=== PATIENT | male | born 1960 | race Caucasian/White ===

== ENCOUNTER 2022-07-13 15:08 | Inpatient (IN) ==
[2022-07-13] MEDS ORDERED: Heparin IV Adult Wt-Based Standard WITH Bolus Protocol IV STA (15:34)
[2022-07-13] MEDS ORDERED: HEPARIN SOD (PORCINE) 1000 UNIT/ML IV ONE (15:50)
[2022-07-13 15:53] LABS: Basophils # (auto) 0.03 K/uL (0-0.2); Basophils % (auto) 0.3 %; Eosinophils # (auto) 0.12 K/uL (0-0.50); Eosinophils % (auto) 1.3 %; Hematocrit (blood only) 35.8 % (40.1-51.0); Hemoglobin 12.2 g/dl (14.0-18.0); Immature Granulocytes # (auto) 0.05 K/uL (0.00-0.02); Immature Granulocytes % (auto) 0.5 %; Lymphocytes # (auto) 1.84 K/uL (1.2-3.4); Lymphocytes % (auto) 20.1 %; Mean Corpuscular Hemoglobin 31.1 pg (25.0-34.0); Mean Corpuscular Hgb Conc 34.1 g/dL (32.0-36.0); Mean Corpuscular Volume 91.3 fL (80.0-100.0); Mean Platelet Volume 9.7 fL (9.4-12.4); Monocytes # (auto) 0.98 K/uL (0.24-0.82); Monocytes % (auto) 10.7 %; Neutrophils # (auto) 6.12 K/uL (1.4-6.5); Neutrophils % (auto) 67.1 %; Platelet Count 345 K/uL (130-400); RDW Coefficient of Variation 13.5 % (11.5-14.5); RDW Standard Deviation 45.6 fL (36.4-46.3); Red Blood Count 3.92 M/uL (4.63-6.08); White Blood Count 9.14 K/ul (4.8-10.8)
--- NOTE | 2022-07-13 16:00 | History & Physical Report ---
Date of Service July 13, 2022 Assessment & Plan (1) Pulmonary embolism: (2) Low back pain: (3) Lung mass: (4) GERD (gastroesophageal reflux disease): Plan 61 y/o presenting with back pain: Lumbar spine CT. Chest CTA irregular 3.7 x 2.8 x 1.4 RUL mass; along with RUL mass measuring 3.4 x 2.6 . Multiple ground glass RUL nodules identified. Several segmental/subsegmental PEs in the right lung. Patient was started on heparin gtt; Lower extremity Doppler pending, ECHO ordered and pending. Pulmonary consult, H/O consult. Pain control with Tramadol. BMP pending. Pulmonary Embolism: Lung Mass: Several segmental/subsegmental PEs in right lung Irregular right upper lobe mass 3.7 x 2.8 x 1.4 Irregular right upper lobe mass measuring 3.4 x 2.6 Groundglass right upper lobe nodules; Heparin drip started in ED 1 PPD smoker x40 years; quit Lower extremity Doppler pending Echo ordered and pending Pulmonary consult placed for PE, biopsy evaluation. Will place heme/onc consult while await biospy for continuity of care as it is likely established care will be necessary. Low Back Pain: Recently prescribed Tramadol on Sunday 50 mg PO BID PRN; does provide pt with relief. On [address] negative for fracture; degenerative changes noted GERD: Barretts Esophagus: Stable; takes omeprazole; continue Disposition: PCP: Dr. Pruitt VTE Prophlayxis: Heparin gtt Code Status: Full Code Next of kin: ; Nettie who was updated at bedside. I personally was able to review all current laboratory work and diagnostic images obtained in the ED. Additionally, I was able to review the patients past medication reconciliation and history with direct visualization in the patients chart. This patient was seen in collaboration with Dr. Cornelius. History of Present Illness Chief Complaint: back pain Primary Care Provider: Danilo Vazquez MD On Sunday, the patient stated that he started to have back that radiated into his chest. He describes it as n intermittent muscle aching pain, not stabbing. The patient came into the ED, started on Tramadol. Lumbar spine CT unremarkable aside from degenerative changes. Chest CTA multiple irregular RUL masses: 3.7 x 2.8 x 1.4 and another measuring 3.4 x 2.6 . Additionally multiple groundglass right upper lobe nodules were identified. Pt reports mother and father both are and both had lung cancer. Pt brother also recently from throat cancer. Quit smoking cigarettes 10 years ago, but still chews tobacco daily. Pt denies alcohol or recreational drug use. He reports not consistently follow up with PCP. 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 Pt is not on any anticoagulants at home. ROS: Patient denies DÍAZ, dizziness, blurry or double vision, N/V/D. He does reports that he has been coughing (non-productive) and sneezing. He reported that when he would sneeze and talk a lot the pain worsened. No position alleviates the pain; however, Tramadol does help. On exam the patient is sitting in his hospital bed awake alert oriented x4 in no apparent distress. Patient is able to answer all questions appropriately and in a meaningful way. Patient's Yancy is at bedside and all questions answered. Patient receptive to admission overnight for further evaluation and management with specialist consultation from pulmonary and heme-onc. Please see A/P for further details. Allergies Allergy/AdvReac Type Severity Reaction Status Date / Time No Known Allergies Allergy NONE Verified 07/13/22 16:06 Home Medications Medication Instructions Recorded Confirmed Type multivitamin 1 tab PO DAILY 06/05/18 07/13/22 History omeprazole 40 mg capsule,delayed 40 mg PO QAM 07/10/22 07/13/22 History release tramadol 50 mg tablet 50 mg PO Q8H PRN pain #14 tabs 07/10/22 07/13/22 Rx apixaban 5 mg tablet (Eliquis) 5 mg PO DIRECTED #74 tabs 07/14/22 Rx Past Med/Surg History Medical History GERD (gastroesophageal reflux disease) GERD (gastroesophageal reflux disease) Pulmonary embolism Family History (Updated 07/13/22 @ 16:43 by KIKO Gamboa) Mother , Mom at 65 y/o Cancer lung cancer Diabetes Lung cancer Father , Dad passed at at 53 y/o Cancer lung cancer Diabetes Lung cancer Brother , at 65 y/o Cancer throat cancer Other No pertinent family history Denies family history of Heart disease Kidney disease Pulmonary embolism Social History Smoking Status: Former smoker Smoking End Date: 2001; Do You Dip or Chew Tobacco: Yes; Hx Alcohol Use: No Hx Substance Use: No Preferred Language: Puerto Rican Communication Ability: Effective 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 Beliefs That Will Affect Care: None Current Living Situation: Spouse Current Living Situation Comment: And wifes mother Other Information That Helps Us Care for You: No Feels Safe at Home: Yes Safety Concerns: Feels Safe At This Time Assistive Devices: Glasses Review of Systems Review of Systems: Neuro: (-) Falls, trauma, slurred speech HEENT: (-) DÍAZ, dizziness, dysphagia, visual or auditory changes CV: (-) CP, palpitations, swelling (+) musculoskeletal pain Resp: (-) SOB GI: (-) appetite changes, N/V/D, bowel changes : (-) urinary changes Skin: (-) rashes Psych: (-) anxiety, depression Physical Exam Physical Exam: Please see Dr. Cornelius's addendum for physical exam Results & Data Results & Data ([facility]) Vital Signs (Past 12 Hours) Vital Signs Temp Pulse Resp BP Pulse Ox O2 Del Method 07/13/22 15:16 37.5 C 84 18 147/77 H 97 Room Air Laboratory Results Short CBC 07/13/22 Range/Units 13:27 WBC 9.14 (4.8-10.8) K/ul Hgb 12.2 L (14.0-18.0) g/dl Hct 35.8 L (40.1-51.0) % Plt Count 345 (130-400) K/uL Diagnostic Findings Code Status & VTE Plan Code Status Full code in the event of cardiac or respiratory arrest VTE Prophylaxis Plan VTE Prophylaxis will be ordered: Yes Supervising Physician Co-Signing Physician Notes 61-year-old gentleman with significant family history of cancer presented to the ED with back pain and upon imaging was found to have likely metastatic disease. Patient was otherwise vitally stable and was reporting improvement in his back pain with tramadol. Oncology and pulmonology consulted. Pain management. Continue to monitor. Patient and his were made aware of the imaging findings and possible plan of care. Patient was also found to have blood clot and started on heparin drip. Upon examination: GENERAL: Alert and oriented x3. NAD, on RA. HEENT: No pallor, no icterus. Pupils equal, round and reactive to light. Oral mucosa moist. NECK: No JVD, no neck masses. HEART: S1 and S2 heard. Regular rate and rhythm. No murmur, no gallop. RESPIRATORY SYSTEM: Normal AP diameter. No accessory muscle use. No wheezing, no crackles. ABDOMEN: Soft, bowel sounds present, nontender, no distention. CENTRAL NERVOUS SYSTEM: No facial droop. Speech is clear. Obeys simple commands. Moves extremities. EXTREMITIES: No edema, no erythema seen. No vertebral line tenderness. I have seen and examined the patient and have discussed the case with the provider above. I agree with the assessment and plan as stated.
[2022-07-13 16:06] LABS: Partial Thromboplastin Time 28.6 Seconds (21.0-31.0); Prothrombin Time 10.5 Seconds (9.0-12.0)
[2022-07-13] MEDS: HEPARIN SODIUM/DEXTROSE 25,000 UNITS/500 ML BAG IV SCH (16:09)
[2022-07-13] MEDS: SODIUM CHLORIDE 0.9% 1000ML 1,000 ML IV SCH ×2 (16:14→23:41)
[2022-07-13 16:20] LABS: Albumin Globulin Ratio 1.3 (0.9-2); Albumin Level 4.1 gm/dl (3.4-5.0); BUN Creatinine Ratio 20.8 (10-20); Bilirubin,Total 1.1 mg/dl (0.2-1.0); Creatinine Clr Calc Pharmacy 82.8 ml/min; Est GFR (African American) 114.3 ml/min; Est GFR (Non-African American) 98.6 ml/min; Globulin 3.1 gm/dl (2.5-4.0); Potassium 3.4 mmol/L (3.5-5.1); Total Protein 7.2 gm/dl (6.0-8.3)
--- NOTE | 2022-07-13 16:23 | Emergency Department Note ---
History of Present Illness General Chief complaint: Referred by Doctor Stated complaint: REFERRED BY , BLOOD CLOTS IN LUNG Time Seen by Provider: 07/13/22 15:23 Source: patient and family Mode of arrival: ambulatory Limitations: no limitations History of Present Illness Provider complaint: called back due to abnormal CT Maximum Pain Intensity: 7 This is a 61-year-old male who was seen here several nights ago due to concern for back pain and right shoulder and right chest pain. Patient ultimately discharged home to follow-up closely with his family doctor. Upon obtaining the over read by in-house radiology in the morning, it was noted that on the CAT scan of his chest he did have multiple bilateral PEs. Attempts were made immediately upon learning this to contact the patient. We have been trying to contact him for several days and eventually with the help of his PCP were able to contact him and requested him to come back to the emergency department for additional evaluation. Patient presents today stating he still has back pain however the shoulder and chest pain has improved. He has been using the pain medication he was discharged on intermittently. He denies fevers, chills, nausea, vomiting. He denies any overt shortness of breath or leg swelling. We discussed use of anticoagulation and the need of additional testing. Home Medications Medication Instructions Recorded Confirmed Type multivitamin 1 tab PO DAILY 06/05/18 07/13/22 History omeprazole 40 mg capsule,delayed 40 mg PO QAM 07/10/22 07/13/22 History release tramadol 50 mg tablet 50 mg PO Q8H PRN pain #14 tabs 07/10/22 07/13/22 Rx Allergies Allergy/AdvReac Type Severity Reaction Status Date / Time No Known Allergies Allergy NONE Verified 07/13/22 16:06 Past Med/Surg History Medical History GERD (gastroesophageal reflux disease) GERD (gastroesophageal reflux disease) Pulmonary embolism Family History (Updated 07/13/22 @ 16:43 by KIKO Gamboa) Mother , Mom at 65 y/o Cancer lung cancer Diabetes Lung cancer Father , Dad passed at at 53 y/o Cancer lung cancer Diabetes Lung cancer Brother , at 65 y/o Cancer throat cancer Other No pertinent family history Denies family history of Heart disease Kidney disease Pulmonary embolism Social History Smoking Status: Former smoker Smoking End Date: 2001; Do You Dip or Chew Tobacco: Yes; Hx Alcohol Use: No Hx Substance Use: No Feels Safe at Home: Yes Review of Systems A total of 10 systems reviewed and were otherwise negative All systems reviewed & are unremarkable except as noted in HPI & below Physical Exam Vital Signs Vital Signs - 24 hr 07/13/22 15:16 07/13/22 16:00 Temperature 37.5 C Temperature Source Temporal Artery Scan Pulse Rate 84 69 Respiratory Rate 18 22 Respiratory Effort / Characteristics Non-Labored Respiratory Depth Normal Blood Pressure 147/77 H 130/73 Blood Pressure Mean 100 92 Pulse Oximetry 97 96 Oxygen Delivery Method Room Air Sepsis Recent Fever Within 48 Hours No Sepsis New/Unexplained Change in Mental Status No Sepsis Action Taken by Nursing No Action Required GENERAL: alert, well appearing, well nourished, no distress, non-toxic EYE EXAM: normal conjunctiva, PERRL and EOM's grossly intact OROPHARYNX: no exudate, no erythema, lips, buccal mucosa, and tongue normal and mucous membranes are moist NECK: supple, no nuchal rigidity, no adenopathy, non-tender LUNGS: Clear to auscultation. Normal chest wall mechanics, no w/r/r HEART: no murmurs, S1 normal and S2 normal ABDOMEN: abdomen soft, non-tender, normo-active bowel sounds, no masses, no rebound or guarding. BACK: Back is symmetrical on inspection and there is no deformity, no CVA tenderness. Pain with palpation across the entire low back, right greater than left. SKIN: no rashes and no bruising UPPER EXTREMITIES: upper extremities are grossly normal. FROM, nml pulses b/l. LOWER EXTREMITIES: No pitting edema. FROM, nml pulses b/l. NEURO EXAM: Normal sensorium, cranial nerves II-XII grossly intact, normal speech, no gross weakness of arms, no gross weakness of legs. Gross sensation intact. Course Administered Medications Sodium Chloride (Nss 1000ml) 1,000 mls @ 125 mls/hr IV .Q8H ROXANA Stop: 08/12/22 15:44 Last Admin: 07/13/22 16:14 Dose: 125 mls/hr Documented By: MT Heparin Sodium/Dextrose (Heparin Sodium/Dextrose) 25,000 units in 500 mls @ 21 mls/hr IV .[id number] [facility]; Protocol Stop: 08/12/22 15:59 Last Admin: 07/13/22 16:09 Dose: 1,050 units/hr, 21 mls/hr Documented By: NEHA Co-signed By: SWATI Discontinued Medications Heparin Sodium (Porcine) (Heparin Sod (Porcine) 1000 Unit/Ml) 1 units IV NOW ONE Stop: 07/13/22 15:51 Last Admin: 07/13/22 16:10 Dose: 5,000 units Documented By: NEHA Co-signed By: SWATI Critical Care Time Critical Care Time: Yes Total Critical Care Time: 35 Critical care of 35 min performed to assess and manage high likelihood of life- threatening bilateral PEs, involving labs and imaging performed with assessment to evaluate b/l PE diagnosis with frequent reassessment. This time includes bedside time, treatment discussions with patient/family/consultants, d ocumentation time and excludes procedure time. Medical Decision Making Differential Diagnosis Differential diagnoses includes but is not limited to pathologic fracture, metastatic disease, lumbar radiculopathy, muscle strain, facture, cauda equina, mass, and disc herniation. Medical Records Attestation: I reviewed the patient's medical records. Home Medications Current Medication List: was personally reviewed by me Laboratory Data Attestation: I reviewed the patient's lab results. Result diagrams: 07/13/22 13:27 07/13/22 13:27 Lab Results 07/13/22 07/13/22 07/13/22 Range/Units 13:27 13:27 13:27 WBC 9.14 (4.8-10.8) K/ul RBC 3.92 L (4.63-6.08) M/uL Hgb 12.2 L (14.0-18.0) g/dl Hct 35.8 L (40.1-51.0) % MCV 91.3 (80.0-100.0) fL MCH 31.1 (25.0-34.0) pg MCHC 34.1 (32.0-36.0) g/dL RDW Std Deviation 45.6 (36.4-46.3) fL RDW Coeff of Sheeba 13.5 (11.5-14.5) % Plt Count 345 (130-400) K/uL MPV 9.7 (9.4-12.4) fL Immature Gran % (Auto) 0.5 % Neut % (Auto) 67.1 % Lymph % (Auto) 20.1 % Plumas % (Auto) 10.7 % Eos % (Auto) 1.3 % Baso % (Auto) 0.3 % Neut # (Auto) 6.12 (1.4-6.5) K/uL Lymph # (Auto) 1.84 (1.2-3.4) K/uL Plumas # (Auto) 0.98 H (0.24-0.82) K/uL Eos # (Auto) 0.12 (0-0.50) K/uL Baso # (Auto) 0.03 (0-0.2) K/uL Immature Gran # (Auto) 0.05 H (0.00-0.02) K/uL PT 10.5 (9.0-12.0) Seconds INR 1.0 (0.9-1.1) APTT 28.6 (21.0-31.0) Seconds PTT Ratio 1.0 Sodium 137 (136-145) mmol/L Potassium 3.4 L (3.5-5.1) mmol/L Chloride 102 (98-107) mmol/L Carbon Dioxide 26 (21-32) mmol/L Anion Gap 9 (3-11) BUN 16 (6-23) mg/dl Creatinine 0.77 (0.6-1.4) mg/dl Est Cr Clr Drug Dosing 82.8 ml/min Est GFR ( Amer) 114.3 ml/min Est GFR (Non-Af Amer) 98.6 ml/min BUN/Creatinine Ratio 20.8 H (10-20) Glucose 95 (70-99(Fasting)) mg/dl Calcium 9.0 (8.5-10.1) mg/dl Magnesium 2.0 (1.7-2.4) mg/dl Total Bilirubin 1.1 H (0.2-1.0) mg/dl AST 24 (13-39) U/L ALT 22 (7-52) U/L Alkaline Phosphatase 68 (34-104) U/L Troponin I High Sens 4.6 (0-20) pg/ml Total Protein 7.2 (6.0-8.3) gm/dl Albumin 4.1 (3.4-5.0) gm/dl Globulin 3.1 (2.5-4.0) gm/dl Albumin/Globulin Ratio 1.3 (0.9-2) Lipase 7 L (11-82) U/L SARS-CoV-2, RNA, NAAT (NEGATIVE) 07/13/22 Range/Units 16:20 WBC (4.8-10.8) K/ul RBC (4.63-6.08) M/uL Hgb (14.0-18.0) g/dl Hct (40.1-51.0) % MCV (80.0-100.0) fL MCH (25.0-34.0) pg MCHC (32.0-36.0) g/dL RDW Std Deviation (36.4-46.3) fL RDW Coeff of Sheeba (11.5-14.5) % Plt Count (130-400) K/uL MPV (9.4-12.4) fL Immature Gran % (Auto) % Neut % (Auto) % Lymph % (Auto) % Plumas % (Auto) % Eos % (Auto) % Baso % (Auto) % Neut # (Auto) (1.4-6.5) K/uL Lymph # (Auto) (1.2-3.4) K/uL Plumas # (Auto) (0.24-0.82) K/uL Eos # (Auto) (0-0.50) K/uL Baso # (Auto) (0-0.2) K/uL Immature Gran # (Auto) (0.00-0.02) K/uL PT (9.0-12.0) Seconds INR (0.9-1.1) APTT (21.0-31.0) Seconds PTT Ratio Sodium (136-145) mmol/L Potassium (3.5-5.1) mmol/L Chloride (98-107) mmol/L Carbon Dioxide (21-32) mmol/L Anion Gap (3-11) BUN (6-23) mg/dl Creatinine (0.6-1.4) mg/dl Est Cr Clr Drug Dosing ml/min Est GFR ( Amer) ml/min Est GFR (Non-Af Amer) ml/min BUN/Creatinine Ratio (10-20) Glucose (70-99(Fasting)) mg/dl Calcium (8.5-10.1) mg/dl Magnesium (1.7-2.4) mg/dl Total Bilirubin (0.2-1.0) mg/dl AST (13-39) U/L ALT (7-52) U/L Alkaline Phosphatase (34-104) U/L Troponin I High Sens (0-20) pg/ml Total Protein (6.0-8.3) gm/dl Albumin (3.4-5.0) gm/dl Globulin (2.5-4.0) gm/dl Albumin/Globulin Ratio (0.9-2) Lipase (11-82) U/L SARS-CoV-2, RNA, NAAT NEGATIVE (NEGATIVE) Imaging Data Radiologist's Impression: Venous Doppler Study 07/13/22 15:35 US venous doppler LE BI CLINICAL HISTORY: PE's on CT TECHNIQUE: Bilateral lower extremity real-time compression venous ultrasound with Color Doppler imaging. Utilizing real-time ultrasonic imaging multiple real time high-resolution ultrasonic images with compression and noncompression maneuvers of the deep venous system in addition to color doppler imaging were performed from the common femoral vein through the proximal calf veins. COMPARISON: None available at the time of this dictation. FINDINGS: Currently there is normal compressibility of the deep venous system from the common femoral vein through the proximal calf veins. No superficial venous thrombosis is identified. Impression: No evidence of deep venous thrombus. ACT 112: Negative or not required by law. Electronically signed by: Jerome Lacey M.D. 07/13/2022 5:28 PM ECG Data Attestation: I personally reviewed and interpreted this ECG as follows: Indication: + other Rate (beats per minute): 70 Rhythm: + normal sinus ECG Intervals/blocks: + Normal QRS and + Normal QT ECG Kegley: + Normal ECG ST segments: + Normal ST segments MDM Narrative An order was placed for continuous cardiac monitoring. The monitor shows a rate of _72_ with _normal sinus_ rhythm. This is a 61-year-old male who returns to the emergency room after being contacted due to a radiology discrepancy from his initial visit earlier in the week. Patient found to have multiple bilateral PEs on radiology overread after being discharged home following his first visit. Patient also noted to have a spiculated mass in the right upper lobe which I spent significant time discussing this with him and family and the importance of close follow-up. Patient returns stating his pain was improved and he was using the pain medication he was discharged on. He denies shortness of breath, fevers, or leg swelling. We discussed the additional radiographic information that was now available and the need for additional inpatient management. Repeat labs drawn and sent, heparin bolus and drip was ordered, lower extremity Dopplers added. Case discussed with hospitalist for additional evaluation and management. Impression & Plan Low back pain, Chest pain, Lung mass, Pulmonary embolism Discharge Plan Visit Data Chief Complaint: Referred by Doctor Stated Complaint: REFERRED BY , BLOOD CLOTS IN LUNG ED Provider: Fernanda Mojica Discharge Problem: Low back pain, Chest pain, Lung mass, Pulmonary embolism Patient Disposition: Being Evaluated by Hospitalist Prescriptions Prescriptions: No Action multivitamin Tablet 1 tab PO DAILY omeprazole 40 mg capsule,delayed release(DR/EC) 40 mg PO QAM tramadol 50 mg tablet 50 mg PO Q8H PRN (Reason: pain) Qty: 14 0RF Referrals Referrals: Danilo Vazquez MD [Primary Care Provider] -
[2022-07-13 16:26] LABS: Troponin I High Sensitivity 4.6 pg/ml (0-20)
--- NOTE | 2022-07-13 17:29 | Ultrasound Report ---
US venous doppler LE BI CLINICAL HISTORY: PE's on CT TECHNIQUE: Bilateral lower extremity real-time compression venous ultrasound with Color Doppler imagi ng. Utilizing real-time ultrasonic imaging multiple real time high-resolution ultrasonic images with compression and noncompression maneuvers of the deep venous system in addition to color doppler imagi ng were performed from the common femoral vein through the proximal calf veins. COMPARISON: None available at the time of this dictation. FINDINGS: Currently there is normal compressibility of the deep venous system from the common femoral vein thro ugh the proximal calf veins. No superficial venous thrombosis is identified. Impression: No evidence of deep venous thrombus. ACT 112: Negative or not required by law. Electronically signed by: Jerome Lacey M.D. 07/13/2022 5:28 PM
[2022-07-13] MEDS ORDERED: POLYETHYLENE (MIRALAX) 17 GM PACK PO PRN (18:33)
[2022-07-13] MEDS ORDERED: MAGNESIUM HYDROXIDE SUSP 30 ML UDC PO PRN (18:33)
[2022-07-13] MEDS ORDERED: ACETAMINOPHEN 325 MG TAB PO PRN (18:33)
[2022-07-13] MEDS ORDERED: ONDANSETRON INJ 2 MG/ML 2 ML VIAL IV PRN (18:33)
[2022-07-13] MEDS ORDERED: ALUMINUM/MAGNESIUM SUSP 30 ML UDC PO PRN (18:33)
[2022-07-13] MEDS: traMADol HCL 50 MG TABLET PO PRN (19:51)
[2022-07-13 22:50] LABS: Partial Thromboplastin Ratio 1.5
[2022-07-14] MEDS: traMADol HCL 50 MG TABLET PO PRN ×2 (03:53→12:00)
[2022-07-14 06:24] LABS: Hematocrit (blood only) 35.2 % (40.1-51.0); Hemoglobin 11.7 g/dl (14.0-18.0); Mean Corpuscular Hemoglobin 30.6 pg (25.0-34.0); Mean Corpuscular Hgb Conc 33.2 g/dL (32.0-36.0); Mean Corpuscular Volume 92.1 fL (80.0-100.0); Platelet Count 297 K/uL (130-400); RDW Coefficient of Variation 13.6 % (11.5-14.5); RDW Standard Deviation 46.4 fL (36.4-46.3); Red Blood Count 3.82 M/uL (4.63-6.08); White Blood Count 7.88 K/ul (4.8-10.8)
[2022-07-14 06:36] LABS: Partial Thromboplastin Ratio 1.6; Partial Thromboplastin Time 44.2 Seconds (21.0-31.0)
[2022-07-14 06:51] LABS: BUN Creatinine Ratio 21.2 (10-20); Calcium 8.2 mg/dl (8.5-10.1); Creatinine Clr Calc Pharmacy 97.1 ml/min; Est GFR (African American) 121.8 ml/min; Est GFR (Non-African American) 105.1 ml/min; Magnesium 2.1 mg/dl (1.7-2.4); Potassium 3.5 mmol/L (3.5-5.1)
[2022-07-14] MEDS: SODIUM CHLORIDE 0.9% 1000ML 1,000 ML IV SCH (07:15)
[2022-07-14] MEDS ORDERED: Flu Vaccine (Fluarix) 0.5mL SYR (Standard Dose) IM ONE (08:00)
[2022-07-14] MEDS ORDERED: MULTIVITAMIN TAB PO SCH (09:00)
[2022-07-14] MEDS ORDERED: PANTOprazole 40 MG TAB PO SCH (09:00)
--- NOTE | 2022-07-14 09:04 | XRay Report ---
XR chest 1V portable HISTORY: 61 years-old Male PE . Acute shortness of breath COMPARISON: CTA chest 07/10/2022 TECHNIQUE: AP view of the chest FINDINGS: Cardiomediastinal and hilar silhouettes are within normal limits. No pneumothorax, large pleural effu minda or overt pulmonary edema. Suspicious 3.4 cm mass mass within the right upper lobe with 3.7 cm ri ght apical mass. Additional irregular pulmonary nodules with emphysema. And trace right pleural effus ion. Degenerative changes of the shoulders and spine. Lytic T11 lesion is better noted on the compari son CT study. Hazy ill-defined opacity of the medial right lung base may be secondary to summation de nsity. IMPRESSION: Emphysema with suspicious right lung masses and bilateral pulmonary nodules redemonstrate d, better characterized on the CTA chest study from 07/10/2022. ACT 112: Negative or not required by law. The above report was generated using voice recognition software. It may contain grammatical, syntax o r spelling errors. Electronically signed by: Jose Wilson M.D. 07/14/2022 9:03 AM
--- NOTE | 2022-07-14 09:25 | XRay Report ---
ORBIT RADIOGRAPHS 3 VIEWS HISTORY: pre-MRI screening. COMPARISON: None. FINDINGS: There are no radiopaque foreign bodies identified within the orbits. IMPRESSION: No radiopaque foreign bodies identified within the orbits. ACT 112: Negative or not required by law. Electronically signed by: [place] Abebe M.D. 07/14/2022 9:24 AM
[2022-07-14] MEDS ORDERED: GADOBUTROL 65ML VIAL IV ONE (09:54)
--- NOTE | 2022-07-14 10:21 | Magnetic Resonance Report ---
MR brain wo/w con CLINICAL HISTORY: staging, r/o mets TECHNIQUE: Multiplanar and multisequence MR images of the brain were obtained prior to and following administration of gadolinium contrast. Comparison: None available at the time of this dictation. FINDINGS: No abnormal restricted diffusion is identified. The white matter is unremarkable. The ventricular sys tem is normal in appearance. No mass or abnormal enhancement is seen. There is no mass effect or midl ine shift. There is no evidence of acute intraparenchymal hemorrhage. No extra axial fluid collection s are seen. The corpus callosum, pituitary gland, and cerebellar tonsils appear grossly unremarkable. Flow voids of the major intracranial arterial vessels are identified. The imaged portions of the para nasal sinuses, mastoid air cells, and orbits are unremarkable. IMPRESSION: No acute abnormality is seen in particular there is no evidence of intracranial metastasis. ACT 112: Negative or not required by law. Electronically signed by: Jerome Lacey M.D. 07/14/2022 10:19 AM
--- NOTE | 2022-07-14 10:38 | Electrocardiogram Report ---
Test Reason : Blood Pressure : / mmHG Vent. Rate : 070 BPM Atrial Rate : 070 BPM P-R Int : 146 ms QRS Dur : 092 ms QT Int : 398 ms P-R-T Axes : 070 048 065 degrees QTc Int : 429 ms Normal sinus rhythm Normal ECG When compared with ECG of 10-JUL-2022 18:28, No significant change was found Confirmed by Morris Huffman ([id number]) on 07/14/2022 10:37:54 AM Referred By: Danilo Vazquez Confirmed By:Fredo Huffman
--- NOTE | 2022-07-14 11:13 | Pulmonary Consultation ---
Date of Consultation July 14, 2022 Assessment & Plan (1) Pulmonary embolism: (2) Abnormal CT scan of lung: (3) Multiple pulmonary nodules: Plan Impression: 61-year-old male with family history of lung cancer and tobacco abuse admitted with idiopathic dynamically insignificant PEs and found to have bilateral pulmonary nodules with some mediastinal and hilar adenopathy. Pattern is concerning for potential malignancy. Recommendations: 1. Subacute/acute PE: Agree with anticoagulation. Echocardiogram shows no evidence of RV strain. Troponin was negative. Okay to transition to oral anticoagulants in the form of DOAC. Unclear if this is associated with malignancy. Duration of anticoagulation to be determined based on work-up of other medical issues. 2. Pulmonary nodules with adenopathy: There are no imagings for comparison. Patient has bilateral nodules. Malignant and inflammatory conditions would be in the differential. I would recommend proceeding with a PET scan which can only be performed in the outpatient setting. Based on that finding, could consider bronchoscopy with endobronchial ultrasound and transbronchial needle aspiration. Would plan on initially proceeding with assessment of mediastinal lymph node stations. If that were unremarkable, the lesions may be amenable to navigational bronchoscopy. Would need to biopsy 2 lesions to confirm pathology given its multifocal and bilateral appearance. Typically, try and avoid invasive procedures in patients with acute PE for several weeks to allow for stability. 3. At this point in time the patient appears stable to dismiss from the hospital. He is had MRI scanning of the brain which was unrevealing. If the PET scan can be arranged in the outpatient setting, I would be happy to see him back after that scan is completed in the pulmonary clinic to arrange for additional follow-up and management. The above recommendations and plan were extensively discussed with the patient at the time of evaluation. Questions were answered to the best my ability. He expressed understanding and is in agreement with the plan as outlined. Pulmonary will sign off at this point time. Feel free to contact us with additional questions or concerns. History of Present Illness Attending Physician: Aquiles Cornelius MD History of Present Illness Asked by hospitalist to assist in evaluation and management of this patient admitted with multiple pulmonary nodules and PE. History is obtained from discussion with the patient as well as review of the electronic medical record. Patient is a 61-year-old male who quit smoking about 6 or 7 years ago. Prior to that he has about a 67-98-xxyw-year history. He has a family history of lung cancer stating that both of his parents he believes were diagnosed with lung cancer although he is not able to elucidate any additional details. Unfortunately his parents are both . The patient presented to the emergency room for evaluation of back pain. He states this pain has been going on for over 3 weeks. His primary care is performed through [facility]. He is never seen a dock pumper before. He cannot recall having had prior CT scanning performed. Patient initially was seen in the emergency room 07/10/2022. CT angiogram at that time showed bilateral PEs however the patient was lost to follow-up for several days. He eventually was recontacted and brought back to the emergency room. He continued to have pain in the shoulder. He has not had any significant chest discomfort, syncope, or presyncope and has not noted any significant lower extremity edema. No hemoptysis. He cannot recall any prior history of thromboembolic disease and there is no family history of thrombosis, unexplained cardiac , or strokes that he is aware of. 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 He has dogs at home but no other animal exposures. No other occupational or environmental exposures. He denies fevers chills or night sweats. Allergies Allergy/AdvReac Type Severity Reaction Status Date / Time No Known Allergies Allergy NONE Verified 07/13/22 16:06 Home Medications Medication Instructions Recorded Confirmed Type multivitamin 1 tab PO DAILY 06/05/18 07/13/22 History omeprazole 40 mg capsule,delayed 40 mg PO QAM 07/10/22 07/13/22 History release tramadol 50 mg tablet 50 mg PO Q8H PRN pain #14 tabs 07/10/22 07/13/22 Rx apixaban 5 mg tablet (Eliquis) 5 mg PO DIRECTED #74 tabs 07/14/22 Rx Patient History Medical History GERD (gastroesophageal reflux disease) GERD (gastroesophageal reflux disease) Pulmonary embolism Family History (Updated 07/13/22 @ 16:43 by KIKO Gamboa) Mother , Mom at 65 y/o Cancer lung cancer Diabetes Lung cancer Father , Dad passed at at 53 y/o Cancer lung cancer Diabetes Lung cancer Brother , at 65 y/o Cancer throat cancer Other No pertinent family history Denies family history of Heart disease Kidney disease Pulmonary embolism Social History Smoking Status: Former smoker Smoking End Date: 2001; Do You Dip or Chew Tobacco: Yes; Hx Alcohol Use: No Hx Substance Use: No Preferred Language: Czech Communication Ability: Effective Agricultural 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 Required: No Beliefs That Will Affect Care: None Current Living Situation: Spouse Current Living Situation Comment: And wifes mother Other Information That Helps Us Care for You: No Feels Safe at Home: Yes Safety Concerns: Feels Safe At This Time Assistive Devices: Glasses Review of Systems Review of Systems: All systems reviewed & are unremarkable except as noted in Subjective Physical Exam Constitutional: WD/WN, vitals as above Neck: trachea midline, no thyromegaly Respiratory: normal respiratory effort, lungs clear to auscultation Cardiovascular: RRR, no murmur, no edema Gastrointestinal (Abdomen): normal bowel sounds, soft, nontender, no hepatosplenomegaly Musculoskeletal: Extremities: extremities normal to inspection Skin: no rashes, warm and dry Neurologic: Nonfocal exam Lymphatic: no cervical lymphadenopathy Results & Data Results & Data ([facility]) Vital Signs (Past 12 Hours) Vital Signs Temp Pulse Resp BP Pulse Ox O2 Del Method 07/14/22 07:38 36.5 C 67 16 140/89 98 Room Air 07/14/22 03:35 36.6 C 63 20 143/69 H 98 Room Air Diagnostic Findings Echocardiogram performed 07/14/2022 showed an EF of 60 to 65% without wall motion abnormalities. Diastolic dysfunction was normal. Normal RV function. Mild aortic insufficiency. Critical Care Results & Data Vital Signs (Past 12 Hours) Vital Signs Temp Pulse Resp BP Pulse Ox O2 Del Method 07/14/22 07:38 36.5 C 67 16 140/89 98 Room Air 07/14/22 03:35 36.6 C 63 20 143/69 H 98 Room Air Lab & Micro Results (Past 24 Hours) 2 RBC 3.82 M/uL (4.63-6.08) L 07/14/22 WBC 7.88 K/ul (4.8-10.8) 07/14/22 Hgb 11.7 g/dl (14.0-18.0) L 07/14/22 Hct 35.2 % (40.1-51.0) L 07/14/22 MCV 92.1 fL (80.0-100.0) 07/14/22 MCH 30.6 pg (25.0-34.0) 07/14/22 MCHC 33.2 g/dL (32.0-36.0) 07/14/22 RDW Standard Deviation 46.4 fL (36.4-46.3) H 07/14/22 RDW Coefficient of Variation 13.6 % (11.5-14.5) 07/14/22 Plt Count 297 K/uL (130-400) 07/14/22 MPV 10.0 fL (9.4-12.4) 07/14/22 Neutrophils (%) (Auto) 67.1 % 07/13/22 Lymphocytes (%) (Auto) 20.1 % 07/13/22 Monocytes # (Auto) 0.98 K/uL (0.24-0.82) H 07/13/22 Eosinophils # (Auto) 0.12 K/uL (0-0.50) 07/13/22 Immature Granulocyte % (Auto) 0.5 % 07/13/22 Neutrophils # (Auto) 6.12 K/uL (1.4-6.5) 07/13/22 Lymphocytes # (Auto) 1.84 K/uL (1.2-3.4) 07/13/22 Monocytes # (Auto) 0.98 K/uL (0.24-0.82) H 07/13/22 Eosinophils # (Auto) 0.12 K/uL (0-0.50) 07/13/22 Basophils # (Auto) 0.03 K/uL (0-0.2) 07/13/22 Immature Granulocyte # (Auto) 0.05 K/uL (0.00-0.02) H 07/13 Na 138 mmol/L (136-145) 07/14/22 K 3.5 mmol/L (3.5-5.1) 07/14/22 Cl 106 mmol/L (98-107) 07/14/22 CO2 25 mmol/L (21-32) 07/14/22 Anion Gap 7 (3-11) 07/14/22 BUN 14 mg/dl (6-23) 07/14/22 Creatinine 0.66 mg/dl (0.6-1.4) 07/14/22 Estimated GFR ( Amer) 121.8 ml/min 07/14/22 Estimated GFR (Non-Af Amer) 105.1 ml/min 07/14/22 BUN/Creatinine Ratio 21.2 (10-20) H 07/14/22 Glu 108 mg/dl (70-99(Fasting)) H 07/14/22 Ca 8.2 mg/dl (8.5-10.1) L 07/14/22 Total Bilirubin 1.1 mg/dl (0.2-1.0) H 07/13/22 AST 24 U/L (13-39) 07/13/22 ALT 22 U/L (7-52) 07/13/22 Alkaline Phosphatase 68 U/L (34-104) 07/13/22 TP 7.2 gm/dl (6.0-8.3) 07/13/22 Albumin 4.1 gm/dl (3.4-5.0) 07/13/22 Globulin 3.1 gm/dl (2.5-4.0) 07/13/22 Albumin/Globulin Ratio 1.3 (0.9-2) 07/13/22 Mg 2.1 mg/dl (1.7-2.4) 07/14/22 05:37 Calcium Level 8.2 mg/dl (8.5-10.1) L 07/14/22 05:37 Prothromb Time International Ratio 1.0 (0.9-1.1) 07/13/22 13:2 7 Diagnostic Findings (Past 24 Hours) Venous Doppler Study 07/13/22 15:35 US venous doppler LE BI CLINICAL HISTORY: PE's on CT TECHNIQUE: Bilateral lower extremity real-time compression venous ultrasound with Color Doppler imaging. Utilizing real-time ultrasonic imaging multiple real time high-resolution ultrasonic images with compression and noncompression maneuvers of the deep venous system in addition to color doppler imaging were performed from the common femoral vein through the proximal calf veins. COMPARISON: None available at the time of this dictation. FINDINGS: Currently there is normal compressibility of the deep venous system from the common femoral vein through the proximal calf veins. No superficial venous thrombosis is identified. Impression: No evidence of deep venous thrombus. ACT 112: Negative or not required by law. Electronically signed by: Jerome Lacey M.D. 07/13/2022 5:28 PM Brain MRI 07/14/22 07:32 MR brain wo/w con CLINICAL HISTORY: staging, r/o mets TECHNIQUE: Multiplanar and multisequence MR images of the brain were obtained prior to and following administration of gadolinium contrast. Comparison: None available at the time of this dictation. FINDINGS: No abnormal restricted diffusion is identified. The white matter is unremarkable. The ventricular system is normal in appearance. No mass or abnormal enhancement is seen. There is no mass effect or midline shift. There is no evidence of acute intraparenchymal hemorrhage. No extra axial fluid collections are seen. The corpus callosum, pituitary gland, and cerebellar tonsils appear grossly unremarkable. Flow voids of the major intracranial arterial vessels are identified. The imaged portions of the paranasal sinuses, mastoid air cells, and orbits are unremarkable. IMPRESSION: No acute abnormality is seen in particular there is no evidence of intracranial metastasis. ACT 112: Negative or not required by law. Electronically signed by: Jerome Lacey M.D. 07/14/2022 10:19 AM Chest X-Ray 07/14/22 08:00 XR chest 1V portable HISTORY: 61 years-old Male PE . Acute shortness of breath COMPARISON: CTA chest 07/10/2022 TECHNIQUE: AP view of the chest FINDINGS: Cardiomediastinal and hilar silhouettes are within normal limits. No pneumothorax, large pleural effusion or overt pulmonary edema. Suspicious 3.4 cm mass mass within the right upper lobe with 3.7 cm right apical mass. Additional irregular pulmonary nodules with emphysema. And trace right pleural effusion. Degenerative changes of the shoulders and spine. Lytic T11 lesion is better noted on the comparison CT study. Hazy ill-defined opacity of the medial right lung base may be secondary to summation density. IMPRESSION: Emphysema with suspicious right lung masses and bilateral pulmonary nodules redemonstrated, better characterized on the CTA chest study from 07/10/2022. ACT 112: Negative or not required by law. The above report was generated using voice recognition software. It may contain grammatical, syntax or spelling errors. Electronically signed by: Jose Wilson M.D. 07/14/2022 9:03 AM Orbit X-Ray 07/14/22 08:01 ORBIT RADIOGRAPHS 3 VIEWS HISTORY: pre-MRI screening. COMPARISON: None. FINDINGS: There are no radiopaque foreign bodies identified within the orbits. IMPRESSION: No radiopaque foreign bodies identified within the orbits. ACT 112: Negative or not required by law. Electronically signed by: [place] Abebe M.D. 07/14/2022 9:[address] ANGIOGRAPHY OF THE CHEST, PULMONARY EMBOLUS PROTOCOL 07/10/22 independently reviewed CLINICAL HISTORY: Atypical chest pain. COMPARISON STUDY: Chest radiograph performed earlier today. TECHNIQUE: Following IV administration of 110 mL of Optiray, helical axial images of the chest were obtained utilizing the pulmonary embolus protocol. Maximal intensity projections and sagittal and coronal reformats were viewed on an independent 3D workstation. IV contrast was administered without complication. Automated exposure control was utilized for the study. A dose lowering technique was utilized adhering to the principles of ALARA. CT DOSE: 574.34 mGy.cm FINDINGS: There are several small segmental and subsegmental pulmonary emboli within the right lung. No central pulmonary emboli are present. The size of the heart is normal. There are multiple pathologically enlarged right hilar and mediastinal lymph nodes. Index right suprahilar node measures approximately 2.4 x 1.8 cm. Index subcarinal lymph node measures 2.7 x 2.2 cm. There is no pneumothorax. A small right pleural effusion is present. There is mild emphysema. There is an irregular 3.7 x 2.8 x 1.4 cm right upper lobe mass on image 231 of 321. There is a predominantly solid irregular mass within the right upper lobe on image 181 that measures 3.4 x 2.6 cm. This has associated fissural retraction. Numerous additional mixed solid and ground glass right upper lobe nodules are present. There is a spiculated 1.3 x 1.1 cm lingular nodule. Smaller mixed solid and groundglass lingular nodule is present. Central airways are patent. A few suspected perineural cysts/meningoceles are noted. There is a 1.7 cm lytic lesion within the left pedicle of T11. A 1.5 cm right adrenal nodule is present. IMPRESSION: 1. Several small segmental and subsegmental pulmonary emboli within the right lung. This finding will be called/faxed to ordering provider at time of dictation. 2. 3.7 x 2.8 cm mass within the apical segment of the right upper lobe. Additional 3.4 x 2.6 cm spiculated mass within the anterior segment of the right upper lobe. Multiple additional mixed solid and groundglass nodules. 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 3. Right hilar and subcarinal pathologic lymphadenopathy. 4. Suspected 1.7 cm lytic metastasis within the left pedicle of T11. 5. Indeterminate 1.5 cm right adrenal nodule. 6. Small right pleural effusion. I & O Totals 24 Hours 07/13/22 07/14/22 07/15/22 06:59 06:59 06:59 Intake Total 1793.30 / 1793.30 1000 / 1000 Output Total 200 / 200 Balance 1593.30 / 1593.30 1000 / 1000 Cumulative 07/13/22 15:08 thru 07/14/22 09:55 Intake Total 2793.30 Output Total 200 Balance 2593.30 RT Ventilator Mngmt (Last Documented) Ventilator Ordered Settings Respiratory Rate 16 07/14/22 07:38 Ventilator - PT Measurements Respiratory Rate 16 PG Care Time/CCT Total # of Minutes Spent Total Time Spent with Patient: Total time spent is greater than 50% in coordination of care (as documented) at patient's floor/unit and/or counseling patient: Coding Level of Care Code 31151 Office/OBS Consult Lvl 4 Diagnoses Pulmonary embolism I26.[address] scan of lung R91.8 Multiple pulmonary nodules R91.8
--- NOTE | 2022-07-14 12:35 | Consultation ---
Date of Consultation July 14, 2022 Assessment & Plan (1) Multiple pulmonary nodules: With a history of smoking and the combination of pathologic appearing lung masses and pathologic mediastinal adenopathy it seems highly likely that we are dealing with a bronchogenic malignancy. Back discomfort is not associated with immediately obvious metastases to the spine though that is not completely excluded, there may be an element of pulmonary embolism related pain and/or referred pain from his known lesions that was the cause of that. As discussed below, a new malignancy could certainly make him more hypercoagulable and there could well be a pathophysiologic connection between his lung/mediastinal masses and the presentation with pulmonary embolism. Agree with Dr. Desouza that it would be prudent to have at least some interval of stabilization on anticoagulation before proceeding with diagnostic studies. PET scan will be an important component of initial staging but currently those studies are being booked 4 weeks out. If he has a small cell neuroendocrine histology, it may be important to try to establish at least a provisional diagnosis a little bit sooner than that. We will continue to work with pulmonary medicine on optimizing the time interval for a diagnostic procedure. DWhen dagnostic studies are performed we will seek as much volume of tissue as we can safely and reasonably obtain. NGS studies are an increasingly important component of additional diagnosis and evaluation to help guide towards noncytotoxic options that may be both more effective and better tolerated. If we cannot get sufficient tissue for full NGS, we would have the option for peripheral circulation guardant 360 like testing Presentation suggests that at a minimum he has stage III disease. PET scan may suggest more distant involvement in the skeleton and/or adrenal glands which would indicate stage IV. Thankfully, he does not seem to have ELECTRIC FORK OPERATOR metastases at this time. Final staging will differentiate between some potential for "cure" versus palliative only treatment options but even if he is only stage III, prognosis is somewhat guarded and achieving a durable remission could be challenging. Anticipate discharge on DOAC, coordinated follow-up with pulmonary medicine for diagnosis, and then we will reconvene with him in the cancer center to review his final pathology findings, staging studies, and review prognosis and treatment options (2) Pulmonary embolism: No family history of suggestions of hypercoagulability nor previous personal history of venous thromboembolism. VTE can be frequently seen as a presenting sign/symptom of a new underlying malignancy and there seems to be a likely [id number] relationship here. Transition to DOAC once stable and he will likely need to remain on that indefinitely certainly through any courses of chemotherapy but also as there is a risk that we will not be able to eradicate his disease altogether but we certainly hope to offer some extended response and control (3) FH: cancer: Note that his mother had lung cancer, his father had lung cancer at 53, and a brother had throat cancer at 65 but these all seem to be smoking-related issues. This is not a classic picture for a high penetrance germline family cancer syndrome though we may not as yet be able to fully identify those families who may have predilection's to tobacco induced malignancies. Plan Transition to DOAC as he is stable to do so. We will work on scheduling PET scan but anticipate that that may not be available until after Thanksgiving Will continue to work with Dr. Desouza on optimal timing for diagnostic studies Once we have a diagnosis available Will convene in the cancer center to review prognosis and treatment options History of Present Illness Reason for Consultation: Patient presents with 2 right upper lobe masses, pathologic appearing subcarinal adenopathy, and an indeterminate right adrenal nodule associated with acute onset\\right chest discomfort and pulmonary emboli. Attending Physician: Aquiles Cornelius MD History of Present Illness Former smoker who stopped 10 years ago though he continues to use chewing tobacco. Former heavier drinker but has given that up altogether. He works at the [employer] and has no history of major toxic exposures, asbestos exposures, radiation exposures. He has had a history of Choi's esophagus/GERD but that has been doing well on PPI. He has no specific history of cancer. He developed subacute discomfort of right back pain radiating to the right chest and came in for evaluation. Initial imaging revealed multifocal right lung nodules as well as pathologic appearing mediastinal adenopathy and an indeterminate right adrenal nodule plain films and CT of the spine do not show a definitive area of metastatic like change. He retrospectively does not notice any history of major weight loss (though he is thin all the time), hemoptysis, breathing changes, or other prodromal suggestions of an evolving malignancy Currently he is feeling much more comfortable and is continuing on anticoagulation without any major bleeding episodes Allergies Allergy/AdvReac Type Severity Reaction Status Date / Time No Known Allergies Allergy NONE Verified 07/13/22 16:06 Home Medications Medication Instructions Recorded Confirmed Type multivitamin 1 tab PO DAILY 06/05/18 07/13/22 History omeprazole 40 mg capsule,delayed 40 mg PO QAM 07/10/22 07/13/22 History release tramadol 50 mg tablet 50 mg PO Q8H PRN pain #14 tabs 07/10/22 07/13/22 Rx apixaban 5 mg tablet (Eliquis) 5 mg PO DIRECTED #74 tabs 07/14/22 Rx Patient History Medical History GERD (gastroesophageal reflux disease) GERD (gastroesophageal reflux disease) Pulmonary embolism Family History (Updated 07/13/22 @ 16:43 by KIKO Gamboa) Mother , Mom at 65 y/o Cancer lung cancer Diabetes Lung cancer Father , Dad passed at at 53 y/o Cancer lung cancer Diabetes Lung cancer Brother , at 65 y/o Cancer throat cancer Other No pertinent family history Denies family history of Heart disease Kidney disease Pulmonary embolism Social History Smoking Status: Former smoker Smoking End Date: 2001; Do You Dip or Chew Tobacco: Yes; Hx Alcohol Use: No Hx Substance Use: No Preferred Language: Japanese Communication Ability: Effective Refresh Technician Required: No Beliefs That Will Affect Care: None Current Living Situation: Spouse Current Living Situation Comment: And wifes mother Other Information That Helps Us Care for You: No Feels Safe at Home: Yes Safety Concerns: Feels Safe At This Time Assistive Devices: Glasses Review of Systems Review of Systems: Other than the back/chest discomfort and history of GERD he has no particular active complaints at this time on a complete review of system Physical Exam Physical Exam: Blood pressure 158/74, pulse 74, respirations and 18 and nonlabored, temperature 36.8 pulse ox 99% on room air he is sitting upright in the hospital bed alert and cooperative and in no acute distress. Poor dentition but otherwise no major abnormal findings on HEENT exam No dramatically pathologic adenopathy in the cervical, supraclavicular or axillary regions Lungs show decreased breath sounds but he is moving air well without the use of accessory muscles, he is not tachypnea, there is no focal rub or rales. Cardiac sounds are regular without pathological murmur His abdomen seems benign without gross organomegaly or mass Extremities do not show any evidence of chau DVT at this time Results & Data ([facility]) Vital Signs (Past 12 Hours) Vital Signs Temp Pulse Resp BP Pulse Ox O2 Del Method 07/14/22 11:58 36.8 C 74 18 158/74 H 99 Room Air 07/14/22 07:38 36.5 C 67 16 140/89 98 Room Air 07/14/22 03:35 36.6 C 63 20 143/69 H 98 Room Air Laboratory Results Abnormal lab results 07/13/22 07/13/22 07/13/22 Range/Units 13:27 13:27 22:18 RBC 3.92 L (4.63-6.08) M/uL Hgb 12.2 L (14.0-18.0) g/dl Hct 35.8 L (40.1-51.0) % RDW Std Deviation (36.4-46.3) fL [place]leigh # (Auto) 0.98 H (0.24-0.82) K/uL Immature Gran # (Auto) 0.05 H (0.00-0.02) K/uL ESR (0-20) mm/hr APTT 42.0 H (21.0-31.0) Seconds Potassium 3.4 L (3.5-5.1) mmol/L BUN/Creatinine Ratio 20.8 H (10-20) Glucose (70-99(Fasting)) mg/dl Calcium (8.5-10.1) mg/dl Total Bilirubin 1.1 H (0.2-1.0) mg/dl Lipase 7 L (11-82) U/L 07/14/22 07/14/22 07/14/22 Range/Units 05:37 05:37 05:37 RBC 3.82 L (4.63-6.08) M/uL Hgb 11.7 L (14.0-18.0) g/dl Hct 35.2 L (40.1-51.0) % RDW Std Deviation 46.4 H (36.4-46.3) fL [place]leigh # (Auto) (0.24-0.82) K/uL Immature Gran # (Auto) (0.00-0.02) K/uL ESR 29 H (0-20) mm/hr APTT 44.2 H (21.0-31.0) Seconds Potassium (3.5-5.1) mmol/L BUN/Creatinine Ratio (10-20) Glucose (70-99(Fasting)) mg/dl Calcium (8.5-10.1) mg/dl Total Bilirubin (0.2-1.0) mg/dl Lipase (11-82) U/L 07/14/22 Range/Units 05:37 RBC (4.63-6.08) M/uL Hgb (14.0-18.0) g/dl Hct (40.1-51.0) % RDW Std Deviation (36.4-46.3) fL [place]leigh # (Auto) (0.24-0.82) K/uL Immature Gran # (Auto) (0.00-0.02) K/uL ESR (0-20) mm/hr APTT (21.0-31.0) Seconds Potassium (3.5-5.1) mmol/L BUN/Creatinine Ratio 21.2 H (10-20) Glucose 108 H (70-99(Fasting)) mg/dl Calcium 8.2 L (8.5-10.1) mg/dl Total Bilirubin (0.2-1.0) mg/dl Lipase (11-82) U/L Diagnostic Findings 07/10/2022 Chest CTA There are several small segmental and subsegmental pulmonary emboli within the right lung. No central pulmonary emboli are present. The size of the heart is normal. There are multiple pathologically enlarged right hilar and mediastinal lymph nodes. Index right suprahilar node measures approximately 2.4 x 1.8 cm. Index subcarinal lymph node measures 2.7 x 2.2 cm. There is no pneumothorax. A small right pleural effusion is present. There is mild emphysema. There is an irregular 3.7 x 2.8 x 1.4 cm right upper lobe mass on image 231 of 321. There is a predominantly solid irregular mass within the right upper lobe on image 181 that measures 3.4 x 2.6 cm. This has associated fissural retraction. Numerous additional mixed solid and ground glass right upper lobe nodules are present. There is a spiculated 1.3 x 1.1 cm lingular nodule. Smaller mixed solid and groundglass lingular nodule is present. Central airways are patent. A few suspected perineural cysts/meningoceles are noted. There is a 1.7 cm lytic lesion within the left pedicle of T11. A 1.5 cm right adrenal nodule is present. IMPRESSION: 1. Several small segmental and subsegmental pulmonary emboli within the right lung. This finding will be called/faxed to ordering provider at time of dictation. 2. 3.7 x 2.8 cm mass within the apical segment of the right upper lobe. Additi onal 3.4 x 2.6 cm spiculated mass within the anterior segment of the right upper lobe. Multiple additional mixed solid and groundglass nodules. The findings are consistent with bronchogenic carcinoma and favor multifocal disease. 3. Right hilar and subcarinal pathologic lymphadenopathy. 4. Suspected 1.7 cm lytic metastasis within the left pedicle of T11. 5. Indeterminate 1.5 cm right adrenal nodule. 6. Small right pleural effusion. 07/10/2022 CT L-spine Mild multilevel intervertebral disc space narrowing and spondylitic spurring with mostly moderate facet arthrosis. There is severe right-sided L4-L5 facet arthropathy. S2 Tarlov cyst with chronic remodeling. No acute fracture, subluxation, endplate erosion or marrow replacing process identified. Mild degeneration of the SI joints. Evaluation of the central canal and neuroforamina is better evaluated by MRI. Mild central canal stenosis at L4-L5. There is a least mild bilateral neural foraminal narrowing also noted at this interspace. Atherosclerosis of the aorta without aneurysm. There are a few punctate nonobstructing right renal calculi. Left-sided hydronephrosis versus renal sinus cysts. Masslike opacities of the right lung are noted on the property maintenance technician localizer images. IMPRESSION: 1. No acute fracture or subluxation of the lumbar spine.2 2. Degenerative changes as above. 3. Punctate right renal calculi. Renal sinus cysts versus hydronephrosis of the left kidney. This could be correlated with ultrasound. 4. Masslike opacities of the right lung are noted on the property maintenance technician localizer images. Please refer to the CTA chest study of same day. Plain films of the lumbar spine and right shoulder 07/10/2022 showed degenerative changes but no acute bony pathology Venous Doppler Study 07/13/22 15:35 US venous doppler LE BI CLINICAL HISTORY: PE's on CT TECHNIQUE: Bilateral lower extremity real-time compression venous ultrasound with Color Doppler imaging. Utilizing real-time ultrasonic imaging multiple real time high-resolution ultrasonic images with compression and noncompression maneuvers of the deep venous system in addition to color doppler imaging were performed from the common femoral vein through the proximal calf veins. COMPARISON: None available at the time of this dictation. FINDINGS: Currently there is normal compressibility of the deep venous system from the common femoral vein through the proximal calf veins. No superficial venous thrombosis is identified. Impression: No evidence of deep venous thrombus. ACT 112: Negative or not required by law. Electronically signed by: Jerome Lacey M.D. 07/13/2022 5:28 PM Brain MRI 07/14/22 07:32 MR brain wo/w con CLINICAL HISTORY: staging, r/o mets TECHNIQUE: Multiplanar and multisequence MR images of the brain were obtained prior to and following administration of gadolinium contrast. Comparison: None available at the time of this dictation. FINDINGS: No abnormal restricted diffusion is identified. The white matter is unremarkable. The ventricular system is normal in appearance. No mass or abnormal enhancement is seen. There is no mass effect or midline shift. There is no evidence of acute intraparenchymal hemorrhage. No extra axial fluid collections are seen. The corpus callosum, pituitary gland, and cerebellar tonsils appear grossly unremarkable. Flow voids of the major intracranial arterial vessels are identified. The imaged portions of the paranasal sinuses, mastoid air cells, and orbits are unremarkable. IMPRESSION: No acute abnormality is seen in particular there is no evidence of intracranial metastasis. ACT 112: Negative or not required by law. Electronically signed by: Jerome Lacey M.D. 07/14/2022 10:19 AM Chest X-Ray 07/14/22 08:00 XR chest 1V portable HISTORY: 61 years-old Male PE . Acute shortness of breath COMPARISON: CTA chest 07/10/2022 TECHNIQUE: AP view of the chest FINDINGS: Cardiomediastinal and hilar silhouettes are within normal limits. No pneumothorax, large pleural effusion or overt pulmonary edema. Suspicious 3.4 cm mass mass within the right upper lobe with 3.7 cm right apical mass. Additional irregular pulmonary nodules with emphysema. And trace right pleural effusion. Degenerative changes of the shoulders and spine. Lytic T11 lesion is better noted on the comparison CT study. Hazy ill-defined opacity of the medial right lung base may be secondary to summation density. IMPRESSION: Emphysema with suspicious right lung masses and bilateral pulmonary nodules redemonstrated, better characterized on the CTA chest study from 07/10/2022. ACT 112: Negative or not required by law. The above report was generated using voice recognition software. It may contain grammatical, syntax or spelling errors. Electronically signed by: Jose Wilson M.D. 07/14/2022 9:03 AM Orbit X-Ray 07/14/22 08:01 ORBIT RADIOGRAPHS 3 VIEWS HISTORY: pre-MRI screening. COMPARISON: None. FINDINGS: There are no radiopaque foreign bodies identified within the orbits. IMPRESSION: No radiopaque foreign bodies identified within the orbits. ACT 112: Negative or not required by law. Electronically signed by: [place] Abebe M.D. 07/14/2022 9:24 AM PG Care Time/CCT Total # of Minutes Spent Total Time Spent with Patient: Total time spent is greater than 50% in coordination of care (as documented) at patient's floor/unit and/or counseling patient: Coding Level of Care Code 27991 Inpt Consult Level 4 Diagnoses Multiple pulmonary nodules R91.8 Pulmonary embolism I26.99 FH: cancer Z80.9
[2022-07-14] MEDS: HEPARIN SODIUM/DEXTROSE 25,000 UNITS/500 ML BAG IV SCH (13:15)
--- NOTE | 2022-07-14 13:37 | Hospitalist Progress Note ---
Date of Service July 14, 2022 Assessment & Plan (1) Pulmonary embolism: (2) Low back pain: (3) Lung mass: (4) GERD (gastroesophageal reflux disease): Plan 61-year-old gentleman with PMH of GERD, alcohol dependence in remission, family history significant for cancer presented to ED with back pain and found to have blood clot and metastatic disease in the CTA chest. He is being managed for the following: IMAGINGS SURROUNDING ADMISSIONS: 07/10 CXR: Numerous pulmonary densities, new from prior exam. Lumbar spine x-ray: Degenerative changes, no acute fracture or subluxation. Right shoulder x-ray: No acute findings. CTA chest: Several small segmental and subsegmental PE within the right lung. RUL with 3.7 x 2.8 cm mass within the apical segment and 3.4 x 2.6 cm spiculated mass within the anterior segment. Right hilar and subcarinal pathologic lymphadenopathy. Suspected 1.7 cm lytic metastasis within the left pedicle of T11. Indeterminate 1.5 cm right adrenal nodule. Lumbar spine CT: No acute fracture or subluxation of the lumbar spine. 07/13 Venous Doppler BLE: No evidence of DVT. 07/14 brain MRI: No evidence of acute metastatic disease or any other acute findings. Pulmonary Embolism: Lung Mass: Several segmental/subsegmental PEs in right lung Irregular right upper lobe mass 3.7 x 2.8 x 1.4 Irregular right upper lobe mass measuring 3.4 x 2.6 Groundglass right upper lobe nodules 1 PPD smoker x40 years; quit 10 years ago. both parents had lung cancer/. Brother recently from throat cancer. BLE doppler neg for DVT 07/14 ECHO: RV size normal, RV systolic fxn nrmal. Heparin drip started in ED, c/w same, eliquis costs $55/month, will make pt aware. Pulm on board: agrees w/ anticoagulation, recs is PET Scan, and then consider bronchoscopy with endobronchial ultrasound and transbronchial needle aspiratio n. Would plan on initially proceeding with assessment of mediastinal lymph node stations. If that were unremarkable, the lesions may be amenable to navigational bronchoscopy. Would need to biopsy 2 lesions to confirm pathology given its multifocal and bilateral appearance. Typically, try and avoid invasive procedures in patients with acute PE for several weeks to allow for stability. With these recs and possible OP Pulm f/u, Pulm signs off. Oncology on board: Will work w/ Pulm medicine to optimize the time for a diagnostic procedure as it is important to rule out small cell neuroendocrine pathology as early as possible. Needs OP PET scan but is not available for atleast next 4 weeks. Will need OP follow up w/ oncology. Will transition to PO DOAC once patient agrees, and then possible DC. Low Back Pain: Recently prescribed Tramadol on Sunday 50 mg PO BID PRN; does provide pt with relief. On [address] negative for fracture; degenerative changes noted Pt reports pain under control. GERD: Barretts Esophagus: Stable; takes omeprazole; continue Disposition: PCP: Dr. Pruitt VTE Prophlayxis: Heparin gtt, to be transitioned to DOAC. Code Status: Full Code Next of kin: ; Nettie who was updated at bedside. Patient and patient's were explained in detail about his current status. Regarding blood clot, patient is supposed to take Eliquis 10 mg twice a day for 7 days followed by 5 mg twice a day starting 07/14/2022 evening. Regarding lung masses, patient is to follow-up with cancer doctor in 1 to 2 weeks time and have himself set up for PET scan with the help of cancer doctor's office and possible bronchoscopy and biopsy with the help of lung doctor's office. I answered all questions the patient and his had, made them repeat my instructions and made them aware of the importance of timing for his care process. They both verbalized understanding and were agreeable to the plan of care. Pt agreeable to cost of eliquis, will dc on eliquis. Admission and Anticipated Discharge Date Admission Date: July 13, 2022 Subjective Patient seen and examined at bedside as a follow-up of pulmonary embolism and metastatic disease in CTA chest. Patient was lying in bed, on room air, NAD, denies any new acute event overnight, reports pain under control, reports eating okay and moving bowels okay. Patient denies any fever/chills/headache/dizziness/chest pain/palpitations/belly pain/other review of symptoms. Discussed about the methods of p.o. anticoagulation with risks and benefits of each one of them, patient elected to go with Eliquis cost analysis and then will decide based on that. Physical Exam Physical Exam: GENERAL: Alert and oriented x3. NAD, on RA. HEENT: No pallor, no icterus. Pupils equal, round and reactive to light. Oral mucosa moist. NECK: No JVD, no neck masses. HEART: S1 and S2 heard. Regular rate and rhythm. No murmur, no gallop. RESPIRATORY SYSTEM: Normal AP diameter. No accessory muscle use. No wheezing, no crackles. ABDOMEN: Soft, bowel sounds present, nontender, no distention. CENTRAL NERVOUS SYSTEM: No facial droop. Speech is clear. Obeys simple commands. Moves extremities. EXTREMITIES: No edema, no erythema seen. Results & Data Results & Data ([facility]) Vital Signs (Past 12 Hours) Vital Signs Temp Pulse Resp BP Pulse Ox O2 Del Method 07/14/22 11:58 36.8 C 74 18 158/74 H 99 Room Air 07/14/22 07:38 36.5 C 67 16 140/89 98 Room Air 07/14/22 03:35 36.6 C 63 20 143/69 H 98 Room Air
[2022-07-14 13:54] LABS: Partial Thromboplastin Ratio 1.6; Partial Thromboplastin Time 43.9 Seconds (21.0-31.0)
--- NOTE | 2022-07-14 14:08 | Discharge Summary ---
Date of Service July 14, 2022 Admission HPI Per Admitting Provider On Sunday, the patient stated that he started to have back that radiated into his chest. He describes it as n intermittent muscle aching pain, not stabbing. The patient came into the ED, started on Tramadol. Lumbar spine CT unremarkable aside from degenerative changes. Chest CTA multiple irregular RUL masses: 3.7 x 2.8 x 1.4 and another measuring 3.4 x 2.6 . Additionally multiple groundglass right upper lobe nodules were identified. Pt reports mother and father both are and both had lung cancer. Pt brother also recently from throat cancer. Quit smoking cigarettes 10 years ago, but still chews tobacco daily. Pt denies alcohol or recreational drug use. He reports not consistently follow up with PCP. 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 Pt is not on any anticoagulants at home. ROS: Patient denies DÍAZ, dizziness, blurry or double vision, N/V/D. He does reports that he has been coughing (non-productive) and sneezing. He reported that when he would sneeze and talk a lot the pain worsened. No position alleviates the pain; however, Tramadol does help. On exam the patient is sitting in his hospital bed awake alert oriented x4 in no apparent distress. Patient is able to answer all questions appropriately and in a meaningful way. Patient's Yancy is at bedside and all questions answered. Patient receptive to admission overnight for further evaluation and management with specialist consultation from pulmonary and heme-onc. Please see A/P for further details. Admission Exam Per Admitting Provider GENERAL: Alert and oriented x3. NAD, on RA. HEENT: No pallor, no icterus. Pupils equal, round and reactive to light. Oral mucosa moist. NECK: No JVD, no neck masses. HEART: S1 and S2 heard. Regular rate and rhythm. No murmur, no gallop. RESPIRATORY SYSTEM: Normal AP diameter. No accessory muscle use. No wheezing, no crackles. ABDOMEN: Soft, bowel sounds present, nontender, no distention. CENTRAL NERVOUS SYSTEM: No facial droop. Speech is clear. Obeys simple commands. Moves extremities. EXTREMITIES: No edema, no erythema seen. No vertebral line tenderness. Principal Diagnosis Pulmonary embolism Lung mass Low back pain Discharge Exam GENERAL: Alert and oriented x3. NAD, on RA. HEENT: No pallor, no icterus. Pupils equal, round and reactive to light. Oral mucosa moist. NECK: No JVD, no neck masses. HEART: S1 and S2 heard. Regular rate and rhythm. No murmur, no gallop. RESPIRATORY SYSTEM: Normal AP diameter. No accessory muscle use. No wheezing, no crackles. ABDOMEN: Soft, bowel sounds present, nontender, no distention. CENTRAL NERVOUS SYSTEM: No facial droop. Speech is clear. Obeys simple commands. Moves extremities. EXTREMITIES: No edema, no erythema seen. Discharge Data Allergies Allergy/AdvReac Type Severity Reaction Status Date / Time No Known Allergies Allergy NONE Verified 07/13/22 16:06 Consultations 07/13/22 16:05 ED Decision to Admit Stat 07/13/22 16:29 Consult Pulmonology Routine 07/13/22 17:28 Consult Oncology Routine Ordered Studies 07/13/22 15:35 US venous doppler LE BI Stat 07/14/22 07:32 MRI Brain [MR brain wo/w con] Routine Hospital Course (1) Pulmonary embolism: (2) Low back pain: (3) Lung mass: (4) GERD (gastroesophageal reflux disease): Plan 61-year-old gentleman with PMH of GERD, alcohol dependence in remission, family history significant for cancer presented to ED with back pain and found to have blood clot and metastatic disease in the CTA chest. He was managed for the following: IMAGINGS SURROUNDING ADMISSIONS: 07/10 CXR: Numerous pulmonary densities, new from prior exam. Lumbar spine x-ray: Degenerative changes, no acute fracture or subluxation. Right shoulder x-ray: No acute findings. CTA chest: Several small segmental and subsegmental PE within the right lung. RUL with 3.7 x 2.8 cm mass within the apical segment and 3.4 x 2.6 cm spiculated mass within the anterior segment. Right hilar and subcarinal pathologic lymphadenopathy. Suspected 1.7 cm lytic metastasis within the left pedicle of T11. Indeterminate 1.5 cm right adrenal nodule. Lumbar spine CT: No acute fracture or subluxation of the lumbar spine. 07/13 Venous Doppler BLE: No evidence of DVT. 07/14 brain MRI: No evidence of acute metastatic disease or any other acute findings. Pulmonary Embolism: Lung Mass: Several segmental/subsegmental PEs in right lung Irregular right upper lobe mass 3.7 x 2.8 x 1.4 Irregular right upper lobe mass measuring 3.4 x 2.6 Groundglass right upper lobe nodules 1 PPD smoker x40 years; quit 10 years ago. both parents had lung cancer/. Brother recently from throat cancer. BLE doppler neg for DVT 07/14 ECHO: RV size normal, RV systolic fxn nrmal. Heparin drip started in ED, c/w same, eliquis costs $55/month, will make pt aware. Pulm on board: agrees w/ anticoagulation, recs is PET Scan, and then consider bronchoscopy with endobronchial ultrasound and transbronchial needle aspiration. Would plan on initially proceeding with assessment of mediastinal lymph node stations. If that were unremarkable, the lesions may be amenable to navigational bronchoscopy. Would need to biopsy 2 lesions to confirm pathology given its multifocal and bilateral appearance. Typically, try and avoid invasive procedures in patients with acute PE for several weeks to allow for stability. With these recs and possible OP Pulm f/u, Pulm signed off. Oncology on board: Will work w/ Pulm medicine to optimize the time for a diagnostic procedure as it is important to rule out small cell neuroendocrine pathology as early as possible. Needs OP PET scan but is not available for atleast next 4 weeks. Will need OP follow up w/ oncology. Will transition to PO DOAC as pt is agreeable to cost of eliquis. Patient will get heparin drip until 6 PM today evening and then will get first dose of Eliquis before leaving the hospital, patient/his aware that he will need to take his Eliquis from tomorrow morning as directed. Low Back Pain: Recently prescribed Tramadol on Sunday 50 mg PO BID PRN; does provide pt with relief. On [address] negative for fracture; degenerative changes noted Pt reports pain under control. GERD: Barretts Esophagus: Stable; takes omeprazole; continue Disposition: PCP: Dr. Pruitt VTE Prophlayxis: Heparin gtt, to be transitioned to DOAC. Code Status: Full Code Next of kin: ; Nettie who was updated at bedside. Patient and patient's were explained in detail about his current status. Regarding blood clot, patient is supposed to take Eliquis 10 mg twice a day for 7 days followed by 5 mg twice a day starting 07/14/2022 evening. Regarding lung masses, patient is to follow-up with cancer doctor in 1 to 2 weeks time and have himself set up for PET scan with the help of cancer doctor's office and possible bronchoscopy and biopsy with the help of lung doctor's office. I answered all questions the patient and his had, made them repeat my instructions and made them aware of the importance of timing for his care process. They both verbalized understanding and were agreeable to the plan of care. Pt agreeable to cost of eliquis, will dc on eliquis. Patient being discharged home with following instruction at the point of discharge: Follow-up with your primary care physician within a week time and likely you will need blood test CBC/CMP/magnesium level. Follow-up with your cancer doctor in 1 to 2 weeks time and likely you will be set up for PET scan and bronchoscopy/biopsy with lung doctor. Follow-up with lung doctor upon instruction from your cancer doctor. For your blood clot in the lungs, you are started on Eliquis to be started from the evening of 07/14/2022. You will get your first dose in the hospital before you leave. You will need to take 10 mg of Eliquis twice a day for 7 days followed by 5 mg twice a day thereafter. For your low back pain, you can use edio-lfl-puvsycw Tylenol and Aleve for mild to moderate pain, also you can use diclofenac gel for the same. For your severe pain, you can use tramadol as needed up to 2-3 times a day. If you have worsening pain, You Will Need Further Evaluation by Your PCP and Further Management/Pain Management Prescription from Your PCP. Take your medications as prescribed. Please make sure that you are able to get your medications today by calling your pharmacy before you leave the hospital so that your treatment continuity is not broken. Home Health Attestation I certify that this patient is under my care and that I, or a physicians sales assistant institutional sales working with me, had a face to-face encounter that meets the home health [id number] encounter requirements with this patient. The encounter with the patient was in whole, or in part, for the following medical condition, which is the primary reason for home health care (list medical condition): I certify that, based on my findings, the following services are medically necessary home health services: My clinical findings support the need for the above services because: Further, I certify that my clinical findings support that this patient is homebound (i.e. absences from home require considerable and taxing effort and are for medical reasons or restorationist services or infrequently or of short duration when for other reasons) because: Certification for Home Health Services: Based on the above findings, I certify that this patient is confined to the home and needs intermittent group home care, physical therapy and/or speech therapy or continues to need occupational therapy. The patient is under my care, and I have initiated the establishment of the plan of care. This patient will be followed by a physician who will periodically review the plan of care. Total Time Total Time Spent Total Time Spent (In Minutes): 50 Discharge Plan Discharge Items Patient Disposition: Home - Self-Care Reason For Visit: PULMONARY EMBOLISM Discharge Diagnosis: Pulmonary embolism Lung mass Low back pain Activity: Resume your previous activity Non-emergency contact: Primary Care Provider Call non-emergency contact if: you have any medication questions, your symptoms worsen, your pain is worsening and your temperature is above 101.5 Follow-up/Referrals: Gio Gallo DO [Outside Practitioners] - (Date & Time 07/18/2022 1:00 PM Provider Gio Gallo DO Department Family [facility] ) Diet: Regular Addtl Attending Provider Instructions: Follow-up with your primary care physician within a week time and likely you will need blood test CBC/CMP/magnesium level. Follow-up with your cancer doctor in 1 to 2 weeks time and likely you will be set up for PET scan and bronchoscopy/biopsy with lung doctor. Follow-up with lung doctor upon instruction from your cancer doctor. For your blood clot in the lungs, you are started on Eliquis to be started from the evening of 07/14/2022. You will get your first dose in the hospital before you leave. You will need to take 10 mg of Eliquis twice a day for 7 days followed by 5 mg twice a day thereafter. For your low back pain, you can use [id number]-haxmnak Tylenol and Aleve for mild to moderate pain, also you can use diclofenac gel for the same. For your severe pain, you can use tramadol as needed up to 2-3 times a day. If you have worsening pain, You Will Need Further Evaluation by Your PCP and Further Management/Pain Management Prescription from Your PCP. Take your medications as prescribed. Please make sure that you are able to get your medications today by calling your pharmacy before you leave the hospital so that your treatment continuity is not broken. Pending Studies at Discharge: No Stand-Alone Forms: My [facility], Smoking Cessation Medications and DC Order Prescriptions: New Eliquis 5 mg tablet 5 mg PO DIRECTED Qty: 74 0RF Rx Instructions: 2 tab twice a day for 7 days followed by 1 tab twice a day. diclofenac sodium [Arthritis Pain (diclofenac)] 1 % gel 4 g topical QID PRN (Reason: moderate pain (scale score 5-6)) Qty: 100 0RF Rx Instructions: apply to low back for mild to moderate pain Continued multivitamin Tablet 1 tab PO DAILY omeprazole 40 mg capsule,delayed release(DR/EC) 40 mg PO QAM tramadol 50 mg tablet 50 mg PO Q8H PRN (Reason: pain) Qty: 14 0RF Discharge Orders: Discharge Order (Routine); Ordered 07/14/22 Ordered By: Aquiles Cornelius Admission Data Admit Date/Time: 07/13/22 16:02 Attending Provider: Aquiles Cornelius Admit Provider: Aquiles Cornelius Primary Care Provider: Danilo Vazquez Other Providers: Bryon Lewis ; Aquiles Cornelius ; Darshan Desouza
[2022-07-14] MEDS ORDERED: STOP HEPARIN ORDER ONE (18:00)
[2022-07-14] MEDS ORDERED: APIXABAN 5 MG TABLET PO SCH (18:00)
== END 2022-07-14 18:39 | disposition home or self-care (01) | DRG 176 ==
LOC: ED 15:08 → 2E 16:02

== ENCOUNTER 2022-09-29 18:31 | Inpatient (IN) ==
--- NOTE | 2022-09-29 19:39 | XRay Report ---
XR chest 1V portable HISTORY: 61 years-old Male SOB acute shortness of breath COMPARISON: Chest radiograph 09/25/2022, CTA chest 09/13/2022 TECHNIQUE: AP view of the chest FINDINGS: Cardiac silhouette is within normal limits. Left subclavian Ebfgzi-j-Mgln catheter distal tip is note d within the expected location of the mid to inferior SVC. Emphysema without pneumothorax, pleural ef fusion or overt pulmonary edema. Irregular spiculated nodules are again noted, most pronounced within the right upper lobe. Right hilar lymphadenopathy. IMPRESSION: 1. No acute processes of the chest. 2. Irregular spiculated nodules, most pronounced within the right upper lobe are redemonstrated. 3. Right hilar lymphadenopathy again noted. ACT 112: Negative or not required by law. The above report was generated using voice recognition software. It may contain grammatical, syntax o r spelling errors. Electronically signed by: Jose Wilson M.D. 09/29/2022 7:38 PM
[2022-09-29 19:45] LABS: Hematocrit (blood only) 32.4 % (40.1-51.0); Hemoglobin 10.8 g/dl (14.0-18.0); Mean Corpuscular Hemoglobin 30.8 pg (25.0-34.0); Mean Corpuscular Hgb Conc 33.3 g/dL (32.0-36.0); Mean Corpuscular Volume 92.3 fL (80.0-100.0); Mean Platelet Volume 10.1 fL (9.4-12.4); Platelet Count 369 K/uL (130-400); RDW Coefficient of Variation 13.8 % (11.5-14.5); RDW Standard Deviation 46.5 fL (36.4-46.3); Red Blood Count 3.51 M/uL (4.63-6.08); White Blood Count 14.42 K/ul (4.8-10.8)
[2022-09-29 20:04] LABS: Alanine Aminotransferase 32 U/L (7-52); Albumin Globulin Ratio 1.1 (0.9-2); Albumin Level 3.4 gm/dl (3.4-5.0); Alkaline Phosphatase 109 U/L (34-104); Anion Gap 8 (3-11); Aspartate Aminotransferase 28 U/L (13-39); BUN Creatinine Ratio 27.9 (10-20); Bilirubin,Total 0.8 mg/dl (0.2-1.0); Blood Urea Nitrogen 19 mg/dl (6-23); Calcium 8.7 mg/dl (8.5-10.1); Carbon Dioxide 27 mmol/L (21-32); Chloride 100 mmol/L (98-107); Est GFR (African American) 120.3 ml/min; Est GFR (Non-African American) 103.8 ml/min; Globulin 3.2 gm/dl (2.5-4.0); Glucose 98 mg/dl (70-99(Fasting)); Magnesium 1.9 mg/dl (1.7-2.4); Potassium 3.9 mmol/L (3.5-5.1); Sodium 135 mmol/L (136-145); Total Protein 6.6 gm/dl (6.0-8.3)
[2022-09-29 20:09] LABS: Basophils # (auto) 0.02 K/uL (0-0.2); Basophils % (auto) 0.1 %; Eosinophils # (auto) 0.18 K/uL (0-0.50); Eosinophils % (auto) 1.2 %; Immature Granulocytes # (auto) 0.09 K/uL (0.00-0.02); Immature Granulocytes % (auto) 0.6 %; Lymphocytes % (auto) 3.5 %; Monocytes # (auto) 0.12 K/uL (0.24-0.82); Monocytes % (auto) 0.8 %; Neutrophils # (auto) 13.51 K/uL (1.4-6.5); Neutrophils % (auto) 93.8 %
[2022-09-29 20:11] LABS: Partial Thromboplastin Ratio > 5.1; Prothrombin Time 20.3 Seconds (9.0-12.0)
[2022-09-29 20:14] LABS: Partial Thromboplastin Time > 139.0 Seconds (21.0-31.0)
[2022-09-29] MEDS ORDERED: SODIUM CHLORIDE 0.9% 500 ML IV ONE (21:55)
[2022-09-29] MEDS ORDERED: ALBUT/IPRATROP 3MG/0.5MG NEB 3 ML VIAL NEB STA (21:58)
--- NOTE | 2022-09-29 22:06 | Emergency Department Note ---
History of Present Illness General Chief complaint: Shortness of Breath/Dyspnea Stated complaint: SOB, COUGH Time Seen by Provider: 09/29/22 21:48 History of Present Illness Maximum Pain Intensity: 8 This is a 61-year-old male presenting to the emergency department from home for evaluation of cough and shortness of breath symptoms that started around 5 or 6 PM, roughly 2 to 3 hours before arrival. The patient has a history of lung cancer and received chemotherapy this week. He does have history of pulmonary embolism diagnosed on CT in this facility approximately 3 months ago. He is on Eliquis for this. He was last seen by pulmonology 3 days ago and was fairly stable at that time. He is reportedly taking his medications as prescribed. The patient was with his sister faisal when he had a coughing spell and became very short of breath. He is not reporting lightheadedness, dizziness, or chest pain. His discomfort is rated an 8/10. Home Medications Medication Instructions Recorded Confirmed Type multivitamin 1 tab PO QAM 06/05/18 09/29/22 History omeprazole 40 mg capsule,delayed 40 mg PO QAM 07/10/22 09/29/22 History release acetaminophen 500 mg tablet 1,000 mg PO TID PRN Pain 08/10/22 09/29/22 History (Tylenol Extra Strength) oxycodone 5 mg tablet 5 mg PO Q4H PRN pain #60 tabs 08/22/22 09/29/22 Rx apixaban 5 mg tablet (Eliquis) 5 mg PO BID 09/29/22 09/29/22 History dexamethasone 4 mg tablet 4 mg PO UD 09/29/22 09/29/22 History folic acid 1 mg tablet 1 mg PO UD 09/29/22 09/29/22 History olanzapine 2.5 mg tablet 2.5 mg PO UD 09/29/22 09/29/22 History ondansetron HCl 8 mg tablet 8 mg PO Q8 PRN Nausea 09/29/22 09/29/22 History prochlorperazine maleate 10 mg 10 mg PO Q6 PRN Nausea 09/29/22 09/29/22 History tablet tramadol 50 mg tablet 50 mg PO Q6 PRN pain,severe 09/29/22 09/29/22 History Allergies Allergy/AdvReac Type Severity Reaction Status Date / Time No Known Allergies Allergy NONE Verified 09/25/22 07:13 Past Med/Surg History Medical History Chest pain "has this off and on, from his cancer" Esophageal dilatation GERD (gastroesophageal reflux disease) History of alcohol dependence per S records History of COVID-2019, not hosp; mild symptoms>resolved. Metastatic primary lung cancer mets to mediastinum, liver, bone, adrenal and possibly kidneys per heme/onc note; "no CVS metastases" Pulmonary embolism 07/2022, currently on eliquis; f/u dr. sandoval Surgical History History of bronchoscopy History of esophagogastroduodenoscopy (EGD) Hx of colonoscopy Port-A-Cath in place (09/25/22) Insertion Access Port Left Cephalic(Left)With fluoroscopic guidance with f luoroscopic guided- Padilla Enriquez MD, FACS Family History Mother , Mom at 65 y/o Diabetes Lung cancer Myocardial infarction Hypertension Father , Dad passed at at 53 y/o Diabetes Lung cancer Brother , at 65 y/o Cancer throat cancer Brother Cancer Pt not sure of type of cancer Sister No problems noted. Sister No problems noted. Sister No problems noted. Sister No problems noted. Other No pertinent family history Denies family history of Heart disease Kidney disease Pulmonary embolism Social History Smoking Status: Former smoker Tobacco Type: Cigarettes Age Started Using Tobacco: 12; Age Quit Using Tobacco: 51; Cigarettes Per Day: 1pk/every 3 day; Second Hand Exposure: No; Do You Dip or Chew Tobacco: No; Hx Alcohol Use: No Hx Substance Use: No Preferred Language: Trinidadian Communication Ability: Effective Visual Impairment: No Limitations Hearing Ability: Normal Car Knocker Required: No Beliefs That Will Affect Care: None marital status: Current Living Situation: Spouse Current Living Situation Comment: And wifes mother current occupational status: employed 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 [employer] How many Children do You have: 0 Other Information That Helps Us Care for You: No Feels Safe at Home: Yes Safety Concerns: Feels Safe At This Time caffeine: Yes (2 cups/day) during the past year weight has: decreased > 10 lbs Assistive Devices: Glasses Review of Systems A total of 10 systems reviewed and were otherwise negative Physical Exam Vital Signs Vital Signs - 24 hr 09/29/22 18:44 09/29/22 18:44 09/29/22 21:06 Temperature 36.6 C Temperature Source Temporal Artery Scan Pulse Rate 122 H Pulse Rate [Apical] 119 H Pulse Rhythm [Apical] Regular Pulse Strength [Apical] Normal Respiratory Rate 18 30 H Respiratory Effort / Characteristics Non-Labored Spontaneous Labored Respiratory Depth Normal Shallow Respiratory Pattern Regular Tachypnea Blood Pressure 110/66 Blood Pressure [Right Arm] 128/82 Blood Pressure Mean 80 Blood Pressure Mean [Right Arm] 97 Blood Pressure Position Sitting Blood Pressure Position [Right Arm] Lying Pulse Oximetry 123 H 94 Oxygen Delivery Method Room Air Room Air Room Air Oxygen Flow Rate 99 Sepsis Recent Fever Within 48 Hours No Sepsis New/Unexplained Change in Mental Status N/A Sepsis Action Taken by Nursing No Action Required 09/29/22 21:06 09/29/22 21:06 09/29/22 21:06 Temperature Temperature Source Pulse Rate Pulse Rate [Apical] Pulse Rhythm [Apical] Pulse Strength [Apical] Respiratory Rate 30 H Respiratory Effort / Characteristics Labored Respiratory Depth Respiratory Pattern Blood Pressure Blood Pressure [Right Arm] Blood Pressure Mean Blood Pressure Mean [Right Arm] Blood Pressure Position Blood Pressure Position [Right Arm] Pulse Oximetry 94 94 Oxygen Delivery Method Room Air Room Air Room Air Oxygen Flow Rate Sepsis Recent Fever Within 48 Hours Sepsis New/Unexplained Change in Mental Status Sepsis Action Taken by Nursing 09/29/22 23:26 09/30/22 01:00 Temperature Temperature Source Pulse Rate Pulse Rate [Apical] 114 H 103 H Pulse Rhythm [Apical] Pulse Strength [Apical] Respiratory Rate 32 H 18 Respiratory Effort / Characteristics Respiratory Depth Respiratory Pattern Blood Pressure Blood Pressure [Right Arm] 125/72 114/66 Blood Pressure Mean Blood Pressure Mean [Right Arm] 89 82 Blood Pressure Position Blood Pressure Position [Right Arm] Pulse Oximetry 96 Oxygen Delivery Method Room Air Room Air Oxygen Flow Rate Sepsis Recent Fever Within 48 Hours Sepsis New/Unexplained Change in Mental Status Sepsis Action Taken by Nursing VITALS: Vitals are noted on the nurse's note and reviewed by myself. Vital signs with tachycardia and tachypnea GENERAL: Chronically ill-appearing white male who speaks with very soft voice. He is with mild work of breathing. HEAD: Normocephalic atraumatic. HEART: Tachycardic rate with regular rhythm. LUNGS: Generally clear throughout with some mild decreased sounds in the right upper dean. No significant wheezing or rhonchi. ABDOMEN: Positive normal bowel sounds x 4. Soft, nontender, without masses or organomegaly. No guarding or rebound tenderness. MUSCULOSKELETAL: No muscle atrophy, erythema, or edema noted. Full range of motion in all extremities. NEURO: Patient was alert and oriented to person place and time. CN II through XII grossly intact. Course Administered Medications Discontinued Medications Albuterol (Albut/Ipratrop 3mg/0.5mg Neb 3 Ml Vial) 3 ml NEB NOW STA; Protocol Stop: 09/29/22 21:59 Last Admin: 09/29/22 22:38 Dose: 3 ml Documented By: RSMisty Sodium Chloride (Nss) 500 mls @ 999 mls/hr IV .Q31M ONE Stop: 09/29/22 22:25 Last Infusion: 09/29/22 23:22 Dose: 0 mls/hr Documented By: Admin: 09/29/22 22:38 Dose: 999 mls/hr Documented By: RSMisty Ioversol (Optiray 320 500ml) 118 ml IV ONCE ONE Stop: 09/29/22 22:09 Last Admin: 09/29/22 22:09 Dose: 118 ml Documented By: CAITLIN Medical Decision Making Differential Diagnosis Differential diagnosis includes, but is not limited to: Myocardial infarction, dysrhythmia, pericarditis, pneumothorax, aortic aneurysm/dissection, DVT/PE, anxiety, GERD, PUD, electrolyte imbalance, thyroid disorder, pneumonia, bronchitis, pancreatitis, and others Laboratory Data 09/29/22 19:20 09/29/22 19:20 Lab Results 09/29/22 09/29/22 09/29/22 Range/Units 19:20 19:20 19:20 WBC 14.42 H (4.8-10.8) K/ul RBC 3.51 L (4.63-6.08) M/uL Hgb 10.8 L (14.0-18.0) g/dl Hct 32.4 L (40.1-51.0) % MCV 92.3 (80.0-100.0) fL MCH 30.8 (25.0-34.0) pg MCHC 33.3 (32.0-36.0) g/dL RDW Std Deviation 46.5 H (36.4-46.3) fL RDW Coeff of Sheeba 13.8 (11.5-14.5) % Plt Count 369 (130-400) K/uL MPV 10.1 (9.4-12.4) fL Immature Gran % (Auto) 0.6 % Neut % (Auto) 93.8 % Lymph % (Auto) 3.5 % [place] % (Auto) 0.8 % Eos % (Auto) 1.2 % Baso % (Auto) 0.1 % Neut # (Auto) 13.51 H (1.4-6.5) K/uL Lymph # (Auto) 0.50 L (1.2-3.4) K/uL [place] # (Auto) 0.12 L (0.24-0.82) K/uL Eos # (Auto) 0.18 (0-0.50) K/uL Baso # (Auto) 0.02 (0-0.2) K/uL Immature Gran # (Auto) 0.09 H (0.00-0.02) K/uL PT 20.3 H (9.0-12.0) Seconds INR 2.0 H (0.9-1.1) APTT > 139.0 H* (21.0-31.0) Seconds PTT Ratio > 5.1 Sodium 135 L (136-145) mmol/L Potassium 3.9 (3.5-5.1) mmol/L Chloride 100 (98-107) mmol/L Carbon Dioxide 27 (21-32) mmol/L Anion Gap 8 (3-11) BUN 19 (6-23) mg/dl Creatinine 0.68 (0.6-1.4) mg/dl Est Cr Clr Drug Dosing Not Reportable Est GFR ( Amer) 120.3 ml/min Est GFR (Non-Af Amer) 103.8 ml/min BUN/Creatinine Ratio 27.9 H (10-20) Glucose 98 (70-99(Fasting)) mg/dl Calcium 8.7 (8.5-10.1) mg/dl Magnesium 1.9 (1.7-2.4) mg/dl Total Bilirubin 0.8 (0.2-1.0) mg/dl AST 28 (13-39) U/L ALT 32 (7-52) U/L Alkaline Phosphatase 109 H (34-104) U/L Troponin I High Sens (0-20) pg/ml Total Protein 6.6 (6.0-8.3) gm/dl Albumin 3.4 (3.4-5.0) gm/dl Globulin 3.2 (2.5-4.0) gm/dl Albumin/Globulin Ratio 1.1 (0.9-2) SARS-CoV-2 (PCR) (Negative) Influenza Type A (PCR) (Neg) Influenza Type B (PCR) (Neg) RSV (RT-PCR) (Neg) 09/29/22 09/29/22 Range/Units 22:02 22:19 WBC (4.8-10.8) K/ul RBC (4.63-6.08) M/uL Hgb (14.0-18.0) g/dl Hct (40.1-51.0) % MCV (80.0-100.0) fL MCH (25.0-34.0) pg MCHC (32.0-36.0) g/dL RDW Std Deviation (36.4-46.3) fL RDW Coeff of Sheeba (11.5-14.5) % Plt Count (130-400) K/uL MPV (9.4-12.4) fL Immature Gran % (Auto) % Neut % (Auto) % Lymph % (Auto) % [place] % (Auto) % Eos % (Auto) % Baso % (Auto) % Neut # (Auto) (1.4-6.5) K/uL Lymph # (Auto) (1.2-3.4) K/uL [place] # (Auto) (0.24-0.82) K/uL Eos # (Auto) (0-0.50) K/uL Baso # (Auto) (0-0.2) K/uL Immature Gran # (Auto) (0.00-0.02) K/uL PT (9.0-12.0) Seconds INR (0.9-1.1) APTT (21.0-31.0) Seconds PTT Ratio Sodium (136-145) mmol/L Potassium (3.5-5.1) mmol/L Chloride (98-107) mmol/L Carbon Dioxide (21-32) mmol/L Anion Gap (3-11) BUN (6-23) mg/dl Creatinine (0.6-1.4) mg/dl Est Cr Clr Drug Dosing Est GFR ( Amer) ml/min Est GFR (Non-Af Amer) ml/min BUN/Creatinine Ratio (10-20) Glucose (70-99(Fasting)) mg/dl Calcium (8.5-10.1) mg/dl Magnesium (1.7-2.4) mg/dl Total Bilirubin (0.2-1.0) mg/dl AST (13-39) U/L ALT (7-52) U/L Alkaline Phosphatase (34-104) U/L Troponin I High Sens 9.9 (0-20) pg/ml Total Protein (6.0-8.3) gm/dl Albumin (3.4-5.0) gm/dl Globulin (2.5-4.0) gm/dl Albumin/Globulin Ratio (0.9-2) SARS-CoV-2 (PCR) NEGATIVE (Negative) Influenza Type A (PCR) Negative (Neg) Influenza Type B (PCR) Negative (Neg) RSV (RT-PCR) Negative (Neg) Imaging Data Radiologist's Impression: Chest X-Ray 09/29/22 18:52 XR chest 1V portable HISTORY: 61 years-old Male SOB acute shortness of breath COMPARISON: Chest radiograph 09/25/2022, CTA chest 09/13/2022 TECHNIQUE: AP view of the chest FINDINGS: Cardiac silhouette is within normal limits. Left subclavian Wrhjzf-b-Xpwk catheter distal tip is noted within the expected location of the mid to inferior SVC. Emphysema without pneumothorax, pleural effusion or overt pulmonary edema. Irregular spiculated nodules are again noted, most pronounced within the right upper lobe. Right hilar lymphadenopathy. IMPRESSION: 1. No acute processes of the chest. 2. Irregular spiculated nodules, most pronounced within the right upper lobe are redemonstrated. 3. Right hilar lymphadenopathy again noted. ACT 112: Negative or not required by law. The above report was generated using voice recognition software. It may contain grammatical, syntax or spelling errors. Electronically signed by: Jose Wilson M.D. 09/29/2022 7:38 PM Chest CTA 09/29/22 21:51 CT angio chest PE protocol CT DOSE: 278.79 mGy.cm HISTORY: 61 years-old Male with SOB, Lung CA, hx of PE in July. Acute shortness of breath in a patient with history of lung cancer TECHNIQUE: Multiple CTA images of the chest were obtained after the intravenous administration of 118 ml Optiray. Coronal and sagittal MIPS were obtained from the axial data set and were submitted for review. All measurements were obtained according to NASCET criteria. A dose lowering technique was utilized adhering to the principles of ALARA. COMPARISON: CTA chest September 13, 2022, chest CT September 11, 2022, CT abdomen pelvis September 11, 2022. FINDINGS: CTA: Heart is normal in size. No pericardial effusion. Atherosclerosis of the thoracic aorta without aneurysm. Tiny segmental and subsegmental pulmonary emboli are again noted, most pronounced in the left lower lobe, not significantly changed from the most recent comparison. No new or progressive pulmonary emboli are identified. Narrowing/partial effacement of the right upper lobe arterial branches again noted. CT CHEST: No thyroid nodule. Left subclavian Csxegs-y-Ciox catheter with distal tip in the inferior SVC. Unchanged pathologic subcarinal and right hilar lymphadenopathy. Biapical pleural-parenchymal scarring. Emphysema. Stable spiculated 1.4 center nodule of the lingula on image 150. Additional scattered bilateral spiculated irregular pulmonary nodules are also stable including a 2.9 cm right apical and 3.9 cm right upper lobe nodule on image 213. Central airways are patent. No significant change of the splenic, hepatic, adrenal and metastatic lesions. Osseous metastatic disease. Soft tissue tumor deposit is again noted involving the left T11-T12 neural foramen and epidural space resulting in severe left neuroforaminal and mild central canal stenosis at this level. 4 cm soft tissue mass with bony destruction of the lateral ninth rib. Pathologic fracturing of t he left transverse process of the T11 vertebral body. Pathologic fracture of the superior L2 endplate again noted. Pathologic fractures at T9 and T11 again noted. IMPRESSION: 1. Segmental and subsegmental pulmonary emboli again noted, notably within the left lower lobe. Effacement of the segmental and subsegmental right upper lobe pulmonary arterial branches redemonstrated secondary to the pathologic mediastinal/hilar luis disease. 2. Stable appearance of the numerous pulmonary lesions, most pronounced within the right upper lobe. 3. Additional osseous and upper abdominal metastatic disease is stable with pathologic spine fractures again noted. 4. Pulmonary emphysema. ACT 112: Negative or not required by law. The above report was generated using voice recognition software. It may contain grammatical, syntax or spelling errors. Electronically signed by: Jose Wilson M.D. 09/29/2022 10:38 PM ECG Data Attestation: I personally reviewed and interpreted this ECG as follows: Indication: + SOB/dyspnea Additional Comments: Sinus tachycardia @121 bpm Biatrial enlargement Nonspecific ST abnormality When compared with ECG of 13-SEP-2022 11:56, ST now depressed in Anterior leads MDM Narrative Physical exam and history were performed. Nursing notes, EMR, and Medication List were personally reviewed. No social concerns were identified as barriers to patients care. Patient appears to have difficulty breathing bringing him to the ER. Patient presentation is concerning as he is quite tachycardic and tachypneic on arrival. Patient was seen during a period of very high ER volume and acuity with exte nded wait times. Nursing protocol order have been performed and some of these are available for my review at the time of patient encounter. Patient was given a DuoNeb treatment here in the ER. An order was placed for continuous cardiac monitoring. The monitor shows a rate of 103 with sinus tachycardic rhythm. The patient's blood work is as above and was reviewed. He does have an elevated white blood cell count of 14,000. He is slightly anemic at 10.8. Troponin x1 is negative. Transaminases are not diagnostic. Flu, COVID, and RSV are negative. Chest x-ray was performed and reviewed by myself and radiology showing no acute findings. Because of the patient's concerning vital signs and difficulty breathing he was sent to CT scan for imaging. This was also reviewed and does not show any new/acute findings. Case was discussed with the on-call hospitalist team. The patient does not seem well for discharge at this time. He has acute onset shortness of breath and vital signs are concerning. The patient does have cancer with recent chemotherapy treatment. Please see the hospitalist dictation for further patient course, plan, and disposition. The chart was completed utilizing Dragon Speech Voice Recognition Software. Grammatical errors, random word insertions, pronoun errors, and incomplete sentences are an occasional consequence of this system due to software limitatio ns, ambient noise, and hardware issues. Any formal questions or concerns about the content, text, or information contained within the body of this dictation should be directly addressed to the provider for clarification. . Impression & Plan Shortness of breath, Metastatic primary lung cancer Discharge Plan Visit Data Chief Complaint: Shortness of Breath/Dyspnea Stated Complaint: SOB, COUGH ED Provider: Kylie James ED Midlevel Provider: Carroll Sevilla Discharge Problem: Shortness of breath, Metastatic primary lung cancer Patient Disposition: Admitted As Inpatient Forms [facility] Prescriptions Prescriptions: No Action acetaminophen [Tylenol Extra Strength] 500 mg tablet 1,000 mg PO TID PRN (Reason: Pain) oxycodone 5 mg tablet 5 mg PO Q4H PRN (Reason: pain) Qty: 60 0RF multivitamin Tablet 1 tab PO QAM omeprazole 40 mg capsule,delayed release(DR/EC) 40 mg PO QAM olanzapine 2.5 mg tablet 2.5 mg PO UD Rx Instructions: take 2.5mg at bedtime. take for 4 days. start day 1 of chemotherapy for nausea tramadol 50 mg tablet 50 mg PO Q6 PRN (Reason: pain,severe) ondansetron HCl 8 mg tablet 8 mg PO Q8 PRN (Reason: Nausea) prochlorperazine maleate 10 mg tablet 10 mg PO Q6 PRN (Reason: Nausea) dexamethasone 4 mg tablet 4 mg PO UD Rx Instructions: take 1 tablet by mouth twice daily starting the day before treatment,day of treatment and day after treatment...total daily dose 8 mg folic acid 1 mg tablet 1 mg PO UD Rx Instructions: take 1 tablet by mouth once daily..begin 1 week before initial pemetrexed dose and continue until 3 weeks past final dose Eliquis 5 mg tablet 5 mg PO BID Referrals Referrals: Jamie Thrasher MD [Primary Care Provider] -
[2022-09-29] MEDS ORDERED: OPTIRAY 320 500ml IV ONE (22:08)
--- NOTE | 2022-09-29 22:41 | CT Scan Report ---
CT angio chest PE protocol CT DOSE: 278.79 mGy.cm HISTORY: 61 years-old Male with SOB, Lung CA, hx of PE in July. Acute shortness of breath in a patient with history of lung cancer TECHNIQUE: Multiple CTA images of the chest were obtained after the intravenous administration of 118 ml Optiray. Coronal and sagittal MIPS were obtained from the axial data set and were submitted for review. All measurements were obtained according to NASCET criteria. A dose lowering technique was u tilized adhering to the principles of ALARA. COMPARISON: CTA chest September 13, 2022, chest CT September 11, 2022, CT abdomen pelvis September 11, 2022. FINDINGS: CTA: Heart is normal in size. No pericardial effusion. Atherosclerosis of the thoracic aorta without aneur ysm. Tiny segmental and subsegmental pulmonary emboli are again noted, most pronounced in the left lo wer lobe, not significantly changed from the most recent comparison. No new or progressive pulmonary emboli are identified. Narrowing/partial effacement of the right upper lobe arterial branches again n oted. CT CHEST: No thyroid nodule. Left subclavian Hawyuf-m-Jdqj catheter with distal tip in the inferior SVC. Unchan ged pathologic subcarinal and right hilar lymphadenopathy. Biapical pleural-parenchymal scarring. Emp hysema. Stable spiculated 1.4 center nodule of the lingula on image 150. Additional scattered bilater al spiculated irregular pulmonary nodules are also stable including a 2.9 cm right apical and 3.9 cm right upper lobe nodule on image 213. Central airways are patent. No significant change of the splenic, hepatic, adrenal and metastatic lesions. Osseous metastatic dis ease. Soft tissue tumor deposit is again noted involving the left T11-T12 neural foramen and epidural space resulting in severe left neuroforaminal and mild central canal stenosis at this level. 4 cm so ft tissue mass with bony destruction of the lateral ninth rib. Pathologic fracturing of the left petersen sverse process of the T11 vertebral body. Pathologic fracture of the superior L2 endplate again noted . Pathologic fractures at T9 and T11 again noted. IMPRESSION: 1. Segmental and subsegmental pulmonary emboli again noted, notably within the left lower lobe. Effac ement of the segmental and subsegmental right upper lobe pulmonary arterial branches redemonstrated s econdary to the pathologic mediastinal/hilar luis disease. 2. Stable appearance of the numerous pulmonary lesions, most pronounced within the right upper lobe. 3. Additional osseous and upper abdominal metastatic disease is stable with pathologic spine fracture s again noted. 4. Pulmonary emphysema. ACT 112: Negative or not required by law. The above report was generated using voice recognition software. It may contain grammatical, syntax o r spelling errors. Electronically signed by: Jose Wilson M.D. 09/29/2022 10:38 PM
[2022-09-29 22:51] LABS: Influenza A virus by PCR Negative (Neg); Influenza B virus by PCR Negative (Neg); RSV by PCR Negative (Neg); SARS CoV2 RNA(COVID-19) Ceph NEGATIVE (Negative)
[2022-09-30] MEDS ORDERED: NITROGLYCERIN SL 0.4 MG/TAB TAB SL PRN (02:00)
[2022-09-30] MEDS ORDERED: POLYETHYLENE (MIRALAX) 17 GM PACK PO PRN (02:00)
[2022-09-30] MEDS ORDERED: ACETAMINOPHEN 325 MG TAB PO PRN (02:00)
[2022-09-30] MEDS ORDERED: traMADol HCL 50 MG TABLET PO PRN (02:00)
[2022-09-30] MEDS ORDERED: ALBUT/IPRATROP 3MG/0.5MG NEB 3 ML VIAL NEB PRN (02:00)
[2022-09-30] MEDS ORDERED: ONDANSETRON INJ 2 MG/ML 2 ML VIAL IV PRN (02:00)
[2022-09-30] MEDS ORDERED: PROCHLORPERAZINE MALEATE 10 MG TAB PO PRN (02:00)
[2022-09-30] MEDS ORDERED: PIPERACILLIN/TAZOBACTAM 4.5 GM (over 30 mins) IV ONE (02:30)
[2022-09-30] MEDS: methylPREDNISolone 40 MG in SYRINGE 0 ML IV SCH ×2 (02:55→08:13)
--- NOTE | 2022-09-30 02:57 | History and Physical Report ---
DATE OF ADMISSION: 09/29/2022. CHIEF COMPLAINT: Shortness of breath. HISTORY OF PRESENT ILLNESS: This is a 61-year-old male with past medical history significant for metastatic non-small cell lung cancer, stage IV, status post palliative radiation therapy. He just started chemo, first chemo was last Sunday. He has subacute/acute PE, on Eliquis; chronic back pain, on Tramadol. . History of tobacco abuse, he quit smoking about 10 years ago. Mild COPD. He has some dysphagia. He says he is not able to swallow things properly, and also cachectic looking. Presents with shortness of breath. The patient says today evening, he will felt short of breath, coughing with brownish sputum, that is the reason he came to the ER. He was saturating okay at 90% with breathing treatments his saturations improved to high 90'2. His white count was 14. Denies any fevers. He had some right-sided chest pain, but that resolved. He has some nausea, but no vomiting, no abdominal pain. Appetite is poor as per the . No constipation or diarrhea, but no bowel movement in the last 2 days. Denies any blood in the stools. Normal micturition. No swelling in the legs. Denies any headache. No neck pain. Has chronic back pain. No blurred visions, no earache, no runny nose, no sore throat, ambulates slowly. Balance is not that great as per the . ALLERGIES: No known drug allergies. PAST MEDICAL HISTORY: As mentioned above. FAMILY HISTORY: Brother of throat cancer; mother of cancer, she was a smoker; sister has diabetes; father fatal [place] at age of 52. SOCIAL HISTORY: . Quit smoking in 2013, smoked 1 pack a day for 41 years. History of alcoholism, sober since in 2010 as per [employer]. No drug use. REVIEW OF SYSTEMS: As per HPI. Rest of review of systems negative. PHYSICAL EXAMINATION: GENERAL: The patient is alert, awake, and oriented, currently not in acute distress, cachectic looking. VITAL SIGNS: Temperature 36.6, pulse 114, respiratory rate currently in 20s, blood pressure 125/72, oxygen 94% on room air. HEENT: Pupils equal, round and reactive to light. Oral mucosa moist. NECK: No JVD, no neck masses. CARDIOVASCULAR: S1 and S2 heard. Regular rate and rhythm. No murmur, no gallop. Left-sided A-port seen. RESPIRATORY SYSTEM: Normal AP diameter. No accessory muscle use. Diminished breath sounds. No wheezing, no crackles. ABDOMEN: Soft, bowel sounds present, nontender, no distention. CENTRAL NERVOUS SYSTEM: Alert and oriented. Speech is clear. No facial droop. Obeys simple commands. Moves extremities. EXTREMITIES: No edema, no erythema. LABORATORY DATA: WBC 14, hemoglobin 10.8, hematocrit 32.4, platelets 369. PT 20.3, INR 2, APTT greater than 139. Sodium 135, potassium 3.9, chloride 100, bicarbonate 27, BUN 19, creatinine 0.6, serum glucose 98, calcium 8.7, magnesium 1.9, total bilirubin 0.8, AST 28, ALT 32, alkaline phosphatase 109. Troponin I high sensitivity 9.9. SARS-CoV-2 PCR negative. Influenza A and B PCR negative. RSV PCR negative. IMAGING DATA: CTA of the chest, segmental and subsegmental pulmonary emboli again noted, notably within the left lower lobe. Effacement of the segmental and subsegmental right upper lobe pulmonary arterial branches redemonstrated secondary to the pathological mediastinal hilar luis disease. Stable appearance of numerous pulmonary lesions, most pronounced within the right upper lobe. Additional osseous and upper abdominal metastatic disease is stable with pathologic spine fractures again noted. pulmonary emphysema. EKG: Sinus tachycardia at a rate of 121. Nonspecific ST abnormalities. ASSESSMENT AND PLAN: This is a 61-year-old male who presents with a stage IV lung cancer, presents with shortness of breath. 1. Shortness of breath: History of mild chronic obstructive pulmonary disease, history of stage IV lung cancer, elevated white count. Will get a sputum culture, blood culture.Possible mild chronic obstructive pulmonary disease exacerbation, placed him on nebs around the clock and p.r.n. Short course of steroids. IV Zosyn and doxycycline for now. Consult pulmonary in the a.m. for further recommendations. 2. Stage IV lung cancer: Finished palliative radiation therapy. Chemo started last Sunday.Followup with heme/onco 3. History of pulmonary embolism: On Eliquis. 4. History of dysphagia: Will consult speech therapy when the patient is in the hospital. Placed on clear liquid diet for now. 5. Malnutrition: Can consider dietitian consult when stable. May need appetite stimulants. 6. Deep venous thrombosis prophylaxis: On Eliquis. DISPOSITION: Closely monitor in the med tele. PT/OT prior to discharge. Social service to help with discharge planning. Level 1 full code. Job ID: [id number] MTDD
[2022-09-30] MEDS: DOXYCYCLINE HYCLATE 100 MG in DEXTROSE 5% 100 ML IV SCH ×2 (03:24→18:13)
[2022-09-30] MEDS: ALBUT/IPRATROP 3MG/0.5MG NEB 3 ML VIAL NEB SCH ×4 (07:07→19:11)
[2022-09-30] MEDS: PANTOprazole 40 MG TAB PO SCH (08:10)
[2022-09-30] MEDS: MULTIVITAMIN TAB PO SCH (08:10)
[2022-09-30] MEDS: APIXABAN 5 MG TABLET PO SCH ×2 (08:11→20:11)
[2022-09-30] MEDS: oxyCODONE HCL IR 5 MG TAB (IMMEDIATE RELEASE) PO PRN ×2 (08:16→18:15)
[2022-09-30 08:25] LABS: INR 1.1 (0.9-1.1); Partial Thromboplastin Time 27.1 Seconds (21.0-31.0); Prothrombin Time 11.2 Seconds (9.0-12.0)
[2022-09-30] MEDS: PIPERACILLIN/TAZOBACTAM 3.375 GM in DEXTROSE 5% 100 ML IV SCH ×2 (09:02→17:13)
--- NOTE | 2022-09-30 11:30 | Hospitalist Progress Note ---
Date of Service September 30, 2022 Assessment & Plan (1) Shortness of breath: (2) COPD exacerbation: (3) Metastatic primary lung cancer: (4) Pulmonary embolism: Plan: Presented to the ED with shortness of breath Multifactorial; history of stage IV lung cancer, mild COPD and history of recent PE WBC 14.2. Pro-Herman negative CT angio chest shows segmental and subsegmental PE again. Stable appearance of numerous pulmonary lesions. Pulmonary emphysema Currently on hfcpl-[id number] duo nebs, IV methylprednisolone, IV Zosyn and doxycycline. Pulmonology consulted; we will follow-up on recommendation. Patient is not on any inhalers at home. Also continue on Eliquis for PE. (5) Dysphagia: Plan: Reports difficulty swallowing; also reports coughing when swallowing. Will get [employer] evaluation. Other conditions; Stage IV lung cancer; finished palliative radiation. Follows up with oncology. Severe malnutrition; will consult dietitian Full code DVT prophylaxis Eliquis Admission and Anticipated Discharge Date Admission Date: September 29, 2022 Subjective Patient seen and examined at bedside. He reports that his shortness of breath has improved compared to presentation. He reports dry cough; no sputum. Review of Systems Review of Systems: All systems reviewed & are unremarkable except as noted in Subjective Physical Exam Physical Exam: Constitutional: Awake, alert orient x3, cachectic Respiratory: No additional wheeze or crackles heard. Cardiovascular: RRR, no murmur, no edema Vessels: no JVD or carotid bruit Chest: normal inspection of chest. Port-A-Cath in place Abdomen: normal bowel sounds, soft, nontender, no hepatosplenomegaly Musculoskeletal: no cyanosis or clubbing, extremities motor strength 5/5 Skin: no rashes, warm and dry normal turgor Neurologic: PERRL, EOMI, accommodation nl, no face palsy, no dysarthria CN's II- XI intact bilaterally and moves all extremities Psychiatric: A+Ox3, euthymic affect Lymphatic: no cervical or axillary lymphadenopathy : deferred Results & Data Results & Data ([facility]) Vital Signs (Past 12 Hours) Vital Signs Temp Pulse Pulse Resp BP Pulse Ox O2 Del Method 09/30/22 10:57 95 H 16 96 Room Air 09/30/22 07:57 36.6 C 117 H 16 117/72 97 Room Air 09/30/22 06:02 87 09/30/22 07:08 92 H 16 98 Room Air 09/30/22 02:21 119 H 09/30/22 02:13 Room Air 09/30/22 02:00 36.4 C L 104 H 32 H 133/73 99 Room Air 09/30/22 01:00 103 H 18 114/66 96 Room Air 09/29/22 23:26 114 H 32 H 125/72 Room Air Laboratory Results Laboratory Results WBC 14.42 K/ul (4.8-10.8) H 09/29/22 19:20 RBC 3.51 M/uL (4.63-6.08) L 09/29/22 19:20 Hgb 10.8 g/dl (14.0-18.0) L 09/29/22 19:20 Hct 32.4 % (40.1-51.0) L 09/29/22 19:20 MCV 92.3 fL (80.0-100.0) 09/29/22 19:20 MCH 30.8 pg (25.0-34.0) 09/29/22 19:20 MCHC 33.3 g/dL (32.0-36.0) 09/29/22 19:20 RDW Std Deviation 46.5 fL (36.4-46.3) H 09/29/22 19:20 RDW Coeff of Sheeba 13.8 % (11.5-14.5) 09/29/22 19:20 Plt Count 369 K/uL (130-400) 09/29/22 19:20 MPV 10.1 fL (9.4-12.4) 09/29/22 19:20 Immature Gran % (Auto) 0.6 % 09/29/22 19:20 Neut % (Auto) 93.8 % 09/29/22 19:20 Lymph % (Auto) 3.5 % 09/29/22 19:20 Foster % (Auto) 0.8 % 09/29/22 19:20 Eos % (Auto) 1.2 % 09/29/22 19:20 Baso % (Auto) 0.1 % 09/29/22 19:20 Neut # (Auto) 13.51 K/uL (1.4-6.5) H 09/29/22 19:20 Lymph # (Auto) 0.50 K/uL (1.2-3.4) L 09/29/22 19:20 Foster # (Auto) 0.12 K/uL (0.24-0.82) L 09/29/22 19:20 Eos # (Auto) 0.18 K/uL (0-0.50) 09/29/22 19:20 Baso # (Auto) 0.02 K/uL (0-0.2) 09/29/22 19:20 Immature Gran # (Auto) 0.09 K/uL (0.00-0.02) H 09/29/22 19:20 PT 11.2 Seconds (9.0-12.0) 09/30/22 07:45 INR 1.1 (0.9-1.1) 09/30/22 07:45 APTT 27.1 Seconds (21.0-31.0) 09/30/22 07:45 PTT Ratio 1.0 09/30/22 07:45 Sodium 135 mmol/L (136-145) L 09/29/22 19:20 Potassium 3.9 mmol/L (3.5-5.1) 09/29/22 19:20 Chloride 100 mmol/L (98-107) 09/29/22 19:20 Carbon Dioxide 27 mmol/L (21-32) 09/29/22 19:20 Anion Gap 8 (3-11) 09/29/22 19:20 BUN 19 mg/dl (6-23) 09/29/22 19:20 Creatinine 0.68 mg/dl (0.6-1.4) 09/29/22 19:20 Est Cr Clr Drug Dosing Not Reportable 09/29/22 19:20 Est GFR ( Amer) 120.3 ml/min 09/29/22 19:20 Est GFR (Non-Af Amer) 103.8 ml/min 09/29/22 19:20 BUN/Creatinine Ratio 27.9 (10-20) H 09/29/22 19:20 Glucose 98 mg/dl (70-99(Fasting)) 09/29/22 19:20 Calcium 8.7 mg/dl (8.5-10.1) 09/29/22 19:20 Magnesium 1.9 mg/dl (1.7-2.4) 09/29/22 19:20 Total Bilirubin 0.8 mg/dl (0.2-1.0) 09/29/22 19:20 AST 28 U/L (13-39) 09/29/22 19:20 ALT 32 U/L (7-52) 09/29/22 19:20 Alkaline Phosphatase 109 U/L (34-104) H 09/29/22 19:20 Troponin I High Sens 9.9 pg/ml (0-20) 09/29/22 22:19 Total Protein 6.6 gm/dl (6.0-8.3) 09/29/22 19:20 Albumin 3.4 gm/dl (3.4-5.0) 09/29/22 19:20 Globulin 3.2 gm/dl (2.5-4.0) 09/29/22 19:20 Albumin/Globulin Ratio 1.1 (0.9-2) 09/29/22 19:20 Procalcitonin 0.06 ng/ml (0-0.5) 09/30/22 06:00 SARS-CoV-2 (PCR) NEGATIVE (Negative) 09/29/22 22:02 Influenza Type A (PCR) Negative (Neg) 09/29/22 22:02 Influenza Type B (PCR) Negative (Neg) 09/29/22 22:02 RSV (RT-PCR) Negative (Neg) 09/29/22 22:02 Impressions Chest X-Ray 09/29/22 18:52 XR chest 1V portable HISTORY: 61 years-old Male SOB acute shortness of breath COMPARISON: Chest radiograph 09/25/2022, CTA chest 09/13/2022 TECHNIQUE: AP view of the chest FINDINGS: Cardiac silhouette is within normal limits. Left subclavian Iajvaz-l-Kajs catheter distal tip is noted within the expected location of the mid to inferior SVC. Emphysema without pneumothorax, pleural effusion or overt pulmonary edema. Irregular spiculated nodules are again noted, most pronounced within the right upper lobe. Right hilar lymphadenopathy. IMPRESSION: 1. No acute processes of the chest. 2. Irregular spiculated nodules, most pronounced within the right upper lobe are redemonstrated. 3. Right hilar lymphadenopathy again noted. ACT 112: Negative or not required by law. The above report was generated using voice recognition software. It may contain grammatical, syntax or spelling errors. Electronically signed by: Jose Wilson M.D. 09/29/2022 7:38 PM Chest CTA 09/29/22 21:51 CT angio chest PE protocol CT DOSE: 278.79 mGy.cm HISTORY: 61 years-old Male with SOB, Lung CA, hx of PE in July. Acute shortness of breath in a patient with history of lung cancer TECHNIQUE: Multiple CTA images of the chest were obtained after the intravenous administration of 118 ml Optiray. Coronal and sagittal MIPS were obtained from the axial data set and were submitted for review. All measurements were obtained according to NASCET criteria. A dose lowering technique was utilized adhering to the principles of ALARA. COMPARISON: CTA chest September 13, 2022, chest CT September 11, 2022, CT abdomen pelvis September 11, 2022. FINDINGS: CTA: Heart is normal in size. No pericardial effusion. Atherosclerosis of the thoracic aorta without aneurysm. Tiny segmental and subsegmental pulmonary emboli are again noted, most pronounced in the left lower lobe, not significantly changed from the most recent comparison. No new or progressive pulmonary emboli are identified. Narrowing/partial effacement of the right upper lobe arterial branches again noted. CT CHEST: No thyroid nodule. Left subclavian Haspnr-n-Zfwh catheter with distal tip in the inferior SVC. Unchanged pathologic subcarinal and right hilar lymphadenopathy. Biapical pleural-parenchymal scarring. Emphysema. Stable spiculated 1.4 center nodule of the lingula on image 150. Additional scattered bilateral spiculated irregular pulmonary nodules are also stable including a 2.9 cm right apical and 3.9 cm right upper lobe nodule on image 213. Central airways are patent. No significant change of the splenic, hepatic, adrenal and metastatic lesions. Osseous metastatic disease. Soft tissue tumor deposit is again noted involving the left T11-T12 neural foramen and epidural space resulting in severe left neuroforaminal and mild central canal stenosis at this level. 4 cm soft tissue mass with bony destruction of the lateral ninth rib. Pathologic fracturing of the left transverse process of the T11 vertebral body. Pathologic fracture of the superior L2 endplate again noted. Pathologic fractures at T9 and T11 again noted. IMPRESSION: 1. Segmental and subsegmental pulmonary emboli again noted, notably within the left lower lobe. Effacement of the segmental and subsegmental right upper lobe pulmonary arterial branches redemonstrated secondary to the pathologic mediastinal/hilar luis disease. 2. Stable appearance of the numerous pulmonary lesions, most pronounced within the right upper lobe. 3. Additional osseous and upper abdominal metastatic disease is stable with pathologic spine fractures again noted. 4. Pulmonary emphysema. ACT 112: Negative or not required by law. The above report was generated using voice recognition software. It may contain grammatical, syntax or spelling errors. Electronically signed by: Jose Wilson M.D. 09/29/2022 10:38 PM
--- NOTE | 2022-09-30 14:59 | Electrocardiogram Report ---
Test Reason : Blood Pressure : / mmHG Vent. Rate : 121 BPM Atrial Rate : 121 BPM P-R Int : 124 ms QRS Dur : 080 ms QT Int : 302 ms P-R-T Axes : 078 046 074 degrees QTc Int : 428 ms Sinus tachycardia Biatrial enlargement Abnormal ECG When compared with ECG of 13-SEP-2022 11:56, No significant change was found Confirmed by Geovany Varner ([id number]) on 09/30/2022 2:59:24 PM Referred By: REFERRED SELF Confirmed By:Geovany Varner
[2022-10-01] MEDS: PIPERACILLIN/TAZOBACTAM 3.375 GM in DEXTROSE 5% 100 ML IV SCH ×2 (00:16→09:27)
[2022-10-01] MEDS ORDERED: HEPARIN 100 UNIT/ML 5ML FLUSH FLUSH PRN (01:37)
[2022-10-01] MEDS: DOXYCYCLINE HYCLATE 100 MG in DEXTROSE 5% 100 ML IV SCH ×2 (05:52→18:15)
[2022-10-01 06:27] LABS: Hematocrit (blood only) 28.5 % (40.1-51.0); Hemoglobin 9.8 g/dl (14.0-18.0); Mean Corpuscular Hgb Conc 34.4 g/dL (32.0-36.0); Mean Corpuscular Volume 90.2 fL (80.0-100.0); Platelet Count 296 K/uL (130-400); RDW Coefficient of Variation 13.6 % (11.5-14.5); RDW Standard Deviation 44.8 fL (36.4-46.3); Red Blood Count 3.16 M/uL (4.63-6.08); White Blood Count 13.02 K/ul (4.8-10.8)
[2022-10-01] MEDS: ALBUT/IPRATROP 3MG/0.5MG NEB 3 ML VIAL NEB SCH ×4 (07:05→19:44)
[2022-10-01 07:13] LABS: Basophils # (auto) 0.02 K/uL (0-0.2); Basophils % (auto) 0.2 %; Eosinophils # (auto) 0.26 K/uL (0-0.50); Immature Granulocytes # (auto) 0.06 K/uL (0.00-0.02); Immature Granulocytes % (auto) 0.5 %; Lymphocytes # (auto) 0.46 K/uL (1.2-3.4); Lymphocytes % (auto) 3.5 %; Monocytes # (auto) 0.14 K/uL (0.24-0.82); Monocytes % (auto) 1.1 %; Neutrophils # (auto) 12.08 K/uL (1.4-6.5); Neutrophils % (auto) 92.7 %; RBC Morphology Unremarkable
[2022-10-01 07:17] LABS: Albumin Level 3.5 gm/dl (3.4-5.0); Bilirubin,Total 0.8 mg/dl (0.2-1.0); Calcium 8.9 mg/dl (8.5-10.1)
[2022-10-01 07:23] LABS: Albumin Globulin Ratio 1.2 (0.9-2); BUN Creatinine Ratio 28.8 (10-20); Creatinine Clr Calc Pharmacy 70.4 ml/min; Est GFR (African American) 121.8 ml/min; Est GFR (Non-African American) 105.1 ml/min; Globulin 2.9 gm/dl (2.5-4.0); Total Protein 6.4 gm/dl (6.0-8.3)
[2022-10-01] MEDS: MULTIVITAMIN TAB PO SCH (08:24)
[2022-10-01] MEDS: APIXABAN 5 MG TABLET PO SCH (08:24)
[2022-10-01] MEDS: PANTOprazole 40 MG TAB PO SCH (08:24)
[2022-10-01] MEDS: methylPREDNISolone 40 MG in SYRINGE 0 ML IV SCH (08:24)
[2022-10-01] MEDS: oxyCODONE HCL IR 5 MG TAB (IMMEDIATE RELEASE) PO PRN ×2 (08:27→20:28)
--- NOTE | 2022-10-01 10:41 | Gastrointestinal Consultation ---
Date of Consultation October 01, 2022 Assessment & Plan (1) Dysphagia: (2) Metastatic primary lung cancer: (3) Severe protein-calorie malnutrition: Plan 61 y/o cachetic male with history of stage IV metastatic lung cancer on palliative radiation, bilateral PEs on eliquis, severe protein calorie malnutrition who presented with dyspnea and with complaints of dysphagia for the past month. This may be more of a pharyngeal dysphagia as he reports that the food/liquids are sticking in the back of his mouth but certainly warrants investigation for etiology especially with his weight loss. plan: -obtain an UGI series given dysphagia -if able to hold eliquis will plan for EGD on sunday for evaluation of dysphagia. Would ideally like UGI series to be completed first. -NPO at midnight on sunday -can bridge with heparin gtt if he is not able to be off AC for 2 days and this would need to be held for 6 hours prior to EGD -nutrition consult for severe protein-calorie malnutrition Mansi Irby DO Gastroenterology and Hepatology History of Present Illness Reason for Consultation: dysphagia Attending Physician: Jorge Diaz MD History of Present Illness 61 y/o cachetic male with history of stage IV metastatic lung cancer on palliative radiation, bilateral PEs on eliquis, severe protein calorie malnutrition who presented with dyspnea and with complaints of dysphagia for the past month. He states that he has lost a significant amount of weight (could not quantify) though on exam he is extremely cachetic with temporal muscle wasting. He reports that anytime he swallows liquids or solids he feels that they are catching in the back of his mouth and upper esophagus. He can get a little bit of liquids down but he has to regurgitate food back up at times. He states he had this happen 10 years ago but no symptoms since that time. He is drinking boost at home. He denies any nausea, vomiting, abdominal pain, odynophagia. last EGD in our system was in 2019 which was a follow up for BE and was normal other than an irregular Z line. last had an EGD in 2013 prior to that for dysphagia which was normal with no stricture or ring but he was empirically dilated. Allergies Allergy/AdvReac Type Severity Reaction Status Date / Time No Known Allergies Allergy NONE Verified 09/25/22 07:13 Home Medications Medication Instructions Recorded Confirmed Type multivitamin 1 tab PO QAM 06/05/18 09/29/22 History omeprazole 40 mg capsule,delayed 40 mg PO QAM 07/10/22 09/29/22 History release acetaminophen 500 mg tablet 1,000 mg PO TID PRN Pain 08/10/22 09/29/22 History (Tylenol Extra Strength) oxycodone 5 mg tablet 5 mg PO Q4H PRN pain #60 tabs 08/22/22 09/29/22 Rx apixaban 5 mg tablet (Eliquis) 5 mg PO BID 09/29/22 09/29/22 History dexamethasone 4 mg tablet 4 mg PO UD 09/29/22 09/29/22 History folic acid 1 mg tablet 1 mg PO UD 09/29/22 09/29/22 History olanzapine 2.5 mg tablet 2.5 mg PO UD 09/29/22 09/29/22 History ondansetron HCl 8 mg tablet 8 mg PO Q8 PRN Nausea 09/29/22 09/29/22 History prochlorperazine maleate 10 mg 10 mg PO Q6 PRN Nausea 09/29/22 09/29/22 History tablet tramadol 50 mg tablet 50 mg PO Q6 PRN pain,severe 09/29/22 09/29/22 History Patient History Medical History Chest pain "has this off and on, from his cancer" Esophageal dilatation GERD (gastroesophageal reflux disease) History of alcohol dependence per [facility] records History of COVID-2019, not hosp; mild symptoms>resolved. Metastatic primary lung cancer mets to mediastinum, liver, bone, adrenal and possibly kidneys per heme/onc note; "no CVS metastases" Pulmonary embolism 07/2022, currently on eliquis; f/u dr. sandoval Surgical History History of bronchoscopy History of esophagogastroduodenoscopy (EGD) Hx of colonoscopy Port-A-Cath in place (09/25/22) Insertion Access Port Left Cephalic(Left)With fluoroscopic guidance with fluoroscopic guided- Padilla Enriquez MD, FACS Family History Mother , Mom at 65 y/o Diabetes Lung cancer Myocardial infarction Hypertension Father , Dad passed at at 53 y/o Diabetes Lung cancer Brother , at 65 y/o Cancer throat cancer Brother Cancer Pt not sure of type of cancer Sister No problems noted. Sister No problems noted. Sister No problems noted. Sister No problems noted. Other No pertinent family history Denies family history of Heart disease Kidney disease Pulmonary embolism Social History Smoking Status: Former smoker Tobacco Type: Cigarettes Age Started Using Tobacco: 12; Age Quit Using Tobacco: 51; Cigarettes Per Day: 1pk/every 3 day; Second Hand Exposure: No; Do You Dip or Chew Tobacco: No; Hx Alcohol Use: No Hx Substance Use: No Preferred Language: Bermudian Communication Ability: Effective Visual Impairment: No Limitations Hearing Ability: Normal Rough Patcher Required: No Beliefs That Will Affect Care: None marital status: Current Living Situation: Spouse Current Living Situation Comment: And wifes mother current occupational status: employed 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 [employer] How many Children do You have: 0 Other Information That Helps Us Care for You: No Feels Safe at Home: Yes Safety Concerns: Feels Safe At This Time caffeine: Yes (2 cups/day) during the past year weight has: decreased > 10 lbs Assistive Devices: Glasses Review of Systems Review of Systems: All systems reviewed & are unremarkable except as noted in HPI & below Physical Exam Physical Exam: Extremely cachetic male, appears chronically ill, diffuse muscle wasting, poor dentition Eyes: PERRL, conjunctivae normal, anicteric sclerae Respiratory: normal respiratory effort, lungs clear to auscultation Cardiovascular: RRR, no murmur, no edema Gastrointestinal (Abdomen): normal bowel sounds, soft, nontender, no hepatosplenomegaly Skin: no rashes, warm and dry Psychiatric: A+Ox3, euthymic affect Results & Data ([facility]) Vital Signs (Past 12 Hours) Vital Signs Temp Pulse Pulse Pulse Resp BP Pulse Ox 10/01/22 08:02 90 10/01/22 07:51 37.2 C 69 17 112/68 97 10/01/22 07:06 94 H 18 98 10/01/22 03:07 36.8 C 100 H 18 114/63 97 O2 Del Method 10/01/22 08:02 10/01/22 07:51 Room Air 10/01/22 07:06 Room Air 10/01/22 03:07 Room Air
[2022-10-01] MEDS: cefTRIAXone SODIUM 1,000 MG in DEXTROSE 5% AD-VAN 50 ML IV SCH (12:19)
--- NOTE | 2022-10-01 13:32 | Hospitalist Progress Note ---
Date of Service October 01, 2022 Assessment & Plan (1) Shortness of breath: (2) COPD exacerbation: (3) Metastatic primary lung cancer: (4) Pulmonary embolism: Plan: Presented to the ED with shortness of breath Multifactorial; history of stage IV lung cancer, mild COPD and history of recent PE WBC downtrending.. Pro-Herman negative CT angio chest shows segmental and subsegmental PE again. Stable appearance of numerous pulmonary lesions. Pulmonary emphysema Currently on [id number] duo nebs, Zosyn changed to ceftriaxone. Continue on Doxy. Will complete 5-day course. Also continue on Eliquis for PE. (5) Dysphagia: Plan: Reports difficulty swallowing solid food since last 1 month; also reports coughing when swallowing. GI consulted; recommend upper GI series and possible endoscopy on Sunday. Patient had recent PE in July; CT angio chest on admission still shows the clot. Will start him on heparin bridge starting tonight at 8 PM which is 12hours from the last dose of Eliquis. Discussed with pharmacy. Will hold heparin 6 hours prior to the procedure. Other conditions; Stage IV lung cancer; finished palliative radiation. Follows up with oncology. Severe malnutrition; will consult dietitian Full code DVT prophylaxis IV heparin Admission and Anticipated Discharge Date Admission Date: September 29, 2022 Subjective Patient seen and examined at bedside. Is saturating well in room air; not in any distress. He reports he has been having trouble with swallowing solids. Review of Systems Review of Systems: All systems reviewed & are unremarkable except as noted in Subjective Physical Exam Physical Exam: Constitutional: Awake, alert orient x3, cachectic Respiratory: No additional wheeze or crackles heard. Cardiovascular: RRR, no murmur, no edema Vessels: no JVD or carotid bruit Chest: normal inspection of chest. Port-A-Cath in place Abdomen: normal bowel sounds, soft, nontender, no hepatosplenomegaly Musculoskeletal: no cyanosis or clubbing, extremities motor strength 5/5 Skin: no rashes, warm and dry normal turgor Neurologic: PERRL, EOMI, accommodation nl, no face palsy, no dysarthria CN's II- XI intact bilaterally and moves all extremities Psychiatric: A+Ox3, euthymic affect Lymphatic: no cervical or axillary lymphadenopathy : deferred Results & Data Results & Data ([facility]) Vital Signs (Past 12 Hours) Vital Signs Temp Pulse Pulse Pulse Resp BP Pulse Ox 10/01/22 11:19 37.4 C 106 H 20 109/68 97 10/01/22 10:41 95 H 18 97 10/01/22 08:02 90 10/01/22 07:51 37.2 C 69 17 112/68 97 10/01/22 07:06 94 H 18 98 10/01/22 03:07 36.8 C 100 H 18 114/63 97 O2 Del Method 10/01/22 11:19 Room Air 10/01/22 10:41 Room Air 10/01/22 08:02 10/01/22 07:51 Room Air 10/01/22 07:06 Room Air 10/01/22 03:07 Room Air Laboratory Results Laboratory Results WBC 13.02 K/ul (4.8-10.8) H 10/01/22 05:37 RBC 3.16 M/uL (4.63-6.08) L 10/01/22 05:37 Hgb 9.8 g/dl (14.0-18.0) L 10/01/22 05:37 Hct 28.5 % (40.1-51.0) L 10/01/22 05:37 MCV 90.2 fL (80.0-100.0) 10/01/22 05:37 MCH 31.0 pg (25.0-34.0) 10/01/22 05:37 MCHC 34.4 g/dL (32.0-36.0) 10/01/22 05:37 RDW Std Deviation 44.8 fL (36.4-46.3) 10/01/22 05:37 RDW Coeff of Sheeba 13.6 % (11.5-14.5) 10/01/22 05:37 Plt Count 296 K/uL (130-400) 10/01/22 05:37 MPV 10.0 fL (9.4-12.4) 10/01/22 05:37 Immature Gran % (Auto) 0.5 % 10/01/22 05:37 Neut % (Auto) 92.7 % 10/01/22 05:37 Lymph % (Auto) 3.5 % 10/01/22 05:37 Burt % (Auto) 1.1 % 10/01/22 05:37 Eos % (Auto) 2.0 % 10/01/22 05:37 Baso % (Auto) 0.2 % 10/01/22 05:37 Neut # (Auto) 12.08 K/uL (1.4-6.5) H 10/01/22 05:37 Lymph # (Auto) 0.46 K/uL (1.2-3.4) L 10/01/22 05:37 Burt # (Auto) 0.14 K/uL (0.24-0.82) L 10/01/22 05:37 Eos # (Auto) 0.26 K/uL (0-0.50) 10/01/22 05:37 Baso # (Auto) 0.02 K/uL (0-0.2) 10/01/22 05:37 Immature Gran # (Auto) 0.06 K/uL (0.00-0.02) H 10/01/22 05:37 RBC Morphology Unremarkable 10/01/22 05:37 PT 11.2 Seconds (9.0-12.0) 09/30/22 07:45 INR 1.1 (0.9-1.1) 09/30/22 07:45 APTT 27.1 Seconds (21.0-31.0) 09/30/22 07:45 PTT Ratio 1.0 09/30/22 07:45 Sodium 132 mmol/L (136-145) L 10/01/22 05:37 Potassium 4.0 mmol/L (3.5-5.1) 10/01/22 05:37 Chloride 96 mmol/L (98-107) L 10/01/22 05:37 Carbon Dioxide 29 mmol/L (21-32) 10/01/22 05:37 Anion Gap 7 (3-11) 10/01/22 05:37 BUN 19 mg/dl (6-23) 10/01/22 05:37 Creatinine 0.66 mg/dl (0.6-1.4) 10/01/22 05:37 Est Cr Clr Drug Dosing 70.4 ml/min 10/01/22 05:37 Est GFR ( Amer) 121.8 ml/min 10/01/22 05:37 Est GFR (Non-Af Amer) 105.1 ml/min 10/01/22 05:37 BUN/Creatinine Ratio 28.8 (10-20) H 10/01/22 05:37 Glucose 106 mg/dl (70-99(Fasting)) H 10/01/22 05:37 Calcium 8.9 mg/dl (8.5-10.1) 10/01/22 05:37 Magnesium 1.9 mg/dl (1.7-2.4) 09/29/22 19:20 Total Bilirubin 0.8 mg/dl (0.2-1.0) 10/01/22 05:37 AST 24 U/L (13-39) 10/01/22 05:37 ALT 29 U/L (7-52) 10/01/22 05:37 Alkaline Phosphatase 109 U/L (34-104) H 10/01/22 05:37 Troponin I High Sens 9.9 pg/ml (0-20) 09/29/22 22:19 Total Protein 6.4 gm/dl (6.0-8.3) 10/01/22 05:37 Albumin 3.5 gm/dl (3.4-5.0) 10/01/22 05:37 Globulin 2.9 gm/dl (2.5-4.0) 10/01/22 05:37 Albumin/Globulin Ratio 1.2 (0.9-2) 10/01/22 05:37 Procalcitonin 0.06 ng/ml (0-0.5) 09/30/22 06:00 SARS-CoV-2 (PCR) NEGATIVE (Negative) 09/29/22 22:02 Hepatitis C Ab (EIA) NON-REACTIVE (NON-REACTIVE) 09/29/22 19:20 Hep C Ab Signal/Cutoff <0.02 (<1.00) 09/29/22 19:20 Influenza Type A (PCR) Negative (Neg) 09/29/22 22:02 Influenza Type B (PCR) Negative (Neg) 09/29/22 22:02 RSV (RT-PCR) Negative (Neg) 09/29/22 22:02 Impressions Chest X-Ray 09/29/22 18:52 XR chest 1V portable HISTORY: 61 years-old Male SOB acute shortness of breath COMPARISON: Chest radiograph 09/25/2022, CTA chest 09/13/2022 TECHNIQUE: AP view of the chest FINDINGS: Cardiac silhouette is within normal limits. Left subclavian Ljzrxk-r-Qxob catheter distal tip is noted within the expected location of the mid to inferior SVC. Emphysema without pneumothorax, pleural effusion or overt pulmonary edema. Irregular spiculated nodules are again noted, most pronounced within the right upper lobe. Right hilar lymphadenopathy. IMPRESSION: 1. No acute processes of the chest. 2. Irregular spiculated nodules, most pronounced within the right upper lobe are redemonstrated. 3. Right hilar lymphadenopathy again noted. ACT 112: Negative or not required by law. The above report was generated using voice recognition software. It may contain grammatical, syntax or spelling errors. Electronically signed by: Jose Wilson M.D. 09/29/2022 7:38 PM Chest CTA 09/29/22 21:51 CT angio chest PE protocol CT DOSE: 278.79 mGy.cm HISTORY: 61 years-old Male with SOB, Lung CA, hx of PE in July. Acute shortness of breath in a patient with history of lung cancer TECHNIQUE: Multiple CTA images of the chest were obtained after the intravenous administration of 118 ml Optiray. Coronal and sagittal MIPS were obtained from the axial data set and were submitted for review. All measurements were obtained according to NASCET criteria. A dose lowering technique was utilized adhering to the principles of ALARA. COMPARISON: CTA chest September 13, 2022, chest CT September 11, 2022, CT abdomen pelvis September 11, 2022. FINDINGS: CTA: Heart is normal in size. No pericardial effusion. Atherosclerosis of the thoracic aorta without aneurysm. Tiny segmental and subsegmental pulmonary emboli are again noted, most pronounced in the left lower lobe, not significantly changed from the most recent comparison. No new or progressive pulmonary emboli are identified. Narrowing/partial effacement of the right upper lobe arterial branches again noted. CT CHEST: No thyroid nodule. Left subclavian Dxsgoa-c-Jiin catheter with distal tip in the inferior SVC. Unchanged pathologic subcarinal and right hilar lymphadenopathy. Biapical pleural-parenchymal scarring. Emphysema. Stable spiculated 1.4 center nodule of the lingula on image 150. Additional scattered bilateral spiculated irregular pulmonary nodules are also stable including a 2.9 cm right apical and 3.9 cm right upper lobe nodule on image 213. Central airways are patent. No significant change of the splenic, hepatic, adrenal and metastatic lesions. Osseous metastatic disease. Soft tissue tumor deposit is again noted involving the left T11-T12 neural foramen and epidural space resulting in severe left neuroforaminal and mild central canal stenosis at this level. 4 cm soft tissue mass with bony destruction of the lateral ninth rib. Pathologic fracturing of the left transverse process of the T11 vertebral body. Pathologic fracture of the superior L2 endplate again noted. Pathologic fractures at T9 and T11 again noted. IMPRESSION: 1. Segmental and subsegmental pulmonary emboli again noted, notably within the left lower lobe. Effacement of the segmental and subsegmental right upper lobe pulmonary arterial branches redemonstrated secondary to the pathologic mediastinal/hilar luis disease. 2. Stable appearance of the numerous pulmonary lesions, most pronounced within the right upper lobe. 3. Additional osseous and upper abdominal metastatic disease is stable with pathologic spine fractures again noted. 4. Pulmonary emphysema. ACT 112: Negative or not required by law. The above report was generated using voice recognition software. It may contain grammatical, syntax or spelling errors. Electronically signed by: Jose Wilson M.D. 09/29/2022 10:38 PM
[2022-10-01] MEDS ORDERED: Heparin IV Adult Wt-Based Standard WITH Bolus Protocol IV SCH (18:00)
[2022-10-01 18:11] LABS: INR 1.1 (0.9-1.1); Partial Thromboplastin Ratio 0.9; Partial Thromboplastin Time 25.6 Seconds (21.0-31.0); Prothrombin Time 11.3 Seconds (9.0-12.0)
[2022-10-01] MEDS: SODIUM CHLOR 7% 4 ML NEB NEB SCH (19:44)
[2022-10-01] MEDS ORDERED: HEPARIN SOD (PORCINE) 1000 UNIT/ML IV ONE ×2 (20:00→20:15)
[2022-10-01] MEDS: HEPARIN SODIUM/DEXTROSE 25,000 UNITS/500 ML BAG IV SCH (20:18)
[2022-10-02] MEDS: oxyCODONE HCL IR 5 MG TAB (IMMEDIATE RELEASE) PO PRN (04:44)
[2022-10-02 06:20] LABS: Basophils # (auto) 0.03 K/uL (0-0.2); Basophils % (auto) 0.4 %; Eosinophils # (auto) 0.36 K/uL (0-0.50); Eosinophils % (auto) 5.2 %; Hematocrit (blood only) 30.4 % (40.1-51.0); Hemoglobin 10.4 g/dl (14.0-18.0); Immature Granulocytes # (auto) 0.07 K/uL (0.00-0.02); Lymphocytes # (auto) 0.51 K/uL (1.2-3.4); Lymphocytes % (auto) 7.4 %; Mean Corpuscular Hemoglobin 30.6 pg (25.0-34.0); Mean Corpuscular Hgb Conc 34.2 g/dL (32.0-36.0); Mean Corpuscular Volume 89.4 fL (80.0-100.0); Mean Platelet Volume 9.7 fL (9.4-12.4); Monocytes # (auto) 0.32 K/uL (0.24-0.82); Monocytes % (auto) 4.6 %; Neutrophils # (auto) 5.64 K/uL (1.4-6.5); Neutrophils % (auto) 81.4 %; Platelet Count 291 K/uL (130-400); RDW Coefficient of Variation 13.4 % (11.5-14.5); RDW Standard Deviation 44.1 fL (36.4-46.3); White Blood Count 6.93 K/ul (4.8-10.8)
[2022-10-02] MEDS: DOXYCYCLINE HYCLATE 100 MG in DEXTROSE 5% 100 ML IV SCH ×2 (06:33→18:07)
[2022-10-02 06:50] LABS: Albumin Globulin Ratio 1.1 (0.9-2); Albumin Level 3.6 gm/dl (3.4-5.0); BUN Creatinine Ratio 38.2 (10-20); Bilirubin,Total 0.7 mg/dl (0.2-1.0); Calcium 9.7 mg/dl (8.5-10.1); Creatinine Clr Calc Pharmacy 84.4 ml/min; Est GFR (African American) 131.3 ml/min; Est GFR (Non-African American) 113.3 ml/min; Globulin 3.3 gm/dl (2.5-4.0); Potassium 4.1 mmol/L (3.5-5.1); Total Protein 6.9 gm/dl (6.0-8.3)
[2022-10-02] MEDS: ALBUT/IPRATROP 3MG/0.5MG NEB 3 ML VIAL NEB SCH ×4 (07:00→19:08)
[2022-10-02] MEDS: SODIUM CHLOR 7% 4 ML NEB NEB SCH ×2 (07:00→19:08)
[2022-10-02] MEDS ORDERED: predniSONE 20 MG TAB PO SCH (09:00)
[2022-10-02] MEDS: PANTOprazole 40 MG TAB PO SCH (09:28)
[2022-10-02] MEDS: MULTIVITAMIN TAB PO SCH (09:28)
[2022-10-02] MEDS: cefTRIAXone SODIUM 1,000 MG in DEXTROSE 5% AD-VAN 50 ML IV SCH (10:16)
[2022-10-02 10:31] LABS: Partial Thromboplastin Ratio 1.1; Partial Thromboplastin Time 31.3 Seconds (21.0-31.0)
[2022-10-02] MEDS ORDERED: HEPARIN SOD (PORCINE) 1000 UNIT/ML IV ONE (10:41)
--- NOTE | 2022-10-02 11:55 | Fluoroscopy Report ---
FL GI series CLINICAL HISTORY: Dysphagia COMPARISON STUDY: None. FLUOROSCOPY TIME: 1.6 minutes FLUOROSCOPY IMAGES: 1 FINDINGS: The patient was unable to swallow the barium. Therefore, the examination was terminated. IMPRESSION: The patient was unable to swallow the barium. ACT 112: Negative or not required by law. Electronically signed by: [place] Abebe M.D. 10/02/2022 11:54 AM
[2022-10-02] MEDS ORDERED: D5W AND 1/2NSS 1,000 ML IV SCH (12:15)
--- NOTE | 2022-10-02 12:41 | Fluoroscopy Report ---
FL video swallow CLINICAL HISTORY: 61 years-old Male with oropharyngeal dysphagia during UGI. Dysphasia with possible aspiration TECHNIQUE: Video fluoroscopic evaluation of swallowing was performed in the AP and lateral projection s by the speech pathology staff. The patient is fed nectar-thick and thin liquid barium. FLUOROSCOPY TIME: 0.5 minutes. COMPARISON STUDY: Upper GI series of same day FINDINGS: Silent aspiration with thin liquid barium. No additional consistencies were given to the pa tient. Vallecular retention with decreased epiglottic inversion. IMPRESSION: 1. Aspiration with thin liquid barium. 2. Please see the speech pathologist report for detailed findings and recommendations. ACT 112: Negative or not required by law. Electronically signed by: Jose Wilson M.D. 10/02/2022 12:40 PM
[2022-10-02] MEDS: D5W AND NSS 1,000 ML IV SCH (13:01)
--- NOTE | 2022-10-02 14:15 | Palliative Care Consultation ---
Date of Consultation October 02, 2022 History of Present Illness Reason for Consultation: On 10/02/22 @ 13:49 Jorge Diaz Wrote To Fernanda Villarreal goals of care Attending Physician: Jorge Diaz MD Allergies Allergy/AdvReac Type Severity Reaction Status Date / Time No Known Allergies Allergy NONE Verified 09/25/22 07:13 Home Medications Medication Instructions Recorded Confirmed Type multivitamin 1 tab PO QAM 06/05/18 09/29/22 History omeprazole 40 mg capsule,delayed 40 mg PO QAM 07/10/22 09/29/22 History release acetaminophen 500 mg tablet 1,000 mg PO TID PRN Pain 08/10/22 09/29/22 History (Tylenol Extra Strength) oxycodone 5 mg tablet 5 mg PO Q4H PRN pain #60 tabs 08/22/22 09/29/22 Rx apixaban 5 mg tablet (Eliquis) 5 mg PO BID 09/29/22 09/29/22 History dexamethasone 4 mg tablet 4 mg PO UD 09/29/22 09/29/22 History folic acid 1 mg tablet 1 mg PO UD 09/29/22 09/29/22 History olanzapine 2.5 mg tablet 2.5 mg PO UD 09/29/22 09/29/22 History ondansetron HCl 8 mg tablet 8 mg PO Q8 PRN Nausea 09/29/22 09/29/22 History prochlorperazine maleate 10 mg 10 mg PO Q6 PRN Nausea 09/29/22 09/29/22 History tablet tramadol 50 mg tablet 50 mg PO Q6 PRN pain,severe 09/29/22 09/29/22 History Patient History Medical History Chest pain "has this off and on, from his cancer" Esophageal dilatation GERD (gastroesophageal reflux disease) History of alcohol dependence per S records History of COVID-2019, not hosp; mild symptoms>resolved. Metastatic primary lung cancer mets to mediastinum, liver, bone, adrenal and possibly kidneys per heme/onc note; "no CVS metastases" Pulmonary embolism 07/2022, currently on eliquis; f/u dr. sandoval Surgical History History of bronchoscopy History of esophagogastroduodenoscopy (EGD) Hx of colonoscopy Port-A-Cath in place (09/25/22) Insertion Access Port Left Cephalic(Left)With fluoroscopic guidance with fluoroscopic guided- Padilla Enriquez MD, FACS Family History Mother , Mom at 65 y/o Diabetes Lung cancer Myocardial infarction Hypertension Father , Dad passed at at 53 y/o Diabetes Lung cancer Brother , at 65 y/o Cancer throat cancer Brother Cancer Pt not sure of type of cancer Sister No problems noted. Sister No problems noted. Sister No problems noted. Sister No problems noted. Other No pertinent family history Denies family history of Heart disease Kidney disease Pulmonary embolism Social History Smoking Status: Former smoker Tobacco Type: Cigarettes Age Started Using Tobacco: 12; Age Quit Using Tobacco: 51; Cigarettes Per Day: 1pk/every 3 day; Second Hand Exposure: No; Do You Dip or Chew Tobacco: No; Hx Alcohol Use: No Hx Substance Use: No Preferred Language: Serbian Communication Ability: whispers Visual Impairment: No Limitations Hearing Ability: Normal Wet Mixer Required: No Beliefs That Will Affect Care: None marital status: Current Living Situation: Spouse Current Living Situation Comment: And wifes mother current occupational status: employed 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 [employer] How many Children do You have: 0 Other Information That Helps Us Care for You: No Feels Safe at Home: Yes Safety Concerns: Feels Safe At This Time caffeine: Yes (2 cups/day) during the past year weight has: decreased > 10 lbs Assistive Devices: None Results & Data ([facility]) Vital Signs (Past 12 Hours) Vital Signs Temp Pulse Pulse Resp BP BP Pulse Ox 10/02/22 13:22 36.3 C L 107 H 20 126/78 99 10/02/22 07:00 93 H 10/02/22 11:06 36.7 C 112 H 22 107/69 97 10/02/22 10:29 109 H 18 98 10/02/22 09:30 10/02/22 07:31 36.5 C 107 H 18 121/79 100 10/02/22 07:01 102 H 18 97 10/02/22 03:56 36.5 C 93 H 16 127/76 92 O2 Del Method 10/02/22 13:22 Room Air 10/02/22 07:00 10/02/22 11:06 Room Air 10/02/22 10:29 Room Air 10/02/22 09:30 Room Air 10/02/22 07:31 Room Air 10/02/22 07:01 Room Air 10/02/22 03:56 Room Air PG Care Time/CCT Total # of Minutes Spent Total Time Spent with Patient: Total time spent is greater than 50% in coordination of care (as documented) at patient's floor/unit and/or counseling patient: Coding
[2022-10-02] MEDS ORDERED: OPTIRAY 350 100ml IV ONE (14:23)
[2022-10-02] MEDS ORDERED: MoRPHine SULFATE 2 MG/ML CARP IM PRN (15:30)
--- NOTE | 2022-10-02 15:31 | Hospitalist Progress Note ---
Date of Service October 02, 2022 Assessment & Plan (1) Shortness of breath: (2) COPD exacerbation: (3) Metastatic primary lung cancer: (4) Pulmonary embolism: Plan: Subacute PE Presented to the ED with shortness of breath Multifactorial; history of stage IV lung cancer, mild COPD and history of recent PE WBC downtrending.. Pro-Herman negative CT angio chest shows segmental and subsegmental PE again. Stable appearance of numerous pulmonary lesions. Pulmonary emphysema Currently on [id number] duo nebs, Zosyn changed to ceftriaxone. Continue on Doxy. Will complete 5-day course. On anticoagulation for PE (5) Dysphagia: Plan: Reports difficulty swallowing solid food since last 1 month; also reports coughing when swallowing. Patient was planned to undergo upper GI series and VFSS on October 02; patient was unable to swallow barium. Discussed with GI; likely pharyngeal dysphagia. CT soft tissue neck with and without contrast was done. Discussed with radiology; no intrinsic/extrinsic blockage found in pharyngeal and thoracic esophagus. The CT chest on admission was reviewed by the radiologist; thickening present in mid to distal esophagus likely secondary to radiation esophagitis. Patient has unilateral vocal cord paralysis which explains his hoarseness of voice. ENT coverage not available till Sunday. We will follow-up. Patient to have endoscopy done on October 03; Heparin to be kept at hold from midnight. Discussed with nursing. Other conditions; Stage IV lung cancer; finished palliative radiation. Follows up with oncology. Severe malnutrition; will consult dietitian Full code DVT prophylaxis IV heparin Admission and Anticipated Discharge Date Admission Date: September 29, 2022 Subjective Patient seen and examined at bedside. He reports not been able to swallow solid as well as liquid. He was unable to undergo barium swallow and video swallow test. He has not been able to swallow his medications; has regurgitation when medication are given to him. Review of Systems Review of Systems: All systems reviewed & are unremarkable except as noted in Subjective Physical Exam Physical Exam: Constitutional: Awake, alert orient x3, cachectic Respiratory: No additional wheeze or crackles heard. Cardiovascular: RRR, no murmur, no edema Vessels: no JVD or carotid bruit Chest: normal inspection of chest. Port-A-Cath in place Abdomen: normal bowel sounds, soft, nontender, no hepatosplenomegaly Musculoskeletal: no cyanosis or clubbing, extremities motor strength 5/5 Skin: no rashes, warm and dry normal turgor Neurologic: PERRL, EOMI, accommodation nl, no face palsy, no dysarthria CN's II- XI intact bilaterally and moves all extremities Psychiatric: A+Ox3, euthymic affect Lymphatic: no cervical or axillary lymphadenopathy : deferred Results & Data Results & Data ([facility]) Vital Signs (Past 12 Hours) Vital Signs Temp Pulse Pulse Resp BP BP Pulse Ox 10/02/22 14:43 104 H 18 98 10/02/22 13:22 36.3 C L 107 H 20 126/78 99 10/02/22 07:00 93 H 10/02/22 11:06 36.7 C 112 H 22 107/69 97 10/02/22 10:29 109 H 18 98 10/02/22 09:30 10/02/22 07:31 36.5 C 107 H 18 121/79 100 10/02/22 07:01 102 H 18 97 10/02/22 03:56 36.5 C 93 H 16 127/76 92 O2 Del Method 10/02/22 14:43 Room Air 10/02/22 13:22 Room Air 10/02/22 07:00 10/02/22 11:06 Room Air 10/02/22 10:29 Room Air 10/02/22 09:30 Room Air 10/02/22 07:31 Room Air 10/02/22 07:01 Room Air 10/02/22 03:56 Room Air Laboratory Results Laboratory Results WBC 6.93 K/ul (4.8-10.8) 10/02/22 06:05 RBC 3.40 M/uL (4.63-6.08) L 10/02/22 06:05 Hgb 10.4 g/dl (14.0-18.0) L 10/02/22 06:05 Hct 30.4 % (40.1-51.0) L 10/02/22 06:05 MCV 89.4 fL (80.0-100.0) 10/02/22 06:05 MCH 30.6 pg (25.0-34.0) 10/02/22 06:05 MCHC 34.2 g/dL (32.0-36.0) 10/02/22 06:05 RDW Std Deviation 44.1 fL (36.4-46.3) 10/02/22 06:05 RDW Coeff of Shebea 13.4 % (11.5-14.5) 10/02/22 06:05 Plt Count 291 K/uL (130-400) 10/02/22 06:05 MPV 9.7 fL (9.4-12.4) 10/02/22 06:05 Immature Gran % (Auto) 1.0 % 10/02/22 06:05 Neut % (Auto) 81.4 % 10/02/22 06:05 Lymph % (Auto) 7.4 % 10/02/22 06:05 [place] % (Auto) 4.6 % 10/02/22 06:05 Eos % (Auto) 5.2 % 10/02/22 06:05 Baso % (Auto) 0.4 % 10/02/22 06:05 Neut # (Auto) 5.64 K/uL (1.4-6.5) 10/02/22 06:05 Lymph # (Auto) 0.51 K/uL (1.2-3.4) L 10/02/22 06:05 [place] # (Auto) 0.32 K/uL (0.24-0.82) 10/02/22 06:05 Eos # (Auto) 0.36 K/uL (0-0.50) 10/02/22 06:05 Baso # (Auto) 0.03 K/uL (0-0.2) 10/02/22 06:05 Immature Gran # (Auto) 0.07 K/uL (0.00-0.02) H 10/02/22 06:05 RBC Morphology Unremarkable 10/01/22 05:37 PT 11.3 Seconds (9.0-12.0) 10/01/22 17:33 INR 1.1 (0.9-1.1) 10/01/22 17:33 APTT 31.3 Seconds (21.0-31.0) H 10/02/22 09:48 PTT Ratio 1.1 10/02/22 09:48 Sodium 130 mmol/L (136-145) L 10/02/22 06:05 Potassium 4.1 mmol/L (3.5-5.1) 10/02/22 06:05 Chloride 95 mmol/L (98-107) L 10/02/22 06:05 Carbon Dioxide 29 mmol/L (21-32) 10/02/22 06:05 Anion Gap 6 (3-11) 10/02/22 06:05 BUN 21 mg/dl (6-23) 10/02/22 06:05 Creatinine 0.55 mg/dl (0.6-1.4) L 10/02/22 06:05 Est Cr Clr Drug Dosing 84.4 ml/min 10/02/22 06:05 Est GFR ( Amer) 131.3 ml/min 10/02/22 06:05 Est GFR (Non-Af Amer) 113.3 ml/min 10/02/22 06:05 BUN/Creatinine Ratio 38.2 (10-20) H 10/02/22 06:05 Glucose 102 mg/dl (70-99(Fasting)) H 10/02/22 06:05 Calcium 9.7 mg/dl (8.5-10.1) 10/02/22 06:05 Magnesium 1.9 mg/dl (1.7-2.4) 09/29/22 19:20 Total Bilirubin 0.7 mg/dl (0.2-1.0) 10/02/22 06:05 AST 24 U/L (13-39) 10/02/22 06:05 ALT 34 U/L (7-52) 10/02/22 06:05 Alkaline Phosphatase 116 U/L (34-104) H 10/02/22 06:05 Troponin I High Sens 9.9 pg/ml (0-20) 09/29/22 22:19 Total Protein 6.9 gm/dl (6.0-8.3) 10/02/22 06:05 Albumin 3.6 gm/dl (3.4-5.0) 10/02/22 06:05 Globulin 3.3 gm/dl (2.5-4.0) 10/02/22 06:05 Albumin/Globulin Ratio 1.1 (0.9-2) 10/02/22 06:05 Procalcitonin 0.06 ng/ml (0-0.5) 09/30/22 06:00 SARS-CoV-2 (PCR) NEGATIVE (Negative) 09/29/22 22:02 Hepatitis C Ab (EIA) NON-REACTIVE (NON-REACTIVE) 09/29/22 19:20 Hep C Ab Signal/Cutoff <0.02 (<1.00) 09/29/22 19:20 Influenza Type A (PCR) Negative (Neg) 09/29/22 22:02 Influenza Type B (PCR) Negative (Neg) 09/29/22 22:02 RSV (RT-PCR) Negative (Neg) 09/29/22 22:02 Impressions Chest X-Ray 09/29/22 18:52 XR chest 1V portable HISTORY: 61 years-old Male SOB acute shortness of breath COMPARISON: Chest radiograph 09/25/2022, CTA chest 09/13/2022 TECHNIQUE: AP view of the chest FINDINGS: Cardiac silhouette is within normal limits. Left subclavian Mgkyag-k-Cxbe catheter distal tip is noted within the expected location of the mid to inferior SVC. Emphysema without pneumothorax, pleural effusion or overt pulmonary edema. Irregular spiculated nodules are again noted, most pronounced within the right upper lobe. Right hilar lymphadenopathy. IMPRESSION: 1. No acute processes of the chest. 2. Irregular spiculated nodules, most pronounced within the right upper lobe are redemonstrated. 3. Right hilar lymphadenopathy again noted. ACT 112: Negative or not required by law. The above report was generated using voice recognition software. It may contain grammatical, syntax or spelling errors. Electronically signed by: Jose Wilson M.D. 09/29/2022 7:38 PM Chest CTA 09/29/22 21:51 CT angio chest PE protocol CT DOSE: 278.79 mGy.cm HISTORY: 61 years-old Male with SOB, Lung CA, hx of PE in July. Acute shortness of breath in a patient with history of lung cancer TECHNIQUE: Multiple CTA images of the chest were obtained after the intravenous administration of 118 ml Optiray. Coronal and sagittal MIPS were obtained from the axial data set and were submitted for review. All measurements were obtained according to NASCET criteria. A dose lowering technique was utilized adhering to the principles of ALARA. COMPARISON: CTA chest September 13, 2022, chest CT September 11, 2022, CT abdomen pelvis September 11, 2022. FINDINGS: CTA: Heart is normal in size. No pericardial effusion. Atherosclerosis of the thoracic aorta without aneurysm. Tiny segmental and subsegmental pulmonary emboli are again noted, most pronounced in the left lower lobe, not significantly changed from the most recent comparison. No new or progressive pulmonary emboli are identified. Narrowing/partial effacement of the right upper lobe arterial branches again noted. CT CHEST: No thyroid nodule. Left subclavian Dnxrhk-r-Afbi catheter with distal tip in the inferior SVC. Unchanged pathologic subcarinal and right hilar lymphadenopathy. Biapical pleural-parenchymal scarring. Emphysema. Stable spiculated 1.4 center nodule of the lingula on image 150. Additional scattered bilateral spiculated irregular pulmonary nodules are also stable including a 2.9 cm right apical and 3.9 cm right upper lobe nodule on image 213. Central airways are patent. No significant change of the splenic, hepatic, adrenal and metastatic lesions. Osseous metastatic disease. Soft tissue tumor deposit is again noted involving the left T11-T12 neural foramen and epidural space resulting in severe left neuroforaminal and mild central canal stenosis at this level. 4 cm soft tissue mass with bony destruction of the lateral ninth rib. Pathologic fracturing of the left transverse process of the T11 vertebral body. Pathologic fracture of the superior L2 endplate again noted. Pathologic fractures at T9 and T11 again noted. IMPRESSION: 1. Segmental and subsegmental pulmonary emboli again noted, notably within the left lower lobe. Effacement of the segmental and subsegmental right upper lobe pulmonary arterial branches redemonstrated secondary to the pathologic mediastinal/hilar luis disease. 2. Stable appearance of the numerous pulmonary lesions, most pronounced within the right upper lobe. 3. Additional osseous and upper abdominal metastatic disease is stable with pathologic spine fractures again noted. 4. Pulmonary emphysema. ACT 112: Negative or not required by law. The above report was generated using voice recognition software. It may contain grammatical, syntax or spelling errors. Electronically signed by: Jose Wilson M.D. 09/29/2022 10:38 PM Upper GI Series w/ Air Contrast 10/02/22 11:30 FL GI series CLINICAL HISTORY: Dysphagia COMPARISON STUDY: None. FLUOROSCOPY TIME: 1.6 minutes FLUOROSCOPY IMAGES: 1 FINDINGS: The patient was unable to swallow the barium. Therefore, the examination was terminated. IMPRESSION: The patient was unable to swallow the barium. ACT 112: Negative or not required by law. Electronically signed by: [place] Abebe M.D. 10/02/2022 11:54 AM Videofluoroscopic Swallow 10/02/22 11:47 FL video swallow CLINICAL HISTORY: 61 years-old Male with oropharyngeal dysphagia during UGI. Dysphasia with possible aspiration TECHNIQUE: Video fluoroscopic evaluation of swallowing was performed in the AP and lateral projections by the speech pathology staff. The patient is fed nectar-thick and thin liquid barium. FLUOROSCOPY TIME: 0.5 minutes. COMPARISON STUDY: Upper GI series of same day FINDINGS: Silent aspiration with thin liquid barium. No additional consistencies were given to the patient. Vallecular retention with decreased epiglottic inversion. IMPRESSION: 1. Aspiration with thin liquid barium. 2. Please see the speech pathologist report for detailed findings and recommendations. ACT 112: Negative or not required by law. Electronically signed by: Jose Wilson M.D. 10/02/2022 12:[address] 10/02/22 12:43 CT soft tissue neck w con HISTORY: Dysphagia TECHNIQUE: Multiaxial CT images of the neck were performed following the intravenous administration of 86 cc of Optiray 350. Sagittal and coronal reformations were performed at the workstation by the radiologist. COMPARISON STUDY: PET CT 07/27/2022. Chest CTA 09/29/2022. FINDINGS: The visualized brain parenchyma and orbits are unremarkable. The pterygopalatine fossa and paratracheal fat spaces are maintained. There is residual contrast within the hypopharynx due to the recent video swallow. This results in mild artifact. The parotid and submandibular glands are symmetric. The major mucosal airways services are intact. The necrotic right p aratracheal/hilar lymphadenopathy and a spiculated right upper lobe mass are again noted. These are better appreciated on the recent chest CT. Emphysema. There are 2 necrotic right supraclavicular lymph nodes with the largest on image 302 measuring 13 x 9 mm. These are similar to the prior study. The thyroid gland enhances normally. No enlarged cervical lymph nodes. Vertebral soft tissues and the epiglottis are normal in thickness. Mild medial deviation of the right vocal cord comparison to the left best seen on image 285. This suggests right-sided vocal cord paralysis. No suspicious lytic or blastic osseous lesions. A partially visualized left subclavian Port-A-Cath. IMPRESSION: 1. Mild asymmetric medial deviation of the right vocal cord suggesting paralysis. 2. Redemonstration of the necrotic right paratracheal/hilar lymphadenopathy in the spiculated right upper lobe mass. 3. Necrotic mildly enlarged right supraclavicular lymph nodes remain unchanged. ACT 112: Negative or not required by law. Electronically signed by: Montana Abebe M.D. 10/02/2022 3:31 PM
--- NOTE | 2022-10-02 15:32 | CT Scan Report ---
CT soft tissue neck w con HISTORY: Dysphagia TECHNIQUE: Multiaxial CT images of the neck were performed following the intravenous administration o f 86 cc of Optiray 350. Sagittal and coronal reformations were performed at the workstation by the ra diologist. COMPARISON STUDY: PET CT 07/27/2022. Chest CTA 09/29/2022. FINDINGS: The visualized brain parenchyma and orbits are unremarkable. The pterygopalatine fossa and paratracheal fat spaces are maintained. There is residual contrast within the hypopharynx due to the recent video swallow. This results in mild artifact. The parotid and submandibular glands are symmetr ic. The major mucosal airways services are intact. The necrotic right paratracheal/hilar lymphadenopa thy and a spiculated right upper lobe mass are again noted. These are better appreciated on the recen t chest CT. Emphysema. There are 2 necrotic right supraclavicular lymph nodes with the largest on annelise ge 302 measuring 13 x 9 mm. These are similar to the prior study. The thyroid gland enhances normally . No enlarged cervical lymph nodes. Vertebral soft tissues and the epiglottis are normal in thickness . Mild medial deviation of the right vocal cord comparison to the left best seen on image 285. This s uggests right-sided vocal cord paralysis. No suspicious lytic or blastic osseous lesions. A partially visualized left subclavian Port-A-Cath. IMPRESSION: 1. Mild asymmetric medial deviation of the right vocal cord suggesting paralysis. 2. Redemonstration of the necrotic right paratracheal/hilar lymphadenopathy in the spiculated right u pper lobe mass. 3. Necrotic mildly enlarged right supraclavicular lymph nodes remain unchanged. ACT 112: Negative or not required by law. Electronically signed by: [place] Abebe M.D. 10/02/2022 3:31 PM
[2022-10-02] MEDS ORDERED: GADOBUTROL 65ML VIAL IV ONE (16:03)
[2022-10-02 17:12] LABS: Partial Thromboplastin Ratio 1.6; Partial Thromboplastin Time 43.1 Seconds (21.0-31.0)
--- NOTE | 2022-10-02 17:43 | Magnetic Resonance Report ---
MR brain wo/w con HISTORY: 61 years-old Male Hx of metastatic lung Ca; Dysphagia acute strokelike symptoms with histor y of lung cancer COMPARISON: CT soft tissue neck of same day, Brain MRI 07/14/2022 TECHNIQUE: Multiplanar multisequence MRI of the brain was obtained both with and without the use of 4 cc Gadavist FINDINGS: There are at least 6 subcentimeter foci of cortically based increased diffusion-weighted signal withi n the bilateral frontal and left occipital lobes measuring up to 7 mm on image 18 series 5. These foc i appear to demonstrate increased signal on ADC map suggestive of T2 shine through and are new from t he prior exam. No acute or subacute territorial infarct. Midline structures appear unremarkable. Dege nerative changes of the cervical spine. Motion degraded exam. No acute intracranial hemorrhage, midline shift, abnormal extra axial collectio n, hydrocephalus or intracranial mass. Mild involutional changes. Mild scattered T2/FLAIR hyperintens e foci are noted throughout the white matter suggestive of chronic microvascular ischemic disease. No abnormal enhancement identified. No vasogenic edema. IMPRESSION: 1. Several subcentimeter subacute appearing infarcts of the bilateral cerebral hemispheres are noted within a multiple vascular distribution, likely from an embolic source. 2. No abnormal enhancement to suggest intracranial metastatic disease. ACT 112: Negative or not required by law. The above report was generated using voice recognition software. It may contain grammatical, syntax o r spelling errors. Electronically signed by: Jose Wilson M.D. 10/02/2022 5:42 PM
[2022-10-02] MEDS ORDERED: PHARMACIST DISCHARGE MED REC CONSULT PRN (19:54)
[2022-10-03 01:14] LABS: Basophils # (auto) 0.03 K/uL (0-0.2); Basophils % (auto) 0.7 %; Eosinophils # (auto) 0.48 K/uL (0-0.50); Eosinophils % (auto) 10.6 %; Hemoglobin 10.4 g/dl (14.0-18.0); Immature Granulocytes # (auto) 0.06 K/uL (0.00-0.02); Immature Granulocytes % (auto) 1.3 %; Lymphocytes # (auto) 0.49 K/uL (1.2-3.4); Lymphocytes % (auto) 10.9 %; Mean Corpuscular Hemoglobin 31.3 pg (25.0-34.0); Mean Corpuscular Hgb Conc 34.7 g/dL (32.0-36.0); Mean Corpuscular Volume 90.4 fL (80.0-100.0); Mean Platelet Volume 9.4 fL (9.4-12.4); Monocytes # (auto) 0.38 K/uL (0.24-0.82); Monocytes % (auto) 8.4 %; Neutrophils # (auto) 3.07 K/uL (1.4-6.5); Neutrophils % (auto) 68.1 %; Platelet Count 261 K/uL (130-400); RDW Coefficient of Variation 13.3 % (11.5-14.5); RDW Standard Deviation 44.1 fL (36.4-46.3); Red Blood Count 3.32 M/uL (4.63-6.08); White Blood Count 4.51 K/ul (4.8-10.8)
[2022-10-03 01:26] LABS: Partial Thromboplastin Time 26.2 Seconds (21.0-31.0)
[2022-10-03 01:42] LABS: Albumin Level 3.7 gm/dl (3.4-5.0); Bilirubin,Total 0.8 mg/dl (0.2-1.0); Calcium 9.7 mg/dl (8.5-10.1)
[2022-10-03 01:48] LABS: Albumin Globulin Ratio 1.2 (0.9-2); BUN Creatinine Ratio 32.5 (10-20); Chol HDL Ratio 4.1 (0-5); Creatinine Clr Calc Pharmacy 60.3 ml/min; Est GFR (African American) 114.3 ml/min; Est GFR (Non-African American) 98.6 ml/min; Globulin 3.1 gm/dl (2.5-4.0); Total Protein 6.8 gm/dl (6.0-8.3)
[2022-10-03] MEDS: DOXYCYCLINE HYCLATE 100 MG in DEXTROSE 5% 100 ML IV SCH ×2 (06:12→17:30)
[2022-10-03] MEDS: ALBUT/IPRATROP 3MG/0.5MG NEB 3 ML VIAL NEB SCH ×4 (07:24→19:25)
[2022-10-03] MEDS: SODIUM CHLOR 7% 4 ML NEB NEB SCH ×2 (07:24→19:25)
[2022-10-03] MEDS: HEPARIN SODIUM/DEXTROSE 25,000 UNITS/500 ML BAG IV SCH (08:05)
[2022-10-03] MEDS: MULTIVITAMIN TAB PO SCH (08:07)
[2022-10-03] MEDS: PANTOprazole 40 MG in SYRINGE 0 ML IV SCH (08:07)
[2022-10-03] MEDS: D5W AND NSS 1,000 ML IV SCH (08:07)
--- NOTE | 2022-10-03 08:28 | History & Physical Report ---
Date of Service October 03, 2022 Assessment & Plan (1) Severe protein-calorie malnutrition: (2) Dysphagia: Plan plan for EGD today. He had video swallow yesterday which showed no pharyngeal movement (so suspect pharyngeal dysphagia) but will still assess for any esophageal etiology leading to his dysphagia. Mansi Irby DO Gastroenterology and Hepatology Admission and Anticipated Discharge Date Admission Date: September 29, 2022 History of Present Illness Chief Complaint: dysphagia Primary Care Provider: Jamie Thrasher MD 61 y/o cachetic male with severe protein calorie malnutrition and stage IV lung cancer metastatic s/p radiation here for EGD today for dysphagia. Allergies Allergy/AdvReac Type Severity Reaction Status Date / Time No Known Allergies Allergy NONE Verified 09/25/22 07:13 Home Medications Medication Instructions Recorded Confirmed Type multivitamin 1 tab PO QAM 06/05/18 09/29/22 History omeprazole 40 mg capsule,delayed 40 mg PO QAM 07/10/22 09/29/22 History release acetaminophen 500 mg tablet 1,000 mg PO TID PRN Pain 08/10/22 09/29/22 History (Tylenol Extra Strength) oxycodone 5 mg tablet 5 mg PO Q4H PRN pain #60 tabs 08/22/22 09/29/22 Rx apixaban 5 mg tablet (Eliquis) 5 mg PO BID 09/29/22 09/29/22 History dexamethasone 4 mg tablet 4 mg PO UD 09/29/22 09/29/22 History folic acid 1 mg tablet 1 mg PO UD 09/29/22 09/29/22 History olanzapine 2.5 mg tablet 2.5 mg PO UD 09/29/22 09/29/22 History ondansetron HCl 8 mg tablet 8 mg PO Q8 PRN Nausea 09/29/22 09/29/22 History prochlorperazine maleate 10 mg 10 mg PO Q6 PRN Nausea 09/29/22 09/29/22 History tablet tramadol 50 mg tablet 50 mg PO Q6 PRN pain,severe 09/29/22 09/29/22 History Past Med/Surg History Medical History Chest pain "has this off and on, from his cancer" Esophageal dilatation GERD (gastroesophageal reflux disease) History of alcohol dependence per [facility] records History of COVID-19 2019, not hosp; mild symptoms>resolved. Metastatic primary lung cancer mets to mediastinum, liver, bone, adrenal and possibly kidneys per heme/onc note; "no CVS metastases" Pulmonary embolism 07/2022, currently on eliquis; f/u dr. sandoval Surgical History History of bronchoscopy History of esophagogastroduodenoscopy (EGD) Hx of colonoscopy Port-A-Cath in place (09/25/22) Insertion Access Port Left Cephalic(Left)With fluoroscopic guidance with fluoroscopic guided- Padilla Enriquez MD, FACS Family History Mother , Mom at 65 y/o Diabetes Lung cancer Myocardial infarction Hypertension Father , Dad passed at at 53 y/o Diabetes Lung cancer Brother , at 65 y/o Cancer throat cancer Brother Cancer Pt not sure of type of cancer Sister No problems noted. Sister No problems noted. Sister No problems noted. Sister No problems noted. Other No pertinent family history Denies family history of Heart disease Kidney disease Pulmonary embolism Social History Smoking Status: Former smoker Tobacco Type: Cigarettes Age Started Using Tobacco: 12; Age Quit Using Tobacco: 51; Cigarettes Per Day: 1pk/every 3 day; Second Hand Exposure: No; Do You Dip or Chew Tobacco: No; Hx Alcohol Use: No Hx Substance Use: No Preferred Language: Syriac Communication Ability: whispers Visual Impairment: No Limitations Hearing Ability: Normal Scrap Crusher Required: No Beliefs That Will Affect Care: None marital status: Current Living Situation: Spouse Current Living Situation Comment: And wifes mother current occupational status: employed 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 [employer] How many Children do You have: 0 Other Information That Helps Us Care for You: No Feels Safe at Home: Yes Safety Concerns: Feels Safe At This Time caffeine: Yes (2 cups/day) during the past year weight has: decreased > 10 lbs Assistive Devices: None Review of Systems All systems reviewed & are unremarkable except as noted in HPI & below Physical Exam Physical Exam: thin and cachetic male Eyes: PERRL, conjunctivae normal, anicteric sclerae Respiratory: normal respiratory effort, lungs clear to auscultation Cardiovascular: RRR, no murmur, no edema Gastrointestinal (Abdomen): normal bowel sounds, soft, nontender, no hepatosplenomegaly Psychiatric: A+Ox3, euthymic affect Results & Data ([facility]) Vital Signs (Past 12 Hours) Vital Signs Temp Pulse Pulse Resp BP Pulse Ox O2 Del Method 10/03/22 07:40 36.3 C L 89 19 124/76 98 Room Air 10/03/22 07:26 90 17 98 Room Air 10/03/22 04:02 36.7 C 99 H 18 114/72 99 Room Air 10/02/22 23:04 36.5 C 97 H 16 123/77 99 Room Air 10/02/22 22:56 105 H Code Status & VTE Plan VTE Prophylaxis Plan VTE Prophylaxis will be ordered: Yes
--- NOTE | 2022-10-03 08:39 | Anesthesiology Consultation ---
Date of Service October 03, 2022 Assessment & Plan Chart Review Chart Review: Acceptable Risk for Surgery and Patient NOT seen in Pre Admission Testing Consults Requested none ASA ASA4 Proposed Anesthesia Anesthesia Type: MAC Risk / Benefits Reviewed With: PT / POA / Parent / Guardian, Accepts Plan and Informed Consent Obtained History Surgery Operation Date: 10/03/22 07:00 Proposed Procedures p Esophagogastroduodenoscopy Surekha Irby DO Operation Date: 10/03/22 16:00 Proposed Procedures p Esophagogastroduodenoscopy Surekha Irby, Height/Weight Height: 5 ft 4 in Weight: 41.7 kg Allergies Allergy/AdvReac Type Severity Reaction Status Date / Time No Known Allergies Allergy NONE Verified 09/25/22 07:13 Medications Home Medications Medication Instructions Recorded Confirmed Last Taken multivitamin 1 tab PO QAM 06/05/18 09/29/22 09/25/22 05:00 omeprazole 40 mg capsule,delayed 40 mg PO QAM 07/10/22 09/29/22 09/25/22 05:00 release acetaminophen 500 mg tablet 1,000 mg PO TID PRN Pain 08/10/22 09/29/22 09/24/22 20:00 (Tylenol Extra Strength) oxycodone 5 mg tablet 5 mg PO Q4H PRN pain #60 tabs 08/22/22 09/29/22 09/25/22 05:00 apixaban 5 mg tablet (Eliquis) 5 mg PO BID 09/29/22 09/29/22 Unknown dexamethasone 4 mg tablet 4 mg PO UD 09/29/22 09/29/22 Unknown folic acid 1 mg tablet 1 mg PO UD 09/29/22 09/29/22 Unknown olanzapine 2.5 mg tablet 2.5 mg PO UD 09/29/22 09/29/22 Unknown ondansetron HCl 8 mg tablet 8 mg PO Q8 PRN Nausea 09/29/22 09/29/22 Unknown prochlorperazine maleate 10 mg 10 mg PO Q6 PRN Nausea 09/29/22 09/29/22 Unknown tablet tramadol 50 mg tablet 50 mg PO Q6 PRN pain,severe 09/29/22 09/29/22 Unknown Active Medications Generic Name Dose Route Start Last Admin Trade Name Freq PRN Reason Stop Dose Admin Albuterol 3 ml 09/30/22 07:00 10/03/22 07:24 Albut/Ipratrop 3mg/0.5mg Neb 3 Ml Vial NEB 10/30/22 06:59 3 ml QIDR ROXANA Administration Protocol Apixaban 5 mg 09/30/22 09:00 10/01/22 08:24 Apixaban 5 Mg Tablet PO 10/30/22 08:59 5 mg BID ROXANA Administration Doxycycline Hyclate 100 mg/ 110 mls @ 50 mls/hr 09/30/22 03:00 10/03/22 06:12 Dextrose IV 10/07/22 02:59 50 mls/hr Q12H ROXANA Administration Heparin Sodium/Dextrose 25,000 units in 500 mls @ 0 mls/hr 10/01/22 20:00 10/03/22 08:05 Heparin Sodium/Dextrose IV 10/31/22 19:59 Not Given .Q0M ROXANA Protocol 0 UNITS/HR Ceftriaxone Sodium 1,000 mg/ 50 mls @ 100 mls/hr 10/01/22 11:00 10/02/22 10:58 Dextrose IV 10/08/22 10:59 Infused Q24H ROXANA Infusion Protocol Dextrose/Sodium Chloride 1,000 mls @ 50 mls/hr 10/02/22 13:00 10/03/22 08:07 D5w And Nss IV 11/01/22 12:59 50 mls/hr .Q20H ROXANA Administration Pantoprazole Sodium 40 mg/ 10 mls @ 5 mls/min 10/03/22 09:00 10/03/22 08:07 Syringe IV 11/02/22 08:59 5 mls/min DAILY ROXANA Administration Multivitamins 1 tab 09/30/22 09:00 10/03/22 08:07 Multivitamin Tab PO 10/30/22 08:59 1 tab QAM ROXANA Administration Oxycodone HCl 5 mg 09/30/22 02:00 10/02/22 04:44 Oxycodone Hcl Ir 5 Mg Tab (Immediate Release) PO 10/14/22 01:59 5 mg Q4H PRN Administration pain Sodium Chloride 4 ml 10/01/22 19:00 10/03/22 07:24 Sodium Chlor 7% 4 Ml Neb NEB 10/31/22 18:59 4 ml BIDR ROXANA Administration NPO Date Last Intake of Fluids: 10/02/22 Time Last Intake of Fluids: 23:00 Date Last Intake of Solids: 10/01/22 Time Last Intake of Solids: 18:00 Past Medical History Medical History Chest pain "has this off and on, from his cancer" Esophageal dilatation GERD (gastroesophageal reflux disease) History of alcohol dependence per [facility] records History of COVID-19 2019, not hosp; mild symptoms>resolved. Metastatic primary lung cancer mets to mediastinum, liver, bone, adrenal and possibly kidneys per heme/onc note; "no CVS metastases" Pulmonary embolism 07/2022, currently on eliquis; f/u dr. sandoval Exercise / Class Metabolic Activity II 4-5 Yardwork/Stairs/Walk up hill Past Family History Family History Mother , Mom at 65 y/o Diabetes Lung cancer Myocardial infarction Hypertension Father , Dad passed at at 53 y/o Diabetes Lung cancer Brother , at 65 y/o Cancer throat cancer Brother Cancer Pt not sure of type of cancer Sister No problems noted. Sister No problems noted. Sister No problems noted. Sister No problems noted. Other No pertinent family history Denies family history of Heart disease Kidney disease Pulmonary embolism Past Surgical History Surgical History History of bronchoscopy History of esophagogastroduodenoscopy (EGD) Hx of colonoscopy Port-A-Cath in place (09/25/22) Insertion Access Port Left Cephalic(Left)With fluoroscopic guidance with fluoroscopic guided- Padilla Enriquez MD, FACS Past Anesthesia History No Hx of Anesthesia Complications and No Family Hx of Anesthesia Complications History of PONV No Hx of PONV and No Hx of Motion Sickness Social History Smoking Status: Former smoker tobacco type: cigarettes Smoking cigarettes per day: 1pk/every 3 day Do You Dip or Chew Tobacco: No Hx Alcohol Use: No Hx Substance Use: No substance use type: does not use Physical Exam Vital Signs Last Vital Signs Temp 37 C 10/03/22 08:35 Pulse 102 H 10/03/22 08:35 Resp 16 10/03/22 08:35 BP 133/79 01/24/23 08:35 Pulse Ox 100 10/03/22 08:35 O2 Del Method 10/03/22 08:35 O2 Flow Rate 99 09/29/22 18:44 FiO2 21 10/02/22 19:08 ENMT Mouth: no dentition abnormality Thyromental Distance: > or= 3.5 Finger Breadths Mallampati Class: II Neck normal visual inspection Respiratory normal respiratory effort Auscultation: lungs clear to auscultation bilaterally Cardiovascular Rate/Rhythm: regular rate and regular rhythm Chest (Breasts) Chest: + vascular access device or port Musculoskeletal general muscle wasting Psychiatric Orientation: alert Testing Laboratory Results 10/03/22 01:07 10/03/22 01:07 PT 11.3 Seconds (9.0-12.0) 10/01/22 17:33 INR 1.1 (0.9-1.1) 10/01/22 17:33 APTT 26.2 Seconds (21.0-31.0) 10/03/22 01:07 09/30/22 09:05 Gram Stain - Final Sputum, Expectorated Sputum Culture - Final Moderate normal jason. 09/30/22 07:41 Aerobic Blood Culture - Preliminary Blood No growth in Aerobic bottle after 48 hours. Anaerobic Blood Culture - Preliminary No growth in Anaerobic bottle after 48 hours. 09/30/22 07:36 Aerobic Blood Culture - Preliminary Blood No growth in Aerobic bottle after 48 hours. Anaerobic Blood Culture - Preliminary No growth in Anaerobic bottle after 48 hours.
[2022-10-03] MEDS ORDERED: LIDOCAINE 2% MPF LOCAL 5 ML VIAL INFIL ONE (08:43)
[2022-10-03] MEDS ORDERED: PROPOFOL IV EMULSION 10 MG/ML 20 ML VIAL IV ONE (08:43)
--- NOTE | 2022-10-03 09:11 | GI REPORT ---
Patient Name: Bang Barrios Procedure Date: 10/03/2022 8:38 AM Date of : 1960 Admit Type: Inpatient Age: 61 Gender: Male Attending MD: Mansi Irby DO, Procedure: Upper GI endoscopy Providers: Mansi Irby DO Referring MD: Jorge Diaz Md Indications: Dysphagia Patient Profile: This is a 61 year old male. Refer to note in patient chart for documentation of history and physical. Medicines: Monitored Anesthesia Care Complications: No immediate complications. Estimated Blood Loss: Estimated blood loss: none. Procedure: Pre-Anesthesia Assessment: - Prior to the procedure, a History and Physical was performed, and patient medications and allergies were reviewed. The risks and benefits of the procedure and the sedation options and risks were discussed with the patient. All questions were answered and informed consent was obtained. Patient identification and proposed procedure were verified by the physician, the nurse and the assembler final in the procedure room. Mental Status Examination: alert and oriented. Airway Examination: Mallampati Class IV (tongue obstructs view of the soft palate). Respiratory Examination: clear to auscultation. CV Examination: RRR, no murmurs, no S3 or S4. Prophylactic Antibiotics: The patient does not require prophylactic antibiotics. Prior Anticoagulants: The patient has taken heparin, last dose was 1 day prior to procedure. ASA Grade Assessment: IV - A patient with severe systemic disease that is a constant threat to life. After reviewing the risks and benefits, the patient was deemed in satisfactory condition to undergo the procedure. The anesthesia plan was to use monitored anesthesia care (MAC). Immediately prior to administration of medications, the patient was re-assessed for adequacy to receive sedatives. The physical status of the patient was re-assessed after the procedure. After obtaining informed consent, the endoscope was passed under direct vision. Throughout the procedure, the patient's blood pressure, pulse, and oxygen saturations were monitored continuously. The Endoscope was introduced through the mouth, and advanced to the second part of duodenum. The upper GI endoscopy was accomplished without difficulty. The patient tolerated the procedure well. Findings: The Z-line was regular and was found 40 cm from the incisors. White plaques were found in the middle third of the esophagus. Cells for cytology were obtained by brushing. The exam of the esophagus was otherwise normal. Mildly erythematous mucosa was found in the entire examined stomach. The exam of the stomach was otherwise normal. The duodenal bulb and second portion of the duodenum were normal. Impression: - Z-line regular, 40 cm from the incisors. - Multiple pooled thick secretions were seen in the back of the mouth near the vocal cords. - Esophageal plaques were found. Brushings were obtained for cytology to rule out bethel. This also may have been tiny food particles from stasis. - Erythematous mucosa in the stomach. - Normal duodenal bulb and second portion of the duodenum. - No source on EGD to explain patient's dysphagia. No evidence of esophagitis, stenosis, or stricture. Suspect his dysphagia is all pharyngeal. Recommendation: - Return patient to [facility] for ongoing care. - Resume previous diet. - Continue present medications. - Await pathology results. - Ok to restart anticoagulation from GI standpoint. Mansi Irby, 10/03/2022 9:10:56 AM Note Initiated On: 10/03/2022 8:38 AM Number of Addenda: 0 I attest to the content of the Intraoperative Record and orders documented therein, exceptions below {[id number]}
--- NOTE | 2022-10-03 09:16 | Anesthesiology Progress Note ---
Date of Service October 03, 2022 Anesthesia Post Procedure Vital Signs Vital Signs: Temp Pulse Pulse Resp BP BP Pulse Ox 10/03/22 09:02 36.8 C 98 H 18 114/67 99 10/03/22 08:00 10/03/22 08:35 37 C 102 H 16 133/79 100 10/03/22 07:40 36.3 C L 89 19 124/76 98 10/03/22 07:26 90 17 98 10/03/22 04:02 36.7 C 99 H 18 114/72 99 10/02/22 23:04 36.5 C 97 H 16 123/77 99 10/02/22 22:56 105 H 10/02/22 19:45 10/02/22 19:15 36.3 C L 101 H 20 109/72 98 10/02/22 19:08 102 H 16 98 10/02/22 16:34 36.5 C 104 H 18 136/92 100 10/02/22 15:00 111 H 10/02/22 14:43 104 H 18 98 10/02/22 13:22 36.3 C L 107 H 20 126/78 99 10/02/22 11:06 36.7 C 112 H 22 107/69 97 10/02/22 10:29 109 H 18 98 10/02/22 09:30 O2 Del Method FiO2 10/03/22 09:02 Room Air 10/03/22 08:00 Room Air 10/03/22 08:35 Room Air 10/03/22 07:40 Room Air 10/03/22 07:26 Room Air 10/03/22 04:02 Room Air 10/02/22 23:04 Room Air 10/02/22 22:56 10/02/22 19:45 Room Air 10/02/22 19:15 Room Air 10/02/22 19:08 Room Air 21 10/02/22 16:34 Room Air 10/02/22 15:00 10/02/22 14:43 Room Air 10/02/22 13:22 Room Air 10/02/22 11:06 Room Air 10/02/22 10:29 Room Air 10/02/22 09:30 Room Air Pain Intensity Generalized: Pain Intensity: 7 Bilateral Back: Pain Intensity: 8 Transfer of Care Handoff Completed per policy Notes Mental Status: alert / awake / arousable Patient Amnestic to Procedure: Yes Nausea / Vomiting: adequately controlled Pain: adequately controlled Airway Patency, RR, SpO2: stable & adequate BP & HR: stable & adequate Hydration State: stable & adequate Anesthetic Complications: no major complications apparent
--- NOTE | 2022-10-03 09:19 | Palliative Care Consultation ---
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 He has even been expectorating his own secretions due to difficulty swallowing. Without nutrition he would likely have a prognosis of weeks. We did discuss option of enteral feeding with PEG tube placement. We discussed concerns about aspiration and infection and that this does not ensure that his quality of life or prognosis would improve. (2) Pain due to malignant neoplasm metastatic to bone: He has completed palliative radiation therapy. Pain had been controlled with prn oxycodone at home. Continue prn IV morphine. (3) Palliative care encounter: I met with Mr. Barrios and talked with him about recent developments and how he is coping. His response was "why me?" He asked about how much time he would have without feeding tube and we discussed prognosis of weeks. He is tearful when hearing this. We discussed options to continue with disease management and treatment versus option for focus on comfort and symptom management. I asked him if time were short, where he would want to be and he told me that he would want to be at home. I have discussed goals of care with Mr. Barrios and his in the past. He has said consistently that he would want to do whatever necessary to prolong his life. His goal is to see his first grandchild who is due in March. He told me again today, "I'm going to be a Pappy". At his request, I also met with him and his later in the day. She asked about what caused the strokes and we discussed risk of blood clots with is cancer, such as his prior PE. She is angry and tells me that they are going to fight. She is anxious to speak with Dr. Lewis to talk about options and his estimate of prognosis. I encouraged her to speak with him to get answers to her questions. I explained that we support whatever decisions they make and are not suggesting that they stop fighting. However, sometimes, we need to change what we are fighting for. We reviewed code status and concerns that resuscitation would not have the outcome they desire or could lead to her having to make a decision to withdraw ventilator support. They acknowledge this and she tells me that she is comfortable doing that. We will follow. They are agreeable to further discussion after they have a chance to speak with Dr. Lewis. History of Present Illness Reason for Consultation: goals of care Requesting Physician: Dr. Diaz Attending Physician: Jorge Diaz MD History of Present Illness 61 yo gentleman diagnosed with Stage IV NSCLC in July 2022 after he was hospitalized for shortness of breath. He was found to have acute PE at that time also. He has known metastatic disease to bone, liver, spleen, and adrenal glands. He underwent palliative radiation for metastatic lesions in thoracic vertebra and right proximal femur. He also recently started chemotherapy. He has had problems with decreased appetite and difficulty swallowing. He has lost 36 lbs since the first of July. He was seen and evaluated by speech therapy and found to have pharyngeal dysphagia, with difficulty swallowing even his own secretions. He had an EGD today which was negative for esophagitis or other source of dysphagia. MRI shows several subcentimeter subacute infarcts in multivessel distribution. Allergies Allergy/AdvReac Type Severity Reaction Status Date / Time No Known Allergies Allergy NONE Verified 09/25/22 07:13 Home Medications Medication Instructions Recorded Confirmed Type multivitamin 1 tab PO QAM 06/05/18 09/29/22 History omeprazole 40 mg capsule,delayed 40 mg PO QAM 07/10/22 09/29/22 History release acetaminophen 500 mg tablet 1,000 mg PO TID PRN Pain 08/10/22 09/29/22 History (Tylenol Extra Strength) oxycodone 5 mg tablet 5 mg PO Q4H PRN pain #60 tabs 08/22/22 09/29/22 Rx apixaban 5 mg tablet (Eliquis) 5 mg PO BID 09/29/22 09/29/22 History dexamethasone 4 mg tablet 4 mg PO UD 09/29/22 09/29/22 History folic acid 1 mg tablet 1 mg PO UD 09/29/22 09/29/22 History olanzapine 2.5 mg tablet 2.5 mg PO UD 09/29/22 09/29/22 History ondansetron HCl 8 mg tablet 8 mg PO Q8 PRN Nausea 09/29/22 09/29/22 History prochlorperazine maleate 10 mg 10 mg PO Q6 PRN Nausea 09/29/22 09/29/22 History tablet tramadol 50 mg tablet 50 mg PO Q6 PRN pain,severe 01/20/23 01/20/23 History Patient History Medical History Chest pain "has this off and on, from his cancer" Esophageal dilatation GERD (gastroesophageal reflux disease) History of alcohol dependence per [facility] records History of COVID-19 2019, not hosp; mild symptoms>resolved. Metastatic primary lung cancer mets to mediastinum, liver, bone, adrenal and possibly kidneys per heme/onc note; "no CVS metastases" Pulmonary embolism 07/2022, currently on eliquis; f/u dr. sandoval Surgical History History of bronchoscopy History of esophagogastroduodenoscopy (EGD) Hx of colonoscopy Port-A-Cath in place (09/25/22) Insertion Access Port Left Cephalic(Left)With fluoroscopic guidance with fluoroscopic guided- Padilla Enriquez MD, FACS Family History Mother , Mom at 65 y/o Diabetes Lung cancer Myocardial infarction Hypertension Father , Dad passed at at 53 y/o Diabetes Lung cancer Brother , at 65 y/o Cancer throat cancer Brother Cancer Pt not sure of type of cancer Sister No problems noted. Sister No problems noted. Sister No problems noted. Sister No problems noted. Other No pertinent family history Denies family history of Heart disease Kidney disease Pulmonary embolism Social History Smoking Status: Former smoker Tobacco Type: Cigarettes Age Started Using Tobacco: 12; Age Quit Using Tobacco: 51; Cigarettes Per Day: 1pk/every 3 day; Second Hand Exposure: No; Do You Dip or Chew Tobacco: No; Hx Alcohol Use: No Hx Substance Use: No Preferred Language: Trinidadian Communication Ability: whispers Visual Impairment: No Limitations Hearing Ability: Normal [employer] Attendant Required: No Beliefs That Will Affect Care: None marital status: Current Living Situation: Spouse Current Living Situation Comment: And wifes mother current occupational status: employed 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 [employer] How many Children do You have: 0 Other Information That Helps Us Care for You: No Feels Safe at Home: Yes Safety Concerns: Feels Safe At This Time caffeine: Yes (2 cups/day) during the past year weight has: decreased > 10 lbs Assistive Devices: None Review of Systems Review of Systems: ESAS Pain 1/3 Dyspnea 0/3 NAusea 0/3 Drowsiness 0/3 Physical Exam Constitutional: + cachectic ENMT: Mouth: + dry oral mucous membranes Respiratory: normal respiratory effort; no labored breathing Cardiovascular: Rate/Rhythm: regular rate and regular rhythm Musculoskeletal: Extremities: + muscle atrophy Neurologic: Speech / Cognition: normal cognition Genitourinary: continent Results & Data ([facility]) Vital Signs (Past 12 Hours) Vital Signs Temp Pulse Pulse Resp BP Pulse Ox O2 Del Method 10/03/22 09:02 98.2 F 98 H 18 114/67 99 Room Air 10/03/22 08:00 Room Air 10/03/22 08:35 98.6 F 102 H 16 133/79 100 Room Air 10/03/22 07:40 97.3 F L 89 19 124/76 98 Room Air 10/03/22 07:26 90 17 98 Room Air 10/03/22 04:02 98.1 F 99 H 18 114/72 99 Room Air 10/02/22 23:04 97.7 F 97 H 16 123/77 99 Room Air 10/02/22 22:56 105 H PG Care Time/CCT Total # of Minutes Spent Total Time Spent: 70 Total Time Spent with Patient: Total time spent is greater than 50% in coordination of care (as documented) at patient's floor/unit and/or counseling patient: [id number], [id number] goals of care, code status, prognosis, symptom management, patient and family education and support Coding Level of Care Code 17597 INT INP/OBS CARE 2/55MIN Diagnoses Dysphagia R13.10 Pain due to malignant neoplasm metastatic to bone G89.3; C79.51 Palliative care encounter Z51.5
[2022-10-03 09:38] LABS: Estimated Average Glucose 123 mg/dl; Hemoglobin A1C 5.9 % (4.5-5.6)
--- NOTE | 2022-10-03 10:52 | Neurology Consultation ---
Date of Consultation October 03, 2022 Assessment & Plan (1) Ischemic stroke: Plan Neurology Consultation Assessment & Plan: Impression: pt with subacute appearing small punctate ischemic stroke b/l. Clinically stable. stroke likely contributed by multiple factors including his hypercoagulable state due to his medical condition and recent hypoxia events and recent PE event. Recommendations: * pending echo, if negative for thrombus, continue eliquis as now. * no need for permissive HTN as his stroke appears to be subacute in nature. * Long-term SBP goal less than 130. * Plenty of hydration including IV fluid . Avoid hypovolemia and hypotension. * Initiate DVT prevention therapy * Avoid hypoglycemia, serum glucose goal during hospitalization: 140-180 * Long-term HgA1c goal less than 7 * Start statin if not on it.Long-term LDL goal of less than 70. * Head of bed up 30 degree if possible. 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 * aspiration precaution. * his current management focus is his metastatic cancer and poor nutritional/GI issue. * his stroke is stable and he is on maximum medical therapy currently. * please call again if new question. Chart reviewed I have spent more than 50% educating patient about potential diagnosis and neurological evaluation and coordinating care with patient's treatment team. Total time spent: 80 min (this includes chart review and documentation) Dr. Mikel Llanos MD [facility] Neurology Chief Complaint: stroke HISTORY OF PRESENT ILLNESS:pt with mri brain noted for subacute ischemic stroke b/l, small punctate lesions. pt clinically without focal deficits. chart reviewed. this morning feeling ok. Admission/Initial HPI:This is a 61-year-old male with past medical history significant for metastatic non-small cell lung cancer, stage IV, status post palliative radiation therapy. He just started chemo, first chemo was last Sunday. He has subacute/acute PE, on Eliquis; chronic back pain, on Tramadol. . History of tobacco abuse, he quit smoking about 10 years ago. Mild COPD. He has some dysphagia. He says he is not able to swallow things properly, and also cachectic looking. Presents with shortness of breath. The patient says today evening, he will felt short of breath, coughing with brownish sputum, that is the reason he came to the ER. He was saturating okay at 90% with breathing treatments his saturations improved to high 90'2. His white count was 14. Denies any fevers. He had some right-sided chest pain, but that resolved. He has some nausea, but no vomiting, no abdominal pain. Appetite is poor as per the . No constipation or diarrhea, but no bowel movement in the last 2 days. Denies any blood in the stools. Normal micturition. No swelling in the legs. Denies any headache. No neck pain. Has chronic back pain. No blurred visions, no earache, no runny nose, no sore throat, ambulates slowly. Balance is not that great as per the . Past Medical History: See chart Meds: See chart Social & Family History: See chart Review of Systems: Per HPI. Physical Exam: General Statement: not in acute distress, well appearing Mental Status: Oriented fully. Normal comprehension, no neglect, Fluent speech, logical thought process, Visuo-spatial function was intact. No apraxia, no L/R confusion. Cranial Nerves: Visual dean were full.PERRL.Extraocular movements were full with no nystagmus. Normal pursuit.Facial movements were symmetric.Hearing was grossly intact.Palate elevated symmetrically.Sternocleidomastoid and trapezius muscles were 5/5 and equal bilaterally.Tongue extended midline. Motor: Strength was 5-/5 and equal bilaterally. Normal tone.There were no abnormal movements or pronator drift. diffuse muscle atrophy from poor nutrition. Sensory:intact to touch bilaterally Coordination: Finger to nose were intact bilaterally Reflexes: Toes down bilaterally History of Present Illness Attending Physician: Jorge Diaz MD Allergies Allergy/AdvReac Type Severity Reaction Status Date / Time No Known Allergies Allergy NONE Verified 09/25/22 07:13 Home Medications Medication Instructions Recorded Confirmed Type multivitamin 1 tab PO QAM 06/05/18 09/29/22 History omeprazole 40 mg capsule,delayed 40 mg PO QAM 07/10/22 09/29/22 History release acetaminophen 500 mg tablet 1,000 mg PO TID PRN Pain 08/10/22 09/29/22 History (Tylenol Extra Strength) oxycodone 5 mg tablet 5 mg PO Q4H PRN pain #60 tabs 08/22/22 09/29/22 Rx apixaban 5 mg tablet (Eliquis) 5 mg PO BID 09/29/22 09/29/22 History dexamethasone 4 mg tablet 4 mg PO UD 09/29/22 09/29/22 History folic acid 1 mg tablet 1 mg PO UD 09/29/22 09/29/22 History olanzapine 2.5 mg tablet 2.5 mg PO UD 09/29/22 09/29/22 History ondansetron HCl 8 mg tablet 8 mg PO Q8 PRN Nausea 09/29/22 09/29/22 History prochlorperazine maleate 10 mg 10 mg PO Q6 PRN Nausea 09/29/22 09/29/22 History tablet tramadol 50 mg tablet 50 mg PO Q6 PRN pain,severe 09/29/22 09/29/22 History Patient History Medical History Chest pain "has this off and on, from his cancer" Esophageal dilatation GERD (gastroesophageal reflux disease) History of alcohol dependence per [facility] records History of COVID-2019, not hosp; mild symptoms>resolved. Metastatic primary lung cancer mets to mediastinum, liver, bone, adrenal and possibly kidneys per heme/onc note; "no CVS metastases" Pulmonary embolism 07/2022, currently on eliquis; f/u dr. sandoval Surgical History History of bronchoscopy History of esophagogastroduodenoscopy (EGD) Hx of colonoscopy Port-A-Cath in place (09/25/22) Insertion Access Port Left Cephalic(Left)With fluoroscopic guidance with fluoroscopic guided- Padilla Enriquez MD, FACS Family History Mother , Mom at 65 y/o Diabetes Lung cancer Myocardial infarction Hypertension Father , Dad passed at at 53 y/o Diabetes Lung cancer Brother , at 65 y/o Cancer throat cancer Brother Cancer Pt not sure of type of cancer Sister No problems noted. Sister No problems noted. Sister No problems noted. Sister No problems noted. 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 Beliefs That Will Affect Care: None marital status: Current Living Situation: Spouse Current Living Situation Comment: And wifes mother current occupational status: employed 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 [employer] How many Children do You have: 0 Other Information That Helps Us Care for You: No Feels Safe at Home: Yes Safety Concerns: Feels Safe At This Time caffeine: Yes (2 cups/day) during the past year weight has: decreased > 10 lbs Assistive Devices: None Results & Data ([facility]) Vital Signs (Past 12 Hours) Vital Signs Temp Pulse Pulse Resp BP Pulse Ox O2 Del Method 10/03/22 09:32 96 H 16 126/72 100 Room Air 10/03/22 09:18 92 H 16 129/69 100 Room Air 10/03/22 09:02 36.8 C 98 H 18 114/67 99 Room Air 10/03/22 08:00 Room Air 10/03/22 08:35 37 C 102 H 16 133/79 100 Room Air 10/03/22 07:40 36.3 C L 89 19 124/76 98 Room Air 10/03/22 07:26 90 17 98 Room Air 10/03/22 04:02 36.7 C 99 H 18 114/72 99 Room Air 10/02/22 23:04 36.5 C 97 H 16 123/77 99 Room Air 10/02/22 22:56 105 H
[2022-10-03] MEDS: cefTRIAXone SODIUM 1,000 MG in DEXTROSE 5% AD-VAN 50 ML IV SCH (11:50)
[2022-10-03] MEDS: ENOXAPARIN INJ 40 MG/0.4 ML SYR SC SCH ×2 (14:18→21:22)
--- NOTE | 2022-10-03 14:43 | Hospitalist Progress Note ---
Date of Service October 03, 2022 Assessment & Plan (1) Shortness of breath: (2) COPD exacerbation: (3) Metastatic primary lung cancer: (4) Pulmonary embolism: Plan: Subacute PE Presented to the ED with shortness of breath Multifactorial; history of stage IV lung cancer, mild COPD and history of recent PE WBC downtrending.. Pro-Herman negative CT angio chest shows segmental and subsegmental PE again. Stable appearance of numerous pulmonary lesions. Pulmonary emphysema Currently on aihri-mde-vdnjf duo nebs, Zosyn changed to ceftriaxone. Continue on Doxy. Will complete 5-day course ( Till October 05) On anticoagulation for PE (Currently on lovenox; as unable to take PO eliquis) (5) Ischemic stroke: (6) Dysphagia, oropharyngeal: (7) Dysphagia: Plan: Reports difficulty swallowing solid food since last 1 month; also reports coughing when swallowing. Patient was planned to undergo upper GI series and VFSS on October 02; patient was unable to swallow barium. Discussed with GI; likely pharyngeal dysphagia. CT soft tissue neck with and without contrast was done. Discussed with radiology; no intrinsic/extrinsic blockage found in pharyngeal and thoracic esophagus. Patient has unilateral vocal cord paralysis which explains his hoarseness of voice. ENT coverage not available till Sunday. MRI Brain w/wo contrast was done on October 02; Several subcentrimeter subacute infracts seen in b/l cerebral hemispheres. Patient had endoscopy done on October 03; No esophageal source of dysphagia found; likely oropharyngeal Dysphagia. patient unable to swallow secretions or take medications. Plan: Goals of care discussed with him and his ; palliative consulted. They want to speak with Oncology (Dr. Lewis) before making any decisions. On Lovenox presently for PE/ embolic stroke; unable to take PO meds. on D5 NS as he has hyponatremia. continue morphine iv and protonix iv. Other conditions; Stage IV lung cancer; finished palliative radiation. Started chemotherapy; oncology consulted. Severe protein-calorie malnutrition; due to Cancer and dysphagia. Full code DVT prophylaxis lovenox Admission and Anticipated Discharge Date Admission Date: September 29, 2022 Subjective Patient seen and examined at bedside. Vitals stable; saturating well in RA. He underwent EGD; multiple pooled thick secretions seen in the back of the mouth near vocal cords. No source on EGD to explain dysphagia. Likely oropharyngeal Dysphagia. He is currently NPO; receviing IV fluids and Heparin. Review of Systems Review of Systems: All systems reviewed & are unremarkable except as noted in Subjective Physical Exam Physical Exam: Constitutional: Awake, alert orient x3, cachectic. hoarse voice. Respiratory: No additional wheeze or crackles heard. Cardiovascular: RRR, no murmur, no edema Vessels: no JVD or carotid bruit Chest: normal inspection of chest. Port-A-Cath in place Abdomen: normal bowel sounds, soft, nontender, no hepatosplenomegaly Musculoskeletal: no cyanosis or clubbing, extremities motor strength 5/5 Skin: no rashes, warm and dry normal turgor Neurologic: hoarse voice; no other focal deficits Psychiatric: A+Ox3, euthymic affect Lymphatic: no cervical or axillary lymphadenopathy : deferred Results & Data Results & Data ([facility]) Vital Signs (Past 12 Hours) Vital Signs Temp Pulse Resp BP Pulse Ox O2 Del Method 10/03/22 10:59 36.6 C 102 H 19 117/73 99 Room Air 10/03/22 09:32 96 H 16 126/72 100 Room Air 10/03/22 09:18 92 H 16 129/69 100 Room Air 10/03/22 09:02 36.8 C 98 H 18 114/67 99 Room Air 10/03/22 08:00 Room Air 10/03/22 08:35 37 C 102 H 16 133/79 100 Room Air 10/03/22 07:40 36.3 C L 89 19 124/76 98 Room Air 10/03/22 07:26 90 17 98 Room Air 10/03/22 04:02 36.7 C 99 H 18 114/72 99 Room Air Laboratory Results Laboratory Results WBC 4.51 K/ul (4.8-10.8) L 10/03/22 01:07 RBC 3.32 M/uL (4.63-6.08) L 10/03/22 01:07 Hgb 10.4 g/dl (14.0-18.0) L 10/03/22 01:07 Hct 30.0 % (40.1-51.0) L 10/03/22 01:07 MCV 90.4 fL (80.0-100.0) 10/03/22 01:07 MCH 31.3 pg (25.0-34.0) 10/03/22 01:07 MCHC 34.7 g/dL (32.0-36.0) 10/03/22 01:07 RDW Std Deviation 44.1 fL (36.4-46.3) 10/03/22 01:07 RDW Coeff of Sheeba 13.3 % (11.5-14.5) 10/03/22 01:07 Plt Count 261 K/uL (130-400) 10/03/22 01:07 MPV 9.4 fL (9.4-12.4) 10/03/22 01:07 Immature Gran % (Auto) 1.3 % 10/03/22 01:07 Neut % (Auto) 68.1 % 10/03/22 01:07 Lymph % (Auto) 10.9 % 10/03/22 01:07 Cotton % (Auto) 8.4 % 10/03/22 01:07 Eos % (Auto) 10.6 % 10/03/22 01:07 Baso % (Auto) 0.7 % 10/03/22 01:07 Neut # (Auto) 3.07 K/uL (1.4-6.5) 10/03/22 01:07 Lymph # (Auto) 0.49 K/uL (1.2-3.4) L 10/03/22 01:07 Cotton # (Auto) 0.38 K/uL (0.24-0.82) 10/03/22 01:07 Eos # (Auto) 0.48 K/uL (0-0.50) 10/03/22 01:07 Baso # (Auto) 0.03 K/uL (0-0.2) 10/03/22 01:07 Immature Gran # (Auto) 0.06 K/uL (0.00-0.02) H 10/03/22 01:07 RBC Morphology Unremarkable 10/01/22 05:37 PT 11.3 Seconds (9.0-12.0) 10/01/22 17:33 INR 1.1 (0.9-1.1) 10/01/22 17:33 APTT 26.2 Seconds (21.0-31.0) 10/03/22 01:07 PTT Ratio 1.0 10/03/22 01:07 Sodium 130 mmol/L (136-145) L 10/03/22 01:07 Potassium 4.0 mmol/L (3.5-5.1) 10/03/22 01:07 Chloride 96 mmol/L (98-107) L 10/03/22 01:07 Carbon Dioxide 27 mmol/L (21-32) 10/03/22 01:07 Anion Gap 7 (3-11) 10/03/22 01:07 BUN 25 mg/dl (6-23) H 10/03/22 01:07 Creatinine 0.77 mg/dl (0.6-1.4) 10/03/22 01:07 Est Cr Clr Drug Dosing 60.3 ml/min 10/03/22 01:07 Est GFR ( Amer) 114.3 ml/min 10/03/22 01:07 Est GFR (Non-Af Amer) 98.6 ml/min 10/03/22 01:07 BUN/Creatinine Ratio 32.5 (10-20) H 10/03/22 01:07 Glucose 110 mg/dl (70-99(Fasting)) H 10/03/22 01:07 Estimat Average Glucose 123 mg/dl 10/03/22 01:07 Hemoglobin A1c 5.9 % (4.5-5.6) H 10/03/22 01:07 Calcium 9.7 mg/dl (8.5-10.1) 10/03/22 01:07 Magnesium 1.9 mg/dl (1.7-2.4) 09/29/22 19:20 Total Bilirubin 0.8 mg/dl (0.2-1.0) 10/03/22 01:07 AST 24 U/L (13-39) 10/03/22 01:07 ALT 36 U/L (7-52) 10/03/22 01:07 Alkaline Phosphatase 121 U/L (34-104) H 10/03/22 01:07 Troponin I High Sens 9.9 pg/ml (0-20) 09/29/22 22:19 Total Protein 6.8 gm/dl (6.0-8.3) 10/03/22 01:07 Albumin 3.7 gm/dl (3.4-5.0) 10/03/22 01:07 Globulin 3.1 gm/dl (2.5-4.0) 10/03/22 01:07 Albumin/Globulin Ratio 1.2 (0.9-2) 10/03/22 01:07 Triglycerides 137 mg/dl (0-150) 10/03/22 01:07 Cholesterol 210 mg/dl (0-200) H 10/03/22 01:07 LDL Cholesterol, Calc 132 mg/dl 10/03/22 01:07 VLDL Cholesterol, Calc 27 mg/dl (0-30) 10/03/22 01:07 HDL Cholesterol 51 mg/dl 10/03/22 01:07 Cholesterol/HDL Ratio 4.1 (0-5) 10/03/22 01:07 Procalcitonin 0.06 ng/ml (0-0.5) 09/30/22 06:00 SARS-CoV-2 (PCR) NEGATIVE (Negative) 09/29/22 22:02 Hepatitis C Ab (EIA) NON-REACTIVE (NON-REACTIVE) 09/29/22 19:20 Hep C Ab Signal/Cutoff <0.02 (<1.00) 09/29/22 19:20 Influenza Type A (PCR) Negative (Neg) 09/29/22 22:02 Influenza Type B (PCR) Negative (Neg) 09/29/22 22:02 RSV (RT-PCR) Negative (Neg) 09/29/22 22:02 Impressions Chest X-Ray 09/29/22 18:52 XR chest 1V portable HISTORY: 61 years-old Male SOB acute shortness of breath COMPARISON: Chest radiograph 09/25/2022, CTA chest 09/13/2022 TECHNIQUE: AP view of the chest FINDINGS: Cardiac silhouette is within normal limits. Left subclavian Kwkmdj-b-Xdlb catheter distal tip is noted within the expected location of the mid to inferior SVC. Emphysema without pneumothorax, pleural effusion or overt pulmonary edema. Irregular spiculated nodules are again noted, most pronounced within the right upper lobe. Right hilar lymphadenopathy. IMPRESSION: 1. No acute processes of the chest. 2. Irregular spiculated nodules, most pronounced within the right upper lobe are redemonstrated. 3. Right hilar lymphadenopathy again noted. ACT 112: Negative or not required by law. The above report was generated using voice recognition software. It may contain grammatical, syntax or spelling errors. Electronically signed by: Jose Wilson M.D. 09/29/2022 7:38 PM Chest CTA 09/29/22 21:51 CT angio chest PE protocol CT DOSE: 278.79 mGy.cm HISTORY: 61 years-old Male with SOB, Lung CA, hx of PE in July. Acute shortness of breath in a patient with history of lung cancer TECHNIQUE: Multiple CTA images of the chest were obtained after the intravenous administration of 118 ml Optiray. Coronal and sagittal MIPS were obtained from the axial data set and were submitted for review. All measurements were obtained according to NASCET criteria. A dose lowering technique was utilized adhering to the principles of ALARA. COMPARISON: CTA chest September 13, 2022, chest CT September 11, 2022, CT abdomen pelvis September 11, 2022. FINDINGS: CTA: Heart is normal in size. No pericardial effusion. Atherosclerosis of the thoracic aorta without aneurysm. Tiny segmental and subsegmental pulmonary emboli are again noted, most pronounced in the left lower lobe, not significantly changed from the most recent comparison. No new or progressive pulmonary emboli are identified. Narrowing/partial effacement of the right upper lobe arterial branches again noted. CT CHEST: No thyroid nodule. Left subclavian Vvpynb-z-Tpvr catheter with distal tip in the inferior SVC. Unchanged pathologic subcarinal and right hilar lymphadenopathy. Biapical pleural-parenchymal scarring. Emphysema. Stable spiculated 1.4 center nodule of the lingula on image 150. Additional scattered bilateral spiculated irregular pulmonary nodules are also stable including a 2.9 cm right apical and 3.9 cm right upper lobe nodule on image 213. Central airways are patent. No significant change of the splenic, hepatic, adrenal and metastatic lesions. Osseous metastatic disease. Soft tissue tumor deposit is again noted involving the left T11-T12 neural foramen and epidural space resulting in severe left neuroforaminal and mild central canal stenosis at this level. 4 cm soft tissue mass with bony destruction of the lateral ninth rib. Pathologic fracturing of the left transverse process of the T11 vertebral body. Pathologic fracture of the superior L2 endplate again noted. Pathologic fractures at T9 and T11 again noted. IMPRESSION: 1. Segmental and subsegmental pulmonary emboli again noted, notably within the left lower lobe. Effacement of the segmental and subsegmental right upper lobe pulmonary arterial branches redemonstrated secondary to the pathologic mediastinal/hilar luis disease. 2. Stable appearance of the numerous pulmonary lesions, most pronounced within the right upper lobe. 3. Additional osseous and upper abdominal metastatic disease is stable with pathologic spine fractures again noted. 4. Pulmonary emphysema. ACT 112: Negative or not required by law. The above report was generated using voice recognition software. It may contain grammatical, syntax or spelling errors. Electronically signed by: Jose Wilson M.D. 09/29/2022 10:38 PM Upper GI Series w/ Air Contrast 10/02/22 11:30 FL GI series CLINICAL HISTORY: Dysphagia COMPARISON STUDY: None. FLUOROSCOPY TIME: 1.6 minutes FLUOROSCOPY IMAGES: 1 FINDINGS: The patient was unable to swallow the barium. Therefore, the examination was terminated. IMPRESSION: The patient was unable to swallow the barium. ACT 112: Negative or not required by law. Electronically signed by: [place] Abebe M.D. 10/02/2022 11:54 AM Videofluoroscopic Swallow 10/02/22 11:47 FL video swallow CLINICAL HISTORY: 61 years-old Male with oropharyngeal dysphagia during UGI. Dysphasia with possible aspiration TECHNIQUE: Video fluoroscopic evaluation of swallowing was performed in the AP and lateral projections by the speech pathology staff. The patient is fed nectar-thick and thin liquid barium. FLUOROSCOPY TIME: 0.5 minutes. COMPARISON STUDY: Upper GI series of same day FINDINGS: Silent aspiration with thin liquid barium. No additional consistencies were given to the patient. Vallecular retention with decreased epiglottic inversion. IMPRESSION: 1. Aspiration with thin liquid barium. 2. Please see the speech pathologist report for detailed findings and recommendations. ACT 112: Negative or not required by law. Electronically signed by: Jose Wilson M.D. 10/02/2022 12:40 PM Brain MRI 10/02/22 12:43 MR brain wo/w con HISTORY: 61 years-old Male Hx of metastatic lung Ca; Dysphagia acute strokelike symptoms with history of lung cancer COMPARISON: CT soft tissue neck of same day, Brain MRI 07/14/2022 TECHNIQUE: Multiplanar multisequence MRI of the brain was obtained both with and without the use of 4 cc Gadavist FINDINGS: There are at least 6 subcentimeter foci of cortically based increased diffusion- weighted signal within the bilateral frontal and left occipital lobes measuring up to 7 mm on image 18 series 5. These foci appear to demonstrate increased s ignal on ADC map suggestive of T2 shine through and are new from the prior exam. No acute or subacute territorial infarct. Midline structures appear unremarkable. Degenerative changes of the cervical spine. Motion degraded exam. No acute intracranial hemorrhage, midline shift, abnormal extra axial collection, hydrocephalus or intracranial mass. Mild involutional changes. Mild scattered T2/FLAIR hyperintense foci are noted throughout the white matter suggestive of chronic microvascular ischemic disease. No abnormal enhancement identified. No vasogenic edema. IMPRESSION: 1. Several subcentimeter subacute appearing infarcts of the bilateral cerebral hemispheres are noted within a multiple vascular distribution, likely from an embolic source. 2. No abnormal enhancement to suggest intracranial metastatic disease. ACT 112: Negative or not required by law. The above report was generated using voice recognition software. It may contain grammatical, syntax or spelling errors. Electronically signed by: Jose Wilson M.D. 10/02/2022 5:[address] Tissue [address]ck [address] 10/02/22 12:43 CT soft tissue neck w con HISTORY: Dysphagia TECHNIQUE: Multiaxial CT images of the neck were performed following the intravenous administration of 86 cc of Optiray 350. Sagittal and coronal reformations were performed at the workstation by the radiologist. COMPARISON STUDY: PET CT 07/27/2022. Chest CTA 09/29/2022. FINDINGS: The visualized brain parenchyma and orbits are unremarkable. The pterygopalatine fossa and paratracheal fat spaces are maintained. There is residual contrast within the hypopharynx due to the recent video swallow. This results in mild artifact. The parotid and submandibular glands are symmetric. The major mucosal airways services are intact. The necrotic right paratracheal/hilar lymphadenopathy and a spiculated right upper lobe mass are again noted. These are better appreciated on the recent chest CT. Emphysema. There are 2 necrotic right supraclavicular lymph nodes with the largest on image 302 measuring 13 x 9 mm. These are similar to the prior study. The thyroid gland enhances normally. No enlarged cervical lymph nodes. Vertebral soft tissues and the epiglottis are normal in thickness. Mild medial deviation of the right vocal cord comparison to the left best seen on image 285. This suggests right-sided vocal cord paralysis. No suspicious lytic or blastic osseous lesions. A partially visualized left subclavian Port-A-Cath. IMPRESSION: 1. Mild asymmetric medial deviation of the right vocal cord suggesting paralysis. 2. Redemonstration of the necrotic right paratracheal/hilar lymphadenopathy in the spiculated right upper lobe mass. 3. Necrotic mildly enlarged right supraclavicular lymph nodes remain unchanged. ACT 112: Negative or not required by law. Electronically signed by: [place] Abebe M.D. 10/02/2022 3:31 PM
[2022-10-03] MEDS: MoRPHine SULFATE 2 MG/ML CARP IV PRN (22:04)
[2022-10-04] MEDS: D5W AND NSS 1,000 ML IV SCH (04:56)
[2022-10-04] MEDS: MoRPHine SULFATE 2 MG/ML CARP IV PRN ×2 (05:00→22:14)
[2022-10-04] MEDS: DOXYCYCLINE HYCLATE 100 MG in DEXTROSE 5% 100 ML IV SCH ×2 (05:46→18:01)
--- NOTE | 2022-10-04 07:06 | Consultation ---
Date of Consultation October 04, 2022 Assessment & Plan (1) Dysphagia, oropharyngeal: This seems to be a functional dysphagia rather than as potentially suspected a specific obstruction of the esophagus from his pathologic mediastinal adenopathy. He obviously is nutritionally depleted which is probably further negatively impacting his performance status. We spoke at length about the pros and cons of the feeding tube noting that this would not impact directly on his cancer though indirectly if it improves his strength it could make him more able to tolerate ongoing treatment. He does understand that there could be a series of complications due to the feeding tube itself but is very motivated to at [place] give that a try. Role of the feeding tube in the larger context of is cancer as discussed below. (2) Metastatic primary lung cancer: As detailed in the HPI, diagnosed with widely metastatic lung adenocarcinoma with systemic therapy initially delayed as we addressed management of his pulmonary embolism, his acute skeletal issues with radiation for purposes of pain relief and stabilization, and as well as we pursued molecular studies to determine our options of targeted versus traditional systemic therapy. His admission with acute respiratory deterioration and dysphagia may actually have a unifying pathophysiology given that swallowing eval does show some evidence of recurrent aspiration which could well have been the specific precipitant of some of his more acute respiratory difficulties. 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 CT scans are reassuringly at least stable without dramatic progression or immediately physically threatening disease other than his functionality issues with swallowing and breathing. Retrospectively, dysphagia have actually been going on since at least the very first of the year and concern had been whether the evolving disease in the mediastinum was the culprit with hope that chemotherapy might help to relieve that. Now that we see that that is a functional issue, actually there is less concern for the immediate physical threat of his cancer. Even with the dysphagia and significant nutritional depletion, he still ambulatory and capable of personal care though not of any work. Technically ECOG performance status is 2 (admittedly at the lower end of that category) which would still allow for ongoing dual agent palliative chemotherapy though technically guidelines would suggest that we omit the ICI. I spoke quite frankly and at length with the patient and his . We reite rated that we have no curative possibilities here. We discussed that the degree and durability of response are quite variable and that for some patients there is no response and their survival might be as short as weeks to no more than a month or 2. Where there is a response, we discussed that survival can extend out to a number of months or occasionally beyond a year but more significantly prolonged survival will be extraordinarily unlikely. We discussed that ongoing chemotherapy could itself have significant toxicities and that those toxicities might be inherently life shortening. We discussed the importance of looking closely and realistically at his goals for quality of life and that he needs to strongly assess whether the "personal blakely" he might pay with ongoing therapy beyond pure palliative care is worth the uncertain and ultimately limited response. Both he and his unequivocally indicate that they would like to do anything and everything they could to potentially continue with further chemotherapy. Immediate issue would be to rectify his nutritional depletion and decrease further risk for aspiration. He is specifically embracing the potential to place a feeding tube which in limiting his p.o. intake but assuring ongoing fluids/nutrition/medication administration might well stabilize him both with respect to his nutritional depletion and with ongoing respiratory compromise. We have suggested layered approach with feeding tube placement, aggressive nutrition combined with aggressive PT/OT even to the point of a possible rehab stay. We suggested that we should see what we can accomplish in terms of thereby stabilizing/improving his performance status and reserving the contingency to consider resuming chemotherapy, perhaps even with a slight delay, but doing so based on response to those nutritional and PT/OT interventions. Hopefully, placement of a PEG tube would be a relatively straightforward process requiring only brief interruption of his anticoagulation. We did discuss that there are not just the specific concerns over nutrition/aspiration/malignancy as above but that he may be at risk for additional pulmonary embolism, additional CVA, major bleeding episodes, or major infections and that if any of those occur they can have a major negative impact on his performance status and preclude resumption of systemic treatment. I indicated that our determinations to proceed with any interventions but especially chemotherapy will need to be the subject of ongoing review. (3) Pulmonary embolism: Overall persistent changes of pulmonary embolism and is not clear that there is been a dramatic new event and at this time he is oxygenating reasonably well. With the uncertain onset of his multifocal CVAs, change in anticoagulation is nevertheless appropriate and he is currently on Lovenox at 1 mg/kg subcutaneously twice daily. Might be worthwhile to check an anti-Xa level 4 hours after a dose to make sure that he is indeed therapeutic. He is tolerating subcutaneous injections well may be worthwhile to keep him on that indefinitely as we sort out other issues (4) Ischemic stroke: Multifocal CVA is new since his 07/14/2022 brain MRI, 09/13/[address] was noncontrast I do not think we can necessarily specifically compare the presence or absence from that study. His dysphagia has been ongoing for some time and to the extent that the CVAs may be part of that functional problem, I wonder if they have actually been present for a while. Echocardiogram does not show a clear cardiac source that was insufficiently structured to rule out a PFO and certainly with his history of pulmonary embolism if there is even a small PFO that may be a source for paradoxical embolization that led to the CVAs. As discussed under the treatment of pulm embolism, he has changed anticoagulation and other than potentially confirming its therapeutic levels, not clear that there are additional interventions to offer at this time other than close monitoring. Plan 1. We will continue with enoxaparin indefinitely at the current dose though it would be worthwhile to do a one-time therapeutic level check with an anti-Xa level drawn 4 hours after a dose 2. If GI is willing, would proceed with PEG tube placement and a brief interruption of his anticoagulation to do so 3. Needs a combination of aggressive PT/OT/speech therapy potentially in a rehab setting. Specific goal would be to further improve his performance status with potential consideration of resumption of systemic therapy though even if we cannot reach an adequate level to do that, any improvement in performance status should hopefully at least augment quality of life and better enable him to enjoy what life he does have remaining 4. He is not due for chemotherapy for at least 2 weeks and we could delay decision about resumption even a little bit further if he is making progress on PS.. As above, we spoke at length of the pros and cons of chemotherapy specifically noting not only the limited potential for response and extension of survival but as simona the paradoxical potential that regimen-related complications could significant undermine short-term quality of life and even reduce its quantity. Nevertheless, he and his are quite committed to at least trying to improve sufficiently to consider additional cycles and he does have sufficient residual performance status with, hopefully, potential for its improvement to at least keep that possibility on the table though that will need to be further reviewed in light of his response to the above interventions. History of Present Illness Attending Physician: Jorge Diaz MD History of Present Illness Please also see the hospitalist history and physical, previous inpatient consultation, and extensive documentation in the cancer [facility] record for additional details. 61-year-old gentleman who presented July 10 with multiple bilateral pulmonary emboli and a lung mass that ultimately proved to be adenocarcinoma. Initial work-up showed primary right upper lobe mass with pathologic mediastinal adenopathy, multiple bony metastases as well as visceral metastases to the liver, spleen, adrenal glands. Initial management focused on stabilizing on anticoagulation with respect to pulmonary emboli and palliative radiation to his T11 and right femur lesions which was completed at the second half of August 2022. Molecular testing showed no PDL1 expression and no frontline targetable mutations. He was started on pemetrexed/pembrolizumab/carboplatinum 09/26/2022/he tolerated initial chemotherapy well but in the broader context of ongoing respiratory difficulties and some ongoing nutritional depletion was admitted with acute respiratory deterioration, productive cough, what is proving to be a functional dysphagia. Currently, however, patient reports that he is ambulatory and is not having significant pain. While he is on [id number] bronchodilators, he reports his breathing is relatively stable. [id number] smoker and quit in 2013, former heavy alcohol drinker he has been sober since 2010. He works in the [email or web address] shop without major toxic exposures. He is and very closely supported by his who was present during the time of my interview. Family history is relevant for smoking-related cancers and premature ath erosclerosis. Hospital course includes EGD which does not show any evidence of physical causes for his dysphagia, MRI of the brain which shows some punctate CVAs new since the July for study, chest CT which shows relatively stable disease and some persistent but no clear new pulmonary embolism. Patient has been on apixaban was switched on this admission to Lovenox and seems to be tolerating that quite well without any major bleeding. Allergies Allergy/AdvReac Type Severity Reaction Status Date / Time No Known Allergies Allergy NONE Verified 09/25/22 07:13 Home Medications Medication Instructions Recorded Confirmed Type multivitamin 1 tab PO QAM 06/05/18 09/29/22 History omeprazole 40 mg capsule,delayed 40 mg PO QAM 07/10/22 09/29/22 History release acetaminophen 500 mg tablet 1,000 mg PO TID PRN Pain 08/10/22 09/29/22 History (Tylenol Extra Strength) oxycodone 5 mg tablet 5 mg PO Q4H PRN pain #60 tabs 08/22/22 09/29/22 Rx apixaban 5 mg tablet (Eliquis) 5 mg PO BID 09/29/22 09/29/22 History dexamethasone 4 mg tablet 4 mg PO UD 09/29/22 09/29/22 History folic acid 1 mg tablet 1 mg PO UD 09/29/22 09/29/22 History olanzapine 2.5 mg tablet 2.5 mg PO UD 09/29/22 09/29/22 History ondansetron HCl 8 mg tablet 8 mg PO Q8 PRN Nausea 09/29/22 09/29/22 History prochlorperazine maleate 10 mg 10 mg PO Q6 PRN Nausea 09/29/22 09/29/22 History tablet tramadol 50 mg tablet 50 mg PO Q6 PRN pain,severe 09/29/22 09/29/22 History Patient History Medical History Chest pain "has this off and on, from his cancer" Esophageal dilatation GERD (gastroesophageal reflux disease) History of alcohol dependence per [facility] records History of COVID-19 2019, not hosp; mild symptoms>resolved. Metastatic primary lung cancer mets to mediastinum, liver, bone, adrenal and possibly kidneys per heme/onc note; "no CVS metastases" Pulmonary embolism 07/2022, currently on eliquis; f/u dr. sandoval Surgical History History of bronchoscopy History of esophagogastroduodenoscopy (EGD) Hx of colonoscopy Port-A-Cath in place (09/25/22) Insertion Access Port Left Cephalic(Left)With fluoroscopic guidance with fluoroscopic guided- Padilla Enriquez MD, FACS Family History Mother , Mom at 65 y/o Diabetes Lung cancer Myocardial infarction Hypertension Father , Dad passed at at 53 y/o Diabetes Lung cancer Brother , at 65 y/o Cancer throat cancer Brother Cancer Pt not sure of type of cancer Sister No problems noted. Sister No problems noted. Sister No problems noted. Sister No problems noted. Other No pertinent family history Denies family history of Heart disease Kidney disease Pulmonary embolism Social History Smoking Status: Former smoker Tobacco Type: Cigarettes Age Started Using Tobacco: 12; Age Quit Using Tobacco: 51; Cigarettes Per Day: 1pk/every 3 day; Second Hand Exposure: No; Do You Dip or Chew Tobacco: No; Hx Alcohol Use: No Hx Substance Use: No Preferred Language: Chinese Communication Ability: whispers Visual Impairment: No Limitations Hearing Ability: Normal Drain Cleaner Required: No Beliefs That Will Affect Care: None marital status: Current Living Situation: Spouse Current Living Situation Comment: And wifes mother current occupational status: employed 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 He remains ambulatory without dramatically impacting pain. Bowel and bladder functions he medically stable Physical Exam Physical Exam: Patient is alert, vital signs are stable and he is oxygenating reasonably well on room air Neurologically he is fluent, appropriate and seems to have adequate cognitive function for medical decision-making. All 4 extremities seem to show reasonably good movement and there is no gross tremor or gross cerebellar dysfunction at least at bedrest.Pupils are equal and reactive and there is no meningismus Lungs do show some scattered rhonchi but is moving air relatively well without stridor or marked wheezes, he is not tachypneic Cardiac rhythm is rate without pathological murmur Abdomen is scaphoid but nontender without gross significant organomegaly or palpable mass Results & Data ([facility]) Vital Signs (Past 12 Hours) Vital Signs Temp Pulse Pulse Resp BP BP Pulse Ox 10/04/22 02:42 36.7 C 87 16 130/77 97 10/04/22 00:11 97 H 10/03/22 22:37 36.8 C 101 H 18 134/84 98 10/03/22 20:00 10/03/22 19:26 98 H 18 97 O2 Del Method 10/04/22 02:42 Room Air 10/04/22 00:11 10/03/22 22:37 Room Air 10/03/22 20:00 Room Air 10/03/22 19:26 Room Air Laboratory Results Laboratory Results - last 24 hr 10/03/22 10/04/22 10/04/22 01:07 06:15 06:15 WBC 4.97 RBC 3.23 L Hgb 10.1 L Hct 29.3 L MCV 90.7 MCH 31.3 MCHC 34.5 RDW Std Deviation 44.1 RDW Coeff of Sheeba 13.3 Plt Count 196 MPV 10.0 Immature Gran % (Auto) 1.0 Neut % (Auto) 63.0 Lymph % (Auto) 7.8 Emanuel % (Auto) 13.7 Eos % (Auto) 13.9 Baso % (Auto) 0.6 Neut # (Auto) 3.13 Lymph # (Auto) 0.39 L Emanuel # (Auto) 0.68 Eos # (Auto) 0.69 H Baso # (Auto) 0.03 Immature Gran # (Auto) 0.05 H Sodium Pending Potassium Pending Chloride Pending Carbon Dioxide Pending Anion Gap Pending BUN Pending Creatinine Pending Est Cr Clr Drug Dosing Pending Est GFR ( Amer) Pending Est GFR (Non-Af Amer) Pending BUN/Creatinine Ratio Pending Glucose Pending Estimat Average Glucose 123 Hemoglobin A1c 5.9 H Calcium Pending Diagnostic Findings Chest X-Ray 09/29/22 18:52 XR chest 1V portable HISTORY: 61 years-old Male SOB acute shortness of breath COMPARISON: Chest radiograph 09/25/2022, CTA chest 09/13/2022 TECHNIQUE: AP view of the chest FINDINGS: Cardiac silhouette is within normal limits. Left subclavian Mjrpka-s-Qxjh catheter distal tip is noted within the expected location of the mid to inferior SVC. Emphysema without pneumothorax, pleural effusion or overt pulmonary edema. Irregular spiculated nodules are again noted, most pronounced within the right upper lobe. Right hilar lymphadenopathy. IMPRESSION: 1. No acute processes of the chest. 2. Irregular spiculated nodules, most pronounced within the right upper lobe are redemonstrated. 3. Right hilar lymphadenopathy again noted. ACT 112: Negative or not required by law. The above report was generated using voice recognition software. It may contain grammatical, syntax or spelling errors. Electronically signed by: Jose Wilson M.D. 09/29/2022 7:38 PM Chest CTA 09/29/22 21:51 CT angio chest PE protocol CT DOSE: 278.79 mGy.cm HISTORY: 61 years-old Male with SOB, Lung CA, hx of PE in July. Acute shortness of breath in a patient with history of lung cancer TECHNIQUE: Multiple CTA images of the chest were obtained after the intravenous administration of 118 ml Optiray. Coronal and sagittal MIPS were obtained from the axial data set and were submitted for review. All measurements were obtained according to NASCET criteria. A dose lowering technique was utilized adhering to the principles of ALARA. COMPARISON: CTA chest September 13, 2022, chest CT September 11, 2022, CT abdomen pelvis September 11, 2022. FINDINGS: CTA: Heart is normal in size. No pericardial effusion. Atherosclerosis of the thoracic aorta without aneurysm. Tiny segmental and subsegmental pulmonary emboli are again noted, most pronounced in the left lower lobe, not significantly changed from the most recent comparison. No new or progressive pulmonary emboli are identified. Narrowing/partial effacement of the right upper lobe arterial branches again noted. CT CHEST: No thyroid nodule. Left subclavian Bkuvdn-b-Hjuj catheter with distal tip in the inferior SVC. Unchanged pathologic subcarinal and right hilar lymphadenopathy. Biapical pleural-parenchymal scarring. Emphysema. Stable spiculated 1.4 center nodule of the lingula on image 150. Additional scattered bilateral spiculated irregular pulmonary nodules are also stable including a 2.9 cm right apical and 3.9 cm right upper lobe nodule on image 213. Central airways are patent. No significant change of the splenic, hepatic, adrenal and metastatic lesions. Osseous metastatic disease. Soft tissue tumor deposit is again noted involving the left T11-T12 neural foramen and epidural space resulting in severe left neuroforaminal and mild central canal stenosis at this level. 4 cm soft tissue mass with bony destruction of the lateral ninth rib. Pathologic fracturing of the left transverse process of the T11 vertebral body. Pathologic fracture of the superior L2 endplate again noted. Pathologic fractures at T9 and T11 again noted. IMPRESSION: 1. Segmental and subsegmental pulmonary emboli again noted, notably within the left lower lobe. Effacement of the segmental and subsegmental right upper lobe pulmonary arterial branches redemonstrated secondary to the pathologic mediastinal/hilar luis disease. 2. Stable appearance of the numerous pulmonary lesions, most pronounced within the right upper lobe. 3. Additional osseous and upper abdominal metastatic disease is stable with pathologic spine fractures again noted. 4. Pulmonary emphysema. ACT 112: Negative or not required by law. The above report was generated using voice recognition software. It may contain grammatical, syntax or spelling errors. Electronically signed by: Jose Wilson M.D. 09/29/2022 10:38 PM Upper GI Series w/ Air Contrast 10/02/22 11:30 FL GI series CLINICAL HISTORY: Dysphagia COMPARISON STUDY: None. FLUOROSCOPY TIME: 1.6 minutes FLUOROSCOPY IMAGES: 1 FINDINGS: The patient was unable to swallow the barium. Therefore, the examination was terminated. IMPRESSION: The patient was unable to swallow the barium. ACT 112: Negative or not required by law. Electronically signed by: [place] Abebe M.D. 10/02/2022 11:54 AM Videofluoroscopic Swallow 10/02/22 11:47 FL video swallow CLINICAL HISTORY: 61 years-old Male with oropharyngeal dysphagia during UGI. Dysphasia with possible aspiration TECHNIQUE: Video fluoroscopic evaluation of swallowing was performed in the AP and lateral projections by the speech pathology staff. The patient is fed nectar-thick and thin liquid barium. FLUOROSCOPY TIME: 0.5 minutes. COMPARISON STUDY: Upper GI series of same day FINDINGS: Silent aspiration with thin liquid barium. No additional consistencies were given to the patient. Vallecular retention with decreased epiglottic inversion. IMPRESSION: 1. Aspiration with thin liquid barium. 2. Please see the speech pathologist report for detailed findings and recommendations. ACT 112: Negative or not required by law. Electronically signed by: Jose Wilson M.D. 10/02/2022 12:40 PM Brain MRI 10/02/22 12:43 MR brain wo/w con HISTORY: 61 years-old Male Hx of metastatic lung Ca; Dysphagia acute strokelike symptoms with history of lung cancer COMPARISON: CT soft tissue neck of same day, Brain MRI 07/14/2022 TECHNIQUE: Multiplanar multisequence MRI of the brain was obtained both with and without the use of 4 cc Gadavist FINDINGS: There are at least 6 subcentimeter foci of cortically based increased diffusion- weighted signal within the bilateral frontal and left occipital lobes measuring up to 7 mm on image 18 series 5. These foci appear to demonstrate increased signal on ADC map suggestive of T2 shine through and are new from the prior exam. No acute or subacute territorial infarct. Midline structures appear unremarkable. Degenerative changes of the cervical spine. Motion degraded exam. No acute intracranial hemorrhage, midline shift, abnormal extra axial collection, hydrocephalus or intracranial mass. Mild involutional changes. Mild scattered T2/FLAIR hyperintense foci are noted throughout the white matter suggestive of chronic microvascular ischemic disease. No abnormal enhancement identified. No vasogenic edema. IMPRESSION: 1. Several subcentimeter subacute appearing infarcts of the bilateral cerebral hemispheres are noted within a multiple vascular distribution, likely from an embolic source. 2. No abnormal enhancement to suggest intracranial metastatic disease. ACT 112: Negative or not required by law. The above report was generated using voice recognition software. It may contain grammatical, syntax or spelling errors. Electronically signed by: Jose Wilson M.D. 10/02/2022 5:[address] PM [address] Tissue Neck CT 10/02/22 12:43 CT soft tissue neck w con HISTORY: Dysphagia TECHNIQUE: Multiaxial CT images of the neck were performed following the intravenous administration of 86 cc of Optiray 350. Sagittal and coronal reformations were performed at the workstation by the radiologist. COMPARISON STUDY: PET CT 07/27/2022. Chest CTA 09/29/2022. FINDINGS: The visualized brain parenchyma and orbits are unremarkable. The pterygopalatine fossa and paratracheal fat spaces are maintained. There is residual contrast within the hypopharynx due to the recent video swallow. This results in mild artifact. The parotid and submandibular glands are symmetric. The major mucosal airways services are intact. The necrotic right paratracheal/hilar lymphadenopathy and a spiculated right upper lobe mass are again noted. These are better appreciated on the recent chest CT. Emphysema. There are 2 necrotic right supraclavicular lymph nodes with the largest on image 302 measuring 13 x 9 mm. These are similar to the prior study. The thyroid gland enhances normally. No enlarged cervical lymph nodes. Vertebral soft tissues and the epiglottis are normal in thickness. Mild medial deviation of the right vocal cord comparison to the left best seen on image 285. This suggests right-sided vocal cord paralysis. No suspicious lytic or blastic osseous lesions. A partially visualized left subclavian Port-A-Cath. IMPRESSION: 1. Mild asymmetric medial deviation of the right vocal cord suggesting paralysis. 2. Redemonstration of the necrotic right paratracheal/hilar lymphadenopathy in the spiculated right upper lobe mass. 3. Necrotic mildly enlarged right supraclavicular lymph nodes remain unchanged. ACT 112: Negative or not required by law. Electronically signed by: Montana Abebe M.D. 10/02/2022 3:31 PM PG Care Time/CCT Total # of Minutes Spent Total Time Spent with Patient: Total time spent is greater than 50% in coordination of care (as documented) at patient's floor/unit and/or counseling patient: Coding Level of Care Code New Pt INP/OBS CONSULT LVL 5, 80 MIN Patient Type New History Expanded Problem Focused Exam Expanded Problem Focused Medical Decision Making High Complexity Diagnoses Dysphagia, oropharyngeal R13.12 Metastatic primary lung cancer C34.90 Pulmonary embolism I26.99 Ischemic stroke I63.9
[2022-10-04 07:08] LABS: Basophils # (auto) 0.03 K/uL (0-0.2); Basophils % (auto) 0.6 %; Eosinophils # (auto) 0.69 K/uL (0-0.50); Eosinophils % (auto) 13.9 %; Hematocrit (blood only) 29.3 % (40.1-51.0); Hemoglobin 10.1 g/dl (14.0-18.0); Immature Granulocytes # (auto) 0.05 K/uL (0.00-0.02); Lymphocytes # (auto) 0.39 K/uL (1.2-3.4); Lymphocytes % (auto) 7.8 %; Mean Corpuscular Hemoglobin 31.3 pg (25.0-34.0); Mean Corpuscular Hgb Conc 34.5 g/dL (32.0-36.0); Mean Corpuscular Volume 90.7 fL (80.0-100.0); Monocytes # (auto) 0.68 K/uL (0.24-0.82); Monocytes % (auto) 13.7 %; Neutrophils # (auto) 3.13 K/uL (1.4-6.5); Platelet Count 196 K/uL (130-400); RDW Coefficient of Variation 13.3 % (11.5-14.5); RDW Standard Deviation 44.1 fL (36.4-46.3); Red Blood Count 3.23 M/uL (4.63-6.08); White Blood Count 4.97 K/ul (4.8-10.8)
[2022-10-04] MEDS: SODIUM CHLOR 7% 4 ML NEB NEB SCH (07:18)
[2022-10-04] MEDS: ALBUT/IPRATROP 3MG/0.5MG NEB 3 ML VIAL NEB SCH ×2 (07:18→11:36)
[2022-10-04 07:27] LABS: BUN Creatinine Ratio 37.9 (10-20); Calcium 9.5 mg/dl (8.5-10.1); Creatinine Clr Calc Pharmacy 79.5 ml/min; Est GFR (African American) 128.4 ml/min; Est GFR (Non-African American) 110.8 ml/min; Potassium 3.9 mmol/L (3.5-5.1)
[2022-10-04] MEDS: PANTOprazole 40 MG in SYRINGE 0 ML IV SCH (08:15)
[2022-10-04] MEDS: ENOXAPARIN INJ 40 MG/0.4 ML SYR SC SCH ×2 (08:22→20:46)
[2022-10-04] MEDS: cefTRIAXone SODIUM 1,000 MG in DEXTROSE 5% AD-VAN 50 ML IV SCH (11:04)
--- NOTE | 2022-10-04 11:39 | XRay Report ---
XR KUB CLINICAL HISTORY: Coresafe placement TECHNIQUE: 1 view of the abdomen was obtained. Comparison: Comparison is made to CTA chest 06/29/2023 FINDINGS: There is a enteric tube with the tip within the stomach. The gastric bubble appears markedly distende d. Degenerative changes are seen in the visualized skeleton. The bowel gas pattern is nonobstructive. Small stool burden is seen. IMPRESSION: Satisfactory appearance of enteric tube. ACT 112: Negative or not required by law. Electronically signed by: Jerome Lacey M.D. 10/04/2022 10:20 AM
[2022-10-04] MEDS ORDERED: TUBE FEEDING WATER FLUSH NG SCH (12:00)
--- NOTE | 2022-10-04 12:39 | Gastroenterology Progress Note ---
Date of Service October 04, 2022 Assessment & Plan (1) Severe protein-calorie malnutrition: (2) Dysphagia: Plan: Patient is a 61 years old male with metastatic lung cancer followed for dysphagia. Failed video swallow evaluation which showed no pharyngeal movement. Brain MRI showed multiple embolic infarcts. Soft tissue neck CT showed signs of possible vocal cord paralysis. EGD had been performed yesterday which was essentially quite unremarkable without any signs of strictures or obstruction. He may have some signs of esophageal candidiasis. Patient had expressed wishes to prolong his life as long as possible. He understands that he is at aspiration risk if he continues to try eating by mouth. He would like to have a feeding tube placement, specifically a PEG. I had discussed risks vs benefits of PEG placement, specifically clarified that having a PEG tube placement does not eliminate his risk for aspiration, and does not necessarily improve his prognosis given his advanced cancer processes. He understands this. Would recommend that we try him on Dobbhoff tube feeding to see if he will tolerate goal feeding rate without abdominal pain, nausea, vomiting, diarrhea or aspiration. If he does tolerate this in the next few days may consider possibly placing PEG tube perhaps next week. Continue to hold his Eliquis for now Admission and Anticipated Discharge Date Admission Date: September 29, 2022 Supervising Physician Co-Signing Physician Notes 61 y/o cachetic male with history of stage IV metastatic lung cancer on palliative radiation, bilateral PEs on eliquis, severe protein calorie malnutrition who presented with dyspnea and with complaints of dysphagia for the past month.Unable to obtain UGI series as he was noted to have aspiration and no pharyngeal movement when evaluated by [employer]. Underwent EGD without any esophagitis, stenosis, or stricture. he underwent a brain MRI which showed several subacute embolic infarcts felt to be the source of his dysphagia. palliative care was consulted as well as a discussion with his primary oncologist Dr. Lewis. After discussion with all teams and patient/spouse they would like to pursue further treatment with potential chemotherapy. Dr. Lewis would like patient's nutritional status to be optimized first and had discussed with patient about a PEG tube which patient would like to proceed with. I discussed risks and benefits with patient about PEG tube and informed him that this will not decrease his risk of aspiration but he would still like to proceed with hopes to get further treatment that could prolong his life. He will start tube feeds today with plans to get to goal over the next 24 hours. If he tolerates tube feeds without issue could plan for potential PEG tube placement on sunday. heparin gtt would need to be held 6 hours prior and tube feeds held midnight before. He needs close monitoring of electrolytes for re feeding syndrome. Mansi Irby, DO Gastroenterology and Hepatology Subjective GI asked by primary team to re-evaluate pt for possible PEG tube placement for nutritional support given patient's dysphagia and aspiration risk. Patient has spoken and expressed wishes to palliative care team that he would like to "live as long as possible". He currently denies abd pain, n/v. Is NPO Review of Systems Review of Systems: All systems reviewed & are unremarkable except as noted in HPI & below Physical Exam Constitutional: + cachectic Eyes: PERRL, conjunctivae normal, anicteric sclerae ENMT: external ear and nose normal, oropharynx normal Respiratory: normal respiratory effort, lungs clear to auscultation Cardiovascular: RRR, no murmur, no edema Gastrointestinal (Abdomen): normal bowel sounds, soft, nontender, no hepatosplenomegaly Skin: no rashes, warm and dry no jaundice Psychiatric: A+Ox3, euthymic affect Lymphatic: no lymphedema Results & Data ([facility]) Vital Signs (Past 12 Hours) Vital Signs Temp Pulse Pulse Resp BP BP Pulse Ox 10/04/22 11:37 98 H 18 97 10/04/22 11:20 36.7 C 98 H 20 127/82 98 10/04/22 07:39 36.7 C 91 H 20 129/66 97 10/04/22 07:18 95 H 18 98 10/04/22 02:42 36.7 C 87 16 130/77 97 10/04/22 00:11 97 H O2 Del Method 10/04/22 11:37 Room Air 10/04/22 11:20 Room Air 10/04/22 07:39 Room Air 10/04/22 07:18 Room Air 10/04/22 02:42 Room Air 10/04/22 00:11
[2022-10-04] MEDS ORDERED: Nursing to Pharmacy Communication SCH (13:15)
[2022-10-04] MEDS: TUBE FEEDING WATER FLUSH NG SCH ×3 (13:21→20:06)
[2022-10-04] MEDS: FIBERSOURCE HN 1.2 CAL 1000 ML BAG NG SCH (13:32)
--- NOTE | 2022-10-04 14:00 | Hospitalist Progress Note ---
Date of Service October 04, 2022 Assessment & Plan (1) Shortness of breath: (2) COPD exacerbation: (3) Metastatic primary lung cancer: (4) Pulmonary embolism: Plan: Subacute PE Presented to the ED with shortness of breath Multifactorial; history of stage IV lung cancer, mild COPD and history of recent PE WBC downtrending.. Pro-Herman negative CT angio chest shows segmental and subsegmental PE again. Stable appearance of numerous pulmonary lesions. Pulmonary emphysema Currently on [id number] duo nebs, Zosyn changed to ceftriaxone. Continue on Doxy. Will complete 5-day course ( Till October 04) On anticoagulation for PE (Currently on lovenox; as unable to take PO eliquis) (5) Ischemic stroke: (6) Dysphagia, oropharyngeal: (7) Dysphagia: Plan: Reports difficulty swallowing solid food since last 1 month; also reports coughing when swallowing. Patient was planned to undergo upper GI series and VFSS on October 02; patient was unable to swallow barium. Discussed with GI; likely pharyngeal dysphagia. CT soft tissue neck with and without contrast was done. Discussed with radiology; no intrinsic/extrinsic blockage found in pharyngeal and thoracic esophagus. Patient has unilateral vocal cord paralysis which explains his hoarseness of voice. MRI Brain w/wo contrast was done on October 02; Several subcentrimeter subacute infracts seen in b/l cerebral hemispheres. Patient had endoscopy done on October 03; No esophageal source of dysphagia found; likely oropharyngeal Dysphagia. patient unable to swallow secretions or take medications. Patient and his had a discussion with oncology on October 03; they want to pursue feeding tube placement hoping that patient makes progress in his functional status and continue his chemotherapy. GI on board; recommend placement of Dobbhoff. They want to see if patient is able to tolerate feedings at goal rate; then decide on placement of PEG tube. Neurology was consulted for stroke; recommend continuation of anticoagulation. Plan: Continue Dobbhoff feeding; increase rate to goal rate. After patient is able to tolerate maximum rate of Dobbhoff; plan is placement for PEG tube. Continue on Lovenox 40 mg SQ twice daily given history of subacute PE/strokes. Will hold Lovenox depending on timing of the PEG tube placement; 12 hours hour prior. Anti-Xa level done today shows adequate anticoagulation. Other conditions; Severe protein-calorie malnutrition; due to Cancer and dysphagia. Full code DVT prophylaxis lovenox Admission and Anticipated Discharge Date Admission Date: September 29, 2022 Subjective Patient seen and examined at bedside. Is lying on the bed comfortably; denies any pain. He is thirsty and is frustrated that he is not able to drink any water. Dobbhoff was placed; patient was able to tolerate it. Feeding started as per diet recommendation. Review of Systems Review of Systems: All systems reviewed & are unremarkable except as noted in Subjective Physical Exam Physical Exam: Constitutional: Awake, alert orient x3, cachectic. hoarse voice. Respiratory: No additional wheeze or crackles heard. Cardiovascular: RRR, no murmur, no edema Vessels: no JVD or carotid bruit Chest: normal inspection of chest. Port-A-Cath in place Abdomen: normal bowel sounds, soft, nontender, no hepatosplenomegaly Musculoskeletal: no cyanosis or clubbing, extremities motor strength 5/5 Skin: no rashes, warm and dry normal turgor Neurologic: hoarse voice; no other focal deficits Psychiatric: A+Ox3, euthymic affect Lymphatic: no cervical or axillary lymphadenopathy : deferred Results & Data Results & Data ([facility]) Vital Signs (Past 12 Hours) Vital Signs Temp Pulse Pulse Resp BP BP Pulse Ox 10/04/22 08:00 102 H 10/04/22 08:00 10/04/22 11:37 98 H 18 97 10/04/22 11:20 36.7 C 98 H 20 127/82 98 10/04/22 07:39 36.7 C 91 H 20 129/66 97 10/04/22 07:18 95 H 18 98 10/04/22 02:42 36.7 C 87 16 130/77 97 O2 Del Method 10/04/22 08:00 10/04/22 08:00 Room Air 10/04/22 11:37 Room Air 10/04/22 11:20 Room Air 10/04/22 07:39 Room Air 10/04/22 07:18 Room Air 10/04/22 02:42 Room Air Laboratory Results Laboratory Results WBC 4.97 K/ul (4.8-10.8) 10/04/22 06:15 RBC 3.23 M/uL (4.63-6.08) L 10/04/22 06:15 Hgb 10.1 g/dl (14.0-18.0) L 10/04/22 06:15 Hct 29.3 % (40.1-51.0) L 10/04/22 06:15 MCV 90.7 fL (80.0-100.0) 10/04/22 06:15 MCH 31.3 pg (25.0-34.0) 10/04/22 06:15 MCHC 34.5 g/dL (32.0-36.0) 10/04/22 06:15 RDW Std Deviation 44.1 fL (36.4-46.3) 10/04/22 06:15 RDW Coeff of Sheeba 13.3 % (11.5-14.5) 10/04/22 06:15 Plt Count 196 K/uL (130-400) 10/04/22 06:15 MPV 10.0 fL (9.4-12.4) 10/04/22 06:15 Immature Gran % (Auto) 1.0 % 10/04/22 06:15 Neut % (Auto) 63.0 % 10/04/22 06:15 Lymph % (Auto) 7.8 % 10/04/22 06:15 [place] % (Auto) 13.7 % 10/04/22 06:15 Eos % (Auto) 13.9 % 10/04/22 06:15 Baso % (Auto) 0.6 % 10/04/22 06:15 Neut # (Auto) 3.13 K/uL (1.4-6.5) 10/04/22 06:15 Lymph # (Auto) 0.39 K/uL (1.2-3.4) L 10/04/22 06:15 [place] # (Auto) 0.68 K/uL (0.24-0.82) 10/04/22 06:15 Eos # (Auto) 0.69 K/uL (0-0.50) H 10/04/22 06:15 Baso # (Auto) 0.03 K/uL (0-0.2) 10/04/22 06:15 Immature Gran # (Auto) 0.05 K/uL (0.00-0.02) H 10/04/22 06:15 RBC Morphology Unremarkable 10/01/22 05:37 PT 11.3 Seconds (9.0-12.0) 10/01/22 17:33 INR 1.1 (0.9-1.1) 10/01/22 17:33 APTT 26.2 Seconds (21.0-31.0) 10/03/22 01:07 PTT Ratio 1.0 10/03/22 01:07 Heparin Anti-Xa, LM Wt 0.94 IU/ML (< 0.10) 10/04/22 12:15 Sodium 132 mmol/L (136-145) L 10/04/22 06:15 Potassium 3.9 mmol/L (3.5-5.1) 10/04/22 06:15 Chloride 99 mmol/L (98-107) 10/04/22 06:15 Carbon Dioxide 26 mmol/L (21-32) 10/04/22 06:15 Anion Gap 7 (3-11) 10/04/22 06:15 BUN 22 mg/dl (6-23) 10/04/22 06:15 Creatinine 0.58 mg/dl (0.6-1.4) L 10/04/22 06:15 Est Cr Clr Drug Dosing 79.5 ml/min 10/04/22 06:15 Est GFR ( Amer) 128.4 ml/min 10/04/22 06:15 Est GFR (Non-Af Amer) 110.8 ml/min 10/04/22 06:15 BUN/Creatinine Ratio 37.9 (10-20) H 10/04/22 06:15 Glucose 106 mg/dl (70-99(Fasting)) H 10/04/22 06:15 Estimat Average Glucose 123 mg/dl 10/03/22 01:07 Hemoglobin A1c 5.9 % (4.5-5.6) H 10/03/22 01:07 Calcium 9.5 mg/dl (8.5-10.1) 10/04/22 06:15 Magnesium 1.9 mg/dl (1.7-2.4) 09/29/22 19:20 Total Bilirubin 0.8 mg/dl (0.2-1.0) 10/03/22 01:07 AST 24 U/L (13-39) 10/03/22 01:07 ALT 36 U/L (7-52) 10/03/22 01:07 Alkaline Phosphatase 121 U/L (34-104) H 10/03/22 01:07 Troponin I High Sens 9.9 pg/ml (0-20) 09/29/22 22:19 Total Protein 6.8 gm/dl (6.0-8.3) 10/03/22 01:07 Albumin 3.7 gm/dl (3.4-5.0) 10/03/22 01:07 Globulin 3.1 gm/dl (2.5-4.0) 10/03/22 01:07 Albumin/Globulin Ratio 1.2 (0.9-2) 10/03/22 01:07 Triglycerides 137 mg/dl (0-150) 10/03/22 01:07 Cholesterol 210 mg/dl (0-200) H 10/03/22 01:07 LDL Cholesterol, Calc 132 mg/dl 10/03/22 01:07 VLDL Cholesterol, Calc 27 mg/dl (0-30) 10/03/22 01:07 HDL Cholesterol 51 mg/dl 10/03/22 01:07 Cholesterol/HDL Ratio 4.1 (0-5) 10/03/22 01:07 Procalcitonin 0.06 ng/ml (0-0.5) 09/30/22 06:00 SARS-CoV-2 (PCR) NEGATIVE (Negative) 09/29/22 22:02 Hepatitis C Ab (EIA) NON-REACTIVE (NON-REACTIVE) 09/29/22 19:20 Hep C Ab Signal/Cutoff <0.02 (<1.00) 09/29/22 19:20 Influenza Type A (PCR) Negative (Neg) 09/29/22 22:02 Influenza Type B (PCR) Negative (Neg) 09/29/22 22:02 RSV (RT-PCR) Negative (Neg) 09/29/22 22:02 Impressions Chest X-Ray 09/29/22 18:52 XR chest 1V portable HISTORY: 61 years-old Male SOB acute shortness of breath COMPARISON: Chest radiograph 09/25/2022, CTA chest 09/13/2022 TECHNIQUE: AP view of the chest FINDINGS: Cardiac silhouette is within normal limits. Left subclavian Harqct-a-Infg catheter distal tip is noted within the expected location of the mid to inferior SVC. Emphysema without pneumothorax, pleural effusion or overt pulmonary edema. Irregular spiculated nodules are again noted, most pronounced within the right upper lobe. Right hilar lymphadenopathy. IMPRESSION: 1. No acute processes of the chest. 2. Irregular spiculated nodules, most pronounced within the right upper lobe are redemonstrated. 3. Right hilar lymphadenopathy again noted. ACT 112: Negative or not required by law. The above report was generated using voice recognition software. It may contain grammatical, syntax or spelling errors. Electronically signed by: Jose Wilson M.D. 09/29/2022 7:38 PM Chest CTA 09/29/22 21:51 CT angio chest PE protocol CT DOSE: 278.79 mGy.cm HISTORY: 61 years-old Male with SOB, Lung CA, hx of PE in July. Acute shortness of breath in a patient with history of lung cancer TECHNIQUE: Multiple CTA images of the chest were obtained after the intravenous administration of 118 ml Optiray. Coronal and sagittal MIPS were obtained from the axial data set and were submitted for review. All measurements were obtained according to NASCET criteria. A dose lowering technique was utilized adhering to the principles of ALARA. COMPARISON: CTA chest September 13, 2022, chest CT September 11, 2022, CT abdomen pelvis September 11, 2022. FINDINGS: CTA: Heart is normal in size. No pericardial effusion. Atherosclerosis of the thoracic aorta without aneurysm. Tiny segmental and subsegmental pulmonary emboli are again noted, most pronounced in the left lower lobe, not significantly changed from the most recent comparison. No new or progressive pulmonary emboli are identified. Narrowing/partial effacement of the right upper lobe arterial branches again noted. CT CHEST: No thyroid nodule. Left subclavian Ozlitq-z-Hqmf catheter with distal tip in the inferior SVC. Unchanged pathologic subcarinal and right hilar lymphadenopathy. Biapical pleural-parenchymal scarring. Emphysema. Stable spiculated 1.4 center nodule of the lingula on image 150. Additional scattered bilateral spiculated irregular pulmonary nodules are also stable including a 2.9 cm right apical and 3.9 cm right upper lobe nodule on image 213. Central airways are patent. No significant change of the splenic, hepatic, adrenal and metastatic lesions. Osseous metastatic disease. Soft tissue tumor deposit is again noted involving the left T11-T12 neural foramen and epidural space resulting in severe left neuroforaminal and mild central canal stenosis at this level. 4 cm soft tissue mass with bony destruction of the lateral ninth rib. Pathologic fracturing of the left transverse process of the T11 vertebral body. Pathologic fracture of the superior L2 endplate again noted. Pathologic fractures at T9 and T11 again noted. IMPRESSION: 1. Segmental and subsegmental pulmonary emboli again noted, notably within the left lower lobe. Effacement of the segmental and subsegmental right upper lobe pulmonary arterial branches redemonstrated secondary to the pathologic mediastinal/hilar luis disease. 2. Stable appearance of the numerous pulmonary lesions, most pronounced within the right upper lobe. 3. Additional osseous and upper abdominal metastatic disease is stable with pathologic spine fractures again noted. 4. Pulmonary emphysema. ACT 112: Negative or not required by law. The above report was generated using voice recognition software. It may contain grammatical, syntax or spelling errors. Electronically signed by: Jose Wilson M.D. 09/29/2022 10:38 PM Upper GI Series w/ Air Contrast 10/02/22 11:30 FL GI series CLINICAL HISTORY: Dysphagia COMPARISON STUDY: None. FLUOROSCOPY TIME: 1.6 minutes FLUOROSCOPY IMAGES: 1 FINDINGS: The patient was unable to swallow the barium. Therefore, the examination was terminated. IMPRESSION: The patient was unable to swallow the barium. ACT 112: Negative or not required by law. Electronically signed by: [place] Abebe M.D. 10/02/2022 11:54 AM Videofluoroscopic Swallow 10/02/22 11:47 FL video swallow CLINICAL HISTORY: 61 years-old Male with oropharyngeal dysphagia during UGI. Dysphasia with possible aspiration TECHNIQUE: Video fluoroscopic evaluation of swallowing was performed in the AP and lateral projections by the speech pathology staff. The patient is fed nectar-thick and thin liquid barium. FLUOROSCOPY TIME: 0.5 minutes. COMPARISON STUDY: Upper GI series of same day FINDINGS: Silent aspiration with thin liquid barium. No additional consistencies were given to the patient. Vallecular retention with decreased epiglottic inversion. IMPRESSION: 1. Aspiration with thin liquid barium. 2. Please see the speech pathologist report for detailed findings and recommendations. ACT 112: Negative or not required by law. Electronically signed by: Jose Wilson M.D. 10/02/2022 12:40 PM Brain MRI 10/02/22 12:43 MR brain wo/w con HISTORY: 61 years-old Male Hx of metastatic lung Ca; Dysphagia acute strokelike symptoms with history of lung cancer COMPARISON: CT soft tissue neck of same day, Brain MRI 07/14/2022 TECHNIQUE: Multiplanar multisequence MRI of the brain was obtained both with and without the use of 4 cc Gadavist FINDINGS: There are at least 6 subcentimeter foci of cortically based increased diffusion- weighted signal within the bilateral frontal and left occipital lobes measuring up to 7 mm on image 18 series 5. These foci appear to demonstrate increased signal on ADC map suggestive of T2 shine through and are new from the prior exam. No acute or subacute territorial infarct. Midline structures appear unremarkable. Degenerative changes of the cervical spine. Motion degraded exam. No acute intracranial hemorrhage, midline shift, abnormal extra axial collection, hydrocephalus or intracranial mass. Mild involutional changes. Mild scattered T2/FLAIR hyperintense foci are noted throughout the white matter suggestive of chronic microvascular ischemic disease. No abnormal enhancement identified. No vasogenic edema. IMPRESSION: 1. Several subcentimeter subacute appearing infarcts of the bilateral cerebral hemispheres are noted within a multiple vascular distribution, likely from an embolic source. 2. No abnormal enhancement to suggest intracranial metastatic disease. ACT 112: Negative or not required by law. The above report was generated using voice recognition software. It may contain grammatical, syntax or spelling errors. Electronically signed by: Jose Wilson M.D. 10/02/2022 5:[address] 10/02/22 12:43 CT soft tissue neck w con HISTORY: Dysphagia TECHNIQUE: Multiaxial CT images of the neck were performed following the intravenous administration of 86 cc of Optiray 350. Sagittal and coronal reforma tions were performed at the workstation by the radiologist. COMPARISON STUDY: PET CT 07/27/2022. Chest CTA 09/29/2022. FINDINGS: The visualized brain parenchyma and orbits are unremarkable. The pt erygopalatine fossa and paratracheal fat spaces are maintained. There is residual contrast within the hypopharynx due to the recent video swallow. This results in mild artifact. The parotid and submandibular glands are symmetric. The major mucosal airways services are intact. The necrotic right paratracheal/hilar lymphadenopathy and a spiculated right upper lobe mass are again noted. These are better appreciated on the recent chest CT. Emphysema. There are 2 necrotic right supraclavicular lymph nodes with the largest on image 302 measuring 13 x 9 mm. These are similar to the prior study. The thyroid gland enhances normally. No enlarged cervical lymph nodes. Vertebral soft tissues and the epiglottis are normal in thickness. Mild medial deviation of the right vocal cord comparison to the left best seen on image 285. This suggests right-sided vocal cord paralysis. No suspicious lytic or blastic osseous lesions. A partially visualized left subclavian Port-A-Cath. IMPRESSION: 1. Mild asymmetric medial deviation of the right vocal cord suggesting paralysis. 2. Redemonstration of the necrotic right paratracheal/hilar lymphadenopathy in the spiculated right upper lobe mass. 3. Necrotic mildly enlarged right supraclavicular lymph nodes remain unchanged. ACT 112: Negative or not required by law. Electronically signed by: Montana Abebe M.D. 10/02/2022 3:31 PM KUB X-Ray 10/04/22 11:14 XR KUB CLINICAL HISTORY: Coresafe placement TECHNIQUE: 1 view of the abdomen was obtained. Comparison: Comparison is made to CTA chest 06/29/2023 FINDINGS: There is a enteric tube with the tip within the stomach. The gastric bubble appears markedly distended. Degenerative changes are seen in the visualized skeleton. The bowel gas pattern is nonobstructive. Small stool burden is seen. IMPRESSION: Satisfactory appearance of enteric tube. ACT 112: Negative or not required by law. Electronically signed by: Jerome Lacey M.D. 10/04/2022 10:20 AM
[2022-10-04] MEDS ORDERED: SODIUM CHLOR 7% 4 ML NEB NEB PRN (14:16)
--- NOTE | 2022-10-04 15:02 | Pharmacy Report ---
- Date of Service October 04, 2022 - Pharmacy CVA/TIA Medication Review Medications to Prevent Stroke handout has been added to the patients discharge packet. Antiplatelet(s) * Antiplatelet therapy deferred due to terminal illness Cholesterol * High intensity statin deferred due to poor prognosis DVT Prophylaxis * Enoxaparin SQ Therapeutic Anticoagulation * No history of Afib/Aflutter noted Type 2 Diabetes * Patient does not have T2DM
[2022-10-05] MEDS: TUBE FEEDING WATER FLUSH NG SCH ×6 (00:57→20:06)
[2022-10-05] MEDS: MoRPHine SULFATE 2 MG/ML CARP IV PRN ×2 (04:50→09:20)
[2022-10-05 07:27] LABS: BUN Creatinine Ratio 39.3 (10-20); Calcium 9.6 mg/dl (8.5-10.1); Creatinine Clr Calc Pharmacy 81.5 ml/min; Est GFR (African American) 130.3 ml/min; Est GFR (Non-African American) 112.4 ml/min; Magnesium 1.8 mg/dl (1.7-2.4); Phosphorus 3.4 mg/dl (2.5-4.9); Potassium 3.9 mmol/L (3.5-5.1)
[2022-10-05] MEDS: PANTOprazole 40 MG in SYRINGE 0 ML IV SCH (08:00)
[2022-10-05] MEDS: ENOXAPARIN INJ 40 MG/0.4 ML SYR SC SCH ×2 (08:00→20:05)
[2022-10-05 09:27] LABS: Basophils # (auto) 0.04 K/uL (0-0.2); Basophils % (auto) 0.7 %; Eosinophils # (auto) 0.71 K/uL (0-0.50); Eosinophils % (auto) 11.9 %; Hematocrit (blood only) 29.5 % (42.0-52.0); Hemoglobin 10.1 g/dl (14.0-18.0); Immature Granulocytes # (auto) 0.03 K/uL (0.01-0.20); Immature Granulocytes % (auto) 0.5 %; Lymphocytes # (auto) 0.42 K/uL (1.2-3.4); Mean Corpuscular Hemoglobin 31.1 pg (25.0-34.0); Mean Corpuscular Hgb Conc 34.2 g/dL (32.0-36.0); Mean Corpuscular Volume 90.8 fL (80.0-100.0); Mean Platelet Volume 10.3 fL (9.4-12.4); Monocytes # (auto) 0.87 K/uL (0.11-0.59); Monocytes % (auto) 14.6 %; Neutrophils % (auto) 65.3 %; Platelet Count 188 K/uL (130-400); RDW Coefficient of Variation 13.2 % (11.5-14.5); RDW Standard Deviation 43.7 fL (36.4-46.3); Red Blood Count 3.25 M/uL (4.70-6.10); White Blood Count 5.97 K/ul (4.8-10.8)
--- NOTE | 2022-10-05 10:37 | Gastroenterology Progress Note ---
Date of Service October 05, 2022 Assessment & Plan (1) Severe protein-calorie malnutrition: (2) Dysphagia: Plan: Patient is a 61 years old male with metastatic lung cancer w protein-calorie malnutrition, followed for dysphagia. Failed video swallow evaluation which showed no pharyngeal movement. Brain MRI showed multiple embolic infarcts. Soft tissue neck CT showed signs of possible vocal cord paralysis. EGD had been performed which was essentially quite unremarkable without any signs of strictures or obstruction. He may have some signs of esophageal candidiasis. Patient had expressed wishes to prolong his life as long as possible. He understands that he is at aspiration risk if he continues to try eating by mouth. He would like to have a feeding tube placement, specifically a PEG. I had discussed risks vs benefits of PEG placement, specifically clarified that having a PEG tube placement does not eliminate his risk for aspiration, and does not necessarily improve his prognosis given his advanced cancer processes. He understands this. We started him on a trial of feeding through a Dobbhoff tube which she has been tolerating quite well so far without abdominal pain, nausea or vomiting or diarrhea. We will try to get him at the goal tube feeding rate at 50 mL/h today. Anticipate for him to undergo PEG tube placement via endoscopy tomorrow. Please hold tube feeding after midnight, keep him n.p.o. after midnight as well. Hold Heparin injection tomorrow. Eliquis has been on hold. Admission and Anticipated Discharge Date Admission Date: September 29, 2022 Supervising Physician Co-Signing Physician Notes 61 y/o cachetic male with history of stage IV metastatic lung cancer on pallia tive radiation, bilateral PEs on eliquis, severe protein calorie malnutrition who presented with dyspnea and with complaints of dysphagia for the past month.Unable to obtain UGI series as he was noted to have aspiration and no pharyngeal movement when evaluated by [employer]. Underwent EGD without any esophagitis, stenosis, or stricture. he underwent a brain MRI which showed several subacute embolic infarcts felt to be the source of his dysphagia. palliative care was consulted as well as a discussion with his primary oncologist Dr. Lewis. After discussion with all teams and patient/spouse they would like to pursue further treatment with potential chemotherapy. Dr. Lewis would like patient's nutritional status to be optimized first and had discussed with patient about a PEG tube which patient would like to proceed with. I discussed risks and benefits with patient about PEG tube and informed him that this will not decrease his risk of aspiration but he would still like to proceed with hopes to get further treatment that could prolong his life. Tube feeds are currently at 30/hr with goal of 50/hr. He states that he is tolerating this without any issues including N/V or diarrhea. If he tolerates his tube feeds at goal without issue could plan for potential PEG tube placement tomorrow. Last lovenox shot would need to be 12 hours prior and tube feeds held midnight before. He needs close monitoring of electrolytes for refeeding syndrome. Mansi Irby, DO Gastroenterology and Hepatology Subjective Patient is tolerating feeding through his Dobbhoff tube. Currently rate of tube feed is at 30 mL/h, goal rate is 50 mL/hour. He denies any abdominal pain, nausea or vomiting or changes in bowel habits. Review of Systems Review of Systems: All systems reviewed & are unremarkable except as noted in HPI & below Physical Exam Constitutional: + cachectic Eyes: PERRL, conjunctivae normal, anicteric sclerae ENMT: external ear and nose normal, oropharynx normal (Dobhoff tube in place ) Respiratory: normal respiratory effort, lungs clear to auscultation Cardiovascular: RRR, no murmur, no edema Gastrointestinal (Abdomen): normal bowel sounds, soft, nontender, no hepatosplenomegaly Skin: no rashes, warm and dry no jaundice Psychiatric: A+Ox3, euthymic affect Lymphatic: no lymphedema Results & Data ([facility]) Vital Signs (Past 12 Hours) Vital Signs Temp Pulse Pulse Resp BP BP Pulse Ox 10/05/22 08:00 94 H 10/05/22 08:00 10/05/22 07:50 36.7 C 87 18 120/77 97 10/05/22 03:07 36.6 C 86 18 146/79 H 98 10/04/22 23:39 99 H O2 Del Method 10/05/22 08:00 10/05/22 08:00 Room Air 10/05/22 07:50 Room Air 10/05/22 03:07 Room Air 10/04/22 23:39
--- NOTE | 2022-10-05 12:48 | Hospitalist Progress Note ---
Date of Service October 05, 2022 Assessment & Plan (1) Shortness of breath: (2) COPD exacerbation: (3) Metastatic primary lung cancer: (4) Pulmonary embolism: Plan: Subacute PE Presented to the ED with shortness of breath Multifactorial; history of stage IV lung cancer, mild COPD and history of recent PE WBC downtrending.. Pro-Herman negative CT angio chest shows segmental and subsegmental PE again. Stable appearance of numerous pulmonary lesions. Pulmonary emphysema Currently on [id number]-dju-[id number] duo nebs, Zosyn changed to ceftriaxone. Continue on Doxy. Will complete 5-day course ( Till October 04) On anticoagulation for PE (Currently on lovenox; as unable to take PO eliquis) 10/05 respiratory status stable continue Lovenox BID (5) Ischemic stroke: (6) Dysphagia, oropharyngeal: (7) Dysphagia: Plan: Reports difficulty swallowing solid food since last 1 month; also reports coughing when swallowing. Patient was planned to undergo upper GI series and VFSS on October 02; patient was unable to swallow barium. Discussed with GI; likely pharyngeal dysphagia. CT soft tissue neck with and without contrast was done. Discussed with radiology; no intrinsic/extrinsic blockage found in pharyngeal and thoracic esophagus. Patient has unilateral vocal cord paralysis which explains his hoarseness of voice. MRI Brain w/wo contrast was done on October 02; Several subcentrimeter subacute infracts seen in b/l cerebral hemispheres. Patient had endoscopy done on October 03; No esophageal source of dysphagia found; likely oropharyngeal Dysphagia. patient unable to swallow secretions or take medications. Patient and his had a discussion with oncology on October 03; they want to pursue feeding tube placement hoping that patient makes progress in his functional status and continue his chemotherapy. GI on board; recommend placement of Dobbhoff. They want to see if patient is able to tolerate feedings at goal rate; then decide on placement of PEG tube. Neurology was consulted for stroke; recommend continuation of anticoagulation. Plan: Continue Dobbhoff feeding; increase rate to goal rate. After patient is able to tolerate maximum rate of Dobbhoff; plan is placement for PEG tube. Continue on Lovenox 40 mg SQ twice daily given history of subacute PE/strokes. Will hold Lovenox depending on timing of the PEG tube placement; 12 hours hour prior. Anti-Xa level done today shows adequate anticoagulation. 10/05 tolerating tube feeding so far for PEG tube placement Other conditions; Severe protein-calorie malnutrition: due to Cancer and dysphagia. Full code DVT prophylaxis lovenox Admission and Anticipated Discharge Date Admission Date: September 29, 2022 Subjective ff up for dysphagia, etc no problems with NG tube feeding per RN seen resting in bed, sitting up, comfortable states he feels fine overall no abdominal pain, nausea no chest pain, dyspnea, palpitations, dizziness no other symptoms Review of Systems Review of Systems: all noted and negative except for above Physical Exam Physical Exam: General- oriented x 3, not in distress, speaks in sentences with no effort or accessory muscle use Nose- core safe tube in place Eyes- anicteric Neck- no JVD Lungs- clear BS bilaterally, no rales/wheezes Heart- normal rate, regular rhythm; no murmurs Abdomen- normal bowel sounds, nondistended, soft, nontender Extremities- no pretibial edema, no calf tenderness Neuro- alert, oriented x 3; no gross focal neurologic deficits Skin- warm & dry Results & Data Results & Data ([facility]) Vital Signs (Past 12 Hours) Vital Signs Temp Pulse Pulse Resp BP BP Pulse Ox 10/05/22 11:36 36.8 C 84 20 125/83 95 10/05/22 08:00 94 H 10/05/22 08:00 10/05/22 07:50 36.7 C 87 18 120/77 97 10/05/22 03:07 36.6 C 86 18 146/79 H 98 O2 Del Method 10/05/22 11:36 Room Air 10/05/22 08:00 10/05/22 08:00 Room Air 10/05/22 07:50 Room Air 10/05/22 03:07 Room Air all noted and reviewed including below
[2022-10-05] MEDS: FIBERSOURCE HN 1.2 CAL 1000 ML BAG NG SCH (16:54)
[2022-10-05] MEDS: ACETAMINOPHEN 1,000 MG/100 ML VIAL IV PRN (20:13)
[2022-10-06] MEDS: MoRPHine SULFATE 2 MG/ML CARP IV PRN ×3 (00:09→21:39)
[2022-10-06] MEDS: TUBE FEEDING WATER FLUSH NG SCH ×7 (00:10→23:57)
[2022-10-06] MEDS ORDERED: POTASSIUM CHLORIDE / WTR 10 MEQ/100 ML PLCT IV ONE (03:27)
[2022-10-06] MEDS ORDERED: MAGNESIUM SULFATE / D5W 1 GM/100 ML BAG IV ONE (03:27)
[2022-10-06 03:46] LABS: Basophils # (auto) 0.02 K/uL (0-0.2); Basophils % (auto) 0.3 %; Eosinophils # (auto) 0.36 K/uL (0-0.50); Hematocrit (blood only) 30.7 % (42.0-52.0); Hemoglobin 10.5 g/dl (14.0-18.0); Immature Granulocytes # (auto) 0.02 K/uL (0.01-0.20); Immature Granulocytes % (auto) 0.3 %; Lymphocytes % (auto) 8.3 %; Mean Corpuscular Hemoglobin 31.2 pg (25.0-34.0); Mean Corpuscular Hgb Conc 34.2 g/dL (32.0-36.0); Mean Corpuscular Volume 91.1 fL (80.0-100.0); Mean Platelet Volume 10.1 fL (9.4-12.4); Monocytes # (auto) 0.91 K/uL (0.11-0.59); Monocytes % (auto) 15.1 %; Neutrophils # (auto) 4.22 K/uL (1.40-6.50); Platelet Count 172 K/uL (130-400); RDW Coefficient of Variation 13.2 % (11.5-14.5); RDW Standard Deviation 43.8 fL (36.4-46.3); Red Blood Count 3.37 M/uL (4.70-6.10); White Blood Count 6.03 K/ul (4.8-10.8)
[2022-10-06 04:18] LABS: Calcium 9.2 mg/dl (8.5-10.1); Magnesium 1.9 mg/dl (1.7-2.4); Potassium 4.1 mmol/L (3.5-5.1)
[2022-10-06 04:23] LABS: BUN Creatinine Ratio 38.3 (10-20); Creatinine Clr Calc Pharmacy 76.1 ml/min; Est GFR (African American) 126.7 ml/min; Est GFR (Non-African American) 109.3 ml/min
[2022-10-06] MEDS: ACETAMINOPHEN 1,000 MG/100 ML VIAL IV PRN ×3 (05:55→21:14)
[2022-10-06] MEDS: ENOXAPARIN INJ 40 MG/0.4 ML SYR SC SCH (07:39)
[2022-10-06] MEDS: PANTOprazole 40 MG in SYRINGE 0 ML IV SCH (08:16)
--- NOTE | 2022-10-06 08:38 | Anesthesiology Consultation ---
Date of Service October 06, 2022 Assessment & Plan (1) Encounter for pre-operative examination: Chart Review Chart Review: Acceptable Risk for Surgery History Surgery Operation Date: 10/03/22 07:00 Proposed Procedures p Esophagogastroduodenoscopy Surekha Irby, Operation Date: 10/03/22 16:00 Proposed Procedures p Esophagogastroduodenoscopy Surekha Irby, Operation Date: 10/06/22 16:30 Proposed Procedures p Esophagogastroduodenoscopy Dr Long With Gastric Tube Placement - Dakota Long, DO Height/Weight Height: 5 ft 4 in Weight: 41 kg Allergies Allergy/AdvReac Type Severity Reaction Status Date / Time No Known Allergies Allergy NONE Verified 09/25/22 07:13 Medications Home Medications Medication Instructions Recorded Confirmed Last Taken multivitamin 1 tab PO QAM 06/05/18 09/29/22 09/25/22 05:00 omeprazole 40 mg capsule,delayed 40 mg PO QAM 07/10/22 09/29/22 09/25/22 05:00 release acetaminophen 500 mg tablet 1,000 mg PO TID PRN Pain 08/10/22 09/29/22 09/24/22 20:00 (Tylenol Extra Strength) oxycodone 5 mg tablet 5 mg PO Q4H PRN pain #60 tabs 08/22/22 09/29/22 09/25/22 05:00 apixaban 5 mg tablet (Eliquis) 5 mg PO BID 09/29/22 09/29/22 Unknown dexamethasone 4 mg tablet 4 mg PO UD 09/29/22 09/29/22 Unknown folic acid 1 mg tablet 1 mg PO UD 09/29/22 09/29/22 Unknown olanzapine 2.5 mg tablet 2.5 mg PO UD 09/29/22 09/29/22 Unknown ondansetron HCl 8 mg tablet 8 mg PO Q8 PRN Nausea 09/29/22 09/29/22 Unknown prochlorperazine maleate 10 mg 10 mg PO Q6 PRN Nausea 09/29/22 09/29/22 Unknown tablet tramadol 50 mg tablet 50 mg PO Q6 PRN pain,severe 09/29/22 09/29/22 Unknown Active Medications Generic Name Dose Route Start Last Admin Trade Name Freq PRN Reason Stop Dose Admin Apixaban 5 mg 09/30/22 09:00 10/01/22 08:24 Apixaban 5 Mg Tablet PO 10/30/22 08:59 5 mg BID ROXANA Administration Enoxaparin Sodium 40 mg 10/03/22 13:30 10/06/22 07:39 Enoxaparin Inj 40 Mg/0.4 Ml Syr SC 11/02/22 13:29 Not Given BID ROXANA Enteral Nutritional Formula 1,000 ml 10/04/22 13:00 10/05/22 16:54 Fibersource Hn 1.2 Herman 1000 Ml Bag NG 11/03/22 12:59 1,000 ml UD ROXANA Administration Protocol Heparin Sodium (Porcine) 5 ml 10/01/22 01:37 10/03/22 09:35 Heparin 100 Unit/Ml 5ml Flush FLUSH 10/31/22 01:36 5 ml PRN PRN Administration Flush Pantoprazole Sodium 40 mg/ 10 mls @ 5 mls/min 10/03/22 09:00 10/06/22 08:16 Syringe IV 11/02/22 08:59 5 mls/min DAILY ROXANA Administration Acetaminophen 1,000 mg in 100 mls @ 400 mls/hr 10/05/22 09:46 10/06/22 06:10 Ofirmev IV 10/08/22 09:45 Infused Q8H PRN Infusion Pain Morphine Sulfate 2 mg 10/03/22 13:06 10/06/22 04:14 Morphine Sulfate 2 Mg/Ml Carp IV 10/16/22 15:29 2 mg Q4H PRN Administration Pain Sterile Water 100 ml 10/04/22 12:00 10/06/22 07:39 Tube Feeding Water Flush NG 11/03/22 11:59 Not Given Q4H ROXANA NPO Date Last Intake of Fluids: 10/02/22 Time Last Intake of Fluids: 23:00 Date Last Intake of Solids: 10/01/22 Time Last Intake of Solids: 18:00 Past Medical History Medical History (Updated 10/06/22 @ 08:37 by Danilo Benson MD) Chest pain "has this off and on, from his cancer" COPD (chronic obstructive pulmonary disease) Dysphagia Esophageal dilatation GERD (gastroesophageal reflux disease) History of alcohol dependence per [facility] records History of COVID-19 2020, not hosp; mild symptoms>resolved. Ischemic stroke Metastatic primary lung cancer mets to mediastinum, liver, bone, adrenal and possibly kidneys per heme/onc note; "no CVS metastases" Pulmonary embolism 07/2022, currently on eliquis; f/u dr. sandoval Secondary carcinoma of bone Severe protein-calorie malnutrition Past Family History Family History Mother , Mom at 65 y/o Diabetes Lung cancer Myocardial infarction Hypertension Father , Dad passed at at 53 y/o Diabetes Lung cancer Brother , at 65 y/o Cancer throat cancer Brother Cancer Pt not sure of type of cancer Sister No problems noted. Sister No problems noted. Sister No problems noted. Sister No problems noted. Other No pertinent family history Denies family history of Heart disease Kidney disease Pulmonary embolism Past Surgical History Surgical History History of bronchoscopy History of esophagogastroduodenoscopy (EGD) Hx of colonoscopy Port-A-Cath in place (09/25/22) Insertion Access Port Left Cephalic(Left)With fluoroscopic guidance with fluoroscopic guided- Padilla Enriquez MD, FACS Social History Smoking Status: Former smoker tobacco type: cigarettes Smoking cigarettes per day: 1pk/every 3 day Do You Dip or Chew Tobacco: No Hx Alcohol Use: No Hx Substance Use: No substance use type: does not use Physical Exam Vital Signs Last Vital Signs Temp 36.6 C 10/06/22 06:47 Pulse 80 10/06/22 06:47 Resp 18 10/06/22 06:47 BP 128/79 10/06/22 06:47 Pulse Ox 97 10/06/22 06:47 O2 Del Method 10/06/22 06:47 O2 Flow Rate 98 10/03/22 14:55 FiO2 21 10/02/22 19:08 Testing Laboratory Results 10/06/22 03:36 10/06/22 03:36 PT 11.3 Seconds (9.0-12.0) 10/01/22 17:33 INR 1.1 (0.9-1.1) 10/01/22 17:33 APTT 26.2 Seconds (21.0-31.0) 10/03/22 01:07 Hemoglobin A1c 5.9 % (4.5-5.6) H 10/03/22 01:07 10/03/22 08:50 Fungal Smear - Final Throat Fungal Culture - Final Eileen albicans/dubliniensis 09/30/22 07:41 Aerobic Blood Culture - Final Blood No growth in Aerobic bottle after 5 days. Anaerobic Blood Culture - Final No growth in Anaerobic bottle after 5 days. 09/30/22 07:36 Aerobic Blood Culture - Final Blood No growth in Aerobic bottle after 5 days. Anaerobic Blood Culture - Final No growth in Anaerobic bottle after 5 days. 09/30/22 09:05 Gram Stain - Final Sputum, Expectorated Sputum Culture - Final Moderate normal jason. Electrocardiogram Date: 10/06/22 Findings: + NSR @ (95) Echocardiogram Date: 10/03/22 EF: 55-60% LV Function: normal Valvular Disease: + no significant valvular disease
[2022-10-06] MEDS ORDERED: ceFAZolin 2000MG 2,000 MG/15 ML SYR IV ONE (14:00)
--- NOTE | 2022-10-06 14:23 | History & Physical Bridge Note ---
Date of Service October 06, 2022 History & Physical Bridge Note I have examined the patient, reviewed the History & Physical and in the interval since the performance of the History & Physical I have noted the following changes of clinical significance: no changes noted. A feeding tube has been requested by the patient and his primary service due to decreased ability to eat as a result of suspected metastatic disease to his brain. We have discussed risks to include bleeding infection perforation pain fistula formation and need for follow-up studies.
--- NOTE | 2022-10-06 14:34 | Hospitalist Progress Note ---
Date of Service October 06, 2022 Assessment & Plan (1) Shortness of breath: (2) COPD exacerbation: (3) Metastatic primary lung cancer: (4) Pulmonary embolism: Plan: Subacute PE Presented to the ED with shortness of breath Multifactorial; history of stage IV lung cancer, mild COPD and history of recent PE WBC downtrending.. Pro-Herman negative CT angio chest shows segmental and subsegmental PE again. Stable appearance of numerous pulmonary lesions. Pulmonary emphysema Currently on tehhv-inj-szzuj duo nebs, Zosyn changed to ceftriaxone. Continue on Doxy. Will complete 5-day course ( Till October 04) On anticoagulation for PE (Currently on lovenox; as unable to take PO eliquis) 10/06 respiratory status stable continue Lovenox BID (5) Ischemic stroke: (6) Dysphagia, oropharyngeal: (7) Dysphagia: Plan: Reports difficulty swallowing solid food since last 1 month; also reports coughing when swallowing. Patient was planned to undergo upper GI series and VFSS on October 02; patient was unable to swallow barium. Discussed with GI; likely pharyngeal dysphagia. CT soft tissue neck with and without contrast was done. Discussed with radiology; no intrinsic/extrinsic blockage found in pharyngeal and thoracic esophagus. Patient has unilateral vocal cord paralysis which explains his hoarseness of voice. MRI Brain w/wo contrast was done on October 02; Several subcentrimeter subacute infracts seen in b/l cerebral hemispheres. Patient had endoscopy done on October 03; No esophageal source of dysphagia found; likely oropharyngeal Dysphagia. patient unable to swallow secretions or take medications. Patient and his had a discussion with oncology on October 03; they want to pursue feeding tube placement hoping that patient makes progress in his functional status and continue his chemotherapy. GI on board; recommend placement of Dobbhoff. They want to see if patient is able to tolerate feedings at goal rate; then decide on placement of PEG tube. Neurology was consulted for stroke; recommend continuation of anticoagulation. Plan: Continue Dobbhoff feeding; increase rate to goal rate. After patient is able to tolerate maximum rate of Dobbhoff; plan is placement for PEG tube. Continue on Lovenox 40 mg SQ twice daily given history of subacute PE/strokes. Will hold Lovenox depending on timing of the PEG tube placement; 12 hours hour prior. Anti-Xa level done today shows adequate anticoagulation. 10/06 tolerating tube feeding so far for PEG tube placement today Other conditions; Severe protein-calorie malnutrition: due to Cancer and dysphagia. Full code DVT prophylaxis lovenox Admission and Anticipated Discharge Date Admission Date: September 29, 2022 Subjective Follow-up for dysphagia, etc. Seen sitting up in bed, comfortable, not in distress States he feels fine overall No abdominal pain, nausea, fevers or chills Has mild headache No neurologic deficits, blurring of vision No other symptoms Awaiting PEG tube placement today Review of Systems Review of Systems: all noted and negative except for above Physical Exam Physical Exam: General- oriented x 3, not in distress, speaks in sentences with no effort or accessory muscle use Eyes- anicteric Neck- no JVD Lungs- clear BS bilaterally, no rales/wheezes Heart- normal rate, regular rhythm; no murmurs Abdomen- normal bowel sounds, nondistended, soft, no tenderness Extremities- no pretibial edema, no calf tenderness Neuro- alert, oriented x 3; no gross focal neurologic deficits Skin- warm & dry Results & Data Results & Data ([facility]) Vital Signs (Past 12 Hours) Vital Signs Temp Pulse Pulse Resp BP BP Pulse Ox 10/06/22 13:56 36.6 C 89 16 148/89 H 100 10/06/22 11:00 36.8 C 87 17 114/75 99 10/06/22 08:51 88 10/06/22 08:51 10/06/22 06:47 36.6 C 80 18 128/79 97 10/06/22 03:35 36.5 C 94 H 17 129/85 98 O2 Del Method 10/06/22 13:56 Room Air 10/06/22 11:00 Room Air 10/06/22 08:51 10/06/22 08:51 Room Air 10/06/22 06:47 Room Air 10/06/22 03:35 Room Air all noted and reviewed including below
--- NOTE | 2022-10-06 14:45 | Communication Note ---
Date of Service: October 06, 2022 The patient underwent upper endoscopy with feeding tube placement today. A feeding tube was placed to the gastric antrum, there was approximately 2 cm of distance to the inner flange. Recommendations May use PEG tube for medications and clears today May use PEG tube for feeding starting on 10/07 Change dressing 1 time daily for the next 5 days After 5 days the PEG tube may be left open to air Please call with any questions or concerns, GI to sign off
--- NOTE | 2022-10-06 14:48 | GI REPORT ---
Patient Name: Bang Barrios Procedure Date: 10/06/2022 2:16 PM Date of : 1960 Admit Type: Inpatient Age: 61 Gender: Male Attending MD: Dakota Long DO, Procedure: Upper GI endoscopy Providers: Dakota Long DO Referring MD: Jamie Thrasher Indications: Place PEG because patient is unable to eat, Place PEG due to impaired swallowing Medicines: Monitored Anesthesia Care Complications: No immediate complications. Estimated blood loss: Minimal. Estimated Blood Loss: Estimated blood loss was minimal. Procedure: Pre-Anesthesia Assessment: - Prior to the procedure, a History and Physical was performed, and patient medications, allergies and sensitivities were reviewed. The patient's tolerance of previous anesthesia was reviewed. - The risks and benefits of the procedure and the sedation options and risks were discussed with the patient. All questions were answered and informed consent was obtained. - Patient identification and proposed procedure were verified prior to the procedure by the physician, the nurse and the renewable energy engineer. The procedure was verified in the procedure room. - Pre-procedure physical examination revealed no contraindications to sedation. - ASA Grade Assessment: III - A patient with severe systemic disease. - After reviewing the risks and benefits, the patient was deemed in satisfactory condition to undergo the procedure. - The anesthesia plan was to use monitored anesthesia care (MAC). - Immediately prior to administration of medications, the patient was re-assessed for adequacy to receive sedatives. - The heart rate, respiratory rate, oxygen saturations, blood pressure, adequacy of pulmonary ventilation, and response to care were monitored throughout the procedure. - The physical status of the patient was re-assessed after the procedure. After obtaining informed consent, the endoscope was passed under direct vision. Throughout the procedure, the patient's blood pressure, pulse, and oxygen saturations were monitored continuously. The Endoscope was introduced through the mouth, and advanced to the second part of duodenum. The upper GI endoscopy was accomplished without difficulty. The patient tolerated the procedure well. Findings: The examined esophagus was normal. The Z-line was regular and was found 37 cm from the incisors. The entire examined stomach was normal. The patient was placed in the supine position for PEG placement. The stomach was insufflated to appose gastric and abdominal do. A site was located in the body of the stomach with excellent transillumination for placement. The abdominal wall was marked and prepped in a sterile manner. The area was anesthetized with 4 mL of 1% lidocaine. The trocar needle was introduced through the abdominal wall and into the stomach under direct endoscopic view. A snare was introduced through the endoscope and opened in the gastric lumen. The guide wire was passed through the trocar and into the open snare. The snare was closed around the guide wire. The endoscope and snare were removed, pulling the wire out through the mouth. A skin incision was made at the site of needle insertion. The externally removable 20 Fr Zenon-Cook gastrostomy tube was lubricated. The G-tube was tied to the guide wire and pulled through the mouth and into the stomach. The trocar needle was removed, and the gastrostomy tube was pulled out from the stomach through the skin. The external bumper was attached to the gastrostomy tube, and the tube was cut to remove the guide wire. The final position of the gastrostomy tube was confirmed by relook endoscopy, and skin marking noted to be 2 cm at the external bumper. The final tension and compression of the abdominal wall by the PEG tube and external bumper were checked and revealed that the bumper was moderately tight and mildly deforming the skin. The feeding tube was capped, and the tube site cleaned and dressed. The examined duodenum was normal. Impression: - Normal esophagus. - Z-line regular, 37 cm from the incisors. - Normal stomach. - Normal examined duodenum. - An 20 Fr externally removable PEG placement was successfully completed. Recommendation: - Return patient to [facility] for [facility] care. - Please follow the post-PEG recommendations including: Nutrition consult for formula and volume, change dressing once per day, may use PEG today for meds and water and may use PEG tomorrow for feedings. Dakota Long D.O. Dakota Long, 10/06/2022 2:47:40 PM This report has been signed electronically. Note Initiated On: 10/06/2022 2:16 PM Number of Addenda: 0 I attest to the content of the Intraoperative Record and orders documented therein, exceptions below {[id number]}
--- NOTE | 2022-10-06 15:05 | Anesthesiology Progress Note ---
Date of Service October 06, 2022 Anesthesia Post Procedure Vital Signs Vital Signs: Temp Pulse Pulse Resp BP BP Pulse Ox 10/06/22 15:03 78 20 141/84 H 100 10/06/22 14:48 84 18 167/85 H 100 10/06/22 13:56 36.6 C 89 16 148/89 H 100 10/06/22 11:00 36.8 C 87 17 114/75 99 10/06/22 08:51 88 10/06/22 08:51 10/06/22 06:47 36.6 C 80 18 128/79 97 10/05/22 23:00 91 H 10/06/22 03:35 36.5 C 94 H 17 129/85 98 10/05/22 20:00 10/05/22 22:58 36.6 C 86 18 110/73 98 10/05/22 19:29 36.5 C 102 H 18 117/77 98 10/05/22 15:22 36.7 C 98 H 16 118/72 96 10/05/22 15:24 101 H O2 Del Method 10/06/22 15:03 Room Air 10/06/22 14:48 Room Air 10/06/22 13:56 Room Air 10/06/22 11:00 Room Air 10/06/22 08:51 10/06/22 08:51 Room Air 10/06/22 06:47 Room Air 10/05/22 23:00 10/06/22 03:35 Room Air 10/05/22 20:00 Room Air 10/05/22 22:58 Room Air 10/05/22 19:29 Room Air 10/05/22 15:22 Room Air 10/05/22 15:24 Pain Intensity Generalized: Pain Intensity: 7 Bilateral Back: Pain Intensity: 9 Transfer of Care Handoff Completed per policy Notes Mental Status: alert / awake / arousable Patient Amnestic to Procedure: Yes Nausea / Vomiting: adequately controlled Pain: adequately controlled Airway Patency, RR, SpO2: stable & adequate BP & HR: stable & adequate Hydration State: stable & adequate Anesthetic Complications: no major complications apparent
[2022-10-06] MEDS ORDERED: HEPARIN 100 UNIT/ML 5ML FLUSH ONE (15:13)
--- NOTE | 2022-10-06 15:28 | Electrocardiogram Report ---
Test Reason : Blood Pressure : / mmHG Vent. Rate : 095 BPM Atrial Rate : 095 BPM P-R Int : 136 ms QRS Dur : 094 ms QT Int : 366 ms P-R-T Axes : 077 054 074 degrees QTc Int : 459 ms Normal sinus rhythm Possible Left atrial enlargement Borderline ECG When compared with ECG of 29-SEP-2022 19:02, T wave inversion now evident in Anterior leads Confirmed by Morris Huffman ([id number]) on 10/06/2022 3:28:38 PM Referred By: REFERRED SELF Confirmed By:Fredo Huffman
[2022-10-07] MEDS: MoRPHine SULFATE 2 MG/ML CARP IV PRN ×5 (03:18→22:18)
[2022-10-07] MEDS: TUBE FEEDING WATER FLUSH NG SCH ×6 (04:52→23:53)
[2022-10-07] MEDS: PANTOprazole 40 MG in SYRINGE 0 ML IV SCH (07:48)
[2022-10-07] MEDS: FIBERSOURCE HN 1.2 CAL 1000 ML BAG GT SCH (12:21)
[2022-10-07] MEDS: ACETAMINOPHEN 1,000 MG/100 ML VIAL IV PRN (15:10)
--- NOTE | 2022-10-07 16:13 | Hospitalist Progress Note ---
Date of Service October 07, 2022 Assessment & Plan (1) Shortness of breath: (2) COPD exacerbation: (3) Metastatic primary lung cancer: (4) Pulmonary embolism: Plan: Subacute PE Presented to the ED with shortness of breath Multifactorial; history of stage IV lung cancer, mild COPD and history of recent PE WBC downtrending.. Pro-Herman negative CT angio chest shows segmental and subsegmental PE again. Stable appearance of numerous pulmonary lesions. Pulmonary emphysema Currently on gaurg-mcd-[id number] duo nebs, Zosyn changed to ceftriaxone. Continue on Doxy. Will complete 5-day course ( Till October 04) On anticoagulation for PE (Currently on lovenox; as unable to take PO eliquis) 10/07 respiratory status stable continue Lovenox BID (5) Ischemic stroke: (6) Dysphagia, oropharyngeal: (7) Dysphagia: Plan: Reports difficulty swallowing solid food since last 1 month; also reports coughing when swallowing. Patient was planned to undergo upper GI series and VFSS on October 02; patient was unable to swallow barium. Discussed with GI; likely pharyngeal dysphagia. CT soft tissue neck with and without contrast was done. Discussed with radiology; no intrinsic/extrinsic blockage found in pharyngeal and thoracic esophagus. Patient has unilateral vocal cord paralysis which explains his hoarseness of voice. MRI Brain w/wo contrast was done on October 02; Several subcentrimeter subacute infracts seen in b/l cerebral hemispheres. Patient had endoscopy done on October 03; No esophageal source of dysphagia found; likely oropharyngeal Dysphagia. patient unable to swallow secretions or take medications. Patient and his had a discussion with oncology on October 03; they want to pursue feeding tube placement hoping that patient makes progress in his functional status and continue his chemotherapy. GI on board; recommend placement of Dobbhoff. They want to see if patient is able to tolerate feedings at goal rate; then decide on placement of PEG tube. Neurology was consulted for stroke; recommend continuation of anticoagulation. Plan: Continue Dobbhoff feeding; increase rate to goal rate. After patient is able to tolerate maximum rate of Dobbhoff; plan is placement for PEG tube. Continue on Lovenox 40 mg SQ twice daily given history of subacute PE/strokes. Will hold Lovenox depending on timing of the PEG tube placement; 12 hours hour prior. Anti-Xa level done today shows adequate anticoagulation. 10/06 status post PEG tube placement 10/07 abdomen tube feedings restarted at 50 cc/h with water flushes 30 cc every 4 hours Patient tolerating well so far, continue to monitor closely Requested nutrition service to provide recommendations regarding home protocol Other conditions; Severe protein-calorie malnutrition: due to Cancer and dysphagia. Full code DVT prophylaxis lovenox Admission and Anticipated Discharge Date Admission Date: September 29, 2022 Subjective Follow-up for dysphagia, status post PEG tube placement, etc. Seen resting in bed, sitting up Comfortable, in good spirits States he feels fine overall except for soreness over the PEG tube site Relieved by morphine No nausea or vomiting No BMs yet No other symptom Review of Systems Review of Systems: all noted and negative except for above Physical Exam Physical Exam: General- oriented x 3, not in distress, speaks in sentences with no effort or accessory muscle use Eyes- anicteric Neck- no JVD Lungs- clear BS bilaterally, no rales/wheezes Heart- normal rate, regular rhythm; no murmurs Abdomen- normal bowel sounds, nondistended, soft, nontender PEG tube in place, connected to tube feeding Extremities- no pretibial edema, no calf tenderness Neuro- alert, oriented x 3; no gross focal neurologic deficits Skin- warm & dry Results & Data Results & Data ([facility]) Vital Signs (Past 12 Hours) Vital Signs Temp Pulse Resp BP Pulse Ox O2 Del Method 10/07/22 15:35 37.0 C 97 H 17 116/76 97 Room Air 10/07/22 11:30 36.7 C 112 H 16 125/85 99 Room Air 10/07/22 07:28 36.7 C 113 H 16 121/81 98 Room Air all noted and reviewed including below
[2022-10-08] MEDS: MoRPHine SULFATE 2 MG/ML CARP IV PRN ×5 (02:32→20:11)
[2022-10-08] MEDS: TUBE FEEDING WATER FLUSH NG SCH ×5 (04:01→20:11)
[2022-10-08] MEDS: ENOXAPARIN INJ 40 MG/0.4 ML SYR SC SCH (07:47)
[2022-10-08] MEDS: PANTOprazole 40 MG in SYRINGE 0 ML IV SCH (07:48)
[2022-10-08] MEDS: FIBERSOURCE HN 1.2 CAL 1000 ML BAG GT SCH (11:24)
--- NOTE | 2022-10-08 14:46 | Hospitalist Progress Note ---
Date of Service October 08, 2022 Assessment & Plan (1) Shortness of breath: (2) COPD exacerbation: (3) Metastatic primary lung cancer: (4) Pulmonary embolism: Plan: Subacute PE Presented to the ED with shortness of breath Multifactorial; history of stage IV lung cancer, mild COPD and history of recent PE WBC downtrending.. Pro-Herman negative CT angio chest shows segmental and subsegmental PE again. Stable appearance of numerous pulmonary lesions. Pulmonary emphysema Currently on vhvfr-nbs-cwgns duo nebs, Zosyn changed to ceftriaxone. Continue on Doxy. Will complete 5-day course ( Till October 04) On anticoagulation for PE (Currently on lovenox; as unable to take PO eliquis) 10/08 respiratory status stable on Lovenox BID--> transition to usual Eliquis 5mg BID via PEG tube (5) Ischemic stroke: (6) Dysphagia, oropharyngeal: (7) Dysphagia: Plan: Reports difficulty swallowing solid food since last 1 month; also reports coughing when swallowing. Patient was planned to undergo upper GI series and VFSS on October 02; patient was unable to swallow barium. Discussed with GI; likely pharyngeal dysphagia. CT soft tissue neck with and without contrast was done. Discussed with radiology; no intrinsic/extrinsic blockage found in pharyngeal and thoracic esophagus. Patient has unilateral vocal cord paralysis which explains his hoarseness of voice. MRI Brain w/wo contrast was done on October 02; Several subcentrimeter subacute infracts seen in b/l cerebral hemispheres. Patient had endoscopy done on October 03; No esophageal source of dysphagia found; likely oropharyngeal Dysphagia. patient unable to swallow secretions or take medications. Patient and his had a discussion with oncology on October 03; they want to pursue feeding tube placement hoping that patient makes progress in his functional status and continue his chemotherapy. GI on board; recommend placement of Dobbhoff. They want to see if patient is able to tolerate feedings at goal rate; then decide on placement of PEG tube. Neurology was consulted for stroke; recommend continuation of anticoagulation. Plan: Continue Dobbhoff feeding; increase rate to goal rate. After patient is able to tolerate maximum rate of Dobbhoff; plan is placement for PEG tube. Continue on Lovenox 40 mg SQ twice daily given history of subacute PE/strokes. Will hold Lovenox depending on timing of the PEG tube placement; 12 hours hour prior. Anti-Xa level done today shows adequate anticoagulation. 10/06 status post PEG tube placement 10/08 tube feedings at 50 cc/h with water flushes 100 cc every 4 hours Patient tolerating well so far, continue to monitor closely Requested nutrition service to provide recommendations regarding home protocol Other conditions; Severe protein-calorie malnutrition: due to Cancer and dysphagia. Full code DVT prophylaxis lovenox Disposition anticipate return home tomorrow with home health services Admission and Anticipated Discharge Date Admission Date: September 29, 2022 Subjective ff up for dysphagia, s/p peg tube placement, etc seen resting in bed, comfortable peg tube site pain improved no abdominal pain , nausea/vomiting no chest pain, dyspnea, palpitations, dizziness no fever/chills no other symptoms Review of Systems Review of Systems: all noted and negative except for above Physical Exam Physical Exam: General- oriented x 3, not in distress, speaks in sentences with no effort or accessory muscle use Eyes- anicteric Neck- no JVD Lungs- clear BS BL Heart- normal rate, regular rhythm; no murmurs Abdomen- normal bowel sounds, nondistended, soft, nontender PEG tube in place, tube feeding in progress Extremities- no pretibial edema, no calf tenderness Neuro- alert, oriented x 3; no gross focal neurologic deficits Skin- warm & dry Results & Data Results & Data ([facility]) Vital Signs (Past 12 Hours) Vital Signs Temp Pulse Resp BP BP Pulse Ox O2 Del Method 10/08/22 11:37 36 C L 94 H 17 120/78 97 Room Air 10/08/22 08:00 Room Air 10/08/22 07:47 36.5 C 87 19 126/72 87 L Room Air all noted and reviewed including below
[2022-10-08] MEDS: APIXABAN 5 MG TABLET PO SCH (20:11)
[2022-10-08] MEDS ORDERED: SODIUM CHLORIDE 0.9% 1000ML 1,000 ML IV ONE (23:04)
[2022-10-08] MEDS ORDERED: ACETAMINOPHEN 1,000 MG/100 ML VIAL IV STA (23:06)
[2022-10-08] MEDS ORDERED: ACETAMINOPHEN 1,000 MG/100 ML VIAL IV PRN (23:06)
[2022-10-08] MEDS ORDERED: ACETAMINOPHEN 10MG/ML Custom 650 MG in EMPTY BAG 0 ML IV STA (23:26)
[2022-10-08] MEDS ORDERED: ACETAMINOPHEN 10MG/ML Custom 650 MG in EMPTY BAG 0 ML IV PRN (23:27)
[2022-10-09] MEDS: TUBE FEEDING WATER FLUSH NG SCH ×6 (00:53→19:59)
[2022-10-09] MEDS: MoRPHine SULFATE 2 MG/ML CARP IV PRN ×5 (00:53→21:50)
[2022-10-09] MEDS: APIXABAN 5 MG TABLET PO SCH ×2 (07:46→20:00)
[2022-10-09] MEDS: PANTOprazole 40 MG in SYRINGE 0 ML IV SCH (07:46)
--- NOTE | 2022-10-09 08:32 | XRay Report ---
XR chest 1V portable HISTORY: cough COMPARISON: Chest 09/29/2022. FINDINGS: Emphysema. No pneumothorax. No pleural effusions. The heart is normal in size. A left subcl bassem Port-A-Cath terminates at the SVC. Scattered pulmonary lesions are better appreciated on the pr ior chest CT. Right hilar lymphadenopathy is again noted. IMPRESSION: No significant change compared to the prior study. No acute process. Pulmonary nodules and right eusebio r lymphadenopathy again noted. ACT 112: Negative or not required by law. Electronically signed by: [place] Abebe M.D. 10/09/2022 8:31 AM
--- NOTE | 2022-10-09 09:41 | Hospitalist Progress Note ---
Date of Service October 09, 2022 Assessment & Plan (1) Shortness of breath: (2) COPD exacerbation: (3) Metastatic primary lung cancer: (4) Pulmonary embolism: Plan: Subacute PE Presented to the ED with shortness of breath Multifactorial; history of stage IV lung cancer, mild COPD and history of recent PE WBC downtrending.. Pro-Herman negative CT angio chest shows segmental and subsegmental PE again. Stable appearance of numerous pulmonary lesions. Pulmonary emphysema Currently on erluz-csx-ijlxh duo nebs, Zosyn changed to ceftriaxone. Continue on Doxy. Will complete 5-day course ( Till October 04) On anticoagulation for PE (Currently on lovenox; as unable to take PO eliquis) 10/09 respiratory status stable on Lovenox BID--> transitioned to usual Eliquis 5mg BID via PEG tube (dissolved in Apple Juice) (5) Ischemic stroke: (6) Dysphagia, oropharyngeal: (7) Dysphagia: Plan: Reports difficulty swallowing solid food since last 1 month; also reports coughing when swallowing. Patient was planned to undergo upper GI series and VFSS on October 02; patient was unable to swallow barium. Discussed with GI; likely pharyngeal dysphagia. CT soft tissue neck with and without contrast was done. Discussed with radiology; no intrinsic/extrinsic blockage found in pharyngeal and thoracic esophagus. Patient has unilateral vocal cord paralysis which explains his hoarseness of voice. MRI Brain w/wo contrast was done on October 02; Several subcentrimeter subacute infracts seen in b/l cerebral hemispheres. Patient had endoscopy done on October 03; No esophageal source of dysphagia found; likely oropharyngeal Dysphagia. patient unable to swallow secretions or take medications. Patient and his had a discussion with oncology on October 03; they want to pursue feeding tube placement hoping that patient makes progress in his functional status and continue his chemotherapy. GI on board; recommend placement of Dobbhoff. They want to see if patient is able to tolerate feedings at goal rate; then decide on placement of PEG tube. Neurology was consulted for stroke; recommend continuation of anticoagulation. Plan: Continue Dobbhoff feeding; increase rate to goal rate. After patient is able to tolerate maximum rate of Dobbhoff; plan is placement for PEG tube. Continue on Lovenox 40 mg SQ twice daily given history of subacute PE/strokes. Will hold Lovenox depending on timing of the PEG tube placement; 12 hours hour prior. Anti-Xa level done today shows adequate anticoagulation. 10/06 status post PEG tube placement 10/08 tube feedings at 50 cc/h with water flushes 100 cc every 4 hours Patient tolerating well so far, continue to monitor closely Requested nutrition service to provide recommendations regarding home p rotocol 10/09 patient to do bolus feeds at home 1 Fibersource carton (250cc/carton), 4x a day (7, 11, 3, 7) then increase to 5 as tolerated RN to give education to patient and home health services to be arranged as well Other conditions; Severe protein-calorie malnutrition: due to Cancer and dysphagia. Full code DVT prophylaxis lovenox Disposition return home with home health services ff up with PCP in 1 week Admission and Anticipated Discharge Date Admission Date: September 29, 2022 Subjective ff up for dysphagia, etc seen resting in bed, comfortable tolerating bolus tube feeds well no abdominal pain, nausea/vomiting, (+) BM yesterday reports some generalized body ache no other symptoms states he is ready for discharge today Review of Systems Review of Systems: all noted and negative except for above Results & Data Results & Data ([facility]) Vital Signs (Past 12 Hours) Vital Signs Temp Pulse Pulse Resp BP Pulse Ox O2 Del Method 10/09/22 08:00 89 10/09/22 08:00 Room Air 10/09/22 07:44 36.8 C 87 18 120/79 98 Room Air 10/08/22 23:00 102 H 10/09/22 04:10 36.7 C 92 H 16 125/78 98 Room Air 10/08/22 23:27 36.6 C 99 H 18 125/77 97 Room Air all noted and reviewed including below
[2022-10-10] MEDS: TUBE FEEDING WATER FLUSH NG SCH ×4 (00:30→12:38)
[2022-10-10] MEDS: MoRPHine SULFATE 2 MG/ML CARP IV PRN ×3 (01:39→11:26)
[2022-10-10] MEDS: PANTOprazole 40 MG in SYRINGE 0 ML IV SCH (08:08)
[2022-10-10] MEDS: APIXABAN 5 MG TABLET PO SCH (08:08)
--- NOTE | 2022-10-10 10:19 | Hospitalist Progress Note ---
Date of Service October 10, 2022 Assessment & Plan (1) Dysphagia: (2) Ischemic stroke: Plan: (1) Shortness of breath: (2) COPD exacerbation: (3) Metastatic primary lung cancer: (4) Pulmonary embolism: Plan: per Dr. Diaz's notes with addendum: Subacute PE Presented to the ED with shortness of breath Multifactorial; history of stage IV lung cancer, mild COPD and history of recent PE WBC downtrending. Pro-Herman negative CT angio chest shows segmental and subsegmental PE again. Stable appearance of numerous pulmonary lesions. Pulmonary emphysema Zosyn changed to ceftriaxone. Continue on Doxy. Will complete 5-day course ( Till October 04) On anticoagulation for PE 10/10 respiratory status stable placed on Lovenox BID until PEG tube placed--> transitioned to usual Eliquis 5mg BID via PEG tube (to be dissolved in Apple Juice) (5) Ischemic stroke: (6) Dysphagia, oropharyngeal: (7) Dysphagia: Plan: Reports difficulty swallowing solid food since last 1 month; also reports coughing when swallowing. Patient was planned to undergo upper GI series and VFSS on October 02; patient was unable to swallow barium. Discussed with GI; likely pharyngeal dysphagia. CT soft tissue neck with and wi thout contrast was done. Discussed with radiology; no intrinsic/extrinsic blockage found in pharyngeal and thoracic esophagus. Patient has unilateral vocal cord paralysis which explains his hoarseness of voice. MRI Brain w/wo contrast was done on October 02; Several subcentrimeter subacute infracts seen in b/l cerebral hemispheres. Patient had endoscopy done on October 03; No esophageal source of dysphagia found; likely oropharyngeal Dysphagia. patient unable to swallow secretions or take medications. Patient and his had a discussion with oncology on October 03; they want to pursue feeding tube placement hoping that patient makes progress in his functional status and continue his chemotherapy. GI on board; recommend placement of Dobbhoff. Neurology was consulted for stroke; recommend continuation of anticoagulation. 10/06 status post PEG tube placement 10/08 tube feedings at 50 cc/h with water flushes 100 cc every 4 hours Patient tolerated well 10/09 patient to do bolus feeds at home 1 Fibersource carton (250cc/carton), 4x a day (7, 11, 3, 7) then increase to 5 as tolerated RN giving education to patient and re: tube feeding and medication administration home health services to be arranged as well Severe protein-calorie malnutrition: due to Cancer and dysphagia. Full code DVT prophylaxis lovenox Disposition return home with home health services ff up with PCP in 1 week Admission and Anticipated Discharge Date Admission Date: September 29, 2022 Subjective ff up for dysphagia, etc seen resting in bed, comfortable in good spirits states he feels fine overall no abdominal pain, nausea/vomiting (+) BM no chest pain, dyspnea, palpitations, dizziness no fever/chills no other symptoms Review of Systems Review of Systems: all noted and negative except for above Physical Exam Physical Exam: General- oriented x 3, not in distress, speaks in sentences with no effort or accessory muscle use Eyes- anicteric Neck- no JVD Lungs- clear BS BL, no rales/wheezes Heart- normal rate, regular rhythm; no murmurs Abdomen- normal bowel sounds, nondistended, soft, nontender PEG tube in place Extremities- no pretibial edema, no calf tenderness Neuro- alert, oriented x 3; no gross focal neurologic deficits Skin- warm & dry Results & Data Results & Data ([facility]) Vital Signs (Past 12 Hours) Vital Signs Temp Pulse Pulse Resp BP Pulse Ox O2 Del Method 10/10/22 08:00 88 10/10/22 08:00 Room Air 10/10/22 07:52 36.5 C 88 16 130/77 99 Room Air 10/10/22 03:17 36.8 C 87 20 118/78 99 Room Air 10/09/22 23:37 94 H 10/09/22 23:17 36.7 C 90 18 114/75 97 Room Air all noted and reviewed including below
[2022-10-10] MEDS ORDERED: STROKE PATIENT DISCHARGE STA (10:36)
--- NOTE | 2022-10-10 10:39 | Discharge Summary ---
Discharge Summary Date of Service October 10, 2022 Notes For Next Care Provider Medication Changes From Visit Eliquis 5mg po BID Fibersource HN - 5 cartons per day Admission HPI Per Admitting Provider 61 y/o cachetic male with severe protein calorie malnutrition and stage IV lung cancer metastatic s/p radiation here for EGD today for dysphagia. Admission Exam Per Admitting Provider Physical Exam: thin and cachetic male Eyes: PERRL, conjunctivae normal, anicteric sclerae Respiratory: normal respiratory effort, lungs clear to auscultation Cardiovascular: RRR, no murmur, no edema Gastrointestinal (Abdomen): normal bowel sounds, soft, nontender, no hepatosplenomegaly Psychiatric: A+Ox3, euthymic affect Principal Dx & Hospital Course #1 = Principal Diagnosis (1) Dysphagia: (2) Ischemic stroke: (1) Shortness of breath: (2) COPD exacerbation: (3) Metastatic primary lung cancer: (4) Pulmonary embolism: Plan: per Dr. Diaz's notes with addendum: Subacute PE Presented to the ED with shortness of breath Multifactorial; history of stage IV lung cancer, mild COPD and history of recent PE WBC downtrending. Pro-Herman negative CT angio chest shows segmental and subsegmental PE again. Stable appearance of numerous pulmonary lesions. Pulmonary emphysema Zosyn changed to ceftriaxone. Continue on Doxy. Will complete 5-day course ( Till October 04) On anticoagulation for PE 10/10 respiratory status stable placed on Lovenox BID until PEG tube placed--> transitioned to usual Eliquis 5mg BID via PEG tube (to be dissolved in Apple Juice) (5) Ischemic stroke: (6) Dysphagia, oropharyngeal: (7) Dysphagia: Plan: Reports difficulty swallowing solid food since last 1 month; also reports coughing when swallowing. Patient was planned to undergo upper GI series and VFSS on October 02; patient was unable to swallow barium. Discussed with GI; likely pharyngeal dysphagia. CT soft tissue neck with and without contrast was done. Discussed with radiology; no intrinsic/extrinsic blockage found in pharyngeal and thoracic esophagus. Patient has unilateral vocal cord paralysis which explains his hoarseness of voice. MRI Brain w/wo contrast was done on October 02; Several subcentrimeter subacute infracts seen in b/l cerebral hemispheres. Patient had endoscopy done on October 03; No esophageal source of dysphagia found; likely oropharyngeal Dysphagia. patient unable to swallow secretions or take medications. Patient and his had a discussion with oncology on October 03; they want to pursue feeding tube placement hoping that patient makes progress in his functional status and continue his chemotherapy. GI on board; recommend placement of Dobbhoff. Neurology was consulted for stroke; recommend continuation of anticoagulation. 10/06 status post PEG tube placement 10/08 tube feedings at 50 cc/h with water flushes 100 cc every 4 hours Patient tolerated well 10/09 patient to do bolus feeds at home 1 Fibersource carton (250cc/carton), 4x a day (7, 11, 3, 7) then increase to 5 as tolerated RN giving education to patient and re: tube feeding and medication administration home health services to be arranged as well Severe protein-calorie malnutrition: due to Cancer and dysphagia. Full code DVT prophylaxis lovenox Disposition return home with home health services ff up with PCP in 1 week Discharge Exam General- oriented x 3, not in distress, speaks in sentences with no effort or accessory muscle use Eyes- anicteric Neck- no JVD Lungs- clear BS BL, no rales/wheezes Heart- normal rate, regular rhythm; no murmurs Abdomen- normal bowel sounds, nondistended, soft, nontender PEG tube in place Extremities- no pretibial edema, no calf tenderness Neuro- alert, oriented x 3; no gross focal neurologic deficits Skin- warm & dry Updated Medication List Medication Instructions Recorded Confirmed Type acetaminophen 500 mg tablet 1,000 mg feeding tube TID PRN Pain 10/10/22 09/29/22 Rx (Tylenol Extra Strength) #20 tabs apixaban 5 mg tablet (Eliquis) 5 mg feeding tube BID 30 days #60 10/10/22 09/29/22 Rx tabs dexamethasone 4 mg tablet 4 mg feeding tube UD #10 tabs 10/10/22 09/29/22 Rx folic acid 1 mg tablet 1 mg feeding tube UD #10 tabs 10/10/22 09/29/22 Rx lansoprazole 30 mg delayed 30 mg PO DAILY 30 days #30 tabs 10/10/22 Rx release,disintegrating tablet (Prevacid SoluTab) multivitamin 1 tab feeding tube QAM #10 tabs 10/10/22 09/29/22 Rx olanzapine 2.5 mg tablet 2.5 mg feeding tube UD 30 days #10 10/10/22 09/29/22 Rx tabs ondansetron HCl 8 mg tablet 8 mg feeding tube Q8 PRN Nausea 10/10/22 09/29/22 Rx #10 tabs oxycodone 5 mg tablet 5 mg feeding tube Q4H PRN pain #10 10/10/22 09/29/22 Rx tabs prochlorperazine maleate 10 mg 10 mg feeding tube Q6 PRN Nausea 10/10/22 09/29/22 Rx tablet #10 tabs tramadol 50 mg tablet 50 mg feeding tube Q6 PRN 10/10/22 09/29/22 Rx pain,severe #10 tabs Hospital Stay Data Consultations 09/29/22 23:02 ED Decision to Admit Stat 10/01/22 09:14 Consult Gastroenterology Routine 10/02/22 13:49 Consult Palliative Care Routine 10/03/22 07:24 Consult Oncology Routine 10/03/22 08:00 Consult Neurology Routine Procedures Performed Operation Date: 10/03/22 07:00 <No data on this case meets the specified criteria> Operation Date: 10/03/22 16:00 Actual Procedures p Esophagogastroduodenoscopy - Mansi Irby DO Operation Date: 10/06/22 16:30 Actual Procedures p EGD Gastric Tube Placement - Dakota Long DO Diagnostic Imagining Performed 09/29/22 21:51 CT angio chest PE protocol Stat COMPARISON: CTA chest September 13, 2022, chest CT September 11, 2022, CT abdomen pelvis September 11, 2022. FINDINGS: CTA: Heart is normal in size. No pericardial effusion. Atherosclerosis of the thoracic aorta without aneurysm. Tiny segmental and subsegmental pulmonary emboli are again noted, most pronounced in the left lower lobe, not significantly changed from the most recent comparison. No new or progressive pulmonary emboli are identified. Narrowing/partial effacement of the right upper lobe arterial branches again noted. CT CHEST: No thyroid nodule. Left subclavian [id number] catheter with distal tip in the inferior SVC. Unchanged pathologic subcarinal and right hilar lymphadenopathy. Biapical pleural-parenchymal scarring. Emphysema. Stable spiculated 1.4 center nodule of the lingula on image 150. Additional scattered bilateral spiculated irregular pulmonary nodules are also stable including a 2.9 cm right apical and 3.9 cm right upper lobe nodule on image 213. Central airways are patent. No significant change of the splenic, hepatic, adrenal and metastatic lesions. Osseous metastatic disease. Soft tissue tumor deposit is again noted involving the left T11-T12 neural foramen and epidural space resulting in severe left neuroforaminal and mild central canal stenosis at this level. 4 cm soft tissue mass with bony destruction of the lateral ninth rib. Pathologic fracturing of the left transverse process of the T11 vertebral body. Pathologic fracture of the superior L2 endplate again noted. Pathologic fractures at T9 and T11 again noted. IMPRESSION: 1. Segmental and subsegmental pulmonary emboli again noted, notably within the left lower lobe. Effacement of the segmental and subsegmental right upper lobe pulmonary arterial branches redemonstrated secondary to the pathologic mediastinal/hilar luis disease. 2. Stable appearance of the numerous pulmonary lesions, most pronounced within the right upper lobe. 3. Additional osseous and upper abdominal metastatic disease is stable with pathologic spine fractures again noted. 4. Pulmonary emphysema. ACT 112: Negative or not required by law. The above report was generated using voice recognition software. It may contain grammatical, syntax or spelling errors. Electronically signed by: Jose Wilson M.D. 09/29/2022 10:38 PM 10/02/22 11:30 FL GI series Routine 10/02/22 11:47 FL video swallow Routine 10/02/22 12:43 CT soft tissue neck w con Routine TECHNIQUE: Multiaxial CT images of the neck were performed following the intrave nous administration of 86 cc of Optiray 350. Sagittal and coronal reformations were performed at the workstation by the radiologist. COMPARISON STUDY: PET CT 07/27/2022. Chest CTA 09/29/2022. FINDINGS: The visualized brain parenchyma and orbits are unremarkable. The pterygopalatine fossa and paratracheal fat spaces are maintained. There is residual contrast within the hypopharynx due to the recent video swallow. This results in mild artifact. The parotid and submandibular glands are symmetric. The major mucosal airways services are intact. The necrotic right paratracheal/hilar lymphadenopathy and a spiculated right upper lobe mass are again noted. These are better appreciated on the recent chest CT. Emphysema. There are 2 necrotic right supraclavicular lymph nodes with the largest on image 302 measuring 13 x 9 mm. These are similar to the prior study. The thyroid gland enhances normally. No enlarged cervical lymph nodes. Vertebral soft tissues and the epiglottis are normal in thickness. Mild medial deviation of the right vocal cord comparison to the left best seen on image 285. This suggests right-sided vocal cord paralysis. No suspicious lytic or blastic osseous lesions. A parti ally visualized left subclavian Port-A-Cath. IMPRESSION: 1. Mild asymmetric medial deviation of the right vocal cord suggesting paralysis. 2. Redemonstration of the necrotic right paratracheal/hilar lymphadenopathy in the spiculated right upper lobe mass. 3. Necrotic mildly enlarged right supraclavicular lymph nodes remain unchanged. ACT 112: Negative or not required by law. Electronically signed by: [place] Abebe M.D. 10/02/2022 3:31 PM MRI Brain [MR brain wo/w con] Routine COMPARISON: CT soft tissue neck of same day, Brain MRI 07/14/2022 TECHNIQUE: Multiplanar multisequence MRI of the brain was obtained both with and without the use of 4 cc Gadavist FINDINGS: There are at least 6 subcentimeter foci of cortically based increased diffusion- weighted signal within the bilateral frontal and left occipital lobes measuring up to 7 mm on image 18 series 5. These foci appear to demonstrate increased signal on ADC map suggestive of T2 shine through and are new from the prior exam. No acute or subacute territorial infarct. Midline structures appear unremarkable. Degenerative changes of the cervical spine. Motion degraded exam. No acute intracranial hemorrhage, midline shift, abnormal extra axial collection, hydrocephalus or intracranial mass. Mild involutional changes. Mild scattered T2/FLAIR hyperintense foci are noted throughout the white matter suggestive of chronic microvascular ischemic disease. No abnormal enhancement identified. No vasogenic edema. IMPRESSION: 1. Several subcentimeter subacute appearing infarcts of the bilateral cerebral hemispheres are noted within a multiple vascular distribution, likely from an embolic source. 2. No abnormal enhancement to suggest intracranial metastatic disease. ACT 112: Negative or not required by law. The above report was generated using voice recognition software. It may contain grammatical, syntax or spelling errors. Electronically signed by: Jose Wilson M.D. 10/02/2022 5:42 PM Pending Results Patient Have Any Pending Studies at Discharge: No Discharge Instructions Given to Patient (Per Discharging Provider) PLEASE REFER TO YOUR NEW MEDICATION LIST AND FOLLOW INSTRUCTIONS CAREFULLY. YOUR NEW MEDICATIONS INCLUDE: Eliquis- blood thinner for treatment of blood clot in the lung Fibersource HN- for tube feeding PLEASE CALL YOUR PRIMARY CARE PHYSICIAN OR RETURN TO THE ER IF WITH WORSENING OF SYMPTOMS, INCLUDING abdominal pain, nausea/vomiting, pain, fever/chills, chest pain, shortness of breath, etc FOLLOW UP WITH PRIMARY CARE PHYSICIAN OUTLINED ABOVE. Total Time Total Time Spent Total Time Spent (In Minutes): >30 minutes
== END 2022-10-10 13:12 | disposition home health service (06) | DRG 175 ==
LOC: ED 18:31 → SUATTDRO 23:59 → 2E 23:59 → 2W 09-30 22:22 → 2S 10-02 16:28

== ENCOUNTER 2022-10-19 10:56 | Inpatient (IN) ==
[2022-10-19] MEDS ORDERED: ONDANSETRON INJ 2 MG/ML 2 ML VIAL IV STA (11:02)
--- NOTE | 2022-10-19 11:05 | Emergency Department Note ---
Impression & Plan Severe sepsis, Hypoxia, Lactic acidosis, Elevated WBC count ED Provider Note Name: CAESAR PINEDA Age: 62 Sex: M Arrives Via: Ambulance Informant: Patient, EMS, , external records ED Provider: Jevon Dyer MD Chief Complaint: Weakness Impression: Per impressions above Medical Decision Makin-year-old severely cachectic unwell appearing male with known stage IV metastatic lung cancer arrives from [facility] for severe weakness and hypotension. On arrival he is not hypotensive but did have blood pressure of 60 prior to arrival. He is tachycardic somewhat dyspneic but is doing much better on nonrebreather. Concern for sepsis thus cultures lactate and labs ordered. He was empirically given 1 L IV fluids for dehydrated status tachycardia and early sepsis. With return of white blood cell count and lactic acid elevation a second bolus of 500 mL was given. Patient is a full code which is confirmed by labs and discussion. He was empirically given Zosyn given his recent hospitalization. A MRSA swab was obtained given his hospitalization and will await this prior to initiating MRSA antibiotic. Following fluids patient actually appears better heart rate is come down slightly and his tachypnea is definitely improved. He does not have a fever at this time. With the shortness of breath hypoxia and cough and his history I do suspect this is lung source. He did recently have a PEG tube placement but he has a soft nontender abdomen. Will defer imaging to hospitalist regarding whether chest or abdomen require this at this time. He is anticoagulated I not think this is consistent with PE. His labs show hyponatremia which is consistent with what has been happening over the last week. This likely has some to do with poor nutritional status and possibly due to his cancer. Given his sepsis it was felt that fluid bolus was necessary despite the hyponatremia. No altered mental status with fluids were afterwards. Prior Medical Record and Triage/Nursing Notes reviewed by Me Extensive external chart review by me including recent hospitalization discharge summary and oncology notes. Differentials:Infection, dehydration, electrolyte imbalance, anemia, cardiac event, multiple other pathologies considered. Vital Signs: reviewed and remarkable for tacky, hypoxic, tachypneic Interventions: Normal saline bolus 1.5 L IV, Zosyn 4.5 g IV Patient received 30/kg IV fluids NSS based on his actual body weight of 48.1 kg for management of his acute severe sepsis with hypotension. Labs:Reviewed and remarkable for elevated white blood cell count, elevated lactic acid, elevated procalcitonin, hyponatremia Imagin view chest x-ray bilateral infiltrates versus metastatic lesions noted throughout as per my interpretation EKG:As per my interpretation. Indication weakness. Sinus tachycardia at 112 bpm and QTc of 442. There is no ectopy nor overt ischemia. When compared to an EKG from October 06, 2022 there is no acute change Cardiac/Tele Monitoring: Cardiac Monitoring: An Order was placed for continuous cardiac monitoring. The monitor shows a rate of 115 with a sinus tach rhythm. Consults:Dr Pena hospitalist Plan: Disposition:Hospitalization. Condition: Poor History of Present Illness:62-year-old gentleman with known history of stage IV metastatic lung cancer with PEG tube secondary to inability to swallow arrives for evaluation of generalized weakness. Patient was seen at [facility] for blood draw where he was noted to be hypotensive, hypoxic and bradycardic. EMS was summoned. On their evaluation patient initial systolic blood pressure was 60 but then came up to 100 on repeat. His heart rate was in the 110s. He had already had a port accessed in his left chest. No medications or fluids prior to arrival. Patient states he does not feel well. He denies any specific pain. States chronic breathing difficulty. No reported fevers. Patient is unable to speak and unable to give a review of systems. Past History:See Below Home Medications:See Below Allergies:NKDA Vitals:Blood Pressure: 123/80, Pulse 113, RR 20, T 36.4C, O2 87% on 6 L NC Physical Exam: GENERAL: Patient is chronically unwell appearing and in minimal distress. Cachectic EYES: No scleral icterus, unremarkable pupils. RESPIRATORY: Moderately tachypneic with some crackles bilaterally no wheeze appreciated CARDIOVASCULAR: Regular rate and rhythm.No murmurs, rubs, gallops appreciated. GASTROINTESTINAL: Soft nontender abdomen with PEG tube EXTREMITIES: Normal motion all extremities, no cyanosis, no edema. Cachectic wasted extremities NEUROLOGIC: Alert and oriented, no focal neurologic exam deficits appreciated SKIN: No rash, no jaundice, no diaphoresis. PSYCH: Appropriate GCS: 15 ED Course: Times/Reassessments: Extensive repeat evaluations of patient. He is doing much better on the scone the oxygen and appears better following fluids. He still drops his sats rapidly with removal nonrebreather. Critical Care: I have personally spent 35 minutes of critical care time in the direct management of this patient. Acute severe sepsis with hypoxia. This was a life/limb threatening event. This 35 minutes is in excess of all separately billable procedures. Jevon Dyer MD Past Med/Surg History Medical History (Updated 10/19/22 @ 18:03 by Yodit Forbes PA-C) Chest pain "has this off and on, from his cancer" COPD (chronic obstructive pulmonary disease) Dysphagia Esophageal dilatation GERD (gastroesophageal reflux disease) History of alcohol dependence per [facility] records History of COVID-19 2019, not hosp; mild symptoms>resolved. Ischemic stroke Metastatic primary lung cancer mets to mediastinum, liver, bone, adrenal and possibly kidneys per heme/onc note; "no CVS metastases" Pulmonary embolism 07/2022, currently on eliquis; f/u dr. sandoval Secondary carcinoma of bone Severe protein-calorie malnutrition Surgical History History of bronchoscopy History of esophagogastroduodenoscopy (EGD) Hx of colonoscopy Port-A-Cath in place (09/25/22) Insertion Access Port Left Cephalic(Left)With fluoroscopic guidance with fluoroscopic guided- Padilla Enriquez MD, FACS Family History Mother , Mom at 65 y/o Diabetes Lung cancer Myocardial infarction Hypertension Father , Dad passed at at 53 y/o Diabetes Lung cancer Brother , at 65 y/o Cancer throat cancer Brother Cancer Pt not sure of type of cancer Sister No problems noted. Sister No problems noted. Sister No problems noted. Sister No problems noted. Other No pertinent family history Denies family history of Heart disease Kidney disease Pulmonary embolism Social History Smoking Status: Former smoker Tobacco Type: Cigarettes Age Started Using Tobacco: 12; Age Quit Using Tobacco: 51; Cigarettes Per Day: 1pk/every 3 day; Second Hand Exposure: No; Hx Alcohol Use: No Hx Substance Use: No Preferred Language: Luxembourgish Communication Ability: Effective Visual Impairment: No Limitations Hearing Ability: Normal Operations Support Professionals Required: No Beliefs That Will Affect Care: Spiritual marital status: Current Living Situation: Spouse Current Living Situation Comment: And wifes mother current occupational status: employed 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 [employer] How many Children do You have: 0 Other Information That Helps Us Care for You: No Feels Safe at Home: Yes Safety Concerns: Feels Safe At This Time caffeine: Yes (2 cups/day) during the past year weight has: decreased > 10 lbs Assistive Devices: None Allergies Allergies Allergy/AdvReac Type Severity Reaction Status Date / Time No Known Allergies Allergy NONE Verified 09/25/22 07:13 Home Meds Home Medications Medication Instructions Recorded Confirmed sodium chloride 1,000 mg soluble 1,000 mg PO BID 10/19/22 10/19/22 tablet Previous Rx's Medication Instructions Recorded acetaminophen 500 mg tablet 1,000 mg feeding tube TID PRN Pain 10/10/22 (Tylenol Extra Strength) #20 tabs apixaban 5 mg tablet (Eliquis) 5 mg feeding tube BID 30 days #60 10/10/22 tabs folic acid 1 mg tablet 1 mg feeding tube UD #10 tabs 10/10/22 lansoprazole 30 mg delayed 30 mg PO DAILY 30 days #30 tabs 10/10/22 release,disintegrating tablet (Prevacid SoluTab) multivitamin 1 tab feeding tube QAM #10 tabs 10/10/22 ondansetron HCl 8 mg tablet 8 mg feeding tube Q8 PRN Nausea 10/10/22 #10 tabs oxycodone 5 mg tablet 5 mg feeding tube Q4H PRN pain #10 10/10/22 tabs Results & Data (ED) Vital Signs Vital Signs - 24 hr 10/19/22 11:29 10/19/22 11:29 Temperature 36.4 C L Temperature Source Oral Pulse Rate 112 H Respiratory Rate 37 H Blood Pressure 127/88 Blood Pressure Mean 101 Blood Pressure Position Sitting Pulse Oximetry 87 L Oxygen Delivery Method Non-rebreather Non-rebreather Oxygen Flow Rate 15 Sepsis Recent Fever Within 48 Hours No Sepsis New/Unexplained Change in Mental Status Yes Sepsis Action Taken by Nursing Physician Notified Laboratory Data 10/19/22 11:10 10/19/22 11:10 Lab Results 10/19/22 10/19/22 10/19/22 Range/Units 11:10 11:10 11:10 WBC 28.66 H (4.8-10.8) K/ul RBC 3.10 L (4.70-6.10) M/uL Hgb 9.5 L (14.0-18.0) g/dl Hct 27.6 L (42.0-52.0) % MCV 89.0 (80.0-100.0) fL MCH 30.6 (25.0-34.0) pg MCHC 34.4 (32.0-36.0) g/dL RDW Std Deviation 43.7 (36.4-46.3) fL RDW Coeff of Sheeba 13.6 (11.5-14.5) % Plt Count 538 H (130-400) K/uL MPV 9.6 (9.4-12.4) fL Immature Gran % (Auto) 3.6 % Neut % (Auto) 84.7 % Lymph % (Auto) 3.4 % [place] % (Auto) 7.9 % Eos % (Auto) 0.1 % Baso % (Auto) 0.3 % Neut # (Auto) 24.25 H (1.40-6.50) K/uL Lymph # (Auto) 0.98 L (1.2-3.4) K/uL [place] # (Auto) 2.27 H (0.11-0.59) K/uL Eos # (Auto) 0.04 (0-0.50) K/uL Baso # (Auto) 0.08 (0-0.2) K/uL Immature Gran # (Auto) 1.04 H (0.01-0.20) K/uL ABG pH (7.35-7.45) ABG pCO2 (35-46) mmHg ABG pO2 (80-95) mmHg ABG HCO3 (19-24) mmol/L ABG O2 Saturation (90-95) % ABG Base Excess (-9-1.8) mEq/L Guero Test (Pos) Oxygen Given Sodium 118 L* (136-145) mmol/L Potassium 5.6 H (3.5-5.1) mmol/L Chloride 84 L (98-107) mmol/L Carbon Dioxide 26 (21-32) mmol/L Anion Gap 8 (3-11) BUN 34 H (6-23) mg/dl Creatinine 1.28 (0.6-1.4) mg/dl Est Cr Clr Drug Dosing 36.9 ml/min Est GFR ( Amer) 69.5 ml/min Est GFR (Non-Af Amer) 60.0 ml/min BUN/Creatinine Ratio 26.6 H (10-20) Glucose 104 H (70-99(Fasting)) mg/dl Lactate 2.1 H* (0.4-2.0) mmol/L Calcium 8.8 (8.5-10.1) mg/dl Magnesium 2.0 (1.7-2.4) mg/dl Total Bilirubin 0.6 (0.2-1.0) mg/dl Direct Bilirubin 0.1 (0-0.2) mg/dl AST 26 (13-39) U/L ALT 33 (7-52) U/L Alkaline Phosphatase 103 (34-104) U/L Troponin I High Sens 15.8 (0-20) pg/ml Total Protein 6.8 (6.0-8.3) gm/dl Albumin 3.3 L (3.4-5.0) gm/dl Procalcitonin (0-0.5) ng/ml Urine Color Urine Appearance (Clear) Urine pH (4.5-7.5) Ur Specific [place] (1.000-1.030) Urine Protein (Negative) Urine Glucose (UA) (Negative) Urine Ketones (Negative) Urine Blood (Negative) Urine Nitrite (Negative) Urine Bilirubin (Negative) Urine Urobilinogen (Negative) Ur Leukocyte Esterase (Negative) Urine WBC (Auto) (0-5) /hpf Urine RBC (Auto) (0-4) /hpf U Hyaline Cast (Auto) (0-5) /lpf U Epithel Cells (Auto) (0-5) /lpf Urine Bacteria (Auto) (Negative) Ur Renal Epithelial Cell Urine Osmolality (500-800) mOsm/kg Ur Random Creatinine mg/dl Ur Random Sodium mmol/L Ur Random Potassium mmol/L Ur Random Chloride mmol/L Nasal Screen MRSA (PCR) (Negative) SARS-CoV-2 (PCR) (Negative) Influenza Type A (PCR) (Neg) Influenza Type B (PCR) (Neg) RSV (RT-PCR) (Neg) 10/19/22 10/19/22 10/19/22 Range/Units 11:10 11:35 12:36 WBC (4.8-10.8) K/ul RBC (4.70-6.10) M/uL Hgb (14.0-18.0) g/dl Hct (42.0-52.0) % MCV (80.0-100.0) fL MCH (25.0-34.0) pg MCHC (32.0-36.0) g/dL RDW Std Deviation (36.4-46.3) fL RDW Coeff of Sheeba (11.5-14.5) % Plt Count (130-400) K/uL MPV (9.4-12.4) fL Immature Gran % (Auto) % Neut % (Auto) % Lymph % (Auto) % [place] % (Auto) % Eos % (Auto) % Baso % (Auto) % Neut # (Auto) (1.40-6.50) K/uL Lymph # (Auto) (1.2-3.4) K/uL [place] # (Auto) (0.11-0.59) K/uL Eos # (Auto) (0-0.50) K/uL Baso # (Auto) (0-0.2) K/uL Immature Gran # (Auto) (0.01-0.20) K/uL ABG pH 7.34 L (7.35-7.45) ABG pCO2 46 (35-46) mmHg ABG pO2 84 (80-95) mmHg ABG HCO3 25 H (19-24) mmol/L ABG O2 Saturation 98.5 H (90-95) % ABG Base Excess -1.3 (-9-1.8) mEq/L Guero Test Pos (Pos) Oxygen Given 6L Sodium (136-145) mmol/L Potassium (3.5-5.1) mmol/L Chloride (98-107) mmol/L Carbon Dioxide (21-32) mmol/L Anion Gap (3-11) BUN (6-23) mg/dl Creatinine (0.6-1.4) mg/dl Est Cr Clr Drug Dosing ml/min Est GFR ( Amer) ml/min Est GFR (Non-Af Amer) ml/min BUN/Creatinine Ratio (10-20) Glucose (70-99(Fasting)) mg/dl Lactate (0.4-2.0) mmol/L Calcium (8.5-10.1) mg/dl Magnesium (1.7-2.4) mg/dl Total Bilirubin (0.2-1.0) mg/dl Direct Bilirubin (0-0.2) mg/dl AST (13-39) U/L ALT (7-52) U/L Alkaline Phosphatase (34-104) U/L Troponin I High Sens (0-20) pg/ml Total Protein (6.0-8.3) gm/dl Albumin (3.4-5.0) gm/dl Procalcitonin 18.00 H (0-0.5) ng/ml Urine Color Urine Appearance (Clear) Urine pH (4.5-7.5) Ur Specific [place] (1.000-1.030) Urine Protein (Negative) Urine Glucose (UA) (Negative) Urine Ketones (Negative) Urine Blood (Negative) Urine Nitrite (Negative) Urine Bilirubin (Negative) Urine Urobilinogen (Negative) Ur Leukocyte Esterase (Negative) Urine WBC (Auto) (0-5) /hpf Urine RBC (Auto) (0-4) /hpf U Hyaline Cast (Auto) (0-5) /lpf U Epithel Cells (Auto) (0-5) /lpf Urine Bacteria (Auto) (Negative) Ur Renal Epithelial Cell Urine Osmolality (500-800) mOsm/kg Ur Random Creatinine mg/dl Ur Random Sodium mmol/L Ur Random Potassium mmol/L Ur Random Chloride mmol/L Nasal Screen MRSA (PCR) (Negative) SARS-CoV-2 (PCR) NEGATIVE (Negative) Influenza Type A (PCR) Negative (Neg) Influenza Type B (PCR) Negative (Neg) RSV (RT-PCR) Negative (Neg) 10/19/22 10/19/22 10/19/22 Range/Units 13:25 13:50 13:50 WBC (4.8-10.8) K/ul RBC (4.70-6.10) M/uL Hgb (14.0-18.0) g/dl Hct (42.0-52.0) % MCV (80.0-100.0) fL MCH (25.0-34.0) pg MCHC (32.0-36.0) g/dL RDW Std Deviation (36.4-46.3) fL RDW Coeff of Sheeba (11.5-14.5) % Plt Count (130-400) K/uL MPV (9.4-12.4) fL Immature Gran % (Auto) % Neut % (Auto) % Lymph % (Auto) % [place] % (Auto) % Eos % (Auto) % Baso % (Auto) % Neut # (Auto) (1.40-6.50) K/uL Lymph # (Auto) (1.2-3.4) K/uL [place] # (Auto) (0.11-0.59) K/uL Eos # (Auto) (0-0.50) K/uL Baso # (Auto) (0-0.2) K/uL Immature Gran # (Auto) (0.01-0.20) K/uL ABG pH (7.35-7.45) ABG pCO2 (35-46) mmHg ABG pO2 (80-95) mmHg ABG HCO3 (19-24) mmol/L ABG O2 Saturation (90-95) % ABG Base Excess (-9-1.8) mEq/L Guero Test (Pos) Oxygen Given Sodium (136-145) mmol/L Potassium (3.5-5.1) mmol/L Chloride (98-107) mmol/L Carbon Dioxide (21-32) mmol/L Anion Gap (3-11) BUN (6-23) mg/dl Creatinine (0.6-1.4) mg/dl Est Cr Clr Drug Dosing ml/min Est GFR ( Amer) ml/min Est GFR (Non-Af Amer) ml/min BUN/Creatinine Ratio (10-20) Glucose (70-99(Fasting)) mg/dl Lactate (0.4-2.0) mmol/L Calcium (8.5-10.1) mg/dl Magnesium (1.7-2.4) mg/dl Total Bilirubin (0.2-1.0) mg/dl Direct Bilirubin (0-0.2) mg/dl AST (13-39) U/L ALT (7-52) U/L Alkaline Phosphatase (34-104) U/L Troponin I High Sens (0-20) pg/ml Total Protein (6.0-8.3) gm/dl Albumin (3.4-5.0) gm/dl Procalcitonin (0-0.5) ng/ml Urine Color Yellow Urine Appearance Clear (Clear) Urine pH 7.0 (4.5-7.5) Ur Specific [place] 1.013 (1.000-1.030) Urine Protein 2+ H (Negative) Urine Glucose (UA) Negative (Negative) Urine Ketones Negative (Negative) Urine Blood Negative (Negative) Urine Nitrite Negative (Negative) Urine Bilirubin Negative (Negative) Urine Urobilinogen Negative (Negative) Ur Leukocyte Esterase Negative (Negative) Urine WBC (Auto) 1-5 (0-5) /hpf Urine RBC (Auto) 0-4 (0-4) /hpf U Hyaline Cast (Auto) 5-10 H (0-5) /lpf U Epithel Cells (Auto) >30 H (0-5) /lpf Urine Bacteria (Auto) Negative (Negative) Ur Renal Epithelial Cell Not Reportable Urine Osmolality (500-800) mOsm/kg Ur Random Creatinine 47.6 mg/dl Ur Random Sodium 85 mmol/L Ur Random Potassium 37.8 mmol/L Ur Random Chloride 80 mmol/L Nasal Screen MRSA (PCR) Negative (Negative) SARS-CoV-2 (PCR) (Negative) Influenza Type A (PCR) (Neg) Influenza Type B (PCR) (Neg) RSV (RT-PCR) (Neg) 10/19/22 Range/Units 13:50 WBC (4.8-10.8) K/ul RBC (4.70-6.10) M/uL Hgb (14.0-18.0) g/dl Hct (42.0-52.0) % MCV (80.0-100.0) fL MCH (25.0-34.0) pg MCHC (32.0-36.0) g/dL RDW Std Deviation (36.4-46.3) fL RDW Coeff of Sheeba (11.5-14.5) % Plt Count (130-400) K/uL MPV (9.4-12.4) fL Immature Gran % (Auto) % Neut % (Auto) % Lymph % (Auto) % [place] % (Auto) % Eos % (Auto) % Baso % (Auto) % Neut # (Auto) (1.40-6.50) K/uL Lymph # (Auto) (1.2-3.4) K/uL [place] # (Auto) (0.11-0.59) K/uL Eos # (Auto) (0-0.50) K/uL Baso # (Auto) (0-0.2) K/uL Immature Gran # (Auto) (0.01-0.20) K/uL ABG pH (7.35-7.45) ABG pCO2 (35-46) mmHg ABG pO2 (80-95) mmHg ABG HCO3 (19-24) mmol/L ABG O2 Saturation (90-95) % ABG Base Excess (-9-1.8) mEq/L Guero Test (Pos) Oxygen Given Sodium (136-145) mmol/L Potassium (3.5-5.1) mmol/L Chloride (98-107) mmol/L Carbon Dioxide (21-32) mmol/L Anion Gap (3-11) BUN (6-23) mg/dl Creatinine (0.6-1.4) mg/dl Est Cr Clr Drug Dosing ml/min Est GFR ( Amer) ml/min Est GFR (Non-Af Amer) ml/min BUN/Creatinine Ratio (10-20) Glucose (70-99(Fasting)) mg/dl Lactate (0.4-2.0) mmol/L Calcium (8.5-10.1) mg/dl Magnesium (1.7-2.4) mg/dl Total Bilirubin (0.2-1.0) mg/dl Direct Bilirubin (0-0.2) mg/dl AST (13-39) U/L ALT (7-52) U/L Alkaline Phosphatase (34-104) U/L Troponin I High Sens (0-20) pg/ml Total Protein (6.0-8.3) gm/dl Albumin (3.4-5.0) gm/dl Procalcitonin (0-0.5) ng/ml Urine Color Urine Appearance (Clear) Urine pH (4.5-7.5) Ur Specific [place] (1.000-1.030) Urine Protein (Negative) Urine Glucose (UA) (Negative) Urine Ketones (Negative) Urine Blood (Negative) Urine Nitrite (Negative) Urine Bilirubin (Negative) Urine Urobilinogen (Negative) Ur Leukocyte Esterase (Negative) Urine WBC (Auto) (0-5) /hpf Urine RBC (Auto) (0-4) /hpf U Hyaline Cast (Auto) (0-5) /lpf U Epithel Cells (Auto) (0-5) /lpf Urine Bacteria (Auto) (Negative) Ur Renal Epithelial Cell Urine Osmolality 374 L (500-800) mOsm/kg Ur Random Creatinine mg/dl Ur Random Sodium mmol/L Ur Random Potassium mmol/L Ur Random Chloride mmol/L Nasal Screen MRSA (PCR) (Negative) SARS-CoV-2 (PCR) (Negative) Influenza Type A (PCR) (Neg) Influenza Type B (PCR) (Neg) RSV (RT-PCR) (Neg) Administered Medications Enteral Nutritional Formula (Fibersource Hn 1.2 Herman 1000 Ml Bag) 1,000 ml GT CONT ROXANA; Protocol Stop: 11/18/22 18:59 Last Admin: 10/20/22 20:45 Dose: 1,000 ml Documented By: Admin: 10/20/22 20:41 Dose: 1,000 ml Documented By: Admin: 10/19/22 20:16 Dose: 1,000 ml Documented By: GREG Doxycycline Hyclate 100 mg/ (Dextrose) 110 mls @ 50 mls/hr IV Q12H ROXANA; Protocol Stop: 10/26/22 17:59 Last Infusion: 10/21/22 08:16 Dose: 0 mls/hr Documented By: Admin: 10/21/22 05:42 Dose: 50 mls/hr Documented By: Infusion: 10/20/22 20:10 Dose: 0 mls/hr Documented By: Admin: 10/20/22 17:30 Dose: 50 mls/hr Documented By: Infusion: 10/20/22 07:08 Dose: 0 mls/hr Documented By: Admin: 10/20/22 04:56 Dose: 50 mls/hr Documented By: Infusion: 10/19/22 22:27 Dose: 0 mls/hr Documented By: Admin: 10/19/22 18:47 Dose: 50 mls/hr Documented By: VISHNU Parenteral Electrolytes (Normosol-R) 1,000 mls @ 125 mls/hr IV .Q8H ROXANA Stop: 11/19/22 08:29 Last Infusion: 10/21/22 06:38 Dose: 0 mls/hr Documented By: Admin: 10/21/22 06:00 Dose: 75 mls/hr Documented By: Infusion: 10/21/22 06:00 Dose: 75 mls/hr Documented By: Admin: 10/21/22 00:16 Dose: 75 mls/hr Documented By: Infusion: 10/21/22 00:16 Dose: 75 mls/hr Documented By: Infusion: 10/20/22 16:08 Dose: 75 mls/hr Documented By: Infusion: 10/20/22 13:14 Dose: 0 mls/hr Documented By: Admin: 10/20/22 08:25 Dose: 75 mls/hr Documented By: MALLIKA Hydrocortisone Sodium (Succinate 50 mg/ Syringe) 1 mls @ 4 mls/min IV Q8H ROXANA Stop: 11/19/22 18:59 Last Admin: 10/21/22 02:46 Dose: 4 mls/min Documented By: Admin: 10/20/22 20:12 Dose: 4 mls/min Documented By: GREG Cefepime HCl 2,000 mg/ Syringe 20 mls @ 5 mls/min IV Q8H ROXANA; Protocol Stop: 10/26/22 17:59 Last Admin: 10/21/22 05:57 Dose: 5 mls/min Documented By: Admin: 10/20/22 20:40 Dose: 5 mls/min Documented By: Admin: 10/20/22 14:48 Dose: 5 mls/min Documented By: MALLIKA Potassium Chloride (K Jamar / Wtr) 20 meq in 100 mls @ 50 mls/hr IV Q2H ROXANA Stop: 10/21/22 11:59 Last Admin: 10/21/22 08:24 Dose: 50 mls/hr Documented By: MALLIKA Lansoprazole (Lansoprazole 30 Mg Soltab) 30 mg PEG DAILY ROXANA Stop: 11/19/22 09:59 Last Admin: 10/21/22 09:02 Dose: 30 mg Documented By: Admin: 10/20/22 11:04 Dose: 30 mg Documented By: MALLIKA Miscellaneous (Icu Protocol For Hyperglycemia) 1 each N/A ACHS ROXANA Stop: 10/21/22 16:36 Last Admin: 10/21/22 07:24 Dose: Not Given Documented By: Admin: 10/20/22 20:39 Dose: 1 each Documented By: Admin: 10/20/22 16:05 Dose: Not Given Documented By: Admin: 10/20/22 11:53 Dose: Not Given Documented By: Admin: 10/20/22 08:24 Dose: Not Given Documented By: Admin: 10/19/22 20:29 Dose: Not Given Documented By: Admin: 10/19/22 18:41 Dose: Not Given Documented By: CAM Multivitamins/Minerals (Multi Vit W/Minerals Liquid 15 Ml Udp) 15 ml PEG QAM ROXANA Stop: 11/20/22 08:59 Last Admin: 10/21/22 09:02 Dose: 15 ml Documented By: MALLIKA Sterile Water (Tube Feeding Water Flush) 250 ml PEG Q6H ROXANA Stop: 11/19/22 09:59 Last Admin: 10/21/22 09:48 Dose: 250 ml Documented By: Admin: 10/21/22 05:45 Dose: 250 ml Documented By: Admin: 10/20/22 23:44 Dose: 250 ml Documented By: Admin: 10/20/22 16:02 Dose: 250 ml Documented By: Admin: 10/20/22 10:04 Dose: 250 ml Documented By: MALLIKA Discontinued Medications Sodium Chloride (Nss 1000ml) 1,000 mls @ 999 mls/hr IV .Q1H1M ROXANA Stop: 10/19/22 12:15 Last Infusion: 10/19/22 12:35 Dose: 0 mls/hr Documented By: Admin: 10/19/22 11:34 Dose: 999 mls/hr Documented By: SOMMER Sodium Chloride (Nss 1000ml) 1,000 mls @ 999 mls/hr IV .Q1H1M ONE Stop: 10/19/22 13:21 Last Admin: 10/19/22 12:43 Dose: Not Given Documented By: GIRISH Piperacillin Sod/Tazobactam Sod (Zosyn) 4.5 gm in 120 mls @ 240 mls/hr IV NOW ONE Stop: 10/19/22 12:50 Last Infusion: 10/19/22 13:14 Dose: 0 mls/hr Documented By: Admin: 10/19/22 12:44 Dose: 240 mls/hr Documented By: GIRISH Sodium Chloride (Nss) 500 mls @ 999 mls/hr IV .Q31M ONE Stop: 10/19/22 13:03 Last Infusion: 10/19/22 13:14 Dose: 0 mls/hr Documented By: Admin: 10/19/22 12:43 Dose: 999 mls/hr Documented By: GIRISH Vancomycin HCl 1,000 mg/ (Sodium Chloride) 270 mls @ 200 mls/hr IV NOW STA; Protocol Stop: 10/19/22 16:13 Last Infusion: 10/19/22 20:30 Dose: 0 mls/hr Documented By: Admin: 10/19/22 15:33 Dose: 200 mls/hr Documented By: IVET Sodium Chloride (Nss 1000ml) 1,000 mls @ 50 mls/hr IV .Q20H ROXANA Stop: 11/18/22 16:36 Last Infusion: 10/20/22 08:25 Dose: 0 mls/hr Documented By: Infusion: 10/20/22 07:52 Dose: 50 mls/hr Documented By: Admin: 10/20/22 04:54 Dose: 100 mls/hr Documented By: Infusion: 10/20/22 04:45 Dose: 100 mls/hr Documented By: Admin: 10/19/22 18:45 Dose: 100 mls/hr Documented By: VISHNU Cefepime HCl 2,000 mg/ Syringe 20 mls @ 5 mls/min IV Q12H ROXANA; Protocol Stop: 10/26/22 17:59 Last Admin: 10/20/22 04:55 Dose: 5 mls/min Documented By: Admin: 10/19/22 18:45 Dose: 5 mls/min Documented By: VISHNU Parenteral Electrolytes (Normosol-R) 500 mls @ 999 mls/hr IV .Q31M ONE Stop: 10/20/22 08:47 Last Infusion: 10/20/22 09:00 Dose: 0 mls/hr Documented By: Admin: 10/20/22 08:25 Dose: 999 mls/hr Documented By: MALLIKA Parenteral Electrolytes (Normosol-R) 500 mls @ 999 mls/hr IV .Q31M ONE Stop: 10/20/22 10:15 Last Infusion: 10/20/22 10:14 Dose: 0 mls/hr Documented By: Admin: 10/20/22 09:45 Dose: 999 mls/hr Documented By: MALLIKA Parenteral Electrolytes (Normosol-R) 500 mls @ 999 mls/hr IV .Q31M ONE Stop: 10/20/22 10:38 Last Infusion: 10/20/22 10:51 Dose: 0 mls/hr Documented By: Admin: 10/20/22 10:14 Dose: 999 mls/hr Documented By: MALLIKA Hydrocortisone Sodium (Succinate 100 mg/ Syringe) 2 mls @ 4 mls/min IV NOW STA Stop: 10/20/22 10:47 Last Admin: 10/20/22 11:30 Dose: 4 mls/min Documented By: MALLIKA Sodium Chloride (Nss 1000ml) 500 mls @ 999 mls/hr IV .Q31M ONE Stop: 10/20/22 19:33 Last Infusion: 10/20/22 22:54 Dose: 0 mls/hr Documented By: Admin: 10/20/22 20:10 Dose: 999 mls/hr Documented By: GREG Parenteral Electrolytes (Normosol-R) 1,000 mls @ 999 mls/hr IV .Q1H1M ONE Stop: 10/21/22 00:33 Last Infusion: 10/21/22 01:06 Dose: 0 mls/hr Documented By: Admin: 10/20/22 23:44 Dose: 999 mls/hr Documented By: GREG Potassium Chloride (K Jamar / Wtr) 10 meq in 100 mls @ 100 mls/hr IV Q1H ROXANA Stop: 10/21/22 05:44 Last Infusion: 10/21/22 06:03 Dose: 0 mls/hr Documented By: Admin: 10/21/22 04:54 Dose: 100 mls/hr Documented By: Infusion: 10/21/22 04:51 Dose: 100 mls/hr Documented By: Admin: 10/21/22 03:51 Dose: 100 mls/hr Documented By: Infusion: 10/21/22 03:48 Dose: 100 mls/hr Documented By: Admin: 10/21/22 02:48 Dose: 100 mls/hr Documented By: GREG Ioversol (Optiray 320 500ml) 106 ml IV ONCE ONE Stop: 10/19/22 16:26 Last Admin: 10/19/22 16:26 Dose: 106 ml Documented By: TIMOTHY Ondansetron HCl (Ondansetron Inj 2 Mg/Ml 2 Ml Vial) 4 mg IV NOW STA Stop: 10/19/22 11:03 Last Admin: 10/19/22 11:31 Dose: 4 mg Documented By: SOMMER Trazodone HCl (Trazodone Hcl 50 Mg Tab) 50 mg PO NOW ONE Stop: 10/21/22 02:53 Last Admin: 10/21/22 03:17 Dose: 50 mg Documented By: GREG Imaging Data Radiologist's Impression: Chest X-Ray 10/19/22 11:02 SINGLE VIEW CHEST CLINICAL HISTORY: Sepsis. FINDINGS: 2 AP, portable, upright chest radiographs are compared to study dated 10/08/2022 and correlated with chest CT dated 09/29/2022. The examination is degraded by portable technique and patient rotation. A left subclavian central venous infusion port is unchanged in position. The cardiomediastinal silhouette is unremarkable noting atherosclerotic calcification of the thoracic aorta. Emphysema and chronic interstitial thickening is similar to previous. Right upper lobe mass lesions and a lesion in the left lung are again noted. These w ere better assessed on the recent chest CT. There is no airspace consolidation typical for pneumonia or large pleural effusion. No pneumothorax is seen. The skeletal structures are osteopenic. A destructive lesion of the right posterior ninth rib is again noted. IMPRESSION: 1. Emphysematous change with no acute cardiopulmonary abnormality identified. 2. Bilateral pulmonary lesions are again noted. These were better assessed on the recent chest CT. 3. A destructive lesion of the right posterior ninth rib is again noted. ACT 112: Negative or not required by law. Electronically signed by: Sascha Kaba M.D. 10/19/2022 11:47 AM Discharge Plan Visit Data Chief Complaint: Illness Stated Complaint: BRADYCARDIA, HYPOTENSION ED Provider: Jveon Dyer Discharge Problem: Severe sepsis, Hypoxia, Lactic acidosis, Elevated WBC count Patient Disposition: Admitted As Inpatient Discharge Instructions Interventions: ED Discharge Assessment Last Done: 10/19/22 16:36 : Elevated WBC count Qualifiers: Leukocytosis type: unspecified Qualified Code(s): D72.829 - Elevated white blood cell count, unspecified
[2022-10-19] MEDS ORDERED: SODIUM CHLORIDE 0.9% 1000ML 1,000 ML IV SCH (11:15)
--- NOTE | 2022-10-19 11:48 | XRay Report ---
SINGLE VIEW CHEST CLINICAL HISTORY: Sepsis. FINDINGS: 2 AP, portable, upright chest radiographs are compared to study dated 10/08/2022 and correla ava with chest CT dated 09/29/2022. The examination is degraded by portable technique and patient rota tion. A left subclavian central venous infusion port is unchanged in position. The cardiomediastinal silhouette is unremarkable noting atherosclerotic calcification of the thoracic aorta. Emphysema and chronic interstitial thickening is similar to previous. Right upper lobe mass lesions and a lesion i n the left lung are again noted. These were better assessed on the recent chest CT. There is no airsp jesusita consolidation typical for pneumonia or large pleural effusion. No pneumothorax is seen. The skele edna structures are osteopenic. A destructive lesion of the right posterior ninth rib is again noted. IMPRESSION: 1. Emphysematous change with no acute cardiopulmonary abnormality identified. 2. Bilateral pulmonary lesions are again noted. These were better assessed on the recent chest CT. 3. A destructive lesion of the right posterior ninth rib is again noted. ACT 112: Negative or not required by law. Electronically signed by: Sascha Kaba M.D. 10/19/2022 11:47 AM
[2022-10-19 12:13] LABS: Hematocrit (blood only) 27.6 % (42.0-52.0); Hemoglobin 9.5 g/dl (14.0-18.0); Mean Corpuscular Hemoglobin 30.6 pg (25.0-34.0); Mean Corpuscular Hgb Conc 34.4 g/dL (32.0-36.0); Mean Platelet Volume 9.6 fL (9.4-12.4); Platelet Count 538 K/uL (130-400); RDW Coefficient of Variation 13.6 % (11.5-14.5); RDW Standard Deviation 43.7 fL (36.4-46.3); White Blood Count 28.66 K/ul (4.8-10.8)
[2022-10-19] MEDS ORDERED: SODIUM CHLORIDE 0.9% 1000ML 1,000 ML IV ONE (12:21)
[2022-10-19] MEDS ORDERED: PIPERACILLIN/TAZOBACTAM 4.5 GM/120 ML BAG IV ONE (12:21)
[2022-10-19 12:32] LABS: Influenza A virus by PCR Negative (Neg); Influenza B virus by PCR Negative (Neg); RSV by PCR Negative (Neg); SARS CoV2 RNA(COVID-19) Ceph NEGATIVE (Negative)
[2022-10-19 12:32] LABS: Albumin Level 3.3 gm/dl (3.4-5.0); BUN Creatinine Ratio 26.6 (10-20); Bilirubin Direct 0.1 mg/dl (0-0.2); Bilirubin,Total 0.6 mg/dl (0.2-1.0); Calcium 8.8 mg/dl (8.5-10.1); Creatinine Clr Calc Pharmacy 36.9 ml/min; Est GFR (African American) 69.5 ml/min; Potassium 5.6 mmol/L (3.5-5.1); Total Protein 6.8 gm/dl (6.0-8.3); Troponin I High Sensitivity 15.8 pg/ml (0-20)
[2022-10-19] MEDS ORDERED: SODIUM CHLORIDE 0.9% 500 ML IV ONE (12:33)
[2022-10-19 12:47] LABS: Basophils # (auto) 0.08 K/uL (0-0.2); Basophils % (auto) 0.3 %; Eosinophils # (auto) 0.04 K/uL (0-0.50); Eosinophils % (auto) 0.1 %; Immature Granulocytes # (auto) 1.04 K/uL (0.01-0.20); Immature Granulocytes % (auto) 3.6 %; Lymphocytes # (auto) 0.98 K/uL (1.2-3.4); Lymphocytes % (auto) 3.4 %; Monocytes # (auto) 2.27 K/uL (0.11-0.59); Monocytes % (auto) 7.9 %; Neutrophils # (auto) 24.25 K/uL (1.40-6.50); Neutrophils % (auto) 84.7 %
--- NOTE | 2022-10-19 12:50 | Electrocardiogram Report ---
Test Reason : Blood Pressure : / mmHG Vent. Rate : 112 BPM Atrial Rate : 112 BPM P-R Int : 128 ms QRS Dur : 092 ms QT Int : 324 ms P-R-T Axes : 072 043 082 degrees QTc Int : 442 ms Poor data quality, interpretation may be adversely affected Sinus tachycardia Left atrial enlargement Borderline ECG When compared with ECG of 06-OCT-2022 03:42, No significant change was found Confirmed by Enrique Smith ([id number]) on 10/19/2022 12:50:22 PM Referred By: Confirmed By:Enrique Smith
[2022-10-19 12:53] LABS: Base Excess ABG -1.3 mEq/L (-9-1.8); HCO3 ABG 25 mmol/L (19-24); Oxygen Saturation ABG 98.5 % (90-95); PCO2 ABG 46 mmHg (35-46); PO2 ABG 84 mmHg (80-95); pH ABG 7.34 (7.35-7.45)
[2022-10-19 13:00] LABS: Allen Test Pos (Pos)
--- NOTE | 2022-10-19 13:03 | History & Physical Report ---
Date of Service October 19, 2022 Assessment & Plan (1) Severe sepsis: (2) Hypoxia: (3) Lactic acidosis: (4) Metastatic primary lung cancer: (5) COPD (chronic obstructive pulmonary disease): (6) Dysphagia, oropharyngeal: (7) Severe protein-calorie malnutrition: (8) S/P percutaneous endoscopic gastrostomy (PEG) tube placement: Plan: - Admit to ICU, discussion with Dr. Hendrix - Check MRSA nasal swab, UA(appears noninfected), UCx, blood culture x 2, started empirically on Zosyn, will add vancomycin in the ER - 15 L nonrebreather transition to BiPAP, patient is a full code, agrees to intubation if necessary , check ABG - did not show hypercarbia or acidosis - Check urine osmolality, serum osm - CXR reveals possible air below the diaphragm, obtain CT of the chest abdomen and pelvis without contrast to further evaluate if this is residual from recent PEG tube placement or if there is possible perforation, if perforation then will require general surgery consult stat - Also evaluate CT chest angiogram for PE with history of cancer, recent PE, need to rule out failure of Eliquis, in the meantime continue Eliquis - discussion held regarding code with the patient at bedside, discussion also held regarding palliative medicine, patient nor family member have heard of palliative care. Palliative care consultation for further goals of care was discussed vs possible hospice however the pt and are resistant to discussion and want full code/all aggressive measures currently. Can consider consultation pending clinical course. - Holding all tube feeds, typically gets Fibersource QID, free water flushes afterwards and with meds. Nutrition consult. - Allow tylenol and oxycodone for pain - Hyponatremia may require hypertonic saline per ICU - pt received 1.5 L NSS in the ER, will continue NSS at 100 ml/hr for now and can adjust fluids per ICU. Consider nephrology consultation. Repeat BMP Q4H for trend. - Lung cancer stage IV with mets to bone, liver adrenal and mediastinal nodes and possibly the kidneys. Finished XRT, currently chemo on hold, last session was on 09/19/2022. Consider oncology consultation DVT PPx: - teds, scds, Eliquis CODE: Full code Dispo: From home, likely to remain in the hospital x 2 days. A total of 80 minutes were spent with greater than 50% of that time face to face with the patient, personally reviewing all current laboratories, imaging studies, past medication reconciliation, outpatient chart review, and discussion with specialists to collaborate care for the patient with attending. Please see attending documentation for corrections and/or additions. (9) Hyponatremia: History of Present Illness Chief Complaint: Illness Primary Care Provider: Jamie Thrasher MD This is a 62-year-old male with PMHx of stage IV lung cancer with mets to bone, history of recent PE, mild COPD, ischemic stroke, dysphagia with recent PEG placement done on 10/06/2022. He presents today for worsening illness to the ER. Patient was seen in the [facility] center earlier today for routine labwork. He has been following with Dr. Lewis. There his blood pressure was found to be hypotensive with systolic in the 60s, he was tachycardic, with O2 sats in mid 80s and was sent via ambulance from the [facility] to the ER. Here O2 sats = 87% on a 15 L nonrebreather mask, RR = 25-28 during my visit, he appears comfortable but anxious. He is able to answer some of my questions however cannot support a history as he is confused somewhat. He has been doing fine since having PEG tube placed on 10/06 per , Yancy, and she has been giving him Fibersource cans 4 times per day with water flushes after each PEG tube use. He does not take any food orally. She denies any complaints of fevers, chills or sweats, or abdominal complaints. She has noticed that he has had a cough, producing some foamy mucus at times within the past 24 hours. Only this morning did he complain of shortness of breath upon entering the [facility] after walking in from the parking lot. He typically does not wear any O2 at baseline. She notes that he was recently started on a salt tablet which he has taken 2 or 3 doses of at home this week. Pt cannot recall when his last chemotherapy session was, but they are currently on a hold period until his body has "time to get stronger since having the feeding tube placed". Here breath sounds are coarse per the ER, procalcitonin is 18, lactic acid is 2.1, WBC is 28.66, sodium of 118. Allergies Allergy/AdvReac Type Severity Reaction Status Date / Time No Known Allergies Allergy NONE Verified 09/25/22 07:13 Home Medications Medication Instructions Recorded Confirmed Type acetaminophen 500 mg tablet 1,000 mg feeding tube TID PRN Pain 10/10/22 10/19/22 Rx (Tylenol Extra Strength) #20 tabs apixaban 5 mg tablet (Eliquis) 5 mg feeding tube BID 30 days #60 10/10/22 10/19/22 Rx tabs folic acid 1 mg tablet 1 mg feeding tube UD #10 tabs 10/10/22 10/19/22 Rx lansoprazole 30 mg delayed 30 mg PO DAILY 30 days #30 tabs 10/10/22 10/19/22 Rx release,disintegrating tablet (Prevacid SoluTab) multivitamin 1 tab feeding tube QAM #10 tabs 10/10/22 10/19/22 Rx ondansetron HCl 8 mg tablet 8 mg feeding tube Q8 PRN Nausea 10/10/22 10/19/22 Rx #10 tabs oxycodone 5 mg tablet 5 mg feeding tube Q4H PRN pain #10 10/10/22 10/19/22 Rx tabs sodium chloride 1,000 mg soluble 1,000 mg PO BID 10/19/22 10/19/22 History tablet Past Med/Surg History Medical History (Updated 10/24/22 @ 12:28 by Edwar Singh MD) Chest pain "has this off and on, from his cancer" COPD (chronic obstructive pulmonary disease) Dysphagia Esophageal dilatation GERD (gastroesophageal reflux disease) History of alcohol dependence per [facility] records History of COVID-19 2019, not hosp; mild symptoms>resolved. Ischemic stroke Metastatic primary lung cancer mets to mediastinum, liver, bone, adrenal and possibly kidneys per heme/onc note; "no CVS metastases" Pulmonary embolism 07/2022, currently on eliquis; f/u dr. sandoval Secondary carcinoma of bone Severe protein-calorie malnutrition Surgical History History of bronchoscopy History of esophagogastroduodenoscopy (EGD) Hx of colonoscopy Port-A-Cath in place (09/25/22) Insertion Access Port Left Cephalic(Left)With fluoroscopic guidance with fluoroscopic guided- Padilla Enriquez MD, FACS Family History Mother , Mom at 65 y/o Diabetes Lung cancer Myocardial infarction Hypertension Father , Dad passed at at 53 y/o Diabetes Lung cancer Brother , at 65 y/o Cancer throat cancer Brother Cancer Pt not sure of type of cancer Sister No problems noted. Sister No problems noted. Sister No problems noted. Sister No problems noted. Other No pertinent family history Denies family history of Heart disease Kidney disease Pulmonary embolism Social History Smoking Status: Former smoker Tobacco Type: Cigarettes Age Started Using Tobacco: 12; Age Quit Using Tobacco: 51; Cigarettes Per Day: 1pk/every 3 day; Second Hand Exposure: No; Hx Alcohol Use: No Hx Substance Use: No Preferred Language: Swedish Communication Ability: Effective Visual Impairment: No Limitations Hearing Ability: Normal Multi Share Program Coordinator Required: No Beliefs That Will Affect Care: Spiritual marital status: Current Living Situation: Spouse Current Living Situation Comment: And wifes mother current occupational status: employed 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 [employer] How many Children do You have: 0 Feels Safe at Home: Yes caffeine: Yes (2 cups/day) during the past year weight has: decreased > 10 lbs Assistive Devices: None Review of Systems Review of Systems: Unobtainable due to cognitive status Physical Exam Physical Exam: General: awake, alert, appears anxious, severely cachectic, BMI of 16.3 Head: Normocephalic, atraumatic ENT: PERRL, EOMI, no pharyngeal exudate, mucous membranes moist Chest: Mediport accessed in left chest wall, on 15 L via nonrebreather mask, respiratory rate 25-30, + breathing retractions, diminished breath sounds in the left side throughout, minimal breath sounds on the right side, no wheezes, no rales. Cardiac: Sinus tach with heart rate in the 110s, no murmur, no JVD, normal peripheral pulses, good capillary refill Abdominal: NABS x 4 quadrants, soft, PEG tube site in RUQ, no surrounding erythe ma, nondistended, nontender to palpation, no rebound or guarding Extremities: + Muscular atrophy, no peripheral edema or erythema, calfs nontender to palpation Psych: Normal mood and affect Neuro: AA oriented to self, otherwise confused, strength intact bilaterally and rated 5/5, no motor deficits, speech is somewhat garbled due to dry mouth, no peripheral sensory deficits Results & Data Results & Data ([facility]) Vital Signs (Past 12 Hours) Vital Signs Temp Pulse Resp BP Pulse Ox O2 Del Method O2 Flow Rate 10/19/22 11:29 Non-rebreather 10/19/22 11:29 36.4 C L 112 H 37 H 127/88 87 L Non-rebreather 15 Laboratory Results 10/19/22 12:40 Aerobic Blood Culture - Pending Blood Anaerobic Blood Culture - Pending 10/19/22 11:10 Aerobic Blood Culture - Pending Blood Anaerobic Blood Culture - Pending 10/19/22 10/19/22 10/19/22 12:36 11:35 11:10 WBC RBC Hgb Hct MCV MCH MCHC RDW Std Deviation RDW Coeff of Sheeba Plt Count MPV Immature Gran % (Auto) Neut % (Auto) Lymph % (Auto) [place] % (Auto) Eos % (Auto) Baso % (Auto) Neut # (Auto) Lymph # (Auto) [place] # (Auto) Eos # (Auto) Baso # (Auto) Immature Gran # (Auto) ABG pH 7.34 L ABG pCO2 46 ABG pO2 84 ABG HCO3 25 H ABG O2 Saturation 98.5 H ABG Base Excess -1.3 Guero Test Pos Oxygen Given 6L Sodium Potassium Chloride Carbon Dioxide Anion Gap BUN Creatinine Est Cr Clr Drug Dosing Est GFR ( Amer) Est GFR (Non-Af Amer) BUN/Creatinine Ratio Glucose Lactate Calcium Magnesium Total Bilirubin Direct Bilirubin AST ALT Alkaline Phosphatase Troponin I High Sens Total Protein Albumin Procalcitonin 18.00 H SARS-CoV-2 (PCR) NEGATIVE Influenza Type A (PCR) Negative Influenza Type B (PCR) Negative RSV (RT-PCR) Negative 10/19/22 10/19/22 10/19/22 11:10 11:10 11:10 WBC 28.66 H RBC 3.10 L Hgb 9.5 L Hct 27.6 L MCV 89.0 MCH 30.6 MCHC 34.4 RDW Std Deviation 43.7 RDW Coeff of Sheeba 13.6 Plt Count 538 H MPV 9.6 Immature Gran % (Auto) 3.6 Neut % (Auto) 84.7 Lymph % (Auto) 3.4 [place] % (Auto) 7.9 Eos % (Auto) 0.1 Baso % (Auto) 0.3 Neut # (Auto) 24.25 H Lymph # (Auto) 0.98 L [place] # (Auto) 2.27 H Eos # (Auto) 0.04 Baso # (Auto) 0.08 Immature Gran # (Auto) 1.04 H ABG pH ABG pCO2 ABG pO2 ABG HCO3 ABG O2 Saturation ABG Base Excess Guero Test Oxygen Given Sodium 118 L* Potassium 5.6 H Chloride 84 L Carbon Dioxide 26 Anion Gap 8 BUN 34 H Creatinine 1.28 Est Cr Clr Drug Dosing 36.9 Est GFR ( Amer) 69.5 Est GFR (Non-Af Amer) 60.0 BUN/Creatinine Ratio 26.6 H Glucose 104 H Lactate 2.1 H* Calcium 8.8 Magnesium 2.0 Total Bilirubin 0.6 Direct Bilirubin 0.1 AST 26 ALT 33 Alkaline Phosphatase 103 Troponin I High Sens 15.8 Total Protein 6.8 Albumin 3.3 L Procalcitonin SARS-CoV-2 (PCR) Influenza Type A (PCR) Influenza Type B (PCR) RSV (RT-PCR) Diagnostic Findings Chest X-Ray 10/19/22 11:02 SINGLE VIEW CHEST CLINICAL HISTORY: Sepsis. FINDINGS: 2 AP, portable, upright chest radiographs are compared to study dated 10/08/2022 and correlated with chest CT dated 09/29/2022. The examination is degraded by portable technique and patient rotation. A left subclavian central venous infusion port is unchanged in position. The cardiomediastinal silhouette is unremarkable noting atherosclerotic calcification of the thoracic aorta. Emphysema and chronic interstitial thickening is similar to previous. Right upper lobe mass lesions and a lesion in the left lung are again noted. These were better assessed on the recent chest CT. There is no airspace consolidation typical for pneumonia or large pleural effusion. No pneumothorax is seen. The skeletal structures are osteopenic. A destructive lesion of the right posterior ninth rib is again noted. IMPRESSION: 1. Emphysematous change with no acute cardiopulmonary abnormality identified. 2. Bilateral pulmonary lesions are again noted. These were better assessed on the recent chest CT. 3. A destructive lesion of the right posterior ninth rib is again noted. ACT 112: Negative or not required by law. Electronically signed by: Sascha Kaba M.D. 10/19/2022 11:47 AM Code Status & VTE Plan Code Status Full code Supervising Physician Co-Signing Physician Notes delayed entry date of service noted above Attending Addendum: care coordinated with TATI Goyal's notes please refer to her notes for full details, I agree with her notes patient seen and examined, records reviewed by myself as well on exam, patient seen resting in bed, on 15 L by OxyMask States breathing is okay but patient appears to be having some effort, accessory muscle use Denies chest pain, abdominal pain no other symptoms VS noted and reviewed oriented x3, not in distress, speaks in phrases with some effort and accessory muscle use normal rate, regular rhythm, no murmurs Rales bilaterally PEG tube in place non distended, soft, nontender no bipedal edema, erythema, warmth no neuro deficits All labs noted and reviewed ASSESSMENT AND PLAN Sepsis, likely secondary to bilateral pneumonia Acute hypoxic respiratory failure BiPAP ordered stat IV antibiotics IV fluids Discussed with lombardi developer Dr. Hendrix other diagnoses and plan of care as per KIKO Pratt's notes Robb Menard MD
--- NOTE | 2022-10-19 14:09 | Critical Care Consultation ---
Date of Consultation October 19, 2022 Assessment & Plan (1) Dysphagia, oropharyngeal: Reason critically ill: 62 y/o cachectic male with PMHx of stage IV lung cancer with mets to the bone, recent PI, mild COPD, previous ischemic stroke, dysphagia now s/p PEG placement (10/06/2022) who was in the cancer center earlier today for routine lab work, found to be hypotensive, tachycardic (sinus), and hypoxic who is going to be admitted to the ICU for management of septic state. NEURO: ICU CAM: negative RESP: Hypoxic on admit to 87%, did not improve with non-rebreather now oxygenating well on BiPAP. Patient is not hypercarbic or acidotic - likely does not require BiPAP - will attempt to wean. Recent PE - on Eliquis. Unclear if presentation related to PE. CTA to eval for Eliquis failure. No PE seen on imaging. CV/VASCULAR: Hypotension - initially improved with fluid resuscitation, continues to have ivan ts of hypotension. MAP in the low 60s. May require vasopressors to maintain perfusion. Most recent BP improved. Tachycardia - likely compensatory in the setting of hypotension and acute illness, improved with fluid resuscitation, sinus tachycardia on EKG, on tele RENAL/LYTES: Cr bumped to 1.28 from 0.59. Increased by > 2 times. Likely multifactorial in nature - acute illness, dehydration. FENa 1.1% points towards an intrarenal cause for MARBELLA. Overall a mixed picture. No infection on UA. Hyperkalemia - 5.6, no EKG changes, BMP Q4H Hyponatremia - 118, Goal increase to 124 in the first 24 hours of treatment. BMP Q4H GI: Dysphagia leading to failure to thrive now s/p PEG placement 10/06/22. Holding all tube feeds, typically gets Fibersource QID, free water flushes afterwards and with meds.Nutrition consult There was some concern for air under the diaphragm on CXR - CT A&P was ordered for further eval - no air seen on imaging. Official read pending. : Jain. Strict Is and Os. ID: Septic state - Leukocytosis 28, lactic acidosis 2.1 --> 1.1, procal 18. Blood cultures drawn prior to abx initiation - Zosyn and Vanc. MRSA nares negative. 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 CTA to r/o PE as patient has a history of this - no PE seen. CT A&P as there was some concern for possible air in the abdomen. UA neg for infection. F/u cultures. Transition to doxy and cefepime. HEME/ONC: Metastatic lung cancer stage IV - mets to bone, liver, adrenal, mediastinal nodes, and possibly the kidneys. Patient completed radiation. Plan to start CTX with pembrolizumab, pemetrexed, carboplatinum. Possible last dose CTX 09/19/2022, as admit H&P from 09/29 says it was "last Sunday" but it is not entirely clear. ENDO: ICU insulin protocol if needed Random enrique 22.24, may have adrenal insufficiency, could consider stress dosing as patient acutely ill FENGI: IVF 100 mL/hr. Holding all tube feeds, typically gets Fibersource QID, free water flushes afterwards and with meds.Nutrition consult DVT PPX: Eliquis 5 mg BID CODE STATUS: FULL LINES: PIV x2, Jain DISPO: ICU (2) Metastatic primary lung cancer: (3) Pulmonary embolism: (4) Ischemic stroke: (5) S/P percutaneous endoscopic gastrostomy (PEG) tube placement: (6) Severe sepsis: (7) COPD (chronic obstructive pulmonary disease): (8) Severe protein-calorie malnutrition: (9) Secondary carcinoma of bone: (10) COPD exacerbation: Supervising Physician Co-Signing Physician Notes Dr. Kearney was the resident-physician during care of patient. I separately evaluated patient for negron portions of the history and the exam. I was present during the critical portion of medical decision making, and I discussed the case with the resident. I generally agree with the findings and plan except for any additions/exceptions noted. 62-year-old male presented to the hospital from [facility] for severe hypotension and lethargy. In the ED on the initial presentation his systolic blood pressure was in the 60s. He got 2 L of fluid with improvement in his blood pressure. He was tachypneic on presentation as well as tachycardic. He also had MARBELLA. ICU was consulted for further management When I saw the patient in the ICU his map was in the 70s. He was not in any respiratory distress. He was on BiPAP 8/4, 35% saturating 95 to 96%. Res piratory rate in the high teens to low 20s. He was following commands and answering questions softly. He denied any abdominal pain. No headache, no blurry vision No nausea vomiting. He does have poor appetite. Has been afebrile. Patient was actually normothermic when he came to the ED. His temperature went up to 37.1. Constitutional: No acute distress, frail-appearing HEENT: EOMI, PERRLA Respiratory system: Decreased air entry bilaterally, no wheeze, no rhonchi, positive crackles bilaterally CVS: S1-S2 positive, no murmurs or gallops Abdomen: Soft, nontender, nondistended, positive bowel sounds x4 Extremities: +2 pulses bilaterally radialis/ dorsalis pedis, no cyanosis, no edema Neuro: Awake alert oriented to self and place Psych: Flat mood and affect G/U: No Jain --Prophylaxis VTE: Apixaban GI: None Lines: Left-sided port and peripheral Diet: We will start the patient on tube feeds Plan: Patient sodium was 118 at the time of presentation with serum osmolality 259. Urine respiratory was high with urine sodium also high. Patient was hypovolemic when he presented. I expect a urine sodium to be low. I think there is a mixed component of urinary loss as well. SIADH cannot be totally ruled out. Goal sodium in the next 24 hours will be 124. Patient has chronic low sodium to begin with. Distended bladder appreciated on the CT abdomen pelvis. We will put a Jain catheter in. CT chest showed enlargement of the mass along with some opacities in the right upper as well as lingula. Treat with antibiotics UA is clean. On the previous admission that had been intensive talks regarding goals of care but unfortunately family does not understand the grave prognosis yet. For the time being patient is full code. I have personally spent 65 minutes of critical care time in the direct management of this patient. This is a life/limb threatening event. This includes time spent evaluating patient, direct bedside care, chart review, placing orders, interpretation of diagnostic studies, discussion with consultants, patient, and/or family members regarding treatment decisions, as well as other required patient management activities. This time is exclusive of all separately billable procedures, and teaching time and separate from and in addition to any other critical care service time. History of Present Illness Reason for Consultation: Sepsis Requesting Physician: Dr. Forbes Attending Physician: Dr. Hendrix History of Present Illness 62 y/o cachectic male with PMHx of stage IV lung cancer with mets to the bone, recent PI, mild COPD, previous ischemic stroke, dysphagia now s/p PEG placement (10/06/2022) who was in the cancer center earlier today for routine lab work, found to be hypotensive, tachycardic, and hypoxic who is going to be admitted to the ICU for management of septic state. Patient fluid resuscitation with 1L NS empirically. Of note - leukocytosis 28.66, procal 18, lactic acid 2.1, and sodium 118. Additional 500 mL bolus was given after leukocytosis and elevated lactate were seen on lab work. Blood cultures were taken prior to starting Zosyn. Patient was also given Vanc. MRSA swab ordered. Patient was recently hospitalized from 10/06-10/10 with PE - on Eliquis 5 mg BID. Patient satting at 87% on non-rebreather at 15 L/min. Placed on BiPAP. Patient is FULL CODE. Tachycardia and hypotension have improved with fluid resuscitation. CXR had possible concern for air under the diaphragm, CTA and CT A&P were ordered EKG showed sinus tach In the ICU patient is breathing comfortably on BiPAP. Denies any n/v/abdominal pain/dysuria. Patient is a former smoker. present at bedside. Allergies Allergy/AdvReac Type Severity Reaction Status Date / Time No Known Allergies Allergy NONE Verified 09/25/22 07:13 Home Medications Medication Instructions Recorded Confirmed Type acetaminophen 500 mg tablet 1,000 mg feeding tube TID PRN Pain 10/10/22 10/19/22 Rx (Tylenol Extra Strength) #20 tabs apixaban 5 mg tablet (Eliquis) 5 mg feeding tube BID 30 days #60 10/10/22 10/19/22 Rx tabs folic acid 1 mg tablet 1 mg feeding tube UD #10 tabs 10/10/22 10/19/22 Rx lansoprazole 30 mg delayed 30 mg PO DAILY 30 days #30 tabs 10/10/22 10/19/22 Rx release,disintegrating tablet (Prevacid SoluTab) multivitamin 1 tab feeding tube QAM #10 tabs 10/10/22 10/19/22 Rx ondansetron HCl 8 mg tablet 8 mg feeding tube Q8 PRN Nausea 10/10/22 10/19/22 Rx #10 tabs oxycodone 5 mg tablet 5 mg feeding tube Q4H PRN pain #10 10/10/22 10/19/22 Rx tabs sodium chloride 1,000 mg soluble 1,000 mg PO BID 10/19/22 10/19/22 History tablet Patient History Medical History (Updated 10/19/22 @ 18:03 by Yodit Forbes PA-C) Chest pain "has this off and on, from his cancer" COPD (chronic obstructive pulmonary disease) Dysphagia Esophageal dilatation GERD (gastroesophageal reflux disease) History of alcohol dependence per [facility] records History of COVID-19 2019, not hosp; mild symptoms>resolved. Ischemic stroke Metastatic primary lung cancer mets to mediastinum, liver, bone, adrenal and possibly kidneys per heme/onc note; "no CVS metastases" Pulmonary embolism 07/2022, currently on eliquis; f/u dr. sandoval Secondary carcinoma of bone Severe protein-calorie malnutrition Surgical History History of bronchoscopy History of esophagogastroduodenoscopy (EGD) Hx of colonoscopy Port-A-Cath in place (09/25/22) Insertion Access Port Left Cephalic(Left)With fluoroscopic guidance with fluoroscopic guided- Padilla Enriquez MD, FACS Family History Mother , Mom at 65 y/o Diabetes Lung cancer Myocardial infarction Hypertension Father , Dad passed at at 53 y/o Diabetes Lung cancer Brother , at 65 y/o Cancer throat cancer Brother Cancer Pt not sure of type of cancer Sister No problems noted. Sister No problems noted. Sister No problems noted. Sister No problems noted. Other No pertinent family history Denies family history of Heart disease Kidney disease Pulmonary embolism Social History Smoking Status: Former smoker Tobacco Type: Cigarettes Age Started Using Tobacco: 12; Age Quit Using Tobacco: 51; Cigarettes Per Day: 1pk/every 3 day; Second Hand Exposure: No; Hx Alcohol Use: No Hx Substance Use: No Preferred Language: Togolese Communication Ability: Impaired Visual Impairment: No Limitations Hearing Ability: Normal Scrap Sorter Required: No Beliefs That Will Affect Care: Spiritual marital status: Current Living Situation: Spouse Current Living Situation Comment: And wifes mother current occupational status: employed 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 [employer] How many Children do You have: 0 Other Information That Helps Us Care for You: No Feels Safe at Home: Yes Safety Concerns: Feels Safe At This Time caffeine: Yes (2 cups/day) during the past year weight has: decreased > 10 lbs Assistive Devices: None Review of Systems Review of Systems: All systems reviewed & are unremarkable except as noted in HPI & below Physical Exam Physical Exam: Gen: ill appearing male NAD, on BiPAP, cachectic HEENT: AT NC Resp: no increased work of breathing on BiPAP CV: clinically well perfused GI: non-distended, soft, non-tender, PEG in place : Jain Psych: appropriate mood and affect Neuro: awake, alert see attending attestation for further documentation Results & Data Results & Data ([place]) Vital Signs (Past 12 Hours) Vital Signs Temp Pulse Resp BP Pulse Ox O2 Del Method O2 Flow Rate 10/19/22 11:29 Non-rebreather 10/19/22 11:29 36.4 C L 112 H 37 H 127/88 87 L Non-rebreather 15 Laboratory Results 10/19/22 11:10 10/19/22 11:10 Diagnostic Findings Chest X-Ray 10/19/22 11:02 FINDINGS: 2 AP, portable, upright chest radiographs are compared to study dated 10/08/2022 and correlated with chest CT dated 09/29/2022. The examination is degraded by portable technique and patient rotation. A left subclavian central venous infusion port is unchanged in position. The cardiomediastinal silhouette is unremarkable noting atherosclerotic calcification of the thoracic aorta. Emphysema and chronic interstitial thickening is similar to previous. Right upper lobe mass lesions and a lesion in the left lung are again noted. These were better assessed on the recent chest CT. There is no airspace consolidation typical for pneumonia or large pleural effusion. No pneumothorax is seen. The skeletal structures are osteopenic. A destructive lesion of the right posterior ninth rib is again noted. IMPRESSION: 1. Emphysematous change with no acute cardiopulmonary abnormality identified. 2. Bilateral pulmonary lesions are again noted. These were better assessed on the recent chest CT. 3. A destructive lesion of the right posterior ninth rib is again noted. Resident Activity Tracking Resident Involvement: Resident Care Provided Care Provided: Adult [facility]
[2022-10-19] MEDS ORDERED: VANCOMYCIN CONSULT ACTIVE PRN (14:22)
[2022-10-19] MEDS ORDERED: VANCOMYCIN HCL 750 MG in SODIUM CHLORIDE 0.9% 500 ML IV ONE (14:22)
[2022-10-19] MEDS ORDERED: VANCOMYCIN HCL 1,000 MG in SODIUM CHLORIDE 0.9% 250 ML IV STA (14:53)
[2022-10-19 15:04] LABS: Calcium 7.9 mg/dl (8.5-10.1); Potassium 5.3 mmol/L (3.5-5.1)
[2022-10-19 15:10] LABS: BUN Creatinine Ratio 26.7 (10-20); Creatinine Clr Calc Pharmacy 40.8 ml/min; Est GFR (African American) 78.3 ml/min; Est GFR (Non-African American) 67.6 ml/min
[2022-10-19 15:13] LABS: Appearance Urine Clear (Clear); Bacteria Urine Automated Negative (Negative); Bilirubin Urine Negative (Negative); Blood Urine Negative (Negative); Color Urine Yellow; Epithelial Cell Urine Auto >30 /lpf (0-5); Glucose Urine UA Negative (Negative); Ketones Urine Negative (Negative); Leukocyte Esterase Urine Negative (Negative); Nitrite Urine Negative (Negative); Protein Urine 2+ (Negative); RBC Urine Automated 0-4 /hpf (0-4); Specific Gravity Urine 1.013 (1.000-1.030); Urobilinogen Urine Negative (Negative)
[2022-10-19 15:19] LABS: Potassium Random Urine 37.8 mmol/L
[2022-10-19 15:27] LABS: Creatinine Urine Random 47.6 mg/dl
[2022-10-19] MEDS ORDERED: OPTIRAY 320 500ml IV ONE (16:25)
--- NOTE | 2022-10-19 16:57 | CT Scan Report ---
CT ANGIOGRAM OF THE CHEST CLINICAL HISTORY: Lung cancer. Dyspnea. COMPARISON STUDY: Multiple prior chest CT scans, most recently dated 09/29/2022. TECHNIQUE: Following the IV administration of 106 cc of Optiray 320, CT angiogram of the chest was pe rformed from the upper abdomen to the thoracic inlet utilizing the pulmonary embolus protocol. Images are reviewed in the axial, sagittal, and coronal planes. 3-D MIPS images are created and assessed. I V contrast was administered without complication. A dose lowering technique was utilized adhering to the principles of ALARA. FINDINGS: Thyroid: Atrophic. Thoracic aorta: There is atherosclerotic calcification of the thoracic aorta, which is normal in mamta lili and demonstrates standard 3-vessel arch anatomy. No dissection is seen. Pulmonary vasculature: The pulmonary trunk is normal in caliber. There are no filling defects identif ied in main, lobar, or segmental pulmonary branches to suggest pulmonary embolus. Heart: A left subclavian central venous infusion port is in place. The heart is normal in size and wi thout pericardial effusion. Lungs and pleural spaces: Advanced emphysema is similar to previous. Secretions are noted in the trac hea. A 2.7 cm spiculated lesion at the right apex seen on image #246 and a 3.7 cm spiculated lesion in the right upper lobe on image #193 above the minor fissure are unchanged from 09/29/2022, as is a 1 .4 cm lesion in the lingula on image #136 and a 1.6 cm lesion in the lingula on image #165. A subtle 1.7 cm mass lesion is again seen at the right apex on image #249. There are numerous additional small er nodules present in both lungs. Foci of tree-in-bud consolidation seen throughout both lungs, great est at the left lung base. This is new from previous and likely infectious/inflammatory. There are tr jesusita pleural effusions. Mediastinum: Pathologically paratracheal subcarinal adenopathy is unchanged. Ciarra: Pathologically enlarged right hilar nodes are unchanged. Axillae: There is no axillary lymphadenopathy. Upper abdomen: Metastatic lesions are seen in the liver, spleen, and both adrenal glands. See report of abdominal CT performed concurrently for detailed intra-abdominal findings. Skeletal structures: The skeletal structures are osteopenic. Again seen is multifocal osseous metasta tic disease. There are multiple lesions in the right posterior ninth rib. The largest images a soft t issue component and measures up to 3.9 cm. There are lesions within the left posterolateral 7th and 1 0th ribs with pathologic fractures. Numerous spinal lesions are unchanged. Large lesions are seen in the bodies of T9, T11, L1, and L2. There is no CT evidence of significant epidural extension of tumor or central canal compromise. IMPRESSION: 1 There is no evidence of pulmonary embolus in the main, lobar, or segmental pulmonary arteries. 2. Multifocal tree-in-bud consolidation throughout both lungs is new from previous. This is greatest at the left lung base and is likely infectious/inflammatory. 3. Advanced emphysema. 4. Numerous pulmonary lesions are similar to previous and consistent with multifocal neoplasm. 5. There is evidence of multifocal osseous metastatic disease with pathologic fractures of the left p osterolateral 7th and 10th ribs. 6. Metastatic disease is seen in the upper abdomen within the liver, spleen, and adrenal glands. 7. Metastatic right hilar and mediastinal lymphadenopathy is unchanged. 8. Trace pleural effusions 9. Additional findings as above. ACT 112: Negative or not required by law. Electronically signed by: Sascha Kaba M.D. 10/19/2022 4:55 PM
--- NOTE | 2022-10-19 16:59 | CT Scan Report ---
ABDOMEN AND PELVIS CT WITH IV CONTRAST CT DOSE: 539.73 mGy.cm HISTORY: evaluate free air under diaphragm TECHNIQUE: Multiaxial CT images of the abdomen and pelvis were performed following the use of intrave nous contrast. A dose lowering technique was utilized adhering to the principles of ALARA. COMPARISON STUDY: Abdomen and pelvis CT 09/13/2022. FINDINGS: The lung bases will be reported on the same day chest CT. No pneumoperitoneum. No pneumatos is. No focal osteolytic metastatic lesions are again noted. Some of these have increased in size comp ared to the prior study. Pathologic fracture noted within the left T11 pedicle/facet. There are mild superior endplate pathologic fractures at L2 and L4 which are new from the prior study. No associated retropulsion. Left paravertebral soft tissue extension as well as mild left-sided epidural extension at the T11-T12 level. No significant central canal stenosis. There is also soft tissue extension wit hin the left T11-T12 neural foramen resulting in severe stenosis. Bilateral adrenal metastases, hepat ic metastases, and a splenic metastasis have increased in size. There is heterogeneous enhancement wi thin the bilateral kidneys. There is mild fullness within the bilateral renal collecting systems with out chau hydronephrosis. There is right perinephric/retroperitoneal necrotic soft tissue nodule on i mage 191 measuring 8 mm. This is consistent with a metastatic focus. This is also slightly increased in size. The gallbladder and spleen appear unremarkable. The main portal vein is patent. A gastrostom y tube appears in good position. Mild body wall edema. Calcified plaque within the normal caliber abd ominal aorta. No retroperitoneal lymphadenopathy. The prostate gland is enlarged. The bladder is dist ended. No bladder wall thickening. Suboptimal evaluation for bowel pathology due to the lack of intra peritoneal fat. There is moderate well-formed stool within the colon. Mildly dilated fluid-filled and stool-filled loops of large and small bowel seen throughout the abdomen. No definite transition poin t to suggest an obstruction. Therefore, this favors an ileus. There is a 3.8 cm soft tissue mass with in the right lateral ninth rib which is slightly increased in size. Pathologic fracture of the left p osterior 10th rib is noted. Lytic lesion within the right posterior proximal femur on image 432 which measures 1 cm. Of note, this lesion elevates the patient's risk for a pathologic fracture at this lo cation. IMPRESSION: 1. Interval progression of the metastatic disease as described above. 2. Heterogeneous appearance to the kidneys which could be due to slight delayed nephrograms given the fullness within the renal collecting systems and distended bladder. Recommend correlation with urina lysis. 3. Mildly dilated fluid-filled and stool-filled loops of large and small bowel seen throughout the ab domen. No definite transition point to suggest an obstruction. Therefore, this favors an ileus. 4. There are new mild superior endplate pathologic fractures at L2 and L4. 5. Pathologic fracture noted within the left T11 pedicle/facet. Left paravertebral soft tissue extens ion as well as mild left-sided epidural extension at the T11-T12 level. No significant central canal stenosis. There is also soft tissue extension within the left T11-T12 neural foramen resulting in sev ere stenosis. 6. Lytic lesion within the right posterior proximal femur which measures 1 cm. Of note, this lesion e levates the patient's risk for a pathologic fracture at this location. ACT 112: Negative or not required by law. Electronically signed by: [place] Abebe M.D. 10/19/2022 4:58 PM
[2022-10-19] MEDS ORDERED: CEFEPIME 1,000 MG in SYRINGE 0 ML IV SCH (17:15)
[2022-10-19 18:01] LABS: Calcium 8.1 mg/dl (8.5-10.1); Creatinine Clr Calc Pharmacy 45.4 ml/min; Est GFR (African American) 89.4 ml/min; Est GFR (Non-African American) 77.1 ml/min; Potassium 5.1 mmol/L (3.5-5.1)
[2022-10-19] MEDS ORDERED: TPN/PPN CONSULT PHARMACY PRN (18:01)
[2022-10-19] MEDS: ICU Protocol for HYPERglycemia SCH ×2 (18:41→20:29)
[2022-10-19] MEDS: CEFEPIME 2,000 MG in SYRINGE 0 ML IV SCH (18:45)
[2022-10-19] MEDS: SODIUM CHLORIDE 0.9% 1000ML 1,000 ML IV SCH (18:45)
--- NOTE | 2022-10-19 18:45 | Billing Data ---
Date of Service October 19, 2022 Coding Level of Care Code Critical Care 1st 30-74 mins Time Spent (min) 65
[2022-10-19] MEDS: DOXYCYCLINE HYCLATE 100 MG in DEXTROSE 5% 100 ML IV SCH (18:47)
[2022-10-19] MEDS: FIBERSOURCE HN 1.2 CAL 1000 ML BAG GT SCH (20:16)
[2022-10-19 22:01] LABS: Calcium 8.6 mg/dl (8.5-10.1); Creatinine Clr Calc Pharmacy 49.1 ml/min; Est GFR (African American) 98.5 ml/min; Potassium 4.8 mmol/L (3.5-5.1)
[2022-10-19 22:56] LABS: Appearance Urine Clear (Clear); Bacteria Urine Automated Negative (Negative); Bilirubin Urine Negative (Negative); Blood Urine Trace (Negative); Cast Urine Automated 0 /lpf (0-5); Color Urine Yellow; Glucose Urine UA Negative (Negative); Ketones Urine Negative (Negative); Leukocyte Esterase Urine Negative (Negative); Nitrite Urine Negative (Negative); Protein Urine Negative (Negative); RBC Urine Automated 0-4 /hpf (0-4); Specific Gravity Urine 1.027 (1.000-1.030); Urobilinogen Urine Negative (Negative)
[2022-10-20 02:15] LABS: Calcium 8.8 mg/dl (8.5-10.1); Potassium 4.7 mmol/L (3.5-5.1)
[2022-10-20 02:44] LABS: BUN Creatinine Ratio 22.3 (10-20); Creatinine Clr Calc Pharmacy 50.2 ml/min; Est GFR (Non-African American) 87.2 ml/min
[2022-10-20] MEDS: SODIUM CHLORIDE 0.9% 1000ML 1,000 ML IV SCH (04:54)
[2022-10-20] MEDS: CEFEPIME 2,000 MG in SYRINGE 0 ML IV SCH ×3 (04:55→20:40)
[2022-10-20] MEDS: DOXYCYCLINE HYCLATE 100 MG in DEXTROSE 5% 100 ML IV SCH ×2 (04:56→17:30)
[2022-10-20 06:19] LABS: Calcium 8.5 mg/dl (8.5-10.1); Potassium 4.2 mmol/L (3.5-5.1)
[2022-10-20 06:25] LABS: BUN Creatinine Ratio 26.4 (10-20); Creatinine Clr Calc Pharmacy 62.5 ml/min; Est GFR (African American) 116.7 ml/min; Est GFR (Non-African American) 100.7 ml/min; Phosphorus 4.1 mg/dl (2.5-4.9)
[2022-10-20] MEDS ORDERED: Nursing to Pharmacy Communication SCH (08:00)
[2022-10-20] MEDS ORDERED: NORMOSOL-R 500 ML IV ONE ×4 (08:17→10:08)
[2022-10-20] MEDS: ICU Protocol for HYPERglycemia SCH ×4 (08:24→20:39)
[2022-10-20] MEDS: NORMOSOL-R 1,000 ML IV SCH (08:25)
[2022-10-20 08:54] LABS: Basophils # (auto) 0.06 K/uL (0-0.2); Basophils % (auto) 0.3 %; Eosinophils # (auto) 0.12 K/uL (0-0.50); Eosinophils % (auto) 0.6 %; Hemoglobin 7.6 g/dl (14.0-18.0); Immature Granulocytes # (auto) 0.29 K/uL (0.01-0.20); Immature Granulocytes % (auto) 1.4 %; Lymphocytes # (auto) 0.41 K/uL (1.2-3.4); Mean Corpuscular Hemoglobin 30.6 pg (25.0-34.0); Mean Corpuscular Hgb Conc 34.5 g/dL (32.0-36.0); Mean Corpuscular Volume 88.7 fL (80.0-100.0); Mean Platelet Volume 9.5 fL (9.4-12.4); Monocytes # (auto) 1.41 K/uL (0.11-0.59); Monocytes % (auto) 6.7 %; Neutrophils # (auto) 18.69 K/uL (1.40-6.50); Platelet Count 366 K/uL (130-400); RDW Coefficient of Variation 13.9 % (11.5-14.5); RDW Standard Deviation 44.8 fL (36.4-46.3); Red Blood Count 2.48 M/uL (4.70-6.10); White Blood Count 20.98 K/ul (4.8-10.8)
[2022-10-20 09:30] LABS: Hypochromasia Present; Polychromasia 1+
[2022-10-20 09:45] LABS: iSTAT Arterial Blood Gas HCO3 25 meg/L (19-24); iSTAT Arterial Blood Gas pCO2 48 mmHg (35-46); iSTAT Arterial Blood Gas pH 7.33 (7.35-7.45); iSTAT Arterial Blood Gas pO2 178 mmHg (80-95); iSTAT Carbon Dioxide 27 mmol/L (24-31); iSTAT Hematocrit 27 % (42-52); iSTAT Hemoglobin 9.2 g/dl (14.0-18.0); iSTAT Potassium 5.2 mmol/L (3.3-5.0); iSTAT Sodium 119 mmol/L (135-144)
[2022-10-20 09:48] LABS: BUN Creatinine Ratio 21.6 (10-20); Calcium 8.7 mg/dl (8.5-10.1); Creatinine Clr Calc Pharmacy 60.8 ml/min; Est GFR (African American) 115.4 ml/min; Est GFR (Non-African American) 99.6 ml/min; Potassium 4.3 mmol/L (3.5-5.1)
--- NOTE | 2022-10-20 09:51 | Critical Care Progress Note ---
Date of Service October 20, 2022 Assessment & Plan (1) Dysphagia, oropharyngeal: (2) Metastatic primary lung cancer: (3) Pulmonary embolism: (4) Ischemic stroke: (5) S/P percutaneous endoscopic gastrostomy (PEG) tube placement: (6) Severe sepsis: (7) COPD (chronic obstructive pulmonary disease): (8) Severe protein-calorie malnutrition: (9) Secondary carcinoma of bone: (10) COPD exacerbation: Plan Reason critically ill: 62 y/o cachectic male with PMHx of stage IV lung cancer with mets to the bone, recent PI, mild COPD, previous ischemic stroke, dysphagia now s/p PEG placement (10/06/2022) who was in the cancer center earlier today for routine lab work, found to be hypotensive, tachycardic (sinus), and hypoxic who is going to be admitted to the ICU for management of septic state. NEURO: ICU CAM: negative RESP: -- Tachypnea Likely from underlying hypertension Seems to have resolved --Recent pulmonary embolism On Eliquis at home CV/VASCULAR: -- Shock Combination of hypovolemic as well as sepsis We will consider starting vasopressors to keep MAP greater than 65 Random cortisol was 22. Tachycardia - likely compensatory in the setting of hypotension and acute illness, improved with fluid resuscitation, sinus tachycardia on EKG, on tele RENAL/LYTES: -- MARBELLA --> improving FeNa: 1.1%, inclining towards intrarenal Monitor BUN/creatinine Avoid nephrotoxic medications Strict ins and outs GI: Dysphagia leading to failure to thrive now s/p PEG placement 10/06/22. typically gets Fibersource QID, free water flushes afterwards and with meds Continue with tube feeds : Jain. Strict Is and Os. ID: -- Septic shock Source is most likely pulmonary continue with cefepime and doxycycline HEME/ONC: --Acute anemia Source of anemia is not clear right now Monitor H&H Transfuse as needed to keep hemoglobin greater than 7 --Metastatic lung cancer stage IV - mets to bone, liver, adrenal, mediastinal nodes, and possibly the kidneys. Patient completed radiation. On pembrolizumab, pemetrexed, carboplatinum. Last dose 08/2022 ENDO: ICU insulin protocol if needed Random enrique 22.24, may have adrenal insufficiency, could consider stress dosing as patient acutely ill --Prophylaxis VTE: Apixaban on hold GI: None Lines: Left-sided port and peripheral, Jain Diet: Tube feeds Plan: In/out: +887, urine output 2200 mL Patient's blood pressure is on the softer side. I will bolus him 1 L of Normosol. If the blood pressure still does not come up with this then I will start the patient on Levophed Patient's random cortisol was only 22. Would expect it to be high in somebody who is in shock. We will consider starting the patient on hydrocortisone Goal sodium for today was 124. Goal sodium for the next 24 hours will be 130 which is patient's baseline Hemoglobin is trending down. Patient did not have any bowel movement. CT chest abdomen pelvis from yesterday did not show any clear source of bleeding. Could be from the chemotherapy that he got in from the cancer. Repeat H&H at 12. Transfuse if hemoglobin is less than 7 Continue with antibiotics I have personally spent 40 minutes of critical care time in the direct management of this patient. This is a life/limb threatening event. This includes time spent evaluating patient, direct bedside care, chart review, placing orders, interpretation of diagnostic studies, discussion with consultants, patient, and family members, as well as other required patient management activities. This time is exclusive of all separately billable procedures, and teaching time and separate from and in addition to any other critical care service time. Please note the above document was generated using voice recognition software. It may contain grammatical, syntax or spelling errors. Admission and Anticipated Discharge Date Admission Date: October 19, 2022 Subjective Patient seen and examined at bedside. No acute distress, no adverse events overnight. Patient's systolic blood pressure was in the low 90s with a map in the low 60s at the time of examination He denies any chest pain, no nausea, no vomiting Denies any pain. Has been getting tube feeds through the PEG. Has been afebrile. Urinating well Review of Systems Review of Systems: All systems reviewed & are unremarkable except as noted in Subjective Physical Exam Physical Exam: Constitutional: No acute distress, frail-appearing HEENT: EOMI, PERRLA Respiratory system: Decreased air entry bilaterally, no wheeze, no rhonchi, positive crackles bilaterally CVS: S1-S2 positive, no murmurs or gallops Abdomen: Soft, nontender, nondistended, positive bowel sounds x4 Extremities: +2 pulses bilaterally radialis/ dorsalis pedis, no cyanosis, no edema Neuro: Awake alert oriented to self and place Psych: Flat mood and affect G/U: Positive Jain Skin: no rashes, warm and dry Lymphatic: no cervical or axillary lymphadenopathy Results & Data Results & Data ([facility]) Vital Signs (Past 12 Hours) Vital Signs Temp Pulse Resp BP Pulse Ox O2 Del Method 10/20/22 06:00 103 H 29 H 100 Room Air 10/20/22 06:00 92/55 L 10/20/22 05:30 97 H 24 100 10/20/22 05:00 105 H 38 H 100 10/20/22 05:00 89/54 L 10/20/22 04:30 95 H 21 100 10/20/22 04:00 37.1 C 10/20/22 04:00 96 H 21 98 10/20/22 04:00 100/58 L 10/20/22 03:45 103 H 35 H 100 10/20/22 03:45 98/54 L 10/20/22 03:30 94 H 22 99 Room Air 10/20/22 03:00 100 H 22 100 10/20/22 03:00 85/46 L 10/20/22 02:30 102 H 29 H 100 10/20/22 02:00 100 H 24 100 10/20/22 02:00 90/53 L 10/20/22 01:30 94 H 22 100 10/20/22 01:00 98 H 24 100 10/20/22 01:00 82/53 L 10/20/22 00:30 96 H 22 100 10/20/22 00:00 101 H 33 H 98 10/20/22 00:00 99/59 L 10/19/22 23:58 95/50 L 10/19/22 23:58 101 H 28 H 100 10/19/22 23:30 103 H 28 H 100 10/19/22 23:00 103 H 30 H 100 10/19/22 23:00 87/49 L 10/19/22 22:30 98 H 25 H 100 10/20/22 00:00 101 H 10/20/22 00:04 37.1 C 10/19/22 22:00 101 H 23 99 10/19/22 22:00 88/47 L 10/19/22 22:15 Room Air 10/19/22 22:10 36.8 C Laboratory Results 10/20/22 05:43 Coding Level of Care Code Critical Care 1st 30-74 mins Diagnoses Dysphagia, oropharyngeal R13.12 Metastatic primary lung cancer C34.90 Pulmonary embolism I26.99 Ischemic stroke I63.9 S/P percutaneous endoscopic gastrostomy (PEG) tube placement Z93.1 Severe sepsis A41.9; R65.20 COPD (chronic obstructive pulmonary disease) J44.9 Severe protein-calorie malnutrition E43 Secondary carcinoma of bone C79.51 COPD exacerbation J44.1 Time Spent (min) 40
--- NOTE | 2022-10-20 09:53 | Hospitalist Progress Note ---
Date of Service October 20, 2022 Assessment & Plan (1) Severe sepsis: (2) Hypoxia: (3) Lactic acidosis: (4) Metastatic primary lung cancer: (5) COPD (chronic obstructive pulmonary disease): (6) Dysphagia, oropharyngeal: (7) Severe protein-calorie malnutrition: (8) S/P percutaneous endoscopic gastrostomy (PEG) tube placement: Plan: (1) Dysphagia, oropharyngeal: (2) Metastatic primary lung cancer: (3) Pulmonary embolism: (4) Ischemic stroke: (5) S/P percutaneous endoscopic gastrostomy (PEG) tube placement: (6) Severe sepsis: (7) COPD (chronic obstructive pulmonary disease): (8) Severe protein-calorie malnutrition: (9) Secondary carcinoma of bone: (10) COPD exacerbation: Septic Shock Acute respiratory failure with hypoxia secondary to possible gram-negative and/or aspiration pneumonia on room air now, BP improving culture pending continue Cefepime + Doxycycline on Hydrocortisone IV tube feeding resumed continue Eliquis Anemia, Acute Hg 7.2 1 unit pRBC ordered no signs of active bleeding DVT PPx: - teds, scds, Eliquis CODE: Full code Dispo: From home, likely to remain in the hospital x 2 days. A total of 80 minutes were spent with greater than 50% of that time face to face with the patient, personally reviewing all current laboratories, imaging studies, past medication reconciliation, outpatient chart review, and discussion with specialists to collaborate care for the patient with attending. Please see attending documentation for corrections and/or additions. (9) Hyponatremia: Admission and Anticipated Discharge Date Admission Date: October 19, 2022 Subjective ff up for sepsis, hypotension, etc seen resting in bed, comfortable on room air at bedside states he feels better than yesterday has occasional cough no chest pain, dyspnea, palpitations, dizziness no abdominal pain, nausea/vomiting no other symptoms Review of Systems Review of Systems: all noted and negative except for above Physical Exam Physical Exam: General- oriented x 3, not in distress, speaks in sentences with no effort or accessory muscle use Eyes- anicteric Neck- no JVD Lungs- clear BS bilaterally, no rales/wheezes Heart- normal rate, regular rhythm; no murmurs Abdomen- normal bowel sounds, nondistended, soft, no tenderness PEG tube in place Extremities- no pretibial edema, no calf tenderness Neuro- alert, oriented x 3; no gross focal neurologic deficits Skin- warm & dry Results & Data Results & Data ([facility]) Vital Signs (Past 12 Hours) Vital Signs Temp Pulse Resp BP Pulse Ox O2 Del Method 10/20/22 09:00 85 21 82/51 L 98 Room Air 10/20/22 08:10 103 H 22 92/51 L 100 Room Air 10/20/22 08:08 97 H 21 96/59 L 100 Room Air 10/20/22 08:00 95 H 23 87/48 L 100 Room Air 10/20/22 07:37 100 H 24 93/50 L 100 Room Air 10/20/22 07:01 99 H 21 92/50 L 100 Room Air 10/20/22 07:00 96 H 24 80/43 L 100 Room Air 10/20/22 06:00 103 H 29 H 100 Room Air 10/20/22 06:00 92/55 L 10/20/22 05:30 97 H 24 100 10/20/22 05:00 105 H 38 H 100 10/20/22 05:00 89/54 L 10/20/22 04:30 95 H 21 100 10/20/22 04:00 37.1 C 10/20/22 04:00 96 H 21 98 10/20/22 04:00 100/58 L 10/20/22 03:45 103 H 35 H 100 10/20/22 03:45 98/54 L 10/20/22 03:30 94 H 22 99 Room Air 10/20/22 03:00 100 H 22 100 10/20/22 03:00 85/46 L 10/20/22 02:30 102 H 29 H 100 10/20/22 02:00 100 H 24 100 10/20/22 02:00 90/53 L 10/20/22 01:30 94 H 22 100 10/20/22 01:00 98 H 24 100 10/20/22 01:00 82/53 L 10/20/22 00:30 96 H 22 100 10/20/22 00:00 101 H 33 H 98 10/20/22 00:00 99/59 L 10/19/22 23:58 95/50 L 10/19/22 23:58 101 H 28 H 100 10/19/22 23:30 103 H 28 H 100 10/19/22 23:00 103 H 30 H 100 10/19/22 23:00 87/49 L 10/19/22 22:30 98 H 25 H 100 10/20/22 00:00 101 H 10/20/22 00:04 37.1 C 10/19/22 22:00 101 H 23 99 10/19/22 22:00 88/47 L 10/19/22 22:15 Room Air 10/19/22 22:10 36.8 C all noted and reviewed including below
[2022-10-20] MEDS: TUBE FEEDING WATER FLUSH PEG SCH ×3 (10:04→23:44)
[2022-10-20] MEDS ORDERED: HYDROCORTISONE SOD 100 MG in SYRINGE 0 ML IV STA (10:46)
[2022-10-20] MEDS: LANSOPRAZOLE 30 MG SOLTAB PEG SCH (11:04)
[2022-10-20 11:58] LABS: Urine Potassium 5.7 mmol/L
[2022-10-20 12:46] LABS: Hematocrit (blood only) 20.9 % (42.0-52.0); Hemoglobin 7.2 g/dl (14.0-18.0)
[2022-10-20] MEDS ORDERED: SODIUM CHLORIDE 0.9% 250 ML IV PRN (12:47)
[2022-10-20 13:38] LABS: BUN Creatinine Ratio 25.5 (10-20); Calcium 8.3 mg/dl (8.5-10.1); Creatinine Clr Calc Pharmacy 81.8 ml/min; Est GFR (African American) 130.4 ml/min; Est GFR (Non-African American) 112.5 ml/min
[2022-10-20] MEDS ORDERED: HYDROCORTISONE SOD 50 MG in SYRINGE 0 ML IV SCH (14:00)
[2022-10-20 17:42] LABS: Hematocrit (blood only) 26.1 % (42.0-52.0); Hemoglobin 9.1 g/dl (14.0-18.0)
[2022-10-20 17:59] LABS: BUN Creatinine Ratio 27.1 (10-20); Calcium 8.6 mg/dl (8.5-10.1); Creatinine Clr Calc Pharmacy 76.2 ml/min; Est GFR (African American) 126.6 ml/min; Est GFR (Non-African American) 109.3 ml/min
[2022-10-20 18:00] LABS: Potassium 3.9 mmol/L (3.5-5.1)
[2022-10-20] MEDS ORDERED: SODIUM CHLORIDE 0.9% 1000ML 500 ML IV ONE (19:03)
[2022-10-20] MEDS: HYDROCORTISONE SOD 50 MG in SYRINGE 0 ML IV SCH (20:12)
[2022-10-20] MEDS: FIBERSOURCE HN 1.2 CAL 1000 ML BAG GT SCH ×2 (20:41→20:45)
[2022-10-20 22:15] LABS: BUN Creatinine Ratio 26.4 (10-20); Blood Urea Nitrogen 14 mg/dl (6-23); Calcium 7.9 mg/dl (8.5-10.1); Carbon Dioxide 26 mmol/L (21-32); Chloride 96 mmol/L (98-107); Creatinine Clr Calc Pharmacy 84.9 ml/min; Est GFR (African American) 132.4 ml/min; Est GFR (Non-African American) 114.2 ml/min; Glucose 136 mg/dl (70-99(Fasting))
[2022-10-20 23:33] LABS: Potassium 3.5 mmol/L (3.5-5.1)
[2022-10-20] MEDS ORDERED: NORMOSOL-R 1,000 ML IV ONE (23:33)
[2022-10-21] MEDS: NORMOSOL-R 1,000 ML IV SCH ×2 (00:16→06:00)
[2022-10-21 02:00] LABS: Est GFR (African American) 135.6 ml/min; Potassium 3.5 mmol/L (3.5-5.1)
[2022-10-21] MEDS: HYDROCORTISONE SOD 50 MG in SYRINGE 0 ML IV SCH ×3 (02:46→18:57)
[2022-10-21] MEDS: POTASSIUM CHLORIDE / WTR 10 MEQ/100 ML PLCT IV SCH ×3 (02:48→04:54)
[2022-10-21] MEDS ORDERED: traZODone HCL 50 MG TAB PO ONE (02:52)
[2022-10-21] MEDS: DOXYCYCLINE HYCLATE 100 MG in DEXTROSE 5% 100 ML IV SCH ×2 (05:42→18:00)
[2022-10-21] MEDS: TUBE FEEDING WATER FLUSH PEG SCH ×2 (05:45→09:48)
[2022-10-21 05:48] LABS: Hematocrit (blood only) 24.5 % (42.0-52.0); Hemoglobin 8.7 g/dl (14.0-18.0); Mean Corpuscular Hemoglobin 31.6 pg (25.0-34.0); Mean Corpuscular Hgb Conc 35.5 g/dL (32.0-36.0); Mean Corpuscular Volume 89.1 fL (80.0-100.0); Platelet Count 299 K/uL (130-400); RDW Coefficient of Variation 13.8 % (11.5-14.5); RDW Standard Deviation 44.4 fL (36.4-46.3); Red Blood Count 2.75 M/uL (4.70-6.10); White Blood Count 21.09 K/ul (4.8-10.8)
[2022-10-21] MEDS: CEFEPIME 2,000 MG in SYRINGE 0 ML IV SCH ×3 (05:57→21:23)
[2022-10-21 06:05] LABS: Magnesium 2.2 mg/dl (1.7-2.4); Phosphorus 3.4 mg/dl (2.5-4.9)
[2022-10-21 06:45] LABS: Basophils # (auto) 0.03 K/uL (0-0.2); Basophils % (auto) 0.1 %; Immature Granulocytes # (auto) 0.28 K/uL (0.01-0.20); Immature Granulocytes % (auto) 1.3 %; Lymphocytes # (auto) 0.25 K/uL (1.2-3.4); Lymphocytes % (auto) 1.2 %; Monocytes # (auto) 0.68 K/uL (0.11-0.59); Monocytes % (auto) 3.2 %; Neutrophils # (auto) 19.85 K/uL (1.40-6.50); Neutrophils % (auto) 94.2 %; Target Cells 1+
[2022-10-21] MEDS: ICU Protocol for HYPERglycemia SCH ×3 (07:24→16:41)
--- NOTE | 2022-10-21 07:58 | Critical Care Progress Note ---
Date of Service October 21, 2022 Assessment & Plan (1) Dysphagia, oropharyngeal: (2) Metastatic primary lung cancer: (3) Pulmonary embolism: (4) Ischemic stroke: (5) S/P percutaneous endoscopic gastrostomy (PEG) tube placement: (6) Severe sepsis: (7) COPD (chronic obstructive pulmonary disease): (8) Severe protein-calorie malnutrition: (9) Secondary carcinoma of bone: (10) COPD exacerbation: Plan Reason critically ill: 62 y/o cachectic male with PMHx of stage IV lung cancer with mets to the bone, recent PI, mild COPD, previous ischemic stroke, dysphagia now s/p PEG placement (10/06/2022) who was in the cancer center earlier today for routine lab work, found to be hypotensive, tachycardic (sinus), and hypoxic who is going to be admitted to the ICU for management of septic state. NEURO: ICU CAM: negative RESP: --Recent pulmonary embolism On Eliquis at home CV/VASCULAR: -- Shock Combination of hypovolemic as well as sepsis Random cortisol was 22 --> started on hydrocortisone Tachycardia - likely compensatory in the setting of hypotension and acute illnes s, improved with fluid resuscitation, sinus tachycardia on EKG, on tele RENAL/LYTES: -- S/p MARBELLA FeNa: 1.1%, inclining towards intrarenal Monitor BUN/creatinine Avoid nephrotoxic medications Strict ins and outs GI: Dysphagia leading to failure to thrive now s/p PEG placement 10/06/22. typically gets Fibersource QID, free water flushes afterwards and with meds Continue with tube feeds : Jain. Strict Is and Os. ID: -- Septic shock Source is most likely pulmonary continue with cefepime and doxycycline HEME/ONC: --Acute anemia Source of anemia is not clear right now Monitor H&H S/p 1 unit PRBC 10/20/22 --Metastatic lung cancer stage IV - mets to bone, liver, adrenal, mediastinal nodes, and possibly the kidneys. Patient completed radiation. On pembrolizumab, pemetrexed, carboplatinum. Last dose 08/2022 ENDO: ICU insulin protocol if needed Random enrique 22.24, may have adrenal insufficiency, could consider stress dosing as patient acutely ill --Prophylaxis VTE: Apixaban on hold GI: Lansoprazole Lines: Left-sided port and peripheral, Jain Diet: Tube feeds Plan: In/out: +1.5 L, urine output 4900 Patient is making significant amount of urine output it could be post ATN induced. I will cut down all the fluids now. Urine osmolality yesterday was only 103. If the patient is still continues to make a lot of urine then it could be diabetes insipidus like picture. I will consider giving 1 dose of DDAVP Sodium today is 131 which is within normal limit. This is usually patient's baseline. Patient's blood pressure is on the softer side but there is no lactic acidosis. Give IV fluids as needed Please note the above document was generated using voice recognition software. It may contain grammatical, syntax or spelling errors.Any formal questions or concerns about the content, text or information contained within the body of this dictation should be directly addressed to the provider for clarification. Admission and Anticipated Discharge Date Admission Date: October 19, 2022 Subjective Patient seen and examined at bedside. No acute distress, notable symptoms overnight. Patient is still making significant amount of urine Overall he says he is feeling better. Denies any chest pain, no shortness of breath, no headache, no nausea, no vomiting Does complain of pain in the sacrum area. Review of Systems 2 Review of Systems: All systems reviewed & are unremarkable except as noted in Subjective Physical Exam Physical Exam: Constitutional: No acute distress, frail-appearing HEENT: EOMI, PERRLA Respiratory system: Decreased air entry bilaterally, no wheeze, no rhonchi, positive crackles bilaterally CVS: S1-S2 positive, no murmurs or gallops Abdomen: Soft, nontender, nondistended, positive bowel sounds x4 Extremities: +2 pulses bilaterally radialis/ dorsalis pedis, no cyanosis, no edema Neuro: Awake alert oriented to self and place Psych: Normal mood and affect G/U: Positive Jain Skin: no rashes, warm and dry Lymphatic: no cervical or axillary lymphadenopathy Results & Data Results & Data ([facility]) Vital Signs (Past 12 Hours) Vital Signs Temp Pulse Resp BP Pulse Ox O2 Del Method 10/21/22 07:00 94 H 22 118/64 99 Room Air 10/21/22 07:00 36.5 C 10/21/22 06:00 103 H 21 95 Room Air 10/21/22 06:00 118/64 10/21/22 05:00 89 19 97 10/21/22 05:00 106/58 L 10/21/22 04:00 88 18 97 10/21/22 04:00 110/59 L 10/21/22 03:00 84 21 95 10/21/22 03:00 98/52 L 10/21/22 02:00 95 H 24 97 10/21/22 02:00 103/54 L 10/21/22 01:00 92 H 33 H 97 10/21/22 01:00 95/49 L 10/21/22 00:00 83 28 H 100 Room Air 10/21/22 00:00 107/53 L 10/20/22 23:00 81/37 L 10/21/22 04:00 36.7 C 10/21/22 00:00 86 10/21/22 00:32 36.7 C 10/20/22 23:00 86 32 H 100 10/20/22 22:00 81 18 95 10/20/22 22:00 104/53 L 10/20/22 21:12 88/48 L 10/20/22 21:12 88 32 H 100 10/20/22 21:11 88/46 L 10/20/22 21:11 86 27 H 100 10/20/22 21:00 84 31 H 100 10/20/22 21:00 88/45 L 10/20/22 20:00 91 H 32 H 100 Room Air 10/20/22 20:00 100/56 L 10/20/22 23:03 Room Air 10/20/22 22:00 36.8 C Laboratory Results 10/21/22 05:30 10/21/22 01:12 Coding Level of Care Code 49641 SUB INP/OBS CARE 350MIN Diagnoses Dysphagia, oropharyngeal R13.12 Metastatic primary lung cancer C34.90 Pulmonary embolism I26.99 Ischemic stroke I63.9 S/P percutaneous endoscopic gastrostomy (PEG) tube placement Z93.1 Severe sepsis A41.9; R65.20 COPD (chronic obstructive pulmonary disease) J44.9 Severe protein-calorie malnutrition E43 Secondary carcinoma of bone C79.51 COPD exacerbation J44.1
[2022-10-21] MEDS: POTASSIUM CHLORIDE / WTR 20 MEQ/100 ML PLCT IV SCH ×2 (08:24→10:08)
--- NOTE | 2022-10-21 08:43 | XRay Report ---
XR chest 1V portable CLINICAL HISTORY: f/u. Lung cancer. COMPARISON STUDY: Chest radiograph and chest CT October 19, 2022. FINDINGS: Left subclavian [id number] is in place. There is no pneumothorax or pleural effusion. Th ere is no evidence for pulmonary edema. Multiple pulmonary lesions are again noted. Mild left basilar opacity is noted. There is hazy right infrahilar opacity. IMPRESSION: 1. Mild lower lung opacities which favor an infectious process. 2. Redemonstration of pulmonary lesions, better depicted on chest CT. ACT 112: Negative or not required by law. Electronically signed by: Eliud Mendoza M.D. 10/21/2022 8:42 AM
[2022-10-21] MEDS: LANSOPRAZOLE 30 MG SOLTAB PEG SCH (09:02)
[2022-10-21] MEDS: MULTI VIT W/MINERALS LIQUID 15 ML UDP PEG SCH (09:02)
[2022-10-21] MEDS ORDERED: LANSOPRAZOLE 30 MG SOLTAB PEG SCH (10:00)
--- NOTE | 2022-10-21 13:14 | Nephrology Progress Note ---
Date of Service October 21, 2022 Assessment & Plan (1) Hyponatremia: Plan: Nephrology consulted for hyponatremia on thsi 62 yr old with significant past medical history of Metastatic primary lung cancer,COPD (chronic obstructive pulmonary disease, Dysphagia, oropharyngeal,Severe protein-calorie malnutrition, S/P percutaneous endoscopic gastrostomy (PEG) tube placement HYponatremia was likley 2/ volume depletion and poor solute intake, However given the past h/o cancer he may have a background SIADH. - Na is in acceptable level. - HE is polyuric with @ 6 lit urine , with Uosoml of 130, water diureisis 2/ excessive fluid inatke( oral and IV) - Restrict to 1/2 of UOP and measure Uosml again, If UOP remains > 3 lit give DDAVP 2 MCG 8 hrly. (2) Severe protein-calorie malnutrition: Plan: o PEG feed, -Needs high protein diet. Admission and Anticipated Discharge Date Admission Date: October 19, 2022 Subjective Comfortbale,No acute distress, notable symptoms overnight. Patient is still making significant amount of urine . Review of Systems Review of Systems: All systems reviewed & are unremarkable except as noted in HPI & below Physical Exam Physical Exam: Constitutional: No acute distress, frail-appearing HEENT: EOMI, PERRLA Respiratory system:Decreased air entry bilaterally, no wheeze, no rhonchi, positive crackles bilaterally CVS: S1-S2 positive, no murmurs or gallops Abdomen: Soft, nontender, nondistended, positive bowel sounds x4 Extremities: +2 pulses bilaterally radialis/ dorsalis pedis,no cyanosis, no edema Neuro:Awake alert oriented to self and place Results & Data ([facility]) Vital Signs (Past 12 Hours) Vital Signs Temp Pulse Resp BP Pulse Ox O2 Del Method 10/21/22 11:00 36.7 C 10/21/22 10:00 81 20 101/56 L 96 Room Air 10/21/22 09:03 90 22 119/65 98 Room Air 10/21/22 08:34 89 22 113/63 96 Room Air 10/21/22 08:00 94 H 23 109/63 94 Room Air 10/21/22 08:00 Room Air 10/21/22 07:00 94 H 22 118/64 99 Room Air 10/21/22 07:00 36.5 C 10/21/22 06:00 103 H 21 95 Room Air 10/21/22 06:00 118/64 10/21/22 05:00 89 19 97 10/21/22 05:00 106/58 L 10/21/22 04:00 88 18 97 10/21/22 04:00 110/59 L 10/21/22 03:00 84 21 95 10/21/22 03:00 98/52 L 10/21/22 02:00 95 H 24 97 10/21/22 02:00 103/54 L 10/21/22 04:00 36.7 C Laboratory Results 10/21/22 05:30 10/21/22 01:12
[2022-10-21 14:08] LABS: BUN Creatinine Ratio 27.7 (10-20); Calcium 8.2 mg/dl (8.5-10.1); Creatinine Clr Calc Pharmacy 95.7 ml/min; Est GFR (African American) 139.1 ml/min; Potassium 4.1 mmol/L (3.5-5.1)
--- NOTE | 2022-10-21 18:07 | Hospitalist Progress Note ---
Date of Service October 21, 2022 delayed entry date of service noted above Assessment & Plan (1) Severe sepsis: (2) Hypoxia: (3) Lactic acidosis: (4) Metastatic primary lung cancer: (5) COPD (chronic obstructive pulmonary disease): (6) Dysphagia, oropharyngeal: (7) Severe protein-calorie malnutrition: (8) S/P percutaneous endoscopic gastrostomy (PEG) tube placement: Plan: (1) Dysphagia, oropharyngeal: (2) Metastatic primary lung cancer: (3) Pulmonary embolism: (4) Ischemic stroke: (5) S/P percutaneous endoscopic gastrostomy (PEG) tube placement: (6) Severe sepsis: (7) COPD (chronic obstructive pulmonary disease): (8) Severe protein-calorie malnutrition: (9) Secondary carcinoma of bone: (10) COPD exacerbation: Septic Shock Acute respiratory failure with hypoxia secondary to possible gram-negative and/or aspiration pneumonia COPD Lung cancer with bone metastasis -- on room air now, blood pressure stable -- Blood cultures: Negative -- continue Cefepime + Doxycycline day #3. -- on Hydrocortisone IV, will taper Dysphagia, status post PEG tube placement Severe protein calorie malnutrition -- Tube Feeding resumed No issues continue Eliquis Anemia, Acute Hg 7.2 1 unit pRBC ordered no signs of active bleeding Hg 8.8 DVT PPx: - teds, scds, Eliquis CODE: Full code Dispo: Lives at home with his Will need PT and OT evaluation (9) Hyponatremia: Admission and Anticipated Discharge Date Admission Date: October 19, 2022 Subjective Follow-up for sepsis, pneumonia, etc. Seen resting in bed, comfortable, not in distress On room air States he feels better compared to admission Breathing much better, has occasional productive cough No abdominal pain, tolerating tube feeding well Still weak but able to ambulate to the commode No other symptoms Review of Systems Review of Systems: all noted and negative except for above Physical Exam Physical Exam: General- oriented x 3, not in distress, speaks in sentences with no effort or accessory muscle use Eyes- anicteric Neck- no JVD Lungs-mild rales at the bases, no wheezing Heart- normal rate, regular rhythm; no murmurs Abdomen- normal bowel sounds, nondistended, soft, nontender PEG tube in place, no signs of infection Extremities- no pretibial edema, no calf tenderness Neuro- alert, oriented x 3; no gross focal neurologic deficits Skin- warm & dry Results & Data Results & Data ([facility]) Vital Signs (Past 12 Hours) Vital Signs Temp Pulse Resp BP Pulse Ox O2 Del Method 10/21/22 15:00 88 24 115/65 96 Room Air 10/21/22 14:00 90 26 H 100/57 L 96 Room Air 10/21/22 13:00 81 24 111/60 98 Room Air 10/21/22 11:43 86 25 H 131/73 96 Room Air 10/21/22 15:00 36.6 C 10/21/22 11:00 36.7 C 10/21/22 10:00 81 20 101/56 L 96 Room Air 10/21/22 09:03 90 22 119/65 98 Room Air 10/21/22 08:34 89 22 113/63 96 Room Air 10/21/22 08:00 94 H 23 109/63 94 Room Air 10/21/22 08:00 Room Air 10/21/22 07:00 94 H 22 118/64 99 Room Air 10/21/22 07:00 36.5 C
[2022-10-21] MEDS: MELATONIN 3 MG TAB PO PRN (23:34)
[2022-10-22] MEDS: HYDROCORTISONE SOD 50 MG in SYRINGE 0 ML IV SCH ×2 (03:02→11:22)
[2022-10-22] MEDS: DOXYCYCLINE HYCLATE 100 MG in DEXTROSE 5% 100 ML IV SCH ×2 (05:25→18:32)
[2022-10-22] MEDS: CEFEPIME 2,000 MG in SYRINGE 0 ML IV SCH ×3 (05:25→22:50)
[2022-10-22 05:36] LABS: Magnesium 1.9 mg/dl (1.7-2.4); Phosphorus 2.9 mg/dl (2.5-4.9)
[2022-10-22] MEDS: MULTI VIT W/MINERALS LIQUID 15 ML UDP PEG SCH (08:17)
[2022-10-22] MEDS: LANSOPRAZOLE 30 MG SOLTAB PEG SCH (08:17)
[2022-10-22 10:38] LABS: Hematocrit (blood only) 25.9 % (42.0-52.0); Hemoglobin 8.8 g/dl (14.0-18.0); Mean Corpuscular Hemoglobin 30.9 pg (25.0-34.0); Mean Corpuscular Volume 90.9 fL (80.0-100.0); Platelet Count 305 K/uL (130-400); RDW Coefficient of Variation 14.1 % (11.5-14.5); RDW Standard Deviation 46.2 fL (36.4-46.3); Red Blood Count 2.85 M/uL (4.70-6.10); White Blood Count 23.99 K/ul (4.8-10.8)
[2022-10-22 10:55] LABS: BUN Creatinine Ratio 46.5 (10-20); Calcium 8.6 mg/dl (8.5-10.1); Creatinine Clr Calc Pharmacy 115.8 ml/min; Est GFR (African American) 144.2 ml/min; Est GFR (Non-African American) 124.4 ml/min; Potassium 3.5 mmol/L (3.5-5.1)
[2022-10-22 10:58] LABS: Basophils # (auto) 0.03 K/uL (0-0.2); Basophils % (auto) 0.1 %; Eosinophils # (auto) 0.01 K/uL (0-0.50); Immature Granulocytes % (auto) 1.7 %; Lymphocytes # (auto) 0.41 K/uL (1.2-3.4); Lymphocytes % (auto) 1.7 %; Monocytes # (auto) 1.09 K/uL (0.11-0.59); Monocytes % (auto) 4.5 %; Neutrophils # (auto) 22.05 K/uL (1.40-6.50)
[2022-10-22] MEDS ORDERED: Nursing to Pharmacy Communication SCH (13:45)
--- NOTE | 2022-10-22 15:36 | Hospitalist Progress Note ---
Date of Service October 22, 2022 Assessment & Plan (1) Severe sepsis: (2) Hypoxia: (3) Lactic acidosis: (4) Metastatic primary lung cancer: (5) COPD (chronic obstructive pulmonary disease): (6) Dysphagia, oropharyngeal: (7) Severe protein-calorie malnutrition: (8) S/P percutaneous endoscopic gastrostomy (PEG) tube placement: Plan: (1) Dysphagia, oropharyngeal: (2) Metastatic primary lung cancer: (3) Pulmonary embolism: (4) Ischemic stroke: (5) S/P percutaneous endoscopic gastrostomy (PEG) tube placement: (6) Severe sepsis: (7) COPD (chronic obstructive pulmonary disease): (8) Severe protein-calorie malnutrition: (9) Secondary carcinoma of bone: (10) COPD exacerbation: Septic Shock Acute respiratory failure with hypoxia secondary to possible gram-negative and/or aspiration pneumonia COPD Lung cancer with bone metastasis -- on room air now, blood pressure stable -- Blood cultures: Negative -- continue Cefepime + Doxycycline day #4 -- on Hydrocortisone IV, will taper Dysphagia, status post PEG tube placement Severe protein calorie malnutrition -- Tube Feeding resumed No issues continue Eliquis Anemia, Acute Hg 7.2 1 unit pRBC ordered no signs of active bleeding Hg 8.8 DVT PPx: - teds, scds, Eliquis CODE: Full code Dispo: Lives at home with his Will need PT and OT evaluation (9) Hyponatremia: Admission and Anticipated Discharge Date Admission Date: October 19, 2022 Subjective Follow-up for sepsis, pneumonia, etc. Seen resting in bed, comfortable, not in distress States he feels improving gradually daily No shortness of breath, has occasional cough Minimal sputum No abdominal pain, nausea vomiting No other symptoms Review of Systems Review of Systems: all noted and negative except for above Physical Exam Physical Exam: General- oriented x 3, not in distress, speaks in sentences with no effort or accessory muscle use Eyes- anicteric Neck- no JVD Lungs- clear BS bilaterally, no rales/wheezes Heart- normal rate, regular rhythm; no murmurs Abdomen- normal bowel sounds, nondistended, soft, no tenderness PEG tube-no issues Extremities- no pretibial edema, no calf tenderness Neuro- alert, oriented x 3; no gross focal neurologic deficits Skin- warm & dry Results & Data Results & Data ([facility]) Vital Signs (Past 12 Hours) Vital Signs Temp Pulse Resp BP Pulse Ox O2 Del Method 10/22/22 11:16 81 25 H 138/69 95 Room Air 10/22/22 10:20 91 H 26 H 123/64 93 Room Air 10/22/22 11:16 36.4 C L 10/22/22 07:00 Room Air 10/22/22 07:00 76 10/22/22 07:00 36.4 C L 10/22/22 07:00 76 19 133/66 91 Room Air 10/22/22 05:45 84 23 94 10/22/22 05:30 85 22 94 10/22/22 05:15 74 22 94 10/22/22 05:00 80 20 92 10/22/22 05:00 121/60 10/22/22 04:00 80 21 97 10/22/22 04:00 124/61 10/22/22 04:24 36.7 C all noted and reviewed including below
[2022-10-22] MEDS: TUBE FEEDING WATER FLUSH NG SCH ×2 (15:52→22:50)
[2022-10-22] MEDS: FIBERSOURCE HN 1.2 CAL 1000 ML BAG GT SCH (18:33)
[2022-10-22] MEDS ORDERED: HYDROCORTISONE SOD 50 MG in SYRINGE 0 ML IV SCH (23:00)
[2022-10-23] MEDS: TUBE FEEDING WATER FLUSH NG SCH ×6 (06:05→20:59)
[2022-10-23] MEDS: CEFEPIME 2,000 MG in SYRINGE 0 ML IV SCH ×3 (06:06→20:58)
[2022-10-23] MEDS: DOXYCYCLINE HYCLATE 100 MG in DEXTROSE 5% 100 ML IV SCH ×2 (06:06→17:18)
--- NOTE | 2022-10-23 08:18 | Consultation Report ---
NEPHROLOGY CONSULTATION NOTE REASON FOR CONSULTATION: Hyponatremia. HISTORY OF PRESENT ILLNESS: The patient is a 62-year-old male with advanced metastatic lung cancer w ith metastasis to bone, history of recent PE, COPD, ischemic stroke, dysphagia with recent PEG placem ent done on 10/06/2022. He presented to the hospital yesterday because of increasing illness, weakne ss, cough, foamy mucus, and some shortness of breath. He was seen at the [facility] yesterday and was found to be very hypotensive with a low blood pressure and looked very sick, after which the patient was sent over for hospital admission. The patient's chemotherapy is currently on hold becheike e of very poor frail index. The patient is currently in the intensive care unit. At the time of admi ssion, the patient did have elevated lactic acid, very low blood pressure, and was very hypotensive. His blood pressure is still low, but better. His sodium at the time of admission was 118. Since be ing admitted, he has received normal saline and now Normosol and with that, serum sodium has gone up at a very appropriate rate of correction to 127. So in a span of 26 hours, sodium has gone up by 9, which is a very appropriate rate. The patient is really unable to give me any history. He looks crystla y weak and frail. He is dependent on PEG tube for nutrition. He is currently getting free water flu shes and Normosol at this time at 75 mL per hour. He is also on broad-spectrum antibiotic. PAST MEDICAL AND SURGICAL HISTORY: Already detailed in HPI, also includes history of alcohol depende nce in the past, history of COVID-19 [place] 2019, ischemic stroke, metastatic primary lung cancer with me ts to the mediastinum, liver, bone, adrenal gland, possibly kidneys; history of pulmonary embolism in 07/2022, currently on Eliquis; severe protein calorie malnutrition, GERD, severe dysphagia, COPD, br onchoscopy, endoscopy, colonoscopy, Port-A-Cath in place. FAMILY HISTORY: Negative for renal disease or dialysis. SOCIAL HISTORY: Former smoker, former alcoholic. , lives with his spouse. 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 REVIEW OF SYSTEMS: Unable to obtain secondary to extreme weakness and poor cognitive status at this time. PHYSICAL EXAMINATION: GENERAL: A middle-aged white male, who appears very cachectic and frail. He is awake and opened eye s on command, but nothing further could be elicited. VITAL SIGNS: Blood pressure 95/51, pulse rate 96, temperature 36.8, 100% on room air. HEENT: Mucous membrane is moist. NECK: Supple. No jugular venous distention. CHEST: Very diminished breath sound. Bilateral rhonchi and wheezing heard. CARDIOVASCULAR: S1 and S2, tachycardic. Soft systolic murmur heard. ABDOMEN: Soft, nontender. PEG tube in place. EXTREMITIES: Show no edema. LABORATORY TEST: Most recent blood work from 1:00 p.m. today showed serum sodium 127, chloride 94, c reatinine 0.5, calcium 8.3. Urine osmolality has been done twice; yesterday was 325, this morning wa s 130. Urine sodium 45. Potassium, chloride was also reviewed. Urinalysis shows specific gravity of 1.027. ASSESSMENT AND PLAN: A 62-year-old male with very advanced metastatic lung cancer, now admitted with failure to thrive, weakness, and was found to have hyponatremia, for which I have been consulted. Hyponatremia: This is multifactorial, but at this point, I will have to call this predominantly as h ypovolemic hyponatremia in the setting of very poor nutrition. Also, the serum sodium has gone up st eadily in a very appropriate rate of correction from 118 to 127. He is due for another blood work at this time. On physical examination, he still looks like he is volume depleted, but it is hard to tel l given his cachectic status. At this point, I would do BMP every 12 hours since his serum sodium has carefully gone higher than 125, the danger of overcorrection is pretty low at this time. I would con tinue with the Normosol at 75 mL per hour and the free water flushes he is getting. It is very unlik kierra that he will have a normal serum sodium given his very metastatic lung cancer. The etiology of h yponatremia is multifactorial with very low oral intake of protein with a low osmolar diet as well as possible underlying SIADH given advanced cancer. Thank you very much for the consult. Job ID: [id number]
[2022-10-23] MEDS: HEPARIN 100 UNIT/ML 5ML FLUSH FLUSH PRN (08:22)
--- NOTE | 2022-10-23 08:33 | Consultation Report ---
NEPHROLOGY CONSULTATION NOTE DATE OF SERVICE: 10/20/2022. REASON FOR CONSULTATION: Hyponatremia. HISTORY OF PRESENT ILLNESS: The patient is a 62-year-old male with essentially terminal lung cancer with diffuse metastasis to all parts of the body, who was brought to the hospital because of extreme weakness, hypotension, which was noted while the patient was being [facility]. His admission sodium was 118. Since then, he has received normal saline and now getting Normosol and with that, serum sodium has gone up at a very appropriate rate from 118 to 127. The patient is very weak and he is still hypotensive, but is better. He is currently getting broad-spectrum antibio tics. His nutrition is through the PEG tube exclusively and he gets free water flushes also, which h e is still getting. PAST MEDICAL AND SURGICAL HISTORY: Includes stage IV lung cancer with metastasis to bone, liver, ralph g, lymph nodes and multiple other parts; history of PE, severe protein calorie malnutrition, history of alcohol dependence in the past, history of COVID-19, gastroesophageal reflux disease, esophageal d ilatation with dysphagia, currently has a PEG tube, COPD. ALLERGIES: None. MEDICATIONS: Home medication list was reviewed in detail and as per the reconciliation list. The michael reid does take salt tablet 1 g twice daily even as an outpatient. FAMILY HISTORY: Negative for renal disease or dialysis. SOCIAL HISTORY: Former smoker, former alcohol. He is and lives with his spouse. 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 REVIEW OF SYSTEMS: Unobtainable as the patient is very weak and frail and not oriented. PHYSICAL EXAMINATION: GENERAL: A middle-aged white male, who is awake and opens eyes on command, but nothing further can b e achieved. VITAL SIGNS: Blood pressure is 95/51, pulse rate 96, temperature 36.8, 100% on room air. HEENT: Mucous membranes are moist. NECK: Supple. No jugular venous distention. CHEST: Bilateral decreased breath sounds. No rhonchi and wheezing. CARDIOVASCULAR: S1 and S2, tachycardic. Soft systolic murmur heard. ABDOMEN: Soft, nontender, cachectic, has a PEG tube in place. EXTREMITIES: Show no edema. LABORATORY TEST: On admission, sodium was 118. Most recent sodium is 127. The patient has known hi story of chronic hyponatremia lately and he does get salt tablet 1 g twice daily. Urine osmolality d one twice, one time was 325, one time was 113. Urine sodium 45. ASSESSMENT AND PLAN: A 62-year-old male with diffuse lung cancer with metastasis to all parts of the body, now admitted with extreme weakness and was found to have hyponatremia with a serum sodium 118. 1. Hyponatremia: This is multifactorial and likely a combination of hypovolemic hyponatremia as wel l as true solid deficits given his nutritional status as well as some underlying SIADH from his diffu se metastatic lung cancer. In any case, the good thing is serum sodium has improved from 118 to 127 at a very appropriate rate. There is one BMP pending at this time. In any case, he is out of danger of problems of overcorrection at this point, I would continue with the normal saline. Continue with the same amount of free water flushes he is getting, as the current regimen seems to be working pret ty well. No further workup is needed for the etiology of hyponatremia as it is clearly multifactoria l. At this point, BMP can be done twice daily. Job ID: [id number]
[2022-10-23] MEDS ORDERED: HYDROCORTISONE SOD 50 MG in SYRINGE 0 ML IV SCH (09:00)
[2022-10-23 09:07] LABS: Basophils # (auto) 0.03 K/uL (0-0.2); Basophils % (auto) 0.2 %; Eosinophils # (auto) 0.06 K/uL (0-0.50); Eosinophils % (auto) 0.3 %; Hematocrit (blood only) 26.5 % (42.0-52.0); Immature Granulocytes # (auto) 0.38 K/uL (0.01-0.20); Immature Granulocytes % (auto) 2.1 %; Lymphocytes # (auto) 0.59 K/uL (1.2-3.4); Lymphocytes % (auto) 3.3 %; Mean Corpuscular Hemoglobin 30.8 pg (25.0-34.0); Mean Corpuscular Volume 90.8 fL (80.0-100.0); Mean Platelet Volume 9.1 fL (9.4-12.4); Monocytes # (auto) 1.38 K/uL (0.11-0.59); Monocytes % (auto) 7.7 %; Neutrophils # (auto) 15.55 K/uL (1.40-6.50); Neutrophils % (auto) 86.4 %; Platelet Count 310 K/uL (130-400); RDW Coefficient of Variation 14.3 % (11.5-14.5); RDW Standard Deviation 47.4 fL (36.4-46.3); Red Blood Count 2.92 M/uL (4.70-6.10); White Blood Count 17.99 K/ul (4.8-10.8)
[2022-10-23 09:20] LABS: Albumin Globulin Ratio 0.9 (0.9-2); Albumin Level 2.9 gm/dl (3.4-5.0); BUN Creatinine Ratio 42.9 (10-20); Bilirubin,Total 0.6 mg/dl (0.2-1.0); Calcium 8.4 mg/dl (8.5-10.1); Creatinine Clr Calc Pharmacy 113.6 ml/min; Est GFR (African American) 145.6 ml/min; Est GFR (Non-African American) 125.7 ml/min; Globulin 3.2 gm/dl (2.5-4.0); Potassium 3.1 mmol/L (3.5-5.1); Total Protein 6.1 gm/dl (6.0-8.3)
[2022-10-23] MEDS ORDERED: POTASSIUM CHLORIDE 20 MEQ/15 ML UDC PO STA (09:23)
[2022-10-23] MEDS: LANSOPRAZOLE 30 MG SOLTAB PEG SCH (09:35)
[2022-10-23] MEDS: MULTI VIT W/MINERALS LIQUID 15 ML UDP PEG SCH (09:35)
[2022-10-23] MEDS: SODIUM CHLORIDE 0.9% 1000ML 1,000 ML IV SCH ×2 (09:35→23:33)
[2022-10-23] MEDS: APIXABAN 5 MG TABLET PO SCH ×2 (10:29→20:55)
[2022-10-23 10:49] LABS: Magnesium 1.7 mg/dl (1.7-2.4); Phosphorus 3.1 mg/dl (2.5-4.9)
--- NOTE | 2022-10-23 12:26 | Hospitalist Progress Note ---
Date of Service October 23, 2022 Assessment & Plan (1) Severe sepsis: (2) Hypoxia: (3) Lactic acidosis: (4) Metastatic primary lung cancer: (5) COPD (chronic obstructive pulmonary disease): (6) Dysphagia, oropharyngeal: (7) Severe protein-calorie malnutrition: (8) S/P percutaneous endoscopic gastrostomy (PEG) tube placement: Plan: (1) Dysphagia, oropharyngeal: (2) Metastatic primary lung cancer: (3) Pulmonary embolism: (4) Ischemic stroke: (5) S/P percutaneous endoscopic gastrostomy (PEG) tube placement: (6) Severe sepsis: (7) COPD (chronic obstructive pulmonary disease): (8) Severe protein-calorie malnutrition: (9) Secondary carcinoma of bone: (10) COPD exacerbation: Septic Shock Acute respiratory failure with hypoxia secondary to possible gram-negative and/or aspiration pneumonia COPD Lung cancer with bone metastasis -- on room air now, blood pressure stable -- Blood cultures: Negative -- continue Cefepime + Doxycycline day #5 -- Completed course of IV hydrocortisone Dysphagia, status post PEG tube placement Severe protein calorie malnutrition -- Tube Feeding resumed No issues History of pulmonary embolism -- continue Eliquis Anemia, Acute Hg 7.2 1 unit pRBC ordered no signs of active bleeding Hg 8.8 Eliquis resumed Sinus tachycardia Likely secondary to dehydration, electrolyte abnormalities NSS ordered Replace potassium, check magnesium Hyponatremia Multifactorial, including hypovolemia Normal saline ordered Repeat BMP this afternoon DVT PPx: - teds, scds, Eliquis CODE: Full code Dispo: Lives at home with his PT and OT evaluation (9) Hyponatremia: Admission and Anticipated Discharge Date Admission Date: October 19, 2022 Subjective Follow-up for sepsis, pneumonia, etc. Seen resting in bed, comfortable, not in distress States he feels fine overall Improving gradually daily No problems with breathing, no cough No abdominal pain, nausea vomiting, no problems with tube feeding Noted to be in sinus tachycardia 110s this morning Denies chest pain, palpitations, dizziness No other symptoms Review of Systems Review of Systems: all noted and negative except for above Physical Exam Physical Exam: General- oriented x 3, not in distress, speaks in sentences with no effort or accessory muscle use Eyes- anicteric Neck- no JVD Lungs- clear BS bilaterally, no crackles or wheezing Heart-mild tachycardia 110, regular rhythm; no murmurs Abdomen- normal bowel sounds, nondistended, soft, nontender PEG tube in place-no issues Extremities- no pretibial edema, no calf tenderness Neuro- alert, oriented x 3; no gross focal neurologic deficits Skin- warm & dry Results & Data Results & Data ([facility]) Vital Signs (Past 12 Hours) Vital Signs Temp Pulse Resp BP Pulse Ox O2 Del Method 10/23/22 11:00 115 H 29 H 117/65 95 Room Air 10/23/22 11:00 36.8 C 10/23/22 07:00 101 H 28 H 116/61 93 Room Air 10/23/22 07:00 Room Air 10/23/22 07:00 36.5 C 10/23/22 04:00 111 H 31 H 94 Room Air 10/23/22 04:00 115/63 10/23/22 03:00 113 H 32 H 93 10/23/22 03:00 108/63 10/23/22 02:00 105 H 29 H 93 10/23/22 02:00 124/65 10/23/22 01:00 107 H 27 H 93 10/23/22 01:00 119/65 10/23/22 04:00 36.8 C all noted and reviewed including below
--- NOTE | 2022-10-23 14:31 | Nephrology Progress Note ---
Date of Service October 23, 2022 Assessment & Plan (1) Hyponatremia: Plan: Nephrology consulted for hyponatremia on this 62 yr old with significant past medical history of Metastatic primary lung cancer, COPD, oropharygneal Dysphagia, Severe protein-calorie malnutrition, S/P percutaneous endoscopic gastrostomy (PEG) tube placement Hyponatremia likely d/t both volume depletion and poor solute intake, However given the h/o cancer he may have a background SIADH. - Na is in acceptable range w/ appropriate rates of correction -low K today which was repleted -on NS at 100 mL /hr and 100 mL free water q4h Jain is out now so [facility] dificult to track - was on 10/22 polyuric with @ 6 lit urine , with [facility] of 130, water diureisis 2/ excessive fluid intake( oral and IV) >>Given NS use, difficulty assessing I/O w/ urinary frequency, low K, 4 point drop in Na today , will recheck bmp now/ order in (2) Severe protein-calorie malnutrition: Plan: PEG feed, -Needs high protein diet. Admission and Anticipated Discharge Date Admission Date: October 19, 2022 Subjective seen on afternoon rounds. family at bedside. no c/o of uncontrolled pain or sob Review of Systems Review of Systems: All systems reviewed & are unremarkable except as noted in Subjective Physical Exam Constitutional: well developed and + cachectic; no acute distress Eyes: EOM intact bilaterally ENMT: Ears: no external ear abnormality Nose: no external nose abnormality Mouth: + dry oral mucous membranes (exceptionally dry) Neck: no nuchal rigidity Respiratory: normal respiratory effort and + tachypneic; no labored breathing Auscultation: + diminished lung sounds Cardiovascular: Rate/Rhythm: + tachycardic Extremities: no edema Gastrointestinal (Abdomen): Inspection/Auscultation: normal bowel sounds and + scaphoid (feeding tube present) Percussion/Palpation: abdomen soft; abdomen nontender Musculoskeletal: Extremities: strength 5/5 throughout Skin: no rashes, warm and dry Neurologic: no tremor, alert, tracks; does not speak but nods y/n Results & Data ([facility]) Vital Signs (Past 12 Hours) Vital Signs Temp Pulse Resp BP Pulse Ox O2 Del Method 10/23/22 11:00 115 H 29 H 117/65 95 Room Air 10/23/22 11:00 36.8 C 10/23/22 07:00 101 H 28 H 116/61 93 Room Air 10/23/22 07:00 Room Air 10/23/22 07:00 36.5 C 10/23/22 04:00 111 H 31 H 94 Room Air 10/23/22 04:00 115/63 10/23/22 03:00 113 H 32 H 93 10/23/22 03:00 108/63 10/23/22 04:00 36.8 C Laboratory Results 10/23/22 08:39 10/23/22 08:39
[2022-10-23 16:23] LABS: BUN Creatinine Ratio 38.1 (10-20); Calcium 8.3 mg/dl (8.5-10.1); Creatinine Clr Calc Pharmacy 113.6 ml/min; Est GFR (African American) 145.6 ml/min; Est GFR (Non-African American) 125.7 ml/min
[2022-10-23] MEDS: UREA (UREA-NA) 15 GM PACK PO SCH ×2 (17:18→20:55)
[2022-10-23] MEDS: FIBERSOURCE HN 1.2 CAL 1000 ML BAG GT SCH (18:54)
[2022-10-23] MEDS ORDERED: METOPROLOL TARTRATE 1 MG/ML VIAL IV ONE ×2 (23:22→23:37)
[2022-10-23] MEDS ORDERED: METOPROLOL TARTRATE 1 MG/ML VIAL IV STA ×2 (23:22→23:36)
--- NOTE | 2022-10-23 23:27 | Communication Note ---
Date of Service: October 23, 2022 Made aware by RN of rapid A-fib on the monitor. Patient denies chest pain, SOB. Patient given IV Lopressor and Amiodarone by ICU provider familiar with the patient. AP New onset A-fib Lopressor for rate control TTE, Cardiology consult
[2022-10-23] MEDS ORDERED: SODIUM CHLORIDE 0.9% 1000ML 1,000 ML IV ONE (23:45)
[2022-10-23] MEDS: MAGNESIUM SULFATE / D5W 1 GM/100 ML BAG IV SCH (23:46)
[2022-10-23] MEDS ORDERED: AMIODARONE IV BOLUS & DRIP IV STA (23:48)
[2022-10-23] MEDS ORDERED: STAT IV Infusion **Titration per Protocol STA (23:48)
[2022-10-23] MEDS ORDERED: 0.2 MICRON FILTER SET 1 EACH IV STA (23:48)
[2022-10-23] MEDS ORDERED: AMIODARONE / D5W 150 MG/100 ML BAG IV STA (23:48)
[2022-10-23] MEDS ORDERED: AMIODARONE 150MG / 100ML D5W IV ONE (23:49)
[2022-10-23] MEDS ORDERED: AMIODARONE / D5W 360 MG/200 ML BAG IV ONE (23:59)
[2022-10-24] MEDS: TUBE FEEDING WATER FLUSH NG SCH ×7 (00:13→23:10)
[2022-10-24 00:17] LABS: BUN Creatinine Ratio 93.5 (10-20); Calcium 8.8 mg/dl (8.5-10.1); Creatinine Clr Calc Pharmacy 103.8 ml/min; Est GFR (African American) 140.3 ml/min; Magnesium 1.7 mg/dl (1.7-2.4); Phosphorus 2.8 mg/dl (2.5-4.9); Potassium 3.6 mmol/L (3.5-5.1)
--- NOTE | 2022-10-24 00:29 | Critical Care Progress Note ---
Date of Service October 24, 2022 Assessment & Plan (1) Atrial fibrillation with RVR: Plan: I was notified by staff that the patient Bang Barrios he was previously followed by senior business development analyst service was now in A-fib RVR with heart rate in the 200s. Patient has no history of atrial fibrillation but was previously on apixaban for pulmonary embolism which has been stopped on this hospital admission. Patient remained normotensive but did start to become slightly hypo xic and tachypneic. He was given IV metoprolol 5 mg x 2 which did improve heart rate into the 140s to 160s range, however he remained in A-fib RVR. He was given 1 L crystalloid bolus and was given amiodarone bolus and started on amiodarone drip. BMP, mag and Phos ordered and 1 g magnesium ordered by primary team. Primary team was notified of the patient's condition and plan discussed with the hospitalist, Dr. Lazaro. Patient to remain on PCU status and no indication for transfer to ICU as he is now rate controlled on amnio drip. Defer other management to primary team at this time. Please reconsult/notify if additional intensive care services are needed. CRITICAL CARE TIME - I have personally spent 33 minutes of critical care time in the direct management of this patient. This is a life/limb threatening event. This includes time spent evaluating patient, direct bedside care, chart review, placing orders, interpretation of diagnostic studies, discussion with consultants, ashtyn ent, and family members, as well as other required patient management activities. This time is exclusive of all separately billable procedures, and teaching time and separate from and in addition to any other critical care service time. (2) Dysphagia, oropharyngeal: (3) Metastatic primary lung cancer: (4) Pulmonary embolism: (5) Ischemic stroke: (6) S/P percutaneous endoscopic gastrostomy (PEG) tube placement: (7) Severe sepsis: (8) COPD (chronic obstructive pulmonary disease): (9) Severe protein-calorie malnutrition: (10) Secondary carcinoma of bone: (11) COPD exacerbation: Admission and Anticipated Discharge Date Admission Date: October 19, 2022 Subjective Patient entered A-fib RVR rhythm this evening with heart rate in the 200s. Treatment discussed below. He was previously followed with ICU service but downgraded a few days ago and is currently managed by hospitalist. Patient's condition has improved now to baseline although he remains in A-fib rhythm but is rate controlled with amiodarone drip. I did have a discussion with the patient's primary service, Dr. Lazaro, following this event and plan is for patient to remain as PCU status and defer further management to primary team. Please reach out to ICU team if further assistance is needed. Physical Exam Constitutional: + ill appearing, + thin, + cachectic and + malnourished Eyes: PERRL, conjunctivae normal, anicteric sclerae ENMT: external ear and nose normal, oropharynx normal Neck: trachea midline, no thyromegaly Respiratory: normal respiratory effort, lungs clear to auscultation Cardiovascular: Rate/Rhythm: + tachycardic and + irregularly irregular Heart Sounds: no murmur Vessels: no JVD Extremities: no edema Gastrointestinal (Abdomen): normal bowel sounds, soft, nontender, no hepatosplenomegaly Skin: Pale, dry Neurologic: PERRL, EOMI, accommodation nl, no face palsy, no dysarthria Psychiatric: A+Ox3, euthymic affect Results & Data Results & Data ([facility]) Vital Signs (Past 12 Hours) Vital Signs Temp Pulse Resp BP Pulse Ox O2 Del Method 10/23/22 23:44 155 H 10/23/22 23:34 174 H 10/23/22 21:00 117 H 32 H 91 10/23/22 20:00 110 H 25 H 10/23/22 20:00 111/60 10/23/22 19:00 109 H 31 H 92 10/23/22 21:28 Room Air 10/23/22 20:00 36.7 C 10/23/22 16:16 111 H 28 H 117/67 93 Room Air 10/23/22 16:15 37.0 C 10/23/22 15:00 107 H 28 H 111/62 95 Room Air 10/23/22 15:00 36.7 C Coding Level of Care Code Critical Care 1st 30-74 mins Diagnoses Atrial fibrillation with RVR I48.91 Dysphagia, oropharyngeal R13.12 Metastatic primary lung cancer C34.90 Pulmonary embolism I26.99 Ischemic stroke I63.9 S/P percutaneous endoscopic gastrostomy (PEG) tube placement Z93.1 Severe sepsis A41.9; R65.20 COPD (chronic obstructive pulmonary disease) J44.9 Severe protein-calorie malnutrition E43 Secondary carcinoma of bone C79.51 COPD exacerbation J44.1
[2022-10-24] MEDS: MAGNESIUM SULFATE / D5W 1 GM/100 ML BAG IV SCH (00:45)
[2022-10-24] MEDS ORDERED: POTASSIUM CHLORIDE / WTR 10 MEQ/100 ML PLCT IV SCH (01:00)
[2022-10-24 01:08] LABS: Base Excess ABG 3.6 mEq/L (-9-1.8); HCO3 ABG 27 mmol/L (19-24); Oxygen Saturation ABG 99.6 % (90-95); PCO2 ABG 34 mmHg (35-46); PO2 ABG 104 mmHg (80-95)
[2022-10-24 01:12] LABS: Allen Test Pos (Pos)
[2022-10-24] MEDS ORDERED: SODIUM CHLORIDE 0.9% 500 ML IV ONE (01:40)
[2022-10-24] MEDS ORDERED: LACTATED RINGER'S 1,000 ML IV ONE (01:58)
[2022-10-24] MEDS: POTASSIUM CHLORIDE / WTR 20 MEQ/100 ML PLCT IV SCH (02:00)
[2022-10-24 04:03] LABS: Partial Thromboplastin Ratio 1.1
[2022-10-24 04:08] LABS: Basophils # (auto) 0.06 K/uL (0-0.2); Basophils % (auto) 0.3 %; Eosinophils # (auto) 0.43 K/uL (0-0.50); Hematocrit (blood only) 25.5 % (42.0-52.0); Hemoglobin 8.6 g/dl (14.0-18.0); Immature Granulocytes # (auto) 0.54 K/uL (0.01-0.20); Immature Granulocytes % (auto) 2.5 %; Lymphocytes # (auto) 0.67 K/uL (1.2-3.4); Lymphocytes % (auto) 3.1 %; Mean Corpuscular Hemoglobin 30.8 pg (25.0-34.0); Mean Corpuscular Hgb Conc 33.7 g/dL (32.0-36.0); Mean Corpuscular Volume 91.4 fL (80.0-100.0); Mean Platelet Volume 9.2 fL (9.4-12.4); Monocytes % (auto) 10.7 %; Neutrophils # (auto) 17.42 K/uL (1.40-6.50); Neutrophils % (auto) 81.4 %; Platelet Count 254 K/uL (130-400); RDW Coefficient of Variation 14.3 % (11.5-14.5); RDW Standard Deviation 47.6 fL (36.4-46.3); Red Blood Count 2.79 M/uL (4.70-6.10); White Blood Count 21.42 K/ul (4.8-10.8)
[2022-10-24 04:31] LABS: Creatinine Clr Calc Pharmacy 113.6 ml/min; Est GFR (African American) 145.6 ml/min; Est GFR (Non-African American) 125.7 ml/min; Potassium 3.6 mmol/L (3.5-5.1)
[2022-10-24 04:32] LABS: Albumin Globulin Ratio 0.8 (0.9-2); Albumin Level 2.4 gm/dl (3.4-5.0); BUN Creatinine Ratio 71.4 (10-20); Bilirubin,Total 0.5 mg/dl (0.2-1.0); Calcium 7.8 mg/dl (8.5-10.1); Globulin 2.9 gm/dl (2.5-4.0); Total Protein 5.3 gm/dl (6.0-8.3)
[2022-10-24] MEDS ORDERED: POTASSIUM CHLORIDE / WTR 10 MEQ/100 ML PLCT IV ONE (04:49)
[2022-10-24] MEDS: CEFEPIME 2,000 MG in SYRINGE 0 ML IV SCH (05:15)
[2022-10-24] MEDS: DOXYCYCLINE HYCLATE 100 MG in DEXTROSE 5% 100 ML IV SCH ×2 (05:15→17:04)
[2022-10-24] MEDS ORDERED: ACETAMINOPHEN 1,000 MG/100 ML VIAL IV STA (05:24)
[2022-10-24] MEDS ORDERED: methylPREDNISolone 20 MG in SYRINGE 0 ML IV STA (05:30)
[2022-10-24] MEDS ORDERED: AMIODARONE / D5W 360 MG/200 ML BAG IV SCH (06:00)
--- NOTE | 2022-10-24 06:10 | Electrocardiogram Report ---
Test Reason : Blood Pressure : / mmHG Vent. Rate : 108 BPM Atrial Rate : 108 BPM P-R Int : 134 ms QRS Dur : 086 ms QT Int : 310 ms P-R-T Axes : 072 066 079 degrees QTc Int : 415 ms Sinus tachycardia Nonspecific ST abnormality Abnormal ECG When compared with ECG of 19-OCT-2022 11:10, No significant change was found Confirmed by Reji Vega ([id number]) on 10/24/2022 6:09:59 AM Referred By: REFERRED SELF Confirmed By:Reji Vega
[2022-10-24] MEDS ORDERED: XOPENEX/ATROVENT 1.25mg/0.5MG NEB COMBO NEB STA (06:38)
[2022-10-24] MEDS ORDERED: LEVALBUTEROL 1.25MG/0.5ML NEB INH STA (06:45)
[2022-10-24] MEDS ORDERED: IPRATROPIUM BROMIDE NEB SOLN 0.02% 2.5 ML VIAL INH STA (06:45)
--- NOTE | 2022-10-24 07:32 | Nephrology Progress Note ---
Date of Service October 24, 2022 Assessment & Plan (1) Hyponatremia: Plan: Nephrology consulted for hyponatremia on this 62 yr old with significant past medical history of Metastatic primary lung cancer, COPD, oropharygneal Dysphagia, Severe protein-calorie malnutrition S/P percutaneous endoscopic gastrostomy (PEG) tube placement Hyponatremia multifactorial depending on timing from volume depletion versus poor solute intake w/ background SIADH, last 24-36 hrs more the latter based on urine studies and other labs. - Na is in acceptable range w/ appropriate rates of correction -low K today again > repleted but will give another 60 mEq via PEG -continue urea -on 100 mL free water q4h >started on LR at 80 mL/hr overnight in addition to NS > d/t hypotension continue LR >recheck BMP ordered for 1400 >> recheck sodium, K FRANCK Jain is out now so UOP difficult to track - was on 10/22 polyuric with @ 6 lit urine , with [facility] of 130, water diureisis 2/ excessive fluid intake (oral and IV) Admission and Anticipated Discharge Date Admission Date: October 19, 2022 Subjective overnight pt had AF w RVR and soft BP; had amio, metoprolol IV as well as 500 mL bolus NS plus K 30 mEq IV and started on LR 80 ml/hr; denies pain, sob, n Review of Systems Review of Systems: All systems reviewed & are unremarkable except as noted in Subjective Physical Exam Constitutional: well developed and + cachectic; no acute distress Eyes: EOM intact bilaterally ENMT: Ears: no external ear abnormality Nose: no external nose abnormality Mouth: + dry oral mucous membranes (exceptionally dry) Neck: no nuchal rigidity Respiratory: normal respiratory effort and + tachypneic; no labored breathing Auscultation: + diminished lung sounds Cardiovascular: Rate/Rhythm: regular rhythm and + tachycardic Extremities: no edema Gastrointestinal (Abdomen): Inspection/Auscultation: normal bowel sounds and + scaphoid (feeding tube present) Percussion/Palpation: abdomen soft; abdomen nontender Musculoskeletal: Extremities: strength 5/5 throughout Skin: no rashes, warm and dry Neurologic: alert, responds appropriatley with head shakes Results & Data ([facility]) Vital Signs (Past 12 Hours) Vital Signs Temp Pulse Resp BP Pulse Ox O2 Del Method O2 Flow Rate 10/24/22 05:30 100 H 38 H 100 Room Air 10/24/22 05:30 104/51 L 10/24/22 05:00 96 H 33 H 100 10/24/22 05:00 89/49 L 10/24/22 04:46 93 H 32 H 100 Room Air 10/24/22 04:30 98 H 31 H 100 10/24/22 04:30 122/62 10/24/22 04:16 96 H 31 H 100 10/24/22 04:00 97 H 34 H 100 10/24/22 04:00 90/50 L 10/24/22 03:45 91 H 32 H 100 10/24/22 03:30 88/47 L 10/24/22 03:30 91 H 29 H 100 Oxymask 2 10/24/22 03:00 89 27 H 100 10/24/22 03:00 109/53 L 10/24/22 02:30 105/54 L 10/24/22 02:29 93 H 28 H 100 Oxymask 2 10/24/22 02:20 121/57 L 10/24/22 02:19 99 H 32 H 100 10/24/22 02:10 107/57 L 10/24/22 02:10 87 29 H 100 10/24/22 02:05 97/60 L 10/24/22 02:04 90 28 H 100 10/24/22 02:00 110 H 32 H 100 10/24/22 02:00 107/55 L 10/24/22 01:59 113/58 L 10/24/22 01:59 104 H 29 H 100 10/24/22 01:57 115/59 L 10/24/22 01:57 94 H 32 H 100 10/24/22 01:54 110 H 30 H 100 10/24/22 01:54 100/76 10/24/22 01:50 82/54 L 10/24/22 01:50 66 30 H 100 10/24/22 01:48 101/49 L 10/24/22 01:48 76 30 H 100 10/24/22 01:47 84/50 L 10/24/22 01:47 65 28 H 100 10/24/22 01:44 94/48 L 10/24/22 01:44 64 33 H 100 10/24/22 01:42 75 32 H 100 10/24/22 01:42 91/44 L 10/24/22 01:41 52 L 35 H 98 10/24/22 01:41 69/36 L 10/24/22 01:37 57 L 33 H 98 10/24/22 01:37 79/39 L 10/24/22 01:00 83 30 H 100 10/24/22 01:00 100/58 L 10/24/22 00:20 104/55 L 10/24/22 00:20 116 H 27 H 100 10/24/22 00:15 110/70 10/24/22 00:15 122 H 26 H 100 10/24/22 00:10 96 H 27 H 100 10/24/22 00:10 114/55 L 10/24/22 00:05 106/62 10/24/22 00:05 79 26 H 100 10/24/22 00:00 122 H 30 H 100 10/24/22 00:00 120/75 10/23/22 23:55 118/73 10/23/22 23:55 157 H 34 H 100 10/23/22 23:50 87 30 H 100 10/23/22 23:50 152/94 H 10/24/22 04:00 37.7 C H 10/24/22 00:00 155 H 10/24/22 00:00 37.4 C 10/23/22 23:44 155 H 10/23/22 23:34 174 H 10/23/22 21:00 117 H 32 H 91 10/23/22 20:00 110 H 25 H 10/23/22 20:00 111/60 10/23/22 21:28 Room Air 10/23/22 20:00 36.7 C Laboratory Results 10/24/22 02:23 10/24/22 02:23
--- NOTE | 2022-10-24 07:59 | XRay Report ---
XR chest 1V portable CLINICAL HISTORY: low o2 TECHNIQUE: Single frontal radiograph of the chest was obtained. Comparison: Comparison is made to chest radiograph 10/21/2022 FINDINGS: A port catheter is seen. Calcified aortic knob is seen. Right-sided airspace opacities have increased from prior exam. No evidence of pleural effusion or pneumothorax. IMPRESSION: Interval worsening of airspace opacities in the right compatible with infectious/ ACT 112: Negative or not required by law. Electronically signed by: Jerome Lacey M.D. 10/24/2022 7:58 AM
[2022-10-24] MEDS: POTASSIUM CHLORIDE 20 MEQ/15 ML UDC PEG ONE ×2 (08:12→12:09)
[2022-10-24] MEDS ORDERED: SODIUM CHLORIDE 0.9% 1000ML 250 ML IV ONE (08:16)
[2022-10-24] MEDS: APIXABAN 5 MG TABLET PO SCH ×2 (08:40→20:06)
[2022-10-24] MEDS: MULTI VIT W/MINERALS LIQUID 15 ML UDP PEG SCH (08:41)
[2022-10-24] MEDS: LANSOPRAZOLE 30 MG SOLTAB PEG SCH (08:41)
[2022-10-24] MEDS: UREA (UREA-NA) 15 GM PACK PO SCH ×2 (08:41→20:05)
[2022-10-24] MEDS ORDERED: METOPROLOL TARTRATE 25 MG TAB PO SCH (09:00)
[2022-10-24] MEDS ORDERED: PIPERACILLIN/TAZOBACTAM 3.375 GM in DEXTROSE 5% 100 ML IV ONE (09:45)
[2022-10-24 09:52] LABS: BUN Creatinine Ratio 106.7 (10-20); Creatinine Clr Calc Pharmacy 105.1 ml/min; Est GFR (African American) 141.6 ml/min; Est GFR (Non-African American) 122.1 ml/min; Potassium 3.8 mmol/L (3.5-5.1)
--- NOTE | 2022-10-24 12:10 | Cardiology Consultation ---
Date of Consultation October 24, 2022 Assessment & Plan (1) Paroxysmal atrial fibrillation with rapid ventricular response: (2) Metastatic primary lung cancer: Plan Patient is a critically ill 62-year-old male who relapsed into atrial fibrillation from baseline sinus tachycardia yesterday evening. He was treated with IV metoprolol and single dose of IV amiodarone before medication stopped secondary to hypotension. He has spontaneously returned to sinus rhythm Echocardiogram reveals preserved LV systolic function and left atrial size no significant valvular disease Recommendations: Patient already anticoagulated due to prior history of pulmonary embolus Rhythm being driven by patient's underlying significant illness. Would initiate chronic beta-keaton therapy usage initially inks with low-dose given low blood pressure with metoprolol succinate 12.5 mg every 6 hours per NG Continue anticoagulation Supplement potassium to greater than 4 If episodes of atrial fibrillation continue to recur would consider oral loading with amiodarone given poor tolerance of IV infusion History of Present Illness Reason for Consultation: Atrial fibrillation with rapid ventricular response Requesting Physician: Dr. Lazaro Attending Physician: Robb Menard MD History of Present Illness Patient is a 62-year-old male with complex constellation of medical issues as outlined in chart but include 1. Stage IV metastatic lung cancer 2. Pulmonary embolus July 2022 3. Marked cachexia dysphagia, PEG tube in place Patient currently hospitalized for acute decline possible sepsis in the intensive care unit. Last evening patient lapsed into atrial fibrillation with rapid response converting from sinus tachycardia and atrial fibrillation. Patient was treated with IV metoprolol x3 then on IV amiodarone. Patient had associated hypotension and amiodarone was discontinued. He since returned to sinus rhythm Blood pressures remain soft with intermittent hypotension. Electrolytes being replaced Patient unable to voice acute complaints Allergies Allergy/AdvReac Type Severity Reaction Status Date / Time No Known Allergies Allergy NONE Verified 09/25/22 07:13 Home Medications Medication Instructions Recorded Confirmed Type acetaminophen 500 mg tablet 1,000 mg feeding tube TID PRN Pain 10/10/22 10/19/22 Rx (Tylenol Extra Strength) #20 tabs apixaban 5 mg tablet (Eliquis) 5 mg feeding tube BID 30 days #60 10/10/22 10/19/22 Rx tabs folic acid 1 mg tablet 1 mg feeding tube UD #10 tabs 10/10/22 10/19/22 Rx lansoprazole 30 mg delayed 30 mg PO DAILY 30 days #30 tabs 10/10/22 10/19/22 Rx release,disintegrating tablet (Prevacid SoluTab) multivitamin 1 tab feeding tube QAM #10 tabs 10/10/22 10/19/22 Rx ondansetron HCl 8 mg tablet 8 mg feeding tube Q8 PRN Nausea 10/10/22 10/19/22 Rx #10 tabs oxycodone 5 mg tablet 5 mg feeding tube Q4H PRN pain #10 10/10/22 10/19/22 Rx tabs sodium chloride 1,000 mg soluble 1,000 mg PO BID 10/19/22 10/19/22 History tablet Patient History Medical History (Updated 10/24/22 @ 12:28 by Edwar Singh MD) Chest pain "has this off and on, from his cancer" COPD (chronic obstructive pulmonary disease) Dysphagia Esophageal dilatation GERD (gastroesophageal reflux disease) History of alcohol dependence per [facility] records History of COVID-19 2019, not hosp; mild symptoms>resolved. Ischemic stroke Metastatic primary lung cancer mets to mediastinum, liver, bone, adrenal and possibly kidneys per heme/onc note; "no CVS metastases" Pulmonary embolism 07/2022, currently on eliquis; f/u dr. sandoval Secondary carcinoma of bone Severe protein-calorie malnutrition Surgical History History of bronchoscopy History of esophagogastroduodenoscopy (EGD) Hx of colonoscopy Port-A-Cath in place (09/25/22) Insertion Access Port Left Cephalic(Left)With fluoroscopic guidance with fluoroscopic guided- Padilla Enriquez MD, FACS Family History Mother , Mom at 65 y/o Diabetes Lung cancer Myocardial infarction Hypertension Father , Dad passed at at 53 y/o Diabetes Lung cancer Brother , at 65 y/o Cancer throat cancer Brother Cancer Pt not sure of type of cancer Sister No problems noted. Sister No problems noted. Sister No problems noted. Sister No problems noted. Other No pertinent family history Denies family history of Heart disease Kidney disease Pulmonary embolism Social History Smoking Status: Former smoker Tobacco Type: Cigarettes Age Started Using Tobacco: 12; Age Quit Using Tobacco: 51; Cigarettes Per Day: 1pk/every 3 day; Second Hand Exposure: No; Hx Alcohol Use: No Hx Substance Use: No Preferred Language: Arabic Communication Ability: Effective Visual Impairment: No Limitations Hearing Ability: Normal Manager Film Required: No Beliefs That Will Affect Care: Spiritual marital status: Current Living Situation: Spouse Current Living Situation Comment: And wifes mother current occupational status: employed 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 [employer] How many Children do You have: 0 Feels Safe at Home: Yes caffeine: Yes (2 cups/day) during the past year weight has: decreased > 10 lbs Assistive Devices: None Review of Systems Review of Systems: Unobtainable due to cognitive status Physical Exam Constitutional: + ill appearing and + cachectic Cardiovascular: Rate/Rhythm: regular rate and regular rhythm Heart Sounds: no murmur Vessels: no JVD Extremities: no edema Gastrointestinal (Abdomen): Percussion/Palpation: abdomen soft PEG tube in place Results & Data ([facility]) Vital Signs (Past 12 Hours) Vital Signs Temp Pulse Pulse Resp BP Pulse Ox O2 Del Method 10/24/22 10:31 92 H 32 H 104/54 L 93 Room Air 10/24/22 10:00 93 H 28 H 84/49 L 94 Room Air 10/24/22 09:57 92 H 32 H 90/48 L 93 Room Air 10/24/22 09:00 93 H 24 88/48 L 93 Room Air 10/24/22 08:35 91 H 32 H 95/55 L 92 Room Air 10/24/22 08:18 91 H 26 H 91/47 L 94 Room Air 10/24/22 08:00 89 28 H 88/45 L 93 Room Air 10/24/22 07:22 92 H 34 H 97/52 L 95 Room Air 10/24/22 07:00 94 H 34 H 94/47 L 95 Room Air 10/24/22 07:00 Room Air 10/24/22 07:00 36.4 C L 10/24/22 07:32 89 20 95 Room Air 10/24/22 05:30 100 H 38 H 100 Room Air 10/24/22 05:30 104/51 L 10/24/22 05:00 96 H 33 H 100 10/24/22 05:00 89/49 L 10/24/22 04:46 93 H 32 H 100 Room Air 10/24/22 04:30 98 H 31 H 100 10/24/22 04:30 122/62 10/24/22 04:16 96 H 31 H 100 10/24/22 04:00 97 H 34 H 100 10/24/22 04:00 90/50 L 10/24/22 03:45 91 H 32 H 100 10/24/22 03:30 88/47 L 10/24/22 03:30 91 H 29 H 100 Oxymask 10/24/22 03:00 89 27 H 100 10/24/22 03:00 109/53 L 10/24/22 02:30 105/54 L 10/24/22 02:29 93 H 28 H 100 Oxymask 10/24/22 02:20 121/57 L 10/24/22 02:19 99 H 32 H 100 10/24/22 02:10 107/57 L 10/24/22 02:10 87 29 H 100 10/24/22 02:05 97/60 L 10/24/22 02:04 90 28 H 100 10/24/22 02:00 110 H 32 H 100 10/24/22 02:00 107/55 L 10/24/22 01:59 113/58 L 10/24/22 01:59 104 H 29 H 100 10/24/22 01:57 115/59 L 10/24/22 01:57 94 H 32 H 100 10/24/22 01:54 110 H 30 H 100 10/24/22 01:54 100/76 10/24/22 01:50 82/54 L 10/24/22 01:50 66 30 H 100 10/24/22 01:48 101/49 L 10/24/22 01:48 76 30 H 100 10/24/22 01:47 84/50 L 10/24/22 01:47 65 28 H 100 10/24/22 01:44 94/48 L 10/24/22 01:44 64 33 H 100 10/24/22 01:42 75 32 H 100 10/24/22 01:42 91/44 L 10/24/22 01:41 52 L 35 H 98 10/24/22 01:41 69/36 L 10/24/22 01:37 57 L 33 H 98 10/24/22 01:37 79/39 L 10/24/22 01:00 83 30 H 100 10/24/22 01:00 100/58 L 10/24/22 00:20 104/55 L 10/24/22 00:20 116 H 27 H 100 10/24/22 00:15 110/70 10/24/22 00:15 122 H 26 H 100 10/24/22 00:10 96 H 27 H 100 10/24/22 00:10 114/55 L 10/24/22 04:00 37.7 C H O2 Flow Rate 10/24/22 10:31 10/24/22 10:00 10/24/22 09:57 10/24/22 09:00 10/24/22 08:35 10/24/22 08:18 10/24/22 08:00 10/24/22 07:22 10/24/22 07:00 10/24/22 07:00 10/24/22 07:00 10/24/22 07:32 10/24/22 05:30 10/24/22 05:30 10/24/22 05:00 10/24/22 05:00 10/24/22 04:46 10/24/22 04:30 10/24/22 04:30 10/24/22 04:16 10/24/22 04:00 10/24/22 04:00 10/24/22 03:45 10/24/22 03:30 10/24/22 03:30 2 10/24/22 03:00 10/24/22 03:00 10/24/22 02:30 10/24/22 02:29 2 10/24/22 02:20 10/24/22 02:19 10/24/22 02:10 10/24/22 02:10 10/24/22 02:05 10/24/22 02:04 10/24/22 02:00 10/24/22 02:00 10/24/22 01:59 10/24/22 01:59 10/24/22 01:57 10/24/22 01:57 10/24/22 01:54 10/24/22 01:54 10/24/22 01:50 10/24/22 01:50 10/24/22 01:48 10/24/22 01:48 10/24/22 01:47 10/24/22 01:47 10/24/22 01:44 10/24/22 01:44 10/24/22 01:42 10/24/22 01:42 10/24/22 01:41 10/24/22 01:41 10/24/22 01:37 10/24/22 01:37 10/24/22 01:00 10/24/22 01:00 10/24/22 00:20 10/24/22 00:20 10/24/22 00:15 10/24/22 00:15 10/24/22 00:10 10/24/22 00:10 10/24/22 04:00 Laboratory Results Laboratory Results - last 24 hr 10/23/22 10/23/22 10/24/22 15:50 23:32 00:53 WBC RBC Hgb Hct MCV MCH MCHC RDW Std Deviation RDW Coeff of Sheeba Plt Count MPV Immature Gran % (Auto) Neut % (Auto) Lymph % (Auto) [place] % (Auto) Eos % (Auto) Baso % (Auto) Neut # (Auto) Lymph # (Auto) [place] # (Auto) Eos # (Auto) Baso # (Auto) Immature Gran # (Auto) APTT PTT Ratio ABG pH 7.50 H ABG pCO2 34 L ABG pO2 104 H ABG HCO3 27 H ABG O2 Saturation 99.6 H ABG Base Excess 3.6 H Guero Test Pos Oxygen Given 3L Sodium 129 L 130 L Potassium 4.0 D 3.6 Chloride 95 L 93 L Carbon Dioxide 32 31 Anion Gap 2 L 6 BUN 16 43 H D Creatinine 0.42 L 0.46 L Est Cr Clr Drug Dosing 113.6 103.8 Est GFR ( Amer) 145.6 140.3 Est GFR (Non-Af Amer) 125.7 121.0 BUN/Creatinine Ratio 38.1 H 93.5 H Glucose 110 H 114 H POC Glucose Osmolality Lactate Calcium 8.3 L 8.8 Phosphorus 2.8 Magnesium 1.7 Total Bilirubin AST ALT Alkaline Phosphatase Ammonia Total Protein Albumin Globulin Albumin/Globulin Ratio Urine Osmolality Ur Random Sodium 10/24/22 10/24/22 10/24/22 01:41 01:58 02:23 WBC 21.42 H RBC 2.79 L Hgb 8.6 L Hct 25.5 L MCV 91.4 MCH 30.8 MCHC 33.7 RDW Std Deviation 47.6 H RDW Coeff of Sheeba 14.3 Plt Count 254 MPV 9.2 L Immature Gran % (Auto) 2.5 Neut % (Auto) 81.4 Lymph % (Auto) 3.1 [place] % (Auto) 10.7 Eos % (Auto) 2.0 Baso % (Auto) 0.3 Neut # (Auto) 17.42 H Lymph # (Auto) 0.67 L [place] # (Auto) 2.30 H Eos # (Auto) 0.43 Baso # (Auto) 0.06 Immature Gran # (Auto) 0.54 H APTT 31.0 PTT Ratio 1.1 ABG pH ABG pCO2 ABG pO2 ABG HCO3 ABG O2 Saturation ABG Base Excess Guero Test Oxygen Given Sodium Potassium Chloride Carbon Dioxide Anion Gap BUN Creatinine Est Cr Clr Drug Dosing Est GFR ( Amer) Est GFR (Non-Af Amer) BUN/Creatinine Ratio Glucose POC Glucose 118 H Osmolality Lactate Calcium Phosphorus Magnesium Total Bilirubin AST ALT Alkaline Phosphatase Ammonia Total Protein Albumin Globulin Albumin/Globulin Ratio Urine Osmolality Ur Random Sodium 10/24/22 10/24/22 10/24/22 02:23 02:23 02:23 WBC RBC Hgb Hct MCV MCH MCHC RDW Std Deviation RDW Coeff of Sheeba Plt Count MPV Immature Gran % (Auto) Neut % (Auto) Lymph % (Auto) [place] % (Auto) Eos % (Auto) Baso % (Auto) Neut # (Auto) Lymph # (Auto) [place] # (Auto) Eos # (Auto) Baso # (Auto) Immature Gran # (Auto) APTT PTT Ratio ABG pH ABG pCO2 ABG pO2 ABG HCO3 ABG O2 Saturation ABG Base Excess Guero Test Oxygen Given Sodium 130 L Potassium 3.6 Chloride 97 L Carbon Dioxide 27 Anion Gap 6 BUN 30 H Creatinine 0.42 L Est Cr Clr Drug Dosing 113.6 Est GFR ( Amer) 145.6 Est GFR (Non-Af Amer) 125.7 BUN/Creatinine Ratio 71.4 H Glucose 126 H POC Glucose Osmolality 274 L Lactate 1.0 Calcium 7.8 L Phosphorus Magnesium Total Bilirubin 0.5 AST 31 ALT 46 Alkaline Phosphatase 105 H Ammonia Total Protein 5.3 L Albumin 2.4 L Globulin 2.9 Albumin/Globulin Ratio 0.8 L Urine Osmolality Ur Random Sodium 10/24/22 10/24/22 10/24/22 05:46 09:15 Unknown WBC RBC Hgb Hct MCV MCH MCHC RDW Std Deviation RDW Coeff of Sheeba Plt Count MPV Immature Gran % (Auto) Neut % (Auto) Lymph % (Auto) [place] % (Auto) Eos % (Auto) Baso % (Auto) Neut # (Auto) Lymph # (Auto) [place] # (Auto) Eos # (Auto) Baso # (Auto) Immature Gran # (Auto) APTT PTT Ratio ABG pH ABG pCO2 ABG pO2 ABG HCO3 ABG O2 Saturation ABG Base Excess Guero Test Oxygen Given Sodium 130 L Potassium 3.8 Chloride 97 L Carbon Dioxide 27 Anion Gap 6 BUN 48 H Creatinine 0.45 L Est Cr Clr Drug Dosing 105.1 Est GFR ( Amer) 141.6 Est GFR (Non-Af Amer) 122.1 BUN/Creatinine Ratio 106.7 H Glucose 208 H POC Glucose Osmolality Lactate Calcium 8.0 L Phosphorus Magnesium Total Bilirubin AST ALT Alkaline Phosphatase Ammonia 17.0 L Total Protein Albumin Globulin Albumin/Globulin Ratio Urine Osmolality 465 L Ur Random Sodium 10/24/22 Unknown WBC RBC Hgb Hct MCV MCH MCHC RDW Std Deviation RDW Coeff of Sheeba Plt Count MPV Immature Gran % (Auto) Neut % (Auto) Lymph % (Auto) [place] % (Auto) Eos % (Auto) Baso % (Auto) Neut # (Auto) Lymph # (Auto) [place] # (Auto) Eos # (Auto) Baso # (Auto) Immature Gran # (Auto) APTT PTT Ratio ABG pH ABG pCO2 ABG pO2 ABG HCO3 ABG O2 Saturation ABG Base Excess Guero Test Oxygen Given Sodium Potassium Chloride Carbon Dioxide Anion Gap BUN Creatinine Est Cr Clr Drug Dosing Est GFR ( Amer) Est GFR (Non-Af Amer) BUN/Creatinine Ratio Glucose POC Glucose Osmolality Lactate Calcium Phosphorus Magnesium Total Bilirubin AST ALT Alkaline Phosphatase Ammonia Total Protein Albumin Globulin Albumin/Globulin Ratio Urine Osmolality Ur Random Sodium 115 Diagnostic Findings Echocardiogram 10/24/2022 There is normal left ventricular size and function. Normal left atrial size. Mild aortic insufficiency is present
--- NOTE | 2022-10-24 12:17 | Gastrointestinal Consultation ---
Date of Consultation October 24, 2022 Assessment & Plan (1) Dysphagia, oropharyngeal: Dysphagia, S/P PEG tube placement. This is aknown possible adverse event w PEG tubes. they do not prevent aspiration from liquids refluxing back up from the stomach. Plan Would change continuous feedings to bolus and would have pt be sitting upright during the feeding and for an hour after. Will add metoclopramide 10mg TID - short term (for a few weeks). Check residuals prior to feedings and hold if large residual (will defer actual orders w guidelines as to when to hold to primary hospitalists). Abd X-ray. There was ileus mentioned on CT on arrival, though pt does not have any abd distention he is likely mildly constipated. Most recent BM (per nursing documentation) was 2 days ago. Recommend one Dulcolax suppository today and would repeat ongoing if no BM in 48 hrs. Supervising Physician Co-Signing Physician Notes Pe as noted above Unfortunately peg tube do not preclude aspiration and review of the gi notes prior to peg tube insertion showed this was discussed with the patient as well. Agree with further plan of care as documented - the volume of continuous feeds may be too much thereby possibly contributing to mild aspiration, would consider short term regland, bolus feeds with feeds being done in an upright manner and for an hour after that, in addition to checking residuals and not resuming feed if a large residual is noted. As sy stated, consideration of a bowel regimen may help as well as constipation may also be a slight contributing factor especially given limited physical mobility at this time. History of Present Illness Reason for Consultation: Aspiration S/P PEG Requesting Physician: Dr. Menard Attending Physician: Robb Menard MD History of Present Illness Mr. Bang Barrios is a 62 yr old male pt of Dr. Lundy w a hx of A-fib, COPD, Lung cancer w mets to lymph and bones, on palliative radiation, bilateral PEs on Eliquis, malnutrition who had a PEG placed on 10/06/22 for dysphagia. He has been receiving continual PEG feedings. When asked he indicates that he hasn't been sitting up much at home, mostly laying down. He was admitted from the cancer center on 10/19 when he was there for tx, but was hypotensive. Imaging w RLL pneumonia. CXR is actually a bit worsened today compared to prior despite antibiotic tx, IV fluids. Allergies Allergy/AdvReac Type Severity Reaction Status Date / Time No Known Allergies Allergy NONE Verified 09/25/22 07:13 Home Medications Medication Instructions Recorded Confirmed Type acetaminophen 500 mg tablet 1,000 mg feeding tube TID PRN Pain 10/10/22 10/19/22 Rx (Tylenol Extra Strength) #20 tabs apixaban 5 mg tablet (Eliquis) 5 mg feeding tube BID 30 days #60 10/10/22 10/19/22 Rx tabs folic acid 1 mg tablet 1 mg feeding tube UD #10 tabs 10/10/22 10/19/22 Rx lansoprazole 30 mg delayed 30 mg PO DAILY 30 days #30 tabs 10/10/22 10/19/22 Rx release,disintegrating tablet (Prevacid SoluTab) multivitamin 1 tab feeding tube QAM #10 tabs 10/10/22 10/19/22 Rx ondansetron HCl 8 mg tablet 8 mg feeding tube Q8 PRN Nausea 10/10/22 10/19/22 Rx #10 tabs oxycodone 5 mg tablet 5 mg feeding tube Q4H PRN pain #10 10/10/22 10/19/22 Rx tabs sodium chloride 1,000 mg soluble 1,000 mg PO BID 10/19/22 10/19/22 History tablet Patient History Medical History (Updated 10/24/22 @ 12:28 by Edwar Singh MD) Chest pain "has this off and on, from his cancer" COPD (chronic obstructive pulmonary disease) Dysphagia Esophageal dilatation GERD (gastroesophageal reflux disease) History of alcohol dependence per [facility] records History of COVID-19 2019, not hosp; mild symptoms>resolved. Ischemic stroke Metastatic primary lung cancer mets to mediastinum, liver, bone, adrenal and possibly kidneys per heme/onc note; "no CVS metastases" Pulmonary embolism 07/2022, currently on eliquis; f/u dr. sandoval Secondary carcinoma of bone Severe protein-calorie malnutrition Surgical History History of bronchoscopy History of esophagogastroduodenoscopy (EGD) Hx of colonoscopy Port-A-Cath in place (09/25/22) Insertion Access Port Left Cephalic(Left)With fluoroscopic guidance with fluoroscopic guided- Padilla Enriquez MD, FACS Family History Mother , Mom at 65 y/o Diabetes Lung cancer Myocardial infarction Hypertension Father , Dad passed at at 53 y/o Diabetes Lung cancer Brother , at 65 y/o Cancer throat cancer Brother Cancer Pt not sure of type of cancer Sister No problems noted. Sister No problems noted. Sister No problems noted. Sister No problems noted. Other No pertinent family history Denies family history of Heart disease Kidney disease Pulmonary embolism Social History Smoking Status: Former smoker Tobacco Type: Cigarettes Age Started Using Tobacco: 12; Age Quit Using Tobacco: 51; Cigarettes Per Day: 1pk/every 3 day; Second Hand Exposure: No; Hx Alcohol Use: No Hx Substance Use: No Preferred Language: Swedish Communication Ability: Effective Visual Impairment: No Limitations Hearing Ability: Normal Geographic Area Intelligence Officer Required: No Beliefs That Will Affect Care: Spiritual marital status: Current Living Situation: Spouse Current Living Situation Comment: And wifes mother current occupational status: employed 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 + febrile early this morning Eyes: No eye redness, or pain, no recent vision changes Resp: Denies feeling SOB, no cough Cardio: No palpitations/irregular beats, no chest pain GI: Denies abdominal pain, No N/V : Denies pain on urination Skin: No jaundice, itching or new rashes Physical Exam Constitutional: + ill appearing (chronically), + cachectic, + frail appearing and comfortable; no acute distress appears fatigued but is awake, alert. Has a very quiet voice but is able to communicate mostly w gestures and tries to talk. Eyes: PERRL, conjunctivae normal, anicteric sclerae ENMT: external ear and nose normal, oropharynx normal Neck: trachea midline, no thyromegaly Respiratory: Diminished lung sounds at the bases, Rt sl quieter than left but no wheezing or crackles. Cardiovascular: RRR, no murmur, no edema Gastrointestinal (Abdomen): Abd concave, non tender, BS present. PEG tube in place, small amt of dried blood around the site, no evidence of any leaking or irritation at the site. Musculoskeletal: no cyanosis or clubbing, extremities motor strength 5/5 Skin: no rashes, warm and dry Neurologic: PERRL, EOMI, accommodation nl, no face palsy, no dysarthria Psychiatric: A+Ox3, euthymic affect Lymphatic: no cervical or axillary lymphadenopathy Results & Data ([facility] Vital Signs (Past 12 Hours) Vital Signs Temp Pulse Pulse Resp BP Pulse Ox O2 Del Method 10/24/22 10:31 92 H 32 H 104/54 L 93 Room Air 10/24/22 10:00 93 H 28 H 84/49 L 94 Room Air 10/24/22 09:57 92 H 32 H 90/48 L 93 Room Air 10/24/22 09:00 93 H 24 88/48 L 93 Room Air 10/24/22 08:35 91 H 32 H 95/55 L 92 Room Air 10/24/22 08:18 91 H 26 H 91/47 L 94 Room Air 10/24/22 08:00 89 28 H 88/45 L 93 Room Air 10/24/22 07:22 92 H 34 H 97/52 L 95 Room Air 10/24/22 07:00 94 H 34 H 94/47 L 95 Room Air 10/24/22 07:00 Room Air 10/24/22 07:00 36.4 C L 10/24/22 07:32 89 20 95 Room Air 10/24/22 05:30 100 H 38 H 100 Room Air 10/24/22 05:30 104/51 L 10/24/22 05:00 96 H 33 H 100 10/24/22 05:00 89/49 L 10/24/22 04:46 93 H 32 H 100 Room Air 10/24/22 04:30 98 H 31 H 100 10/24/22 04:30 122/62 10/24/22 04:16 96 H 31 H 100 10/24/22 04:00 97 H 34 H 100 10/24/22 04:00 90/50 L 10/24/22 03:45 91 H 32 H 100 10/24/22 03:30 88/47 L 10/24/22 03:30 91 H 29 H 100 Oxymask 10/24/22 03:00 89 27 H 100 10/24/22 03:00 109/53 L 10/24/22 02:30 105/54 L 10/24/22 02:29 93 H 28 H 100 Oxymask 10/24/22 02:20 121/57 L 10/24/22 02:19 99 H 32 H 100 10/24/22 02:10 107/57 L 10/24/22 02:10 87 29 H 100 10/24/22 02:05 97/60 L 10/24/22 02:04 90 28 H 100 10/24/22 02:00 110 H 32 H 100 10/24/22 02:00 107/55 L 10/24/22 01:59 113/58 L 10/24/22 01:59 104 H 29 H 100 10/24/22 01:57 115/59 L 10/24/22 01:57 94 H 32 H 100 10/24/22 01:54 110 H 30 H 100 10/24/22 01:54 100/76 10/24/22 01:50 82/54 L 10/24/22 01:50 66 30 H 100 10/24/22 01:48 101/49 L 10/24/22 01:48 76 30 H 100 10/24/22 01:47 84/50 L 10/24/22 01:47 65 28 H 100 10/24/22 01:44 94/48 L 10/24/22 01:44 64 33 H 100 10/24/22 01:42 75 32 H 100 10/24/22 01:42 91/44 L 10/24/22 01:41 52 L 35 H 98 10/24/22 01:41 69/36 L 10/24/22 01:37 57 L 33 H 98 10/24/22 01:37 79/39 L 10/24/22 01:00 83 30 H 100 10/24/22 01:00 100/58 L 10/24/22 00:20 104/55 L 10/24/22 00:20 116 H 27 H 100 10/24/22 00:15 110/70 10/24/22 00:15 122 H 26 H 100 10/24/22 04:00 37.7 C H O2 Flow Rate 10/24/22 10:31 10/24/22 10:00 10/24/22 09:57 10/24/22 09:00 10/24/22 08:35 10/24/22 08:18 10/24/22 08:00 10/24/22 07:22 10/24/22 07:00 10/24/22 07:00 10/24/22 07:00 10/24/22 07:32 10/24/22 05:30 10/24/22 05:30 10/24/22 05:00 10/24/22 05:00 10/24/22 04:46 10/24/22 04:30 10/24/22 04:30 10/24/22 04:16 10/24/22 04:00 10/24/22 04:00 10/24/22 03:45 10/24/22 03:30 10/24/22 03:30 2 10/24/22 03:00 10/24/22 03:00 10/24/22 02:30 10/24/22 02:29 2 10/24/22 02:20 10/24/22 02:19 10/24/22 02:10 10/24/22 02:10 10/24/22 02:05 10/24/22 02:04 10/24/22 02:00 10/24/22 02:00 10/24/22 01:59 10/24/22 01:59 10/24/22 01:57 10/24/22 01:57 10/24/22 01:54 10/24/22 01:54 10/24/22 01:50 10/24/22 01:50 10/24/22 01:48 10/24/22 01:48 10/24/22 01:47 10/24/22 01:47 10/24/22 01:44 10/24/22 01:44 10/24/22 01:42 10/24/22 01:42 10/24/22 01:41 10/24/22 01:41 10/24/22 01:37 10/24/22 01:37 10/24/22 01:00 10/24/22 01:00 10/24/22 00:20 10/24/22 00:20 10/24/22 00:15 10/24/22 00:15 10/24/22 04:00 Laboratory Results WBC 21, Hb 8.6, Hct 25.5, plts 254, Na 130, K 3.8, CL 97, CO229,BUN 48, Cr 0.45, glucose 208. Albumin 2.4. T Bili 0.5, AST 31, ALT 46, ALk PHos 105. Diagnostic Findings CTAP w IV contrast 10/19/22: 1. Interval progression of the metastatic disease 2. Heterogeneous appearance to the kidneys which could be due to slight delayed nephrograms given the fullness within the renal collecting systems and distended bladder. Recommend correlation with urinalysis. 3. Mildly dilated fluid-filled and stool-filled loops of large and small bowel seen throughout the abdomen. No definite transition point to suggest an obstruction. Therefore, this favors an ileus. 4. There are new mild superior endplate pathologic fractures at L2 and L4. 5. Pathologic fracture noted within the left T11 pedicle/facet. Left paravertebral soft tissue extension as well as mild left-sided epidural extension at the T11-T12 level. No significant central canal stenosis. There is also soft tissue extension within the left T11-T12 neural foramen resulting in severe stenosis. 6. Lytic lesion within the right posterior proximal femur which measures 1 cm. Of note, this lesion elevates the patient's risk for a pathologic fracture at this location.
[2022-10-24] MEDS ORDERED: bisacodyL 10 MG SUPP PR PRN (12:41)
[2022-10-24] MEDS ORDERED: bisacodyL 10 MG SUPP PR STA (12:41)
[2022-10-24] MEDS: METOPROLOL TARTRATE 25 MG TAB PO SCH ×3 (13:07→23:03)
--- NOTE | 2022-10-24 13:18 | XRay Report ---
KUB CLINICAL HISTORY: Ileus. Constipation. FINDINGS: AP supine abdominal radiograph is compared to study dated 10/04/2022 and correlated with abd ominal CT dated 10/29/2022. A gastrostomy tube projects over the left upper quadrant. There is no radi ographic evidence of bowel obstruction. Moderate fecal retention is seen throughout the colon. No stephen dence of intraperitoneal free air is seen on this supine image. No abnormal abdominal calcifications are identified. The skeletal structures are osteopenic and grossly intact. Metastatic bone disease se en by CT is not apparent on x-ray. IMPRESSION: 1. Nonobstructed bowel gas pattern 2. Moderate colonic fecal retention. Electronically signed by: Sascha Kaba M.D. 10/24/2022 1:16 PM
--- NOTE | 2022-10-24 13:18 | Hospitalist Progress Note ---
Date of Service October 24, 2022 Assessment & Plan (1) Severe sepsis: (2) Hypoxia: (3) Metastatic primary lung cancer: (4) COPD (chronic obstructive pulmonary disease): (5) Dysphagia, oropharyngeal: (6) Severe protein-calorie malnutrition: (7) S/P percutaneous endoscopic gastrostomy (PEG) tube placement: Plan: 62-year-old male with lung cancer with bone metastasis, recent diagnosis of acute PE on Eliquis, recent diagnosis of dysphagia, status post PEG tube placement 2 weeks ago, COPD, severe protein calorie malnutrition, Presenting with hypotension, hypoxia. Septic Shock Acute respiratory failure with hypoxia secondary to possible gram-negative and/or aspiration pneumonia Lung cancer with bone metastasis COPD --Required IV fluids, hydrocortisone IV tapering dose --CT chest: 1 There is no evidence of pulmonary embolus in the main, lobar, or segmental pulmonary arteries. 2. Multifocal tree-in-bud consolidation throughout both lungs is new from previous. This is greatest at the left lung base and is likely in fectious/inflammatory. 3. Advanced emphysema. 4. Numerous pulmonary lesions are similar to previous and consistent with multifocal neoplasm. 5. There is evidence of multifocal osseous metastatic disease with pathologic fractures of the left posterolateral 7th and 10th ribs. 6. Metastatic disease is seen in the upper abdomen within the liver, spleen, and adrenal glands. 7. Metastatic right hilar and mediastinal lymphadenopathy is unchanged. 8. Trace pleural effusions --Gradually improved, weaned off BiPAP and oxygen supplement -- Blood cultures: Negative -- Given cefepime + Doxycycline x5 days -- Completed course of IV hydrocortisone 10/24 Patient went into [facility] overnight Repeat chest x-ray:Interval worsening of airspace opacities in the right compatible with infection Remains on room air, afebrile, but with persistent leukocytosis Possible recurrent aspiration? Transition from cefepime day #5 to Zosyn IV day #1 Continue doxycycline day #5 Dysphagia, status post PEG tube placement Severe protein calorie malnutrition -- Currently on continuous tube Feeding with free water flushes 100 cc every 4 hours Possible recurrent aspiration? --GI consulted Atrial fibrillation RVR, new diagnosis -- Already on Eliquis for recent diagnosis of acute PE Metoprolol 25 mg twice daily started --We will get echocardiogram -- Cardiology service consulted History of acute pulmonary embolism --Diagnosed last month -- continue Eliquis Anemia, Acute Hg 7.2 1 unit pRBC ordered no signs of active bleeding Hg stable around 8 since transfusion Becky resumed Hyponatremia Multifactorial, including hypovolemia Normal saline ordered Na 129--> 130 Nephrology service consulted, appreciate the recommendations DVT PPx: - teds, scds, Becky CODE: Full code Dispo: Lives at home with his PT and OT evaluation (8) Hyponatremia: Admission and Anticipated Discharge Date Admission Date: October 19, 2022 Subjective Follow-up for sepsis, pneumonia, etc. Patient developed atrial fibrillation and RVR overnight Received metoprolol IV, amiodarone drip Heart rate improved Seen resting in bed, not in distress, appears tired Denies shortness of breath, chest pain, palpitations, dizziness, nausea Denies cough, fevers or chills No issues with continuous tube feeding with free water flushes, per barrel bridge assembler of Systems Review of Systems: all noted and negative except for above Physical Exam Physical Exam: General- oriented x 3, not in distress, speaks in sentences with no effort or accessory muscle use Tired Eyes- anicteric Neck- no JVD Lungs-mild rales at the right base, clear on the left No wheezing Heart- normal rate, irregularly irregular rhythm; no murmurs Abdomen- normal bowel sounds, nondistended, soft, nontender PEG tube in place-no issues noted Extremities- no pretibial edema, no calf tenderness Neuro- alert, oriented x 3; no gross focal neurologic deficits Skin- warm & dry Results & Data Results & Data ([facility]) Vital Signs (Past 12 Hours) Vital Signs Temp Pulse Pulse Resp BP Pulse Ox O2 Del Method 10/24/22 12:00 90 27 H 89/47 L 94 Oxymask 10/24/22 11:53 93 H 25 H 95/41 L 94 Oxymask 10/24/22 11:07 102 H 29 H 87/55 L 88 L Room Air 10/24/22 11:00 92 H 31 H 85/47 L 95 Room Air 10/24/22 11:00 36.5 C 10/24/22 10:31 92 H 32 H 104/54 L 93 Room Air 10/24/22 10:00 93 H 28 H 84/49 L 94 Room Air 10/24/22 09:57 92 H 32 H 90/48 L 93 Room Air 10/24/22 09:00 93 H 24 88/48 L 93 Room Air 10/24/22 08:35 91 H 32 H 95/55 L 92 Room Air 10/24/22 08:18 91 H 26 H 91/47 L 94 Room Air 10/24/22 08:00 89 28 H 88/45 L 93 Room Air 10/24/22 07:22 92 H 34 H 97/52 L 95 Room Air 10/24/22 07:00 94 H 34 H 94/47 L 95 Room Air 10/24/22 07:00 Room Air 10/24/22 07:00 36.4 C L 10/24/22 07:32 89 20 95 Room Air 10/24/22 05:30 100 H 38 H 100 Room Air 10/24/22 05:30 104/51 L 10/24/22 05:00 96 H 33 H 100 10/24/22 05:00 89/49 L 10/24/22 04:46 93 H 32 H 100 Room Air 10/24/22 04:30 98 H 31 H 100 10/24/22 04:30 122/62 10/24/22 04:16 96 H 31 H 100 10/24/22 04:00 97 H 34 H 100 10/24/22 04:00 90/50 L 10/24/22 03:45 91 H 32 H 100 10/24/22 03:30 88/47 L 10/24/22 03:30 91 H 29 H 100 Oxymask 10/24/22 03:00 89 27 H 100 10/24/22 03:00 109/53 L 10/24/22 02:30 105/54 L 10/24/22 02:29 93 H 28 H 100 Oxymask 10/24/22 02:20 121/57 L 10/24/22 02:19 99 H 32 H 100 10/24/22 02:10 107/57 L 10/24/22 02:10 87 29 H 100 10/24/22 02:05 97/60 L 10/24/22 02:04 90 28 H 100 10/24/22 02:00 110 H 32 H 100 10/24/22 02:00 107/55 L 10/24/22 01:59 113/58 L 10/24/22 01:59 104 H 29 H 100 10/24/22 01:57 115/59 L 10/24/22 01:57 94 H 32 H 100 10/24/22 01:54 110 H 30 H 100 10/24/22 01:54 100/76 10/24/22 01:50 82/54 L 10/24/22 01:50 66 30 H 100 10/24/22 01:48 101/49 L 10/24/22 01:48 76 30 H 100 10/24/22 01:47 84/50 L 10/24/22 01:47 65 28 H 100 10/24/22 01:44 94/48 L 10/24/22 01:44 64 33 H 100 10/24/22 01:42 75 32 H 100 10/24/22 01:42 91/44 L 10/24/22 01:41 52 L 35 H 98 10/24/22 01:41 69/36 L 10/24/22 01:37 57 L 33 H 98 10/24/22 01:37 79/39 L 10/24/22 01:00 83 30 H 100 10/24/22 01:00 100/58 L 10/24/22 04:00 37.7 C H O2 Flow Rate 10/24/22 12:00 2 10/24/22 11:53 2 10/24/22 11:07 10/24/22 11:00 10/24/22 11:00 10/24/22 10:31 10/24/22 10:00 10/24/22 09:57 10/24/22 09:00 10/24/22 08:35 10/24/22 08:18 10/24/22 08:00 10/24/22 07:22 10/24/22 07:00 10/24/22 07:00 10/24/22 07:00 10/24/22 07:32 10/24/22 05:30 10/24/22 05:30 10/24/22 05:00 10/24/22 05:00 10/24/22 04:46 10/24/22 04:30 10/24/22 04:30 10/24/22 04:16 10/24/22 04:00 10/24/22 04:00 10/24/22 03:45 10/24/22 03:30 10/24/22 03:30 2 10/24/22 03:00 10/24/22 03:00 10/24/22 02:30 10/24/22 02:29 2 10/24/22 02:20 10/24/22 02:19 10/24/22 02:10 10/24/22 02:10 10/24/22 02:05 10/24/22 02:04 10/24/22 02:00 10/24/22 02:00 10/24/22 01:59 10/24/22 01:59 10/24/22 01:57 10/24/22 01:57 10/24/22 01:54 10/24/22 01:54 10/24/22 01:50 10/24/22 01:50 10/24/22 01:48 10/24/22 01:48 10/24/22 01:47 10/24/22 01:47 10/24/22 01:44 10/24/22 01:44 10/24/22 01:42 10/24/22 01:42 10/24/22 01:41 10/24/22 01:41 10/24/22 01:37 10/24/22 01:37 10/24/22 01:00 10/24/22 01:00 10/24/22 04:00 .all noted and reviewed including below
[2022-10-24] MEDS: PIPERACILLIN/TAZOBACTAM 3.375 GM CI (over 4 hrs) IV SCH ×2 (14:22→23:02)
[2022-10-24] MEDS: METOCLOPRAMIDE HCL INJ 5 MG/ML 2 ML VIAL IV SCH ×2 (14:22→20:07)
[2022-10-24 14:51] LABS: BUN Creatinine Ratio 66.7 (10-20); Calcium 8.4 mg/dl (8.5-10.1); Creatinine Clr Calc Pharmacy 105.1 ml/min; Est GFR (African American) 141.6 ml/min; Est GFR (Non-African American) 122.1 ml/min; Potassium 4.1 mmol/L (3.5-5.1)
[2022-10-24] MEDS: FIBERSOURCE HN 1.2 CAL 1000 ML BAG GT SCH (16:45)
--- NOTE | 2022-10-25 04:48 | Electrocardiogram Report ---
Test Reason : Blood Pressure : / mmHG Vent. Rate : 144 BPM Atrial Rate : 234 BPM P-R Int : 000 ms QRS Dur : 090 ms QT Int : 278 ms P-R-T Axes : 000 060 081 degrees QTc Int : 430 ms Atrial fibrillation with rapid ventricular response Nonspecific ST abnormality Abnormal ECG When compared with ECG of 23-OCT-2022 09:12, Atrial fibrillation has replaced Sinus rhythm Confirmed by Reji Vega ([id number]) on 10/25/2022 4:47:40 AM Referred By: REFERRED SELF Confirmed By:Reji Vega
--- NOTE | 2022-10-25 04:51 | Electrocardiogram Report ---
Test Reason : Blood Pressure : / mmHG Vent. Rate : 102 BPM Atrial Rate : 102 BPM P-R Int : 128 ms QRS Dur : 078 ms QT Int : 360 ms P-R-T Axes : 082 060 075 degrees QTc Int : 469 ms Poor data quality, interpretation may be adversely affected Sinus rhythm with frequent Premature ventricular complexes in a pattern of bigeminy Otherwise normal ECG When compared with ECG of 23-OCT-2022 23:24, Sinus rhythm has replaced Atrial fibrillation Premature ventricular complexes are now Present Confirmed by Reji Vega ([id number]) on 10/25/2022 4:51:24 AM Referred By: REFERRED SELF Confirmed By:Reji Vega
[2022-10-25] MEDS: METOPROLOL TARTRATE 25 MG TAB PO SCH ×4 (06:07→17:57)
[2022-10-25] MEDS: DOXYCYCLINE HYCLATE 100 MG in DEXTROSE 5% 100 ML IV SCH ×2 (06:08→17:11)
[2022-10-25] MEDS: TUBE FEEDING WATER FLUSH NG SCH ×5 (06:10→17:58)
[2022-10-25] MEDS: METOCLOPRAMIDE HCL INJ 5 MG/ML 2 ML VIAL IV SCH ×3 (06:10→20:36)
[2022-10-25] MEDS: POTASSIUM CHLORIDE / WTR 20 MEQ/100 ML PLCT IV SCH (06:58)
[2022-10-25] MEDS: UREA (UREA-NA) 15 GM PACK PO SCH ×2 (08:21→20:34)
[2022-10-25] MEDS: LANSOPRAZOLE 30 MG SOLTAB PEG SCH (08:21)
[2022-10-25] MEDS: MULTI VIT W/MINERALS LIQUID 15 ML UDP PEG SCH (08:22)
[2022-10-25] MEDS: APIXABAN 5 MG TABLET PO SCH ×2 (08:22→20:33)
[2022-10-25] MEDS: PIPERACILLIN/TAZOBACTAM 3.375 GM CI (over 4 hrs) IV SCH ×2 (08:22→14:58)
[2022-10-25 08:26] LABS: Hematocrit (blood only) 23.8 % (42.0-52.0); Hemoglobin 8.1 g/dl (14.0-18.0); Mean Corpuscular Hemoglobin 30.9 pg (25.0-34.0); Mean Corpuscular Volume 90.8 fL (80.0-100.0); Mean Platelet Volume 9.6 fL (9.4-12.4); Platelet Count 326 K/uL (130-400); RDW Coefficient of Variation 14.2 % (11.5-14.5); RDW Standard Deviation 46.7 fL (36.4-46.3); Red Blood Count 2.62 M/uL (4.70-6.10); White Blood Count 18.98 K/ul (4.8-10.8)
--- NOTE | 2022-10-25 12:34 | Cardiology Progress Note ---
Date of Service October 25, 2022 Assessment & Plan (1) Paroxysmal atrial fibrillation with rapid ventricular response: (2) Metastatic primary lung cancer: Plan No further atrial fibrillation overnight Blood pressure low but tolerating low-dose metoprolol would continue 12.5 mg per NG every 6 hours If atrial fibrillation becomes more persistent consider oral amiodarone with poor tolerance of IV amiodarone secondary to hypotension Contact with any questions Admission and Anticipated Discharge Date Admission Date: October 19, 2022 Subjective Patient was seen and examined, chart, medications, telemetry reviewed. Patient sitting out of bed in chair. Blood pressure still running relatively low. Telemetry reveals sinus rhythm and sinus tachycardia no further atrial fibrillation Physical Exam Constitutional: + cachectic; no acute distress Cardiovascular: Rate/Rhythm: regular rate and regular rhythm Heart Sounds: normal S1 and normal S2 Vessels: no JVD Extremities: no edema Results & Data ([facility]) Vital Signs (Past 12 Hours) Vital Signs Temp Pulse Pulse Resp BP BP Pulse Ox 10/25/22 12:07 103 H 24 98/57 L 99 10/25/22 11:56 96 H 10/25/22 10:00 90 22 95/51 L 94 10/25/22 08:00 96 H 10/25/22 06:15 92/45 L 10/25/22 06:15 96 H 29 H 100 10/25/22 06:00 95 H 27 H 100 10/25/22 06:00 86/57 L 10/25/22 05:00 95 H 23 100 10/25/22 05:00 96/50 L 10/25/22 06:22 36.8 C 10/25/22 04:00 96 H 29 H 100 10/25/22 04:00 106/52 L 10/25/22 03:00 81 23 99 10/25/22 03:00 96/51 L 10/25/22 02:00 88 25 H 100 10/25/22 02:00 89/47 L 10/25/22 01:00 91 H 21 100 10/25/22 01:00 86/47 L O2 Del Method 10/25/22 12:07 Room Air 10/25/22 11:56 10/25/22 10:00 Room Air 10/25/22 08:00 10/25/22 06:15 10/25/22 06:15 Room Air 10/25/22 06:00 10/25/22 06:00 10/25/22 05:00 10/25/22 05:00 10/25/22 06:22 10/25/22 04:00 Room Air 10/25/22 04:00 10/25/22 03:00 10/25/22 03:00 10/25/22 02:00 10/25/22 02:00 10/25/22 01:00 10/25/22 01:00 Laboratory Results Laboratory Results - last 24 hr 10/24/22 10/25/22 14:16 08:00 WBC 18.98 H RBC 2.62 L Hgb 8.1 L Hct 23.8 L MCV 90.8 MCH 30.9 MCHC 34.0 RDW Std Deviation 46.7 H RDW Coeff of Sheeba 14.2 Plt Count 326 MPV 9.6 Sodium 131 L Potassium 4.1 Chloride 97 L Carbon Dioxide 30 Anion Gap 4 BUN 30 H Creatinine 0.45 L Est Cr Clr Drug Dosing 105.1 Est GFR ( Amer) 141.6 Est GFR (Non-Af Amer) 122.1 BUN/Creatinine Ratio 66.7 H Glucose 159 H Calcium 8.4 L
--- NOTE | 2022-10-25 13:09 | Hospitalist Progress Note ---
Date of Service October 25, 2022 Assessment & Plan (1) Severe sepsis: (2) Hypoxia: (3) Lactic acidosis: (4) Metastatic primary lung cancer: (5) COPD (chronic obstructive pulmonary disease): (6) Dysphagia, oropharyngeal: (7) Severe protein-calorie malnutrition: (8) S/P percutaneous endoscopic gastrostomy (PEG) tube placement: Plan: (9) Hyponatremia: Plan 62-year-old male with lung cancer with bone metastasis, recent diagnosis of acute PE on Eliquis, recent diagnosis of dysphagia, status post PEG tube placement 2 weeks ago, COPD, severe protein calorie malnutrition, Presenting with hypotension, hypoxia. Septic Shock Acute respiratory failure with hypoxia secondary to possible gram-negative and/or aspiration pneumonia Lung cancer with bone metastasis COPD Required IV fluids, hydrocortisone IV --CT chest: 1 There is no evidence of pulmonary embolus in the main, lobar, or segmental pulmonary arteries. 2.Multifocal tree-in-bud consolidation throughout both lungs is new from previous. This is greatest at the left lung base and is likely infectious/inflammatory. 3. Advanced emphysema. 4. Numerous pulmonary lesions are similar to previous and consistent with multifocal neoplasm. 5. There is evidence of multifocal osseous metastatic disease with pathologic fractures of the left posterolateral 7th and 10th ribs. 6. Metastatic disease is seen in the upper abdomen within the liver, spleen, and adrenal glands. 7. Metastatic right hilar and mediastinal lymphadenopathy is unchanged. 8. Trace pleural effusions Gradually improved, weaned off BiPAP and oxygen supplement Blood cultures: Negative Given cefepime + Doxycycline x5 days Completed course of IV hydrocortisone Patient [facility] into [facility] overnight 10/23 Repeat chest x-ray:Interval worsening of airspace opacities in the right compatible with infection Remains on room air, afebrile, but with persistent leukocytosis Possible recurrent aspiration? Was switched from cefepime day #5 to Zosyn IV. Still on doxycycline Aspiration precautions Bowel regimen Dysphagia, status post PEG tube placement Severe protein calorie malnutrition Currently on continuous tube Feeding with free water flushes 100 cc every 4 hours GI evaluation noted Plan to switch to bolus. will call with home regimen to help determine vol to use Continue continuos feed for now Atrial fibrillation RVR, new diagnosis Already on Eliquis for recent diagnosis of acute PE Echo reviewed Card on board Continue lopressor 12.5 q6h PEG Already on anticoag for recent PE History of acute pulmonary embolism Diagnosed last month Continue Eliquis Anemia, Acute s/p 1 unit pRBC ordered No signs of active bleeding Hg stable around 8 since transfusion Hyponatremia Multifactorial, including hypovolemia Check BMP today Nephrology service on board DVT PPx: - teds, scds, Eliquis CODE: Full code Dispo: Lives at home with his PT and OT evaluation Admission and Anticipated Discharge Date Admission Date: October 19, 2022 Subjective Patient seen and examined with at bedside Reports weakness. Speaks in very low volumes Reports cough, productive Denied chest pain or shortness of breath Denied nausea, vomiting, abd pain Yet to start having a regular BM. Had a smear Denied fever, chills Denied depression, SI Physical Exam Constitutional: + well hydrated and + cachectic; no acute distress Eyes: PERRL, conjunctivae normal, anicteric sclerae ENMT: external ear and nose normal, oropharynx normal Respiratory: Normal, not in respiratory distress, diminished breath sounds Cardiovascular: Rate/Rhythm: regular rate and regular rhythm S1 S2 Gastrointestinal (Abdomen): normal bowel sounds, soft, nontender, no hepatosplenomegaly PEG in situ Musculoskeletal: No pedal edema Neurologic: PERRL, EOMI, accommodation nl, no face palsy, no dysarthria Results & Data Results & Data ([facility]) Vital Signs (Past 12 Hours) Vital Signs Temp Pulse Pulse Resp BP BP Pulse Ox 10/25/22 12:07 103 H 24 98/57 L 99 10/25/22 11:56 96 H 10/25/22 10:00 90 22 95/51 L 94 10/25/22 08:00 96 H 10/25/22 06:15 92/45 L 10/25/22 06:15 96 H 29 H 100 10/25/22 06:00 95 H 27 H 100 10/25/22 06:00 86/57 L 10/25/22 05:00 95 H 23 100 10/25/22 05:00 96/50 L 10/25/22 06:22 36.8 C 10/25/22 04:00 96 H 29 H 100 10/25/22 04:00 106/52 L 10/25/22 03:00 81 23 99 10/25/22 03:00 96/51 L 10/25/22 02:00 88 25 H 100 10/25/22 02:00 89/47 L O2 Del Method 10/25/22 12:07 Room Air 10/25/22 11:56 10/25/22 10:00 Room Air 10/25/22 08:00 10/25/22 06:15 10/25/22 06:15 Room Air 10/25/22 06:00 10/25/22 06:00 10/25/22 05:00 10/25/22 05:00 10/25/22 06:22 10/25/22 04:00 Room Air 10/25/22 04:00 10/25/22 03:00 10/25/22 03:00 10/25/22 02:00 10/25/22 02:00 Diagnostic Findings Abnormal lab results 10/24/22 10/25/22 Range/Units 14:16 08:00 WBC 18.98 H (4.8-10.8) K/ul RBC 2.62 L (4.70-6.10) M/uL Hgb 8.1 L (14.0-18.0) g/dl Hct 23.8 L (42.0-52.0) % RDW Std Deviation 46.7 H (36.4-46.3) fL Sodium 131 L (136-145) mmol/L Chloride 97 L (98-107) mmol/L BUN 30 H (6-23) mg/dl Creatinine 0.45 L (0.6-1.4) mg/dl BUN/Creatinine Ratio 66.7 H (10-20) Glucose 159 H (70-99(Fasting)) mg/dl Calcium 8.4 L (8.5-10.1) mg/dl
[2022-10-25] MEDS: SENNOSIDES 8.8 MG/5 ML UDC PEG SCH (14:58)
[2022-10-25] MEDS: FIBERSOURCE HN 1.2 CAL 1000 ML BAG GT SCH ×2 (15:07→15:51)
[2022-10-25 16:31] LABS: BUN Creatinine Ratio 67.4 (10-20); Calcium 8.7 mg/dl (8.5-10.1); Creatinine Clr Calc Pharmacy 101.4 ml/min; Est GFR (African American) 140.3 ml/min; Potassium 3.9 mmol/L (3.5-5.1)
[2022-10-25] MEDS ORDERED: SODIUM CHLORIDE 0.9% 500 ML IV SCH (23:30)
[2022-10-25] MEDS ORDERED: ADENOSINE IV SOLN 3 MG/ML 2 ML VIAL IV ONE (23:34)
[2022-10-25] MEDS ORDERED: AMIODARONE 150MG / 100ML D5W IV ONE (23:36)
[2022-10-25] MEDS ORDERED: AMIODARONE 360MG / 200ML D5W IV ONE (23:41)
[2022-10-26] MEDS: FIBERSOURCE HN 1.2 CAL 1000 ML BAG GT SCH ×5 (00:01→20:07)
[2022-10-26] MEDS: METOPROLOL TARTRATE 25 MG TAB PO SCH ×3 (00:03→13:39)
[2022-10-26] MEDS ORDERED: AMIODARONE / D5W 150 MG/100 ML BAG IV STA (00:05)
[2022-10-26] MEDS ORDERED: AMIODARONE IV BOLUS & DRIP IV STA (00:05)
[2022-10-26] MEDS ORDERED: 0.2 MICRON FILTER SET 1 EACH IV STA (00:05)
[2022-10-26] MEDS ORDERED: STAT IV Infusion **Titration per Protocol STA (00:05)
[2022-10-26] MEDS: PIPERACILLIN/TAZOBACTAM 3.375 GM CI (over 4 hrs) IV SCH ×3 (00:11→16:44)
[2022-10-26] MEDS ORDERED: AMIODARONE / D5W 360 MG/200 ML BAG IV ONE (00:15)
[2022-10-26] MEDS: TUBE FEEDING WATER FLUSH NG SCH ×6 (00:58→20:07)
[2022-10-26] MEDS ORDERED: SODIUM CHLORIDE 0.9% 500 ML IV SCH (01:15)
[2022-10-26 01:59] LABS: Basophils # (auto) 0.03 K/uL (0-0.2); Basophils % (auto) 0.2 %; Eosinophils # (auto) 0.34 K/uL (0-0.50); Eosinophils % (auto) 2.2 %; Hematocrit (blood only) 23.8 % (42.0-52.0); Hemoglobin 8.1 g/dl (14.0-18.0); Immature Granulocytes # (auto) 0.48 K/uL (0.01-0.20); Immature Granulocytes % (auto) 3.1 %; Lymphocytes # (auto) 0.63 K/uL (1.2-3.4); Lymphocytes % (auto) 4.1 %; Mean Corpuscular Hemoglobin 30.7 pg (25.0-34.0); Mean Corpuscular Volume 90.2 fL (80.0-100.0); Mean Platelet Volume 9.8 fL (9.4-12.4); Monocytes # (auto) 1.84 K/uL (0.11-0.59); Neutrophils # (auto) 11.99 K/uL (1.40-6.50); Neutrophils % (auto) 78.4 %; Platelet Count 361 K/uL (130-400); RDW Standard Deviation 45.8 fL (36.4-46.3); Red Blood Count 2.64 M/uL (4.70-6.10); White Blood Count 15.31 K/ul (4.8-10.8)
[2022-10-26 02:20] LABS: BUN Creatinine Ratio 77.3 (10-20); Calcium 8.6 mg/dl (8.5-10.1); Est GFR (African American) 142.9 ml/min; Est GFR (Non-African American) 123.3 ml/min; Magnesium 1.8 mg/dl (1.7-2.4); Potassium 3.8 mmol/L (3.5-5.1)
[2022-10-26] MEDS ORDERED: SODIUM CHLORIDE 0.9% 1000ML 1,000 ML IV SCH (06:00)
[2022-10-26] MEDS: METOCLOPRAMIDE HCL INJ 5 MG/ML 2 ML VIAL IV SCH ×3 (06:10→20:07)
[2022-10-26 06:11] LABS: Hematocrit (blood only) 25.5 % (42.0-52.0); Hemoglobin 8.5 g/dl (14.0-18.0); Mean Corpuscular Hemoglobin 30.5 pg (25.0-34.0); Mean Corpuscular Hgb Conc 33.3 g/dL (32.0-36.0); Mean Corpuscular Volume 91.4 fL (80.0-100.0); Platelet Count 401 K/uL (130-400); RDW Coefficient of Variation 14.1 % (11.5-14.5); RDW Standard Deviation 46.8 fL (36.4-46.3); Red Blood Count 2.79 M/uL (4.70-6.10); White Blood Count 14.66 K/ul (4.8-10.8)
[2022-10-26] MEDS ORDERED: AMIODARONE / D5W 360 MG/200 ML BAG IV SCH (06:15)
[2022-10-26 06:21] LABS: Calcium 8.6 mg/dl (8.5-10.1); Creatinine Clr Calc Pharmacy 83.3 ml/min; Est GFR (African American) 129.4 ml/min; Est GFR (Non-African American) 111.6 ml/min; Potassium 3.6 mmol/L (3.5-5.1)
[2022-10-26] MEDS: DOXYCYCLINE HYCLATE 100 MG in DEXTROSE 5% 100 ML IV SCH (06:54)
[2022-10-26] MEDS ORDERED: DIGOXIN 250 MCG in SYRINGE 9 ML IV ONE (07:00)
[2022-10-26] MEDS: AMIODARONE 200 MG TAB PO SCH ×3 (07:29→16:39)
[2022-10-26] MEDS: LANSOPRAZOLE 30 MG SOLTAB PEG SCH (08:29)
[2022-10-26] MEDS: MULTI VIT W/MINERALS LIQUID 15 ML UDP PEG SCH (08:29)
[2022-10-26] MEDS: SENNOSIDES 8.8 MG/5 ML UDC PEG SCH (08:29)
[2022-10-26] MEDS: APIXABAN 5 MG TABLET PO SCH ×2 (08:29→20:07)
[2022-10-26] MEDS: UREA (UREA-NA) 15 GM PACK PO SCH ×2 (08:30→20:06)
--- NOTE | 2022-10-26 09:46 | Nephrology Progress Note ---
Date of Service October 26, 2022 Assessment & Plan (1) Hyponatremia: Plan: Nephrology consulted for hyponatremia on this 62 yr old with significant past medical history of Metastatic primary lung cancer, COPD, oropharygneal Dysphagia, Severe protein-calorie malnutrition S/P percutaneous endoscopic gastrostomy (PEG) tube placement, issues since 10/24 w/ SVT Hyponatremia multifactorial depending on timing from volume depletion versus poor solute intake w/ background SIADH, last 24-36 hrs more the latter based on urine studies and other labs. - Na is in acceptable range w/ appropriate rates of correction >> slight drop today d/t fluid intake obligate w/ managing HR -low K today again > will give 60 mEq via PEG -continue urea -on 100 mL free water q4h >no IVF indicated for now >> BP will improve if can control HR Jain is out now so UOP difficult to track Admission and Anticipated Discharge Date Admission Date: October 19, 2022 Subjective more v tach ON >> had adenosine, amiodarone, 1/2 L NS, digoxin. HR this am 120- [address] Singh following. pt denies dyspnea, uncontrolled pain, other concerns Review of Systems Review of Systems: All systems reviewed & are unremarkable except as noted in Subjective Physical Exam Constitutional: well developed and + cachectic; no acute distress Eyes: EOM intact bilaterally ENMT: Ears: no external ear abnormality Nose: no external nose abnormality Mouth: + dry oral mucous membranes (exceptionally dry) Neck: no nuchal rigidity Respiratory: normal respiratory effort and + tachypneic; no labored breathing Auscultation: + diminished lung sounds Cardiovascular: Rate/Rhythm: regular rhythm and + tachycardic Extremities: no edema Gastrointestinal (Abdomen): Inspection/Auscultation: normal bowel sounds and + scaphoid (feeding tube present) Percussion/Palpation: abdomen soft; abdomen nontender Musculoskeletal: Extremities: strength 5/5 throughout Skin: no rashes, warm and dry Results & Data ([facility]) Vital Signs (Past 12 Hours) Vital Signs Temp Pulse Pulse Resp BP Pulse Ox O2 Del Method 10/26/22 07:48 36.4 C L 167 H 16 84/50 L 99 Room Air 10/26/22 07:29 143 H 10/26/22 03:25 36.6 C 128 H 22 85/40 L 97 Room Air 10/25/22 22:26 66 10/25/22 23:18 200 H 94/66 L 10/25/22 23:11 36.7 C 200 H 22 91/62 L 93 Room Air Laboratory Results 10/26/22 05:44 10/26/22 05:44
[2022-10-26] MEDS ORDERED: POTASSIUM CHLORIDE 20 MEQ/15 ML UDC PEG STA (09:53)
--- NOTE | 2022-10-26 10:02 | Electrocardiogram Report ---
Test Reason : Blood Pressure : / mmHG Vent. Rate : 193 BPM Atrial Rate : 154 BPM P-R Int : 000 ms QRS Dur : 092 ms QT Int : 226 ms P-R-T Axes : 000 076 084 degrees QTc Int : 405 ms Poor data quality, interpretation may be adversely affected Atrial fibrillation with rapid ventricular response Nonspecific ST and T wave abnormality Abnormal ECG When compared with ECG of 24-OCT-2022 01:55, Atrial fibrillation has replaced Sinus rhythm Vent. rate has increased BY [address] more depressed Inferior leads ST now depressed in Lateral leads Confirmed by Morris Huffman ([id number]) on 10/26/2022 10:01:33 AM Referred By: REFERRED SELF Confirmed By:Fredo Huffman
--- NOTE | 2022-10-26 10:08 | Electrocardiogram Report ---
Test Reason : Blood Pressure : / mmHG Vent. Rate : 104 BPM Atrial Rate : 104 BPM P-R Int : 140 ms QRS Dur : 088 ms QT Int : 338 ms P-R-T Axes : 050 053 081 degrees QTc Int : 444 ms Sinus tachycardia with Premature atrial complexes Otherwise normal ECG When compared with ECG of 25-OCT-2022 23:27, (unconfirmed) Sinus rhythm has replaced Atrial fibrillation Vent. rate has decreased BY [address] no longer depressed in Inferior leads ST no longer depressed in Anterolateral leads Confirmed by Morris Huffman ([id number]) on 10/26/2022 10:08:31 AM Referred By: REFERRED SELF Confirmed By:Fredo Huffman
--- NOTE | 2022-10-26 11:10 | Hospitalist Progress Note ---
Date of Service October 26, 2022 Assessment & Plan (1) Severe sepsis: (2) Hypoxia: (3) Lactic acidosis: (4) Metastatic primary lung cancer: (5) COPD (chronic obstructive pulmonary disease): (6) Dysphagia, oropharyngeal: (7) Severe protein-calorie malnutrition: (8) S/P percutaneous endoscopic gastrostomy (PEG) tube placement: Plan: (9) Hyponatremia: Plan 62-year-old male with lung cancer with bone metastasis, recent diagnosis of acute PE on Eliquis, recent diagnosis of dysphagia, status post PEG tube placement 2 weeks ago, COPD, severe protein calorie malnutrition, Presenting with hypotension, hypoxia. Septic Shock Acute respiratory failure with hypoxia secondary to possible gram-negative and/or aspiration pneumonia Lung cancer with bone metastasis COPD Required IV fluids, hydrocortisone IV --CT chest show 1 There is no evidence of pulmonary embolus in the main, lobar, or segmental pulmonary arteries. 2.Multifocal tree-in-bud consolidation throughout both lungs is new from previous. This is greatest at the left lung base and is likely infectious/inflammatory. 3. Advanced emphysema. 4. Numerous pulmonary lesions are similar to previous and consistent with multifocal neoplasm. 5. There is evidence of multifocal osseous metastatic disease with pathologic fractures of the left posterolateral 7th and 10th ribs. 6. Metastatic disease is seen in the upper abdomen within the liver, spleen, and adrenal glands. 7. Metastatic right hilar and mediastinal lymphadenopathy is unchanged. 8. Trace pleural effusions Hypoxia resolved, weaned off BiPAP and oxygen supplement Blood cultures: Negative Given cefepime + Doxycycline x5 days Completed course of IV hydrocortisone Repeat chest x-ray:Interval worsening of airspace opacities in the right compatible with infection Remains on room air, afebrile, but with persistent leukocytosis (improving) Possible recurrent aspiration? Was switched from cefepime day #5 to Zosyn IV. Still on doxycycline Will complete 10 days and stop Aspiration precautions Bowel regimen Dysphagia, status post PEG tube placement Severe protein calorie malnutrition Currently on continuous tube Feeding with free water flushes 100 cc every 4 hours GI evaluation noted Switched to bolus feeding Atrial fibrillation RVR, new diagnosis Already on Eliquis for recent diagnosis of acute PE Echo reviewed Card on board Continue lopressor 12.5 q6h PEG Already on anticoag for recent PE History of acute pulmonary embolism Diagnosed last month Continue Eliquis Anemia, Acute s/p 1 unit pRBC ordered No signs of active bleeding Hg stable around 8 since transfusion Hyponatremia Multifactorial, including hypovolemia Nephrology service on board helping with management DVT PPx: - teds, scds, Retaquis CODE: Full code Dispo: Lives at home with his PT and OT evaluation I discussed with patient about his diagnoses, prognosis. We discussed a bit about different measures mostly palliative He will like involvement of Palliative specialist Palliative consult placed Admission and Anticipated Discharge Date Admission Date: October 19, 2022 Subjective Patient seen and examined Went into Afib w/RVR overnight. Received IV amio briefly with hypotension Got digoxin this morning and started on po amiodarone Converted to sinus at 8:22AM this morning Reports weakness. Speaks in very low volumes Reports cough, productive Denied chest pain or shortness of breath Denied nausea, vomiting, abd pain Denied fever, chills Denied depression, SI Physical Exam Constitutional: + ill appearing (chronic), + well hydrated and + cachectic; no acute distress Eyes: PERRL, conjunctivae normal, anicteric sclerae ENMT: external ear and nose normal, oropharynx normal Respiratory: normal respiratory effort; no respiratory distress Diminished breath sounds Cardiovascular: Rate/Rhythm: regular rate and regular rhythm S1 S2 Gastrointestinal (Abdomen): normal bowel sounds, soft, nontender, no h epatosplenomegaly Musculoskeletal: No pedal edema Neurologic: PERRL, EOMI, accommodation nl, no face palsy, no dysarthria Psychiatric: AOX3 Results & Data Results & Data ([facility]) Vital Signs (Past 12 Hours) Vital Signs Temp Pulse Pulse Resp BP Pulse Ox O2 Del Method 10/26/22 08:20 98 H 20 100/62 98 Room Air 10/26/22 07:48 36.4 C L 167 H 16 84/50 L 99 Room Air 10/26/22 07:29 143 H 10/26/22 03:25 36.6 C 128 H 22 85/40 L 97 Room Air 10/25/22 23:18 200 H 94/66 L 10/25/22 23:11 36.7 C 200 H 22 91/62 L 93 Room Air Laboratory Results Abnormal lab results 10/25/22 10/26/22 10/26/22 Range/Units 15:21 01:37 01:37 WBC 15.31 H (4.8-10.8) K/ul RBC 2.64 L (4.70-6.10) M/uL Hgb 8.1 L (14.0-18.0) g/dl Hct 23.8 L (42.0-52.0) % RDW Std Deviation (36.4-46.3) fL Plt Count (130-400) K/uL Neut # (Auto) 11.99 H (1.40-6.50) K/uL Lymph # (Auto) 0.63 L (1.2-3.4) K/uL [place] # (Auto) 1.84 H (0.11-0.59) K/uL Immature Gran # (Auto) 0.48 H (0.01-0.20) K/uL Sodium 129 L 129 L (136-145) mmol/L Chloride 92 L 93 L (98-107) mmol/L BUN 31 H 34 H (6-23) mg/dl Creatinine 0.46 L 0.44 L (0.6-1.4) mg/dl BUN/Creatinine Ratio 67.4 H 77.3 H (10-20) Glucose 108 H 100 H (70-99(Fasting)) mg/dl 10/26/22 10/26/22 Range/Units 05:44 05:44 WBC 14.66 H (4.8-10.8) K/ul RBC 2.79 L (4.70-6.10) M/uL Hgb 8.5 L (14.0-18.0) g/dl Hct 25.5 L (42.0-52.0) % RDW Std Deviation 46.8 H (36.4-46.3) fL Plt Count 401 H (130-400) K/uL Neut # (Auto) (1.40-6.50) K/uL Lymph # (Auto) (1.2-3.4) K/uL [place] # (Auto) (0.11-0.59) K/uL Immature Gran # (Auto) (0.01-0.20) K/uL Sodium 129 L (136-145) mmol/L Chloride 94 L (98-107) mmol/L BUN 28 H (6-23) mg/dl Creatinine 0.56 L (0.6-1.4) mg/dl BUN/Creatinine Ratio 50.0 H (10-20) Glucose 165 H (70-99(Fasting)) mg/dl
--- NOTE | 2022-10-26 13:41 | Cardiology Progress Note ---
Date of Service October 26, 2022 Assessment & Plan (1) Paroxysmal atrial fibrillation with rapid ventricular response: (2) Metastatic primary lung cancer: Plan Patient with recurrent atrial fibrillation overnight Now reverted to sinus rhythm with IV digoxin and oral amiodarone. Would not use IV amiodarone Continue load 400 mg oral amiodarone 3 times daily. Discontinue metoprolol Continue chronic anticoagulation with apixaban Patient received additional potassium replacement this morning Admission and Anticipated Discharge Date Admission Date: October 19, 2022 Subjective Patient seen and examined, chart, medications, telemetry reviewed Patient once again with atrial fibrillation with rapid response last night. Did not tolerate IV amiodarone as in past due to hypotension Received 2 doses of IV digoxin and oral amiodarone with conversion to sinus rhythm Patient unaware of arrhythmia when occurring but relative hypotension occurring. Required saline infusion for pressure support Currently without acute complaint Physical Exam Constitutional: + cachectic; no acute distress Cardiovascular: Rate/Rhythm: regular rate and regular rhythm Heart Sounds: normal S1 and normal S2 Vessels: no JVD Extremities: no edema Results & Data ([facility]) Vital Signs (Past 12 Hours) Vital Signs Temp Pulse Pulse Resp BP Pulse Ox O2 Del Method 10/26/22 08:00 Room Air 10/26/22 11:36 36.3 C L 105 H 16 96/59 L 95 Room Air 10/26/22 08:20 98 H 20 100/62 98 Room Air 10/26/22 07:48 36.4 C L 167 H 16 84/50 L 99 Room Air 10/26/22 07:29 143 H 10/26/22 03:25 36.6 C 128 H 22 85/40 L 97 Room Air Laboratory Results Laboratory Results - last 24 hr 10/25/22 10/26/22 10/26/22 15:21 01:37 01:37 WBC 15.31 H RBC 2.64 L Hgb 8.1 L Hct 23.8 L MCV 90.2 MCH 30.7 MCHC 34.0 RDW Std Deviation 45.8 RDW Coeff of [place] 14.0 Plt Count 361 MPV 9.8 Immature Gran % (Auto) 3.1 Neut % (Auto) 78.4 Lymph % (Auto) 4.1 [place] % (Auto) 12.0 Eos % (Auto) 2.2 Baso % (Auto) 0.2 Neut # (Auto) 11.99 H Lymph # (Auto) 0.63 L [place] # (Auto) 1.84 H Eos # (Auto) 0.34 Baso # (Auto) 0.03 Immature Gran # (Auto) 0.48 H Sodium 129 L 129 L Potassium 3.9 3.8 Chloride 92 L 93 L Carbon Dioxide 30 29 Anion Gap 7 7 BUN 31 H 34 H Creatinine 0.46 L 0.44 L Est Cr Clr Drug Dosing 101.4 106.0 Est GFR ( Amer) 140.3 142.9 Est GFR (Non-Af Amer) 121.0 123.3 BUN/Creatinine Ratio 67.4 H 77.3 H Glucose 108 H 100 H Calcium 8.7 8.6 Magnesium 1.8 10/26/22 10/26/22 05:44 05:44 WBC 14.66 H RBC 2.79 L Hgb 8.5 L Hct 25.5 L MCV 91.4 MCH 30.5 MCHC 33.3 RDW Std Deviation 46.8 H RDW Coeff of [place] 14.1 Plt Count 401 H MPV 10.0 Immature Gran % (Auto) Neut % (Auto) Lymph % (Auto) [place] % (Auto) Eos % (Auto) Baso % (Auto) Neut # (Auto) Lymph # (Auto) [place] # (Auto) Eos # (Auto) Baso # (Auto) Immature Gran # (Auto) Sodium 129 L Potassium 3.6 Chloride 94 L Carbon Dioxide 28 Anion Gap 7 BUN 28 H Creatinine 0.56 L Est Cr Clr Drug Dosing 83.3 Est GFR ( Amer) 129.4 Est GFR (Non-Af Amer) 111.6 BUN/Creatinine Ratio 50.0 H Glucose 165 H Calcium 8.6 Magnesium
--- NOTE | 2022-10-26 14:53 | Palliative Care Consultation ---
Date of Consultation October 26, 2022 Assessment & Plan (1) Dysphagia: With multiple bilateral subacute cerebral infarcts and history of aspiration Currently on bolus PEG tube feeds (2) Shortness of breath: With metastatic lung cancer, afib with RVR, aspiration, cachexia and deconditi oning We reviewed the multiple factors contributing to his shortness of breath. He remains on doxycycline and zosyn (3) Palliative care encounter: I have had multiple goals of care conversations with Mr. Barrios, and with his . They have consistently said that they want whatever treatment necessary to prolong his life. We have had chau discussions about his poor prognosis. I talked with Mr. Barrios again, today, and we reviewed his current medical challenges. I again, expressed concern about prognosis. I asked him, if given the events of the last week, he saw any treatments or interventions that he would not be willing to go through. He confirms that he would want full code and full treatment. He told me that even if he were to have pain and suffering with treatment, he would want to proceed. Palliative care will follow peripherally History of Present Illness Reason for Consultation: goals of care Requesting Physician: Dr. Martino Attending Physician: Graciela Martino MD History of Present Illness 82 yo gentleman with Stage IV lung cancer metastatic to bone, liver, spleen and adrenal glands. He has been seen by palliative care in the past, both in hospital and as an outpatient. He was initially seen shortly after diagnosis for management of bone pain. He did receive palliative radiation and has had significant pain improvement. He denies any pain today. He has unfortunately, had a complicated course. He had a PE and on admission in September was found to have several small subacute cerebral infarcts with pharyngeal dysphagia. He had PEG placement at that time. He has severe protein calorie malnutrition with more than 25 lb weight loss in 3 months and prealbumin of 17.7. He was admitted on 10/19 with acute hypoxic respiratory failure and sepsis. Despite treatment, he has persistent leukocytosis, hyponatremia and has now been found to have recent onset atrial fibrillation with RVR. He is awake and alert at the time of my visit. He denies pain, but notes that he feels short of breath at times, not necessarily related to exertion. He tells me that he is tolerating bolus tube feedings with no abdominal discomfort or nausea. Allergies Allergy/AdvReac Type Severity Reaction Status Date / Time No Known Allergies Allergy NONE Verified 09/25/22 07:13 Home Medications Medication Instructions Recorded Confirmed Type acetaminophen 500 mg tablet 1,000 mg feeding tube TID PRN Pain 10/10/22 10/19/22 Rx (Tylenol Extra Strength) #20 tabs apixaban 5 mg tablet (Eliquis) 5 mg feeding tube BID 30 days #60 10/10/22 10/19/22 Rx tabs folic acid 1 mg tablet 1 mg feeding tube UD #10 tabs 10/10/22 10/19/22 Rx lansoprazole 30 mg delayed 30 mg PO DAILY 30 days #30 tabs 10/10/22 10/19/22 Rx release,disintegrating tablet (Prevacid SoluTab) multivitamin 1 tab feeding tube QAM #10 tabs 10/10/22 10/19/22 Rx ondansetron HCl 8 mg tablet 8 mg feeding tube Q8 PRN Nausea 10/10/22 10/19/22 Rx #10 tabs oxycodone 5 mg tablet 5 mg feeding tube Q4H PRN pain #10 10/10/22 10/19/22 Rx tabs sodium chloride 1,000 mg soluble 1,000 mg PO BID 10/19/22 10/19/22 History tablet Patient History Medical History Chest pain "has this off and on, from his cancer" COPD (chronic obstructive pulmonary disease) Dysphagia Esophageal dilatation GERD (gastroesophageal reflux disease) History of alcohol dependence per [facility] records History of COVID-19 2019, not hosp; mild symptoms>resolved. Ischemic stroke Metastatic primary lung cancer mets to mediastinum, liver, bone, adrenal and possibly kidneys per heme/onc note; "no CVS metastases" Pulmonary embolism 07/2022, currently on eliquis; f/u dr. sandoval Secondary carcinoma of bone Severe protein-calorie malnutrition Surgical History History of bronchoscopy History of esophagogastroduodenoscopy (EGD) Hx of colonoscopy Port-A-Cath in place (09/25/22) Insertion Access Port Left Cephalic(Left)With fluoroscopic guidance with fluoroscopic guided- Padilla Enriquez MD, FACS Family History Mother , Mom at 65 y/o Diabetes Lung cancer Myocardial infarction Hypertension Father , Dad passed at at 53 y/o Diabetes Lung cancer Brother , at 65 y/o Cancer throat cancer Brother Cancer Pt not sure of type of cancer Sister No problems noted. Sister No problems noted. Sister No problems noted. Sister No problems noted. 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 Automatic Required: No Beliefs That Will Affect Care: Spiritual marital status: Current Living Situation: Spouse Current Living Situation Comment: And wifes mother current occupational status: employed current occupation: [employer] How many Children do You have: 0 Feels Safe at Home: Yes caffeine: Yes (2 cups/day) during the past year weight has: decreased > 10 lbs Assistive Devices: None Review of Systems Review of Systems: ESAS Pain 0/3 Dyspnea 1/3 Nausea 0/3 Anxiety 0/3 Drowsiness 0/3 Physical Exam Constitutional: + cachectic ENMT: temporal wasting Respiratory: + labored breathing Cardiovascular: Rate/Rhythm: + irregularly irregular Gastrointestinal (Abdomen): LBM 2/16 Musculoskeletal: Extremities: + muscle atrophy Neurologic: Speech / Cognition: normal cognition Results & Data ([facility]) Vital Signs (Past 12 Hours) Vital Signs Temp Pulse Pulse Resp BP Pulse Ox O2 Del Method 10/26/22 08:00 Room Air 10/26/22 11:36 97.3 F L 105 H 16 96/59 L 95 Room Air 10/26/22 08:20 98 H 20 100/62 98 Room Air 10/26/22 07:48 97.5 F L 167 H 16 84/50 L 99 Room Air 10/26/22 07:29 143 H 10/26/22 03:25 97.9 F 128 H 22 85/40 L 97 Room Air PG Care Time/CCT Total # of Minutes Spent Total Time Spent with Patient: Total time spent is greater than 50% in coordination of care (as documented) at patient's floor/unit and/or counseling patient: Coding Level of Care Code 34481 INT INP/OBS CARE MIN Diagnoses Dysphagia R13.10 Shortness of breath R06.02 Palliative care encounter Z51.5
[2022-10-26 17:40] LABS: Uric Acid, Random Urine 41 mg/dL
[2022-10-26] MEDS: MELATONIN 3 MG TAB PO PRN (20:06)
[2022-10-27] MEDS: PIPERACILLIN/TAZOBACTAM 3.375 GM CI (over 4 hrs) IV SCH ×4 (00:17→23:49)
[2022-10-27] MEDS: TUBE FEEDING WATER FLUSH NG SCH ×6 (00:28→21:06)
[2022-10-27] MEDS: FIBERSOURCE HN 1.2 CAL 1000 ML BAG GT SCH ×5 (00:29→21:06)
[2022-10-27] MEDS: METOCLOPRAMIDE HCL INJ 5 MG/ML 2 ML VIAL IV SCH ×3 (06:18→21:06)
[2022-10-27 07:41] LABS: Mean Corpuscular Hemoglobin 30.6 pg (25.0-34.0); Mean Corpuscular Hgb Conc 33.3 g/dL (32.0-36.0); Mean Corpuscular Volume 91.8 fL (80.0-100.0); Mean Platelet Volume 10.1 fL (9.4-12.4); Platelet Count 455 K/uL (130-400); Red Blood Count 2.94 M/uL (4.70-6.10); White Blood Count 16.28 K/ul (4.8-10.8)
[2022-10-27] MEDS: SENNOSIDES 8.8 MG/5 ML UDC PEG SCH (08:14)
[2022-10-27] MEDS: APIXABAN 5 MG TABLET PO SCH ×2 (08:14→21:06)
[2022-10-27] MEDS: UREA (UREA-NA) 15 GM PACK PO SCH ×2 (08:15→21:06)
[2022-10-27] MEDS: LANSOPRAZOLE 30 MG SOLTAB PEG SCH (08:15)
[2022-10-27] MEDS: AMIODARONE 200 MG TAB PO SCH ×3 (08:15→17:51)
[2022-10-27] MEDS: MULTI VIT W/MINERALS LIQUID 15 ML UDP PEG SCH (08:15)
[2022-10-27 08:18] LABS: Calcium 8.9 mg/dl (8.5-10.1); Creatinine Clr Calc Pharmacy 94.6 ml/min; Est GFR (African American) 135.6 ml/min; Potassium 4.4 mmol/L (3.5-5.1)
--- NOTE | 2022-10-27 09:24 | Cardiology Progress Note ---
Date of Service October 27, 2022 Assessment & Plan (1) Paroxysmal atrial fibrillation with rapid ventricular response: (2) Metastatic primary lung cancer: Plan Medically complex 62 year old male. Maintaining NSR on Tele over night- HR averaging in the 80-90s. Maintained on Oral amiodarone- will reduce dose to 200 mg TID with meals today. Prior use of IV amodarone caused hypotension- would avoid. Prior metoprolol discontinued. Continue chronic anticoagulation with apixaban Ongoing hyponatremia per primary team. Goal potassium of 4.0 and mag of 2.0- replace as needed. WNL this am. Case discussed with Dr. Singh- will follow. Admission and Anticipated Discharge Date Admission Date: October 19, 2022 Supervising Physician Co-Signing Physician Notes Patient seen and examined once again. Plan as noted reduce amiodarone to 200 mg 3 times daily during hospitalization Reduce to 200 mg twice per day on discharge As noted IV amiodarone has been poorly tolerated Atrial arrhythmias are being driven by underlying medical issues We will sign off contact with question Subjective Patient seen and examined at bedside. Chart and telemetry reviewed. ROS limited due to inability to speak- patient was able to nod yes/no. Denied any acute concerns today. Telemetry: SR 80-90s, no atrial fib. Review of Systems Review of Systems: All systems reviewed & are unremarkable except as noted in HPI & below Limited ROS due to current medical condition. Limited to YES/NO questions. Physical Exam Constitutional: + cachectic; no acute distress Respiratory: normal respiratory effort; no respiratory distress Auscultation: + diminished lung sounds Cardiovascular: Rate/Rhythm: regular rate and regular rhythm Heart Sounds: normal S1 and normal S2 Vessels: no JVD Extremities: no edema Results & Data ([facility]) Vital Signs (Past 12 Hours) Vital Signs Temp Pulse Pulse Resp BP Pulse Ox O2 Del Method 10/27/22 07:30 36.4 C L 95 H 16 97/58 L 97 Room Air 10/27/22 00:00 79 10/27/22 02:52 36.7 C 93 H 16 101/62 96 Room Air 10/26/22 23:00 36.4 C L 87 18 97/60 L 95 Room Air Laboratory Results CBC 10/27/22 Range/Units 05:48 WBC 16.28 H (4.8-10.8) K/ul RBC 2.94 L (4.70-6.10) M/uL Hgb 9.0 L (14.0-18.0) g/dl Hct 27.0 L (42.0-52.0) % Plt Count 455 H (130-400) K/uL Comprehensive Metabolic Panel 10/27/22 Range/Units 05:48 Sodium 130 L (136-145) mmol/L Potassium 4.4 D (3.5-5.1) mmol/L Chloride 93 L (98-107) mmol/L Carbon Dioxide 31 (21-32) mmol/L BUN 23 (6-23) mg/dl Creatinine 0.50 L (0.6-1.4) mg/dl Glucose 85 (70-99(Fasting)) mg/dl Calcium 8.9 (8.5-10.1) mg/dl Intake and Output 10/26/22 10/27/22 10/27/22 22:59 06:59 14:59 Intake Total 115 / 1455 115 / 1455 Output Total 2651 / 4001 600 / 4001 Balance -2536 / -2546 -485 / -2546 Intake: IV 115 / 1455 115 / 1455 Piperacillin/Tazobactam 3.375 115 / 345 115 / 345 gm In Dextrose 5% 100 ml @ 28. 75 mls/hr IV Q8H [facility] Rx#: [id number] Output: Urine Amount (Catheter) 2650 / 4000 600 / 4000 External 2650 / 4000 600 / 4000 # Bowel Movements Other: Other Intake Source NPO NPO Weight 43.1 kg 43.1 kg Weight Measurement Method Built in [facility]
--- NOTE | 2022-10-27 11:38 | Hospitalist Progress Note ---
Date of Service October 27, 2022 Assessment & Plan (1) Severe sepsis: (2) Hypoxia: (3) Lactic acidosis: (4) Metastatic primary lung cancer: (5) COPD (chronic obstructive pulmonary disease): (6) Dysphagia, oropharyngeal: (7) Severe protein-calorie malnutrition: (8) S/P percutaneous endoscopic gastrostomy (PEG) tube placement: Plan: (9) Hyponatremia: Plan 62-year-old male with lung cancer with bone metastasis, recent diagnosis of acute PE on Eliquis, recent diagnosis of dysphagia, status post PEG tube placement 2 weeks ago, COPD, severe protein calorie malnutrition, Presenting with hypotension, hypoxia. Septic Shock Acute respiratory failure with hypoxia secondary to possible gram-negative and/or aspiration pneumonia Lung cancer with bone metastasis COPD Required IV fluids, hydrocortisone IV --CT chest show 1 There is no evidence of pulmonary embolus in the main, lobar, or segmental pulmonary arteries. 2.Multifocal tree-in-bud consolidation throughout both lungs is new from previous. This is greatest at the left lung base and is likely infectious/inflammatory. 3. Advanced emphysema. 4. Numerous pulmonary lesions are similar to previous and consistent with multifocal neoplasm. 5. There is evidence of multifocal osseous metastatic disease with pathologic fractures of the left posterolateral 7th and 10th ribs. 6. Metastatic disease is seen in the upper abdomen within the liver, spleen, and adrenal glands. 7. Metastatic right hilar and mediastinal lymphadenopathy is unchanged. 8. Trace pleural effusions Hypoxia resolved, weaned off BiPAP and oxygen supplement Blood cultures: Negative Completed course of IV hydrocortisone Repeat chest x-ray:Interval worsening of airspace opacities in the right compatible with infection Remains on room air, afebrile, but with persistent leukocytosis (improving) Possible recurrent aspiration? Was switched from cefepime to Zosyn IV. Still on doxycycline Will complete 10 days of antibiotics tomorrow night Aspiration precautions Bowel regimen Dysphagia, status post PEG tube placement Severe protein calorie malnutrition GI evaluation noted Nutrition eval noted On bolus feeding 300cc q6h with FWF 100cc q4h Atrial fibrillation RVR, new diagnosis Already on Eliquis for recent diagnosis of acute PE Echo reviewed Card on board Continue lopressor 12.5 q6h PEG Already on anticoag for recent PE Cardiology reduced po amio to 200mg TID. History of acute pulmonary embolism Diagnosed last month Continue Eliquis Anemia, Acute s/p 1 unit pRBC ordered No signs of active bleeding Hg stable since transfusion Hyponatremia Multifactorial, including hypovolemia Nephrology service on board helping with management DVT PPx: - teds, scds, Eliquis CODE: Full code Dispo: Lives at home with his Palliative evaluation noted Plan to dc patient in 48h after completion of antibiotics called and updated Admission and Anticipated Discharge Date Admission Date: October 19, 2022 Subjective Patient seen and examined No new complaints today. Speaks in very low volumes Reports cough, productive Denied chest pain or shortness of breath Denied nausea, vomiting, abd pain Denied fever, chills Denied depression, SI Walked with PT today Physical Exam Constitutional: + ill appearing (chronic), + well hydrated and + cachectic; no acute distress Eyes: PERRL, conjunctivae normal, anicteric sclerae ENMT: external ear and nose normal, oropharynx normal Respiratory: normal respiratory effort; no respiratory distress diminished breath sounds Cardiovascular: Rate/Rhythm: regular rate and regular rhythm S1 S2 Gastrointestinal (Abdomen): normal bowel sounds, soft, nontender, no hepatosplenomegaly PEG feeding ongoing Musculoskeletal: No pedal edema Neurologic: PERRL, EOMI, accommodation nl, no face palsy, no dysarthria Results & Data Results & Data ([facility]) Vital Signs (Past 12 Hours) Vital Signs Temp Pulse Pulse Resp BP Pulse Ox O2 Del Method 10/27/22 11:21 36.6 C 97 H 16 97/60 L 96 Room Air 10/27/22 08:00 Room Air 10/27/22 08:00 85 10/27/22 07:30 36.4 C L 95 H 16 97/58 L 97 Room Air 10/27/22 00:00 79 10/27/22 02:52 36.7 C 93 H 16 101/62 96 Room Air Laboratory Results Abnormal lab results 10/27/22 10/27/22 Range/Units 05:48 05:48 WBC 16.28 H (4.8-10.8) K/ul RBC 2.94 L (4.70-6.10) M/uL Hgb 9.0 L (14.0-18.0) g/dl Hct 27.0 L (42.0-52.0) % RDW Std Deviation 47.0 H (36.4-46.3) fL Plt Count 455 H (130-400) K/uL Sodium 130 L (136-145) mmol/L Chloride 93 L (98-107) mmol/L Creatinine 0.50 L (0.6-1.4) mg/dl BUN/Creatinine Ratio 46.0 H (10-20)
[2022-10-27] MEDS ORDERED: ACETAMINOPHEN 1,000 MG/100 ML VIAL IV STA (21:15)
[2022-10-27] MEDS ORDERED: KETOROLAC TROMETHAMINE 15 MG/ML VIAL IV ONE (22:36)
--- NOTE | 2022-10-27 22:47 | Electrocardiogram Report ---
Test Reason : Blood Pressure : / mmHG Vent. Rate : 090 BPM Atrial Rate : 090 BPM P-R Int : 134 ms QRS Dur : 094 ms QT Int : 374 ms P-R-T Axes : 074 066 075 degrees QTc Int : 457 ms Normal sinus rhythm Possible Left atrial enlargement Borderline ECG When compared with ECG of 26-OCT-2022 08:53, Premature atrial complexes are no longer Present Confirmed by Morris Cabello [id number]) on 10/27/2022 10:47:18 PM Referred By: REFERRED SELF Confirmed By:Fredo Cabello
[2022-10-27] MEDS ORDERED: KETOROLAC TROMETHAMINE 15 MG/ML VIAL ONE (23:09)
[2022-10-28] MEDS: TUBE FEEDING WATER FLUSH NG SCH ×6 (00:08→21:17)
[2022-10-28] MEDS ORDERED: oxyCODONE HCL IR 5 MG TAB (IMMEDIATE RELEASE) PO STA (00:09)
[2022-10-28] MEDS: FIBERSOURCE HN 1.2 CAL 1000 ML BAG GT SCH ×4 (04:25→22:25)
[2022-10-28] MEDS: PIPERACILLIN/TAZOBACTAM 3.375 GM CI (over 4 hrs) IV SCH ×3 (06:02→22:09)
[2022-10-28] MEDS: METOCLOPRAMIDE HCL INJ 5 MG/ML 2 ML VIAL IV SCH ×3 (06:02→21:15)
[2022-10-28 06:31] LABS: Hematocrit (blood only) 25.8 % (42.0-52.0); Hemoglobin 8.7 g/dl (14.0-18.0); Mean Corpuscular Hemoglobin 30.4 pg (25.0-34.0); Mean Corpuscular Hgb Conc 33.7 g/dL (32.0-36.0); Mean Corpuscular Volume 90.2 fL (80.0-100.0); Mean Platelet Volume 9.8 fL (9.4-12.4); Platelet Count 492 K/uL (130-400); RDW Coefficient of Variation 13.9 % (11.5-14.5); RDW Standard Deviation 46.1 fL (36.4-46.3); Red Blood Count 2.86 M/uL (4.70-6.10); White Blood Count 18.67 K/ul (4.8-10.8)
[2022-10-28 06:46] LABS: Calcium 8.9 mg/dl (8.5-10.1); Creatinine Clr Calc Pharmacy 78.8 ml/min; Est GFR (African American) 125.8 ml/min; Est GFR (Non-African American) 108.5 ml/min; Phosphorus 4.2 mg/dl (2.5-4.9); Potassium 3.8 mmol/L (3.5-5.1)
[2022-10-28] MEDS: SENNOSIDES 8.8 MG/5 ML UDC PEG SCH (09:09)
[2022-10-28] MEDS: AMIODARONE 200 MG TAB PO SCH ×3 (09:09→17:13)
[2022-10-28] MEDS: LANSOPRAZOLE 30 MG SOLTAB PEG SCH (09:09)
[2022-10-28] MEDS: MULTI VIT W/MINERALS LIQUID 15 ML UDP PEG SCH (09:10)
[2022-10-28] MEDS: UREA (UREA-NA) 15 GM PACK PO SCH ×2 (09:10→21:20)
[2022-10-28] MEDS: APIXABAN 5 MG TABLET PO SCH ×2 (10:15→21:20)
--- NOTE | 2022-10-28 10:44 | Hospitalist Progress Note ---
Date of Service October 28, 2022 Assessment & Plan (1) Severe sepsis: (2) Hypoxia: (3) Lactic acidosis: (4) Metastatic primary lung cancer: (5) COPD (chronic obstructive pulmonary disease): (6) Dysphagia, oropharyngeal: (7) Severe protein-calorie malnutrition: (8) S/P percutaneous endoscopic gastrostomy (PEG) tube placement: Plan: (9) Hyponatremia: Plan 62-year-old male with lung cancer with bone metastasis, recent diagnosis of acute PE on Eliquis, recent diagnosis of dysphagia, status post PEG tube placement 2 weeks ago, COPD, severe protein calorie malnutrition, Presenting with hypotension, hypoxia. Septic Shock Acute respiratory failure with hypoxia secondary to possible gram-negative and/or aspiration pneumonia Lung cancer with bone metastasis COPD Required IV fluids, hydrocortisone IV --CT chest show 1 There is no evidence of pulmonary embolus in the main, lobar, or segmental pulmonary arteries. 2.Multifocal tree-in-bud consolidation throughout both lungs is new from previous. This is greatest at the left lung base and is likely infectious/inflammatory. 3. Advanced emphysema. 4. Numerous pulmonary lesions are similar to previous and consistent with multifocal neoplasm. 5. There is evidence of multifocal osseous metastatic disease with pathologic fractures of the left posterolateral 7th and 10th ribs. 6. Metastatic disease is seen in the upper abdomen within the liver, spleen, and adrenal glands. 7. Metastatic right hilar and mediastinal lymphadenopathy is unchanged. 8. Trace pleural effusions Hypoxia resolved, weaned off BiPAP and oxygen supplement Blood cultures: Negative Completed course of IV hydrocortisone Repeat chest x-ray:Interval worsening of airspace opacities in the right compatible with infection Remains on room air, afebrile, but with persistent leukocytosis (improving) Possible recurrent aspiration? Was switched from cefepime to Zosyn IV. Will complete antibiotics tonight Aspiration precautions Bowel regimen Dysphagia, status post PEG tube placement Severe protein calorie malnutrition GI evaluation noted Nutrition eval noted On bolus feeding 300cc q6h with FWF 100cc q4h Based on my previous discussions with patient and , bolus feeding is preferable as being on continuous feeding may further impact his mobility Hence we have been doing bolus feeding her though over prolonged time (300ml given over 3h q6h) Called and updated her. When we discussed how she has been doing feeding at home, she was not very clear on this. will bring her bolus feeding items tomorrow so she can explain how she has been doing that and see what modifications may work for the patient prior to p ossible dc Atrial fibrillation RVR, new diagnosis Already on Eliquis for recent diagnosis of acute PE Echo reviewed Card on board Continue lopressor 12.5 q6h PEG Already on anticoag for recent PE Cardiology reduced po amio to 200mg TID. Plan to dc on po amio 200mg BID History of acute pulmonary embolism Diagnosed last month Continue Eliquis Anemia, Acute s/p 1 unit pRBC ordered No signs of active bleeding Hg stable since transfusion Hyponatremia Multifactorial, including hypovolemia Nephrology service on board helping with management DVT PPx: - teds, scds, Eliquis CODE: Full code Dispo: Lives at home with his Palliative evaluation noted Plan to dc patient tomorrow Admission and Anticipated Discharge Date Admission Date: October 19, 2022 Subjective Patient seen and examined No new complaints today. Reports cough Denied chest pain or shortness of breath Denied nausea, vomiting, abd pain Denied fever, chills Denied depression Physical Exam Constitutional: + ill appearing (chronic), + well hydrated and + cachectic; no acute distress Eyes: PERRL, conjunctivae normal, anicteric sclerae ENMT: external ear and nose normal, oropharynx normal Respiratory: normal respiratory effort; no respiratory distress diminished breath sounds Cardiovascular: Rate/Rhythm: regular rate and regular rhythm S1 S2 Gastrointestinal (Abdomen): normal bowel sounds, soft, nontender, no hepatosplenomegaly Musculoskeletal: No pedal edema Neurologic: PERRL, EOMI, accommodation nl, no face palsy, no dysarthria Results & Data Results & Data ([facility]) Vital Signs (Past 12 Hours) Vital Signs Temp Pulse Pulse Resp BP BP Pulse Ox 10/28/22 09:59 10/28/22 07:48 83 10/28/22 07:28 36.4 C L 81 16 107/65 99 10/28/22 02:39 36.4 C L 73 18 100/85 97 10/27/22 22:58 36.3 C L 88 17 95/58 L 96 O2 Del Method 10/28/22 09:59 Room Air 10/28/22 07:48 10/28/22 07:28 Room Air 10/28/22 02:39 Room Air 10/27/22 22:58 Room Air Laboratory Results Abnormal lab results 10/28/22 10/28/22 Range/Units 06:02 06:02 WBC 18.67 H (4.8-10.8) K/ul RBC 2.86 L (4.70-6.10) M/uL Hgb 8.7 L (14.0-18.0) g/dl Hct 25.8 L (42.0-52.0) % Plt Count 492 H (130-400) K/uL Sodium 129 L (136-145) mmol/L Chloride 93 L (98-107) mmol/L BUN 36 H (6-23) mg/dl BUN/Creatinine Ratio 60.0 H (10-20) Glucose 129 H (70-99(Fasting)) mg/dl
--- NOTE | 2022-10-28 11:30 | Electrocardiogram Report ---
Test Reason : Blood Pressure : / mmHG Vent. Rate : 082 BPM Atrial Rate : 082 BPM P-R Int : 142 ms QRS Dur : 098 ms QT Int : 422 ms P-R-T Axes : 076 063 074 degrees QTc Int : 493 ms Normal sinus rhythm Possible Left atrial enlargement Nonspecific T wave abnormality Prolonged QT Abnormal ECG When compared with ECG of 27-OCT-2022 05:56, QT has prolonged Confirmed by Geovany Varner ([id number]) on 10/28/2022 11:29:59 AM Referred By: REFERRED SELF Confirmed By:Geovany Varner
--- NOTE | 2022-10-28 15:30 | Communication Note ---
Date of Service: October 28, 2022 Care reviewed w/ Dr Martino. Nephrology has been following peripherally for several days and no issues needing our intervention in this timeframe. Will sign off; pls call if concerns.
[2022-10-28] MEDS: ACETAMINOPHEN SUSP 325 MG/10.15 ML UDC PEG PRN (17:51)
[2022-10-28] MEDS ORDERED: MoRPHine SULFATE 2 MG/ML CARP IV STA (19:23)
[2022-10-28] MEDS: MELATONIN 3 MG TAB PO PRN (21:20)
[2022-10-29] MEDS: TUBE FEEDING WATER FLUSH NG SCH ×5 (00:11→16:36)
[2022-10-29] MEDS: ACETAMINOPHEN SUSP 325 MG/10.15 ML UDC PEG PRN (01:21)
[2022-10-29] MEDS: FIBERSOURCE HN 1.2 CAL 1000 ML BAG GT SCH ×3 (04:45→16:37)
[2022-10-29] MEDS: METOCLOPRAMIDE HCL INJ 5 MG/ML 2 ML VIAL IV SCH ×2 (06:18→14:30)
[2022-10-29 06:47] LABS: Hematocrit (blood only) 26.9 % (42.0-52.0); Hemoglobin 9.1 g/dl (14.0-18.0); Mean Corpuscular Hemoglobin 30.2 pg (25.0-34.0); Mean Corpuscular Hgb Conc 33.8 g/dL (32.0-36.0); Mean Corpuscular Volume 89.4 fL (80.0-100.0); Mean Platelet Volume 9.8 fL (9.4-12.4); Platelet Count 606 K/uL (130-400); RDW Coefficient of Variation 14.1 % (11.5-14.5); RDW Standard Deviation 45.6 fL (36.4-46.3); Red Blood Count 3.01 M/uL (4.70-6.10); White Blood Count 21.12 K/ul (4.8-10.8)
[2022-10-29 07:04] LABS: BUN Creatinine Ratio 71.7 (10-20); Calcium 8.9 mg/dl (8.5-10.1); Est GFR (African American) 140.3 ml/min; Magnesium 2.1 mg/dl (1.7-2.4); Phosphorus 3.6 mg/dl (2.5-4.9); Potassium 4.2 mmol/L (3.5-5.1)
[2022-10-29] MEDS: AMIODARONE 200 MG TAB PO SCH ×3 (08:46→16:41)
[2022-10-29] MEDS: LANSOPRAZOLE 30 MG SOLTAB PEG SCH (08:47)
[2022-10-29] MEDS: MULTI VIT W/MINERALS LIQUID 15 ML UDP PEG SCH (08:47)
[2022-10-29] MEDS: SENNOSIDES 8.8 MG/5 ML UDC PEG SCH (08:48)
[2022-10-29] MEDS: UREA (UREA-NA) 15 GM PACK PO SCH (08:48)
[2022-10-29] MEDS: APIXABAN 5 MG TABLET PO SCH (08:48)
[2022-10-29] MEDS: HEPARIN 100 UNIT/ML 5ML FLUSH FLUSH PRN ×2 (09:56→16:37)
--- NOTE | 2022-10-29 15:44 | Discharge Summary ---
Discharge Summary Date of Service October 29, 2022 Notes For Next Care Provider Follow up care at home Continuing goals of care Monitor BMP. Can stop sodium tabs once sodium is at/above 135 Medication Changes From Visit Started on amiodarone 200mg BID Multivitamin changed to solution Admission HPI Per Admitting Provider This is a 62-year-old male with PMHx of stage IV lung cancer with mets to bone, history of recent PE, mild COPD, ischemic stroke, dysphagia with recent PEG placement done on 10/06/2022. He presents today for worsening illness to the ER. Patient was seen in the cancer center earlier today for routine labwork. He has been following with Dr. Lewis. There his blood pressure was found to be hypotensive with systolic in the 60s, he was tachycardic, with O2 sats in mid 80s and was sent via ambulance from the [facility] center to the ER. Here O2 sats = 87% on a 15 L nonrebreather mask, RR = 25-28 during my visit, he appears comfortable but anxious. He is able to answer some of my questions however cannot support a history as he is confused somewhat. He has been doing fine since having PEG tube placed on 10/06 per , Yancy, and she has been giving him [employer] cans 4 times per day with water flushes after each PEG tube use. He does not take any food orally. She denies any complaints of fevers, chills or sweats, or abdominal complaints. She has noticed that he has had a cough, producing some foamy mucus at times within the past 24 hours. Only this morning did he complain of shortness of breath upon entering the cancer [place] after walking in from the parking lot. He typically does not wear any O2 at baseline. She notes that he was recently started on a salt tablet which he has taken 2 or 3 doses of at home this week. Pt cannot recall when his last chemotherapy session was, but they are currently on a hold period until his body has "time to get stronger since having the feeding tube placed". Here breath sounds are coarse per the ER, procalcitonin is 18, lactic acid is 2.1, WBC is 28.66, sodium of 118. Admission Exam Per Admitting Provider General: awake, alert, appears anxious, severely cachectic, BMI of 16.3 Head: Normocephalic, atraumatic ENT: PERRL, EOMI, no pharyngeal exudate, mucous membranes moist Chest: Mediport accessed in left chest wall, on 15 L via nonrebreather mask, respiratory rate 25-30, + breathing retractions, diminished breath sounds in the left side throughout, minimal breath sounds on the right side, no wheezes, no rales. Cardiac: Sinus tach with heart rate in the 110s, no murmur, no JVD, normal peripheral pulses, good capillary refill Abdominal: NABS x 4 quadrants, soft, PEG tube site in RUQ, no surrounding erythema, nondistended, nontender to palpation, no rebound or guarding Extremities: + Muscular atrophy, no peripheral edema or erythema, calfs nontender to palpation Psych: Normal mood and affect Neuro: AA oriented to self, otherwise confused, strength intact bilaterally and rated 5/5, no motor deficits, speech is somewhat garbled due to dry mouth, no peripheral sensory deficits Principal Dx & Hospital Course #1 = Principal Diagnosis (1) Severe sepsis: (2) Hypoxia: (3) Lactic acidosis: (4) Metastatic primary lung cancer: (5) COPD (chronic obstructive pulmonary disease): (6) Dysphagia, oropharyngeal: (7) Severe protein-calorie malnutrition: (8) S/P percutaneous endoscopic gastrostomy (PEG) tube placement: (9) Hyponatremia: Plan 62-year-old male with lung cancer with bone metastasis, recent diagnosis of acute PE on Eliquis, recent diagnosis of dysphagia, status post PEG tube placement 2 weeks ago, COPD, severe protein calorie malnutrition, Presenting with hypotension, hypoxia. Septic Shock Acute respiratory failure with hypoxia secondary to possible gram-negative and/or aspiration pneumonia Lung cancer with bone metastasis COPD Required IV fluids, hydrocortisone IV --CT chest showed 1 There is no evidence of pulmonary embolus in the main, lobar, or segmental pulmonary arteries. 2.Multifocal tree-in-bud consolidation throughout both lungs is new from previous. This is greatest at the left lung base and is likely infectious/inflammatory. 3. Advanced emphysema. 4. Numerous pulmonary lesions are similar to previous and consistent with multifocal neoplasm. 5. There is evidence of multifocal osseous metastatic disease with pathologic fractures of the left posterolateral 7th and 10th ribs. 6. Metastatic disease is seen in the upper abdomen within the liver, spleen, and adrenal glands. 7. Metastatic right hilar and mediastinal lymphadenopathy is unchanged. 8. Trace pleural effusions Hypoxia resolved, weaned off BiPAP and oxygen supplement Blood cultures: Negative Received course of IV hydrocortisone Remains on room air, afebrile, but with persistent leukocytosis (improving) Completed 10 day antibiotic course Aspiration precautions Dysphagia, status post PEG tube placement Severe protein calorie malnutrition GI evaluated while inpatient Nutrition evaluated as well Was on bolus feeding 300cc (over 3h period) q6h with FWF 100cc q4h Patient and did not want continuous feeding or use of pump. We were able to create a schedule for them that will have patient get 300cc of tubefeed bolus split in 2 sessions of 150cc each with one hour interval. He is to do this 4 times a day RN created a schedule for patient and with times for feeding/flushes Atrial fibrillation RVR, new diagnosis Had episodes of Afib w/RVR Did not tolerate IV amio due to hypotension. But tolerated amio via PEG Already on Eliquis for recent diagnosis of acute PE Echo reviewed Was comanaged with Florist Manager while inpatient Continue lopressor 12.5 q6h PEG Already on anticoag for recent PE Discharged on PEG amio 200mg BID per Cardiology. May follow up outpatient History of acute pulmonary embolism Diagnosed last month Continue Eliquis Anemia, Acute s/p 1 unit pRBC ordered No signs of active bleeding Hg stable since transfusion Hyponatremia Multifactorial, including hypovolemia Nephrology was on board Patient to continue home sodium tabs. PCP to monitor sodium and can stop sodium tabs once serum sodium is above 135 Discharge Exam Constitutional + ill appearing (chronic), + well hydrated and + cachectic; no acute distress Eyes PERRL, conjunctivae normal, anicteric sclerae ENMT external ear and nose normal, oropharynx normal Respiratory normal respiratory effort; no respiratory distress diminished breath sounds Cardiovascular Rate/Rhythm: regular rate and regular rhythm S1 S2 Gastrointestinal (Abdomen) normal bowel sounds, soft, nontender, no hepatosplenomegaly Musculoskeletal No pedal edema Neurologic PERRL, EOMI, accommodation nl, no face palsy, no dysarthria Psychiatric AOx3 Updated Medication List Medication Instructions Recorded Confirmed Type acetaminophen 500 mg tablet 1,000 mg feeding tube TID PRN Pain 10/10/22 10/19/22 Rx (Tylenol Extra Strength) #20 tabs apixaban 5 mg tablet (Eliquis) 5 mg feeding tube BID 30 days #60 10/10/22 10/19/22 Rx tabs folic acid 1 mg tablet 1 mg feeding tube UD #10 tabs 10/10/22 10/19/22 Rx lansoprazole 30 mg delayed 30 mg PO DAILY 30 days #30 tabs 10/10/22 10/19/22 Rx release,disintegrating tablet (Prevacid SoluTab) ondansetron HCl 8 mg tablet 8 mg feeding tube Q8 PRN Nausea 10/10/22 10/19/22 Rx #10 tabs oxycodone 5 mg tablet 5 mg feeding tube Q4H PRN pain #10 10/10/22 10/19/22 Rx tabs sodium chloride 1,000 mg soluble 1,000 mg PO BID 10/19/22 10/19/22 History tablet amiodarone 200 mg tablet 200 mg PO BID #60 tabs 10/29/22 Rx multivit and minerals-ferrous 15 ml PEG QAM #236 mL 10/29/22 Rx gluconate 9 mg iron/15 mL oral liquid (Centrum) sennosides 8.8 mg/5 mL oral syrup 8.8 mg (5 mL) PEG QAM #120 mL 10/29/22 Rx (senna) Hospital Stay Data Consultations 10/19/22 12:55 ED Decision to Admit Stat 10/19/22 14:04 Consult Finishing Department Supervisor Routine 10/20/22 12:32 Consult Nephrology Routine 10/24/22 04:35 Consult Cardiology Routine 10/24/22 12:41 Consult Gastroenterology Routine 10/26/22 16:20 Consult Palliative Care Routine Diagnostic Imagining Performed 10/19/22 14:04 CT Abd and Pelvis [CT abd pelvis IV con only] Stat CT angio chest PE protocol Stat Pending Results Patient Have Any Pending Studies at Discharge: No Discharge Instructions Given to Patient (Per Discharging Provider) Mr Barrios. You came to the hospital with worsening shortness of breath and some confusion. You were managed for the above listed diagnoses. You are being discharged home with home health services. You are to continue tube feeding as instructed. This may be adjusted per nutrition requirements. Please ensure you undertake aspiration precautions as discussed You were started on amiodarone 200mg twice a day for heart rate control Please follow up with your Primary Doctor and Oncologist. It was a pleasure taking care of you. Total Time Total Time Spent Total Time Spent (In Minutes): 65 Total Time Includes: Examination of the Patient, Discharge Planning, Medication Reconciliation and Communication With Other Providers
--- NOTE | 2022-10-30 11:29 | Electrocardiogram Report ---
Test Reason : Blood Pressure : / mmHG Vent. Rate : 089 BPM Atrial Rate : 089 BPM P-R Int : 140 ms QRS Dur : 094 ms QT Int : 390 ms P-R-T Axes : 076 059 076 degrees QTc Int : 474 ms Poor data quality, interpretation may be adversely affected Normal sinus rhythm Possible Left atrial enlargement Borderline ECG When compared with ECG of 28-OCT-2022 06:07, No significant change was found Confirmed by Morris Huffman ([id number]) on 10/30/2022 11:28:59 AM Referred By: REFERRED SELF Confirmed By:Fredo Huffman
== END 2022-10-29 17:28 | disposition home health service (06) | DRG 871 ==
LOC: ED 10:56 → SUATTDRO 14:04 → 1E 14:04 → 2S 10-25 16:03